=== PATIENT | male | born 1960 | race Caucasian/White ===

== ENCOUNTER 2016-07-21 13:35 | Outpatient (RCR) | payer BC ==
--- OUTSIDE RECORDS SUMMARY | 2016-04-28 09:35 | XMS REPORT | Continuity of Care Document ---
Author Author [facility] Organization [facility] Address Unknown Phone Unavailable Care Team Providers Care Automotive Service Professional Name Role Phone Tani Keenan PCP [phone] Source Comments Some departments are not documenting in the electronic medical record. If you do not see the information that you expected, contact Release of Information in the Health Information Management department at [phone] for further assistance in locating additional records.[facility] Active Allergies and Adverse Reactions No Known Allergies Current Medications Prescription Sig. Disp. Refills Start End Date Status Date potassium chloride SR Take 1 Tab by mouth daily 90 Cap 3 06/08/20 Active (K-DUR) 20 mEq tablet with breakfast. 12 cycloSPORINE (NEORAL) 25 Take by mouth twice Active mg cap daily. Take 75mg at noon and 50mg in the evening. metoprolol (LOPRESSOR) 25 Take 1 Tab by mouth twice 180 Tab 3 Active mg tablet daily. [address] Take 40 mg by mouth every Active (PROTONIX) 40 mg tablet 12 hours. albuterol (VENTOLIN HFA, Inhale 2 Puffs by mouth 3 Inhaler 11 Active PROAIR HFA) 90 every 6 hours as needed 14 mcg/actuation inhaler for Wheezing. acetaminophen (TYLENOL) Take 500 mg by mouth Active 500 mg tablet every 6 hours as needed for Pain. levalbuterol (XOPENEX) Inhale 0.63 mg solution Active 0.31 mg/3 mL nebulizer as directed three times solution daily as needed for Wheezing. predniSONE (DELTASONE) 5 Take 5 mg by mouth daily. Active mg tablet cefdinir (OMNICEF) 300 mg Take 300 mg by mouth Active capsule every 12 hours. umeclidinium-vilanterol Inhale 1 Puff by mouth 1 Each 11 03/24/20 Active (ANORO ELLIPTA) 62.5-25 into the lungs daily. 16 mcg/actuation dsdv enalapril (VASOTEC) 10 mg Take 10 mg by mouth twice Active tablet daily. rifAMPin (RIFADINE) 300 Take 1 Cap by mouth twice 60 Cap 11 04/09/20 Active mg capsule daily. Take on an empty 16 stomach at least 1 hour before or 2 hours after food. ethambutol (MYAMBUTOL) Take 2.5 Tabs by mouth 60 Tab 11 04/09/20 Active 400 mg tablet daily. [address] Take 1 Tab by mouth twice 60 Tab 11 04/10/20 Active (MYFORTIC) 360 mg TbEC daily. 16 tablet allopurinol (ZYLOPRIM) Take 1 Tab by mouth 90 Tab 3 04/10/20 Active 100 mg tablet daily. Take with food. 16 azithromycin (ZITHROMAX) TAKE 1 TABLET BY MOUTH 30 Tab 3 04/23/20 Active 250 mg tablet DAILY 16 allopurinol (ZYLOPRIM) Take 100 mg by mouth 04/07/20 Discontin 100 mg tablet daily. [address] TAKE 1 TABLET DAILY 30 Tab 11 04/07/20 04/07/20 Discontin (MYFORTIC) 180 mg TbEC 15 16 ued tablet azithromycin (ZITHROMAX) Take 1 tab by mouth 30 Tab 0 02/25/2004/18 Discontin 250 mg tablet daily. 16 16 ued ethambutol (MYAMBUTOL) Take 2 Tabs by mouth 60 Tab 11 02/25/2004/09 Discontin 100 mg tablet daily. Take with two 400 16 16 ued mg tablets for a total of 1000 mg daily. ethambutol (MYAMBUTOL) Take 2 Tabs by mouth 60 Tab 11 02/25/2004/09 Discontin 400 mg tablet daily. Take with two 100 16 16 ued mg tablets for a total of 1000 mg daily. azaTHIOprine (IMURAN) 50 Take 1.5 Tabs by mouth 90 Tab 3 04/07/20 Discontin mg tablet daily. 16 16 ued azithromycin (ZITHROMAX) Take 250 mg by mouth 04/23/20 Discontin 250 mg tablet daily. Take 2 tabs by 16 ued mouth on day 1, followed by 1 tab by mouth daily on days 2 - 5. mycophenolate DR Take 360 mg by mouth 04/10/20 Discontin (MYFORTIC) 360 mg TbEC twice daily. 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 Monitor Hospital-acquired pneumonia 08/20/2015 Acute tubular necrosis ([facility]) 08/20/2015 Adrenal insufficiency ([facility]) 04/30/2015 Hypomagnesemia 04/30/2015 Hyperuricemia 04/30/2015 Vitamin D deficiency 04/30/2015 Chronic lung disease 04/30/2015 Immunosuppression ([facility]) 04/30/2015 Pulmonary emphysema ([facility]) 07/12/2012 Chronic hypoxemic respiratory failure ([facility]) 05/24/2012 GRZEGORZ (acute kidney injury) ([facility]) 05/24/2012 History of renal transplant 05/23/2012 Overview: Tsp Synopsis: cadaveric kidney tsp 08-24-1991 from 15 yo female donor; CMV neg donor, donor positive. IGF with mild rejection 1st wk; SoluMed x 3. Disch creatinine 1.1 on 3-11. PRA 3%. Weight 130 lbs; height 68 in 05-23-12 tramsfer from [facility] where he presented for continued gradual generalized weakness associated with dry cough and diarrhea x 2-3 wks. Events started with initiation of Chantix to help stop smoking. One watery large volume stool daily; no GI bleeding by hx. Cough nonproductive accompanied by dyspnea on moderate exertion. Outside records: cratinine 3.6, Na 126, Ca 6.2, WBC 14.1, ALT 209, alk phos 209. CXR right midlung consolidation with central areas of lucency and possible cavitation. Pneumonia and rhabdomyolysis with GRZEGORZ. Worsening respiratory failure transferred to MICU. Thoracentesis 800 cc; broad spectrum antibiotic therapy. Single culture positive for acid fast bacilli from lung. Working dx SEMAJ due to chronic lung disease. Gradual improvement in renal dysfunction and breathing. 07-12-12: readmitted for worsening right lung infiltrate/consolidation/cavitation and increasing sputum production. Creatinine back to baseline 1.6 mg/dl. CXR perssitent RUL infiltrates with development of mild volume loss in RUL; resolutin of previous right basilar infiltrates. Sputum culture positive for acid fact bacilli and streptococcus with neg blood cultures. ID recommended 2 wk course Ertapenam; deferred treatment of SEMAJ. Previous sirolimus for lip cancer switched to cellcept 250 mg daily. Started on daily Prednisone for AM cortisol of 3.7 mcg/dl on 07-28-12. Resolved Problems Problem Noted Date Resolved Date Encounter for eye exam due to high risk medication 09/17/2015 04/11/2016 Last Assessment & Plan: Normal baseline exam today, no pertinent ocular findings Monitor for change Hyperkalemia 08/20/2015 04/11/2016 Severe sepsis (HCC) 08/12/2015 04/11/2016 Pneumonia 07/12/2012 04/11/2016 Sepsis(995.91) 05/24/2012 04/11/2016 Transaminasemia 05/24/2012 04/11/2016 Diarrhea 05/23/2012 04/11/2016 HTN (hypertension) 05/23/2012 03/10/2016 Most Recent Encounters Date Type Specialty Providers Description 04/22/2016 Telephone Transplant Surgery Christoph Ojeda RN s/p Kidney Transplant 04/18/2016 Refill Infectious Diseases Jigar Christian MD 04/15/2016 Orders Only Transplant Surgery Christoph Ojeda RN Proteinuria (Primary Dx); Kidney transplanted 04/10/2016 Telephone Transplant Surgery Fartun Parker LPN Medication Dose Change 04/10/2016 Refill Transplant Surgery Fartun Parker LPN 04/10/2016 Orders Only Transplant Surgery Fartun Parker LPN 04/09/2016 Office Visit Infectious Diseases Jigar Christian MD SEMAJ (mycobacterium avium-intracellulare) (HCC) (Primary Dx) 04/09/2016 Hospital Mari Braun APRN Kidney transplant status Encounter 04/09/2016 Office Visit Transplant Surgery Lianne Hughes MD Kidney replaced by Demetrius Villegas MD transplant (Primary Dx); Encounter for long-term (current) use of high-risk medication 04/09/2016 Documentation Transplant Surgery Mari Braun APRN 04/08/2016 Orders Only Transplant Surgery Brit Carrera RN Kidney replaced by transplant (Primary Dx) 04/07/2016 Telephone Transplant Surgery Katelyn Chris RN Medication Question 04/07/2016 Documentation Transplant Surgery Mari Braun APRN Immunosuppression (HCC) (Primary Dx) 03/28/2016 Orders Only Pulmonology Kip Godoy MD 03/24/2016 Office Visit Pulmonology Kip Godoy MD Chronic hypoxemic respiratory failure (HCC) (Primary Dx); Centrilobular emphysema (HCC); Cavitary lung disease; SEMAJ (mycobacterium avium-intracellulare) (HCC) 03/24/2016 Office Visit Infectious Diseases Jigar Christian MD Chronic hypoxemic respiratory failure (HCC) (Primary Dx); History of renal transplant; SEMAJ (mycobacterium avium-intracellulare) (HCC); Hospital-acquired pneumonia 03/18/2016 Telephone Infectious Diseases Jigar Christian MD Outpatient Antibiotic Therapy ([facility]) 03/12/2016 Telephone Transplant Surgery Katelyn Chris RN Follow-up Phone Call 03/11/2016 Telephone Transplant Surgery Fartun Parker LPN Follow- up Phone Call 03/10/2016 [facility] Mari Braun APRN Kidney transplant status Encounter 03/10/2016 [facility] Radiology Jigar Christian MD Encounter 03/10/2016 [facility] Jigar Christian MD Pulmonary mycobacterial Encounter infection 03/10/2016 Office Visit Infectious Diseases Jigar Christian MD Mycobacterium avium-intracellulare infection (HCC) (Primary Dx); Chills; Leukocytosis, unspecified type 03/10/2016 Office Visit Transplant Surgery Lianne Hughes MD Encounter for long-term Mari Braun APRN (current) use of high-risk medication (Primary Dx); Kidney transplanted; SEMAJ (mycobacterium avium-intracellulare) (HCC); Immunosuppression (HCC); History of renal transplant; Adrenal insufficiency (HCC); Hypomagnesemia; Cavitary lung disease 03/10/2016 [facility] Mari Braun APRN 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) Encounter drug therapy 02/29/2016 Telephone Transplant Surgery Katelyn Chris RN Follow-up Phone Call 02/26/2016 Orders Only Transplant Surgery Mari Braun APRN SEMAJ ( mycobacterium avium-intracellulare) (HCC) (Primary Dx) 02/26/2016 Documentation Transplant Surgery Mari Braun APRN 02/26/2016 Orders Only Infectious Diseases Jigar Christian MD 02/25/2016 Refill Infectious Diseases Jigar Christian MD 02/06/2016 Hospital Jigar Christian MD Pulmonary mycobacterial Encounter infection 02/06/2016 Office Visit Infectious Diseases Jigar Christian MD SEMAJ (mycobacterium avium-intracellulare) (HCC) (Primary Dx); Long-term use of high-risk medication Social History Tobacco Use Types Packs/Day Years Used Date Former Smoker Cigarettes 07 28 Quit: 05/01/2012 Smokeless Tobacco: Never Used Tobacco Cessation: Counseling Given: No Comments: Alcohol Use Drinks/Week oz/Week Comments No Last Filed Vital Signs Vital Sign Reading Time Taken Blood Pressure 124/66 04/09/2016 11:01 AM CDT Pulse 88 04/09/2016 11:01 AM CDT Temperature 36.4 C (97.5 F) 04/09/2016 11:01 AM CDT Respiratory Rate 20 04/09/2016 11:01 AM CDT Height 1.765 m (5' 9.5") 04/09/2016 11:01 AM CDT Weight 70.67 kg (155 lb 12.8 oz) 04/09/2016 11:01 AM CDT Body Mass Index 22.69 04/09/2016 11:01 AM CDT Oxygen Saturation 98% 04/09/2016 10:00 AM CDT Plan of Care Date Type Specialty Providers Description 05/28/2016 Appointment Transplant Surgery 05/28/2016 Appointment Infectious Diseases Jigar Christian MD [address] [facility] [address] [place] [address] [phone] (Fax) Health Maintenance Due Date Last Done Comments Physical (Comprehensive) 1965 Exam Pertussis Vaccine 1969 Tetanus Vaccine 1975 Colorectal Cancer 2008 Screening Influenza Vaccine 02/28/2016 Hepatitis C Screening Completed 05/24/2012 Results from Last 3 Months UA REFLEX CULTURE LABEL (04/09/2016 9:54 AM) Component Value Range UA Reflex Culture LAB LABEL URINALYSIS MICROSCOPIC REFLEX TO CULTURE (04/09/2016 9:54 AM)Only the most recent of 2 results within the time period is included. Component Value Range WBCs,UA 0-2 0-2 /HPF RBCs,UA 0-2 0-3 /HPF Comment,UA Urine submitted for reflex culture if criteria are met:WBC>10, positive nitrite and/or positive leukocyte esterase. If quantity is not sufficient, an addendum will follow. MucousUA TRACE Specimen Urine URINALYSIS DIPSTICK REFLEX TO CULTURE (04/09/2016 9:54 AM)Only the most recent of 2 results within the time period is included. Component Value Range Color,UA YELLOW Turbidity,UA CLEAR CLEAR-CLEAR Specific [place]-Urine 1.010 1.003-1.035 pH,UA 6.0 5.0-8.0 Protein,UA 2+ (A) NEG-NEG Glucose,UA NEG NEG-NEG Ketones,UA NEG NEG-NEG Bilirubin,UA NEG NEG-NEG Blood,UA 1+ (A) NEG-NEG Urobilinogen,UA NORMAL NORM-NORMAL Nitrite,UA NEG NEG-NEG Leukocytes,UA NEG NEG-NEG Urine Ascorbic Acid, UA NEG NEG-NEG Specimen Urine CYCLOSPORINE TROUGH (04/09/2016 9:53 AM)Only the most recent of 4 results within the time period is included. Component Value Range Cyclosporine 63 NG/ML Specimen Blood URIC ACID (04/09/2016 9:53 AM)Only the most recent of 2 results within the time period is included. Component Value Range Uric Acid 9.6 (H) 4.0-8.0 MG/DL Specimen Blood PHOSPHORUS (04/09/2016 9:53 AM)Only the most recent of 3 results within the time period is included. Component Value Range Phosphorus 4.8 (H) 2.0-4.0 MG/DL Specimen Blood MAGNESIUM (04/09/2016 9:53 AM)Only the most recent of 3 results within the time period is included. Component Value Range Magnesium 1.5 (L) 1.6-2.6 MG/DL Specimen Blood GGTP (04/09/2016 9:53 AM)Only the most recent of 3 results within the time period is included. Component Value Range GGTP 34 9-64 U/L Specimen Blood CREATINE KINASE-CPK (04/09/2016 9:53 AM)Only the most recent of 2 results within the time period is included. Component Value Range Creatine Kinase 37 35-232 U/L Specimen Blood COMPREHENSIVE METABOLIC PANEL (04/09/2016 9:53 AM)Only the most recent of 4 results within the time period is included. Component Value Range Sodium 134 (L) 137-147 MMOL/L Potassium 5.0 3.5-5.1 MMOL/L Chloride 101 98-110 MMOL/L Glucose 96 70-100 MG/DL Blood Urea Nitrogen 28 (H) 7-25 MG/DL Creatinine 2.13 (H) 0.4-1.24 MG/DL Calcium 10.2 8.5-10.6 MG/DL Total Protein 8.1 (H) 6.0-8.0 G/DL Total Bilirubin 0.3 0.3-1.2 MG/DL Albumin 3.6 3.5-5.0 G/DL Alk Phosphatase 91 25-110 U/L AST (SGOT) 11 7-40 U/L CO2 26 21-30 MMOL/L ALT (SGPT) 17 7-56 U/L Anion Gap 7 3-12 eGFR Non 32 (L)Comment: >60 mL/min The eGFR is not validated for use in drug dosing adjustments. Continue to use estimated creatinine clearance per dosing reference text. Please contact the Clinical Pharmacist for questions. eGFR 39 (L)Comment: >60 mL/min The eGFR is not validated for use in drug dosing adjustments. Continue to use estimated creatinine clearance per dosing reference text. Please contact the Clinical Pharmacist for questions. Specimen Blood CHOLESTEROL (04/09/2016 9:53 AM)Only the most recent of 2 results within the time period is included. Component Value Range Cholesterol 198 <200 MG/DL Specimen Blood CBC AND DIFF (04/09/2016 9:53 AM)Only the most recent of 4 results within the time period is included. Component Value Range White Blood Cells 9.5 4.5-11.0 K/UL RBC 3.80 (L) 4.4-5.5 M/UL Hemoglobin 9.7 (L) 13.5-16.5 GM/DL Hematocrit 30.8 (L) 40-50 % MCV 81.1 80-100 FL MCH 25.5 (L) 26-34 PG MCHC 31.4 (L) 32.0-36.0 G/DL RDW 16.9 (H) 11-15 % Platelet Count 369 150-400 K/UL MPV 7.8 7-11 FL Neutrophils 73 41-77 % Lymphocytes 14 (L) 24-44 % Monocytes 9 4-12 % Eosinophils 3 0-5 % Basophils 1 0-2 % Absolute Neutrophil Count 6.90 1.8-7.0 K/UL Absolute Lymph Count 1.30 1.0-4.8 K/UL Absolute Monocyte Count 0.90 (H) 0-0.80 K/UL Absolute Eosinophil Count 0.30 0-0.45 K/UL Absolute Basophil Count 0.10 0-0.20 K/UL Specimen Blood THIOPURINE METHYLTRANSFERASE RBC (04/09/2016 9:53 AM)Only the most recent of 2 results within the time period is included. Component Value Range Thiopurine S-Methyl 40.2Comment: (TPMT) Reference range: 24.0 to 44.0 Unit: U/mL INTERPRETIVE INFORMATION: Thiopurine Methyltransferase, RBC Normal TPMT activity: 24.0-44.0 U/mL................Individuals are predicted to be at low risk of bone marrow toxicity (myelosuppression) as a consequence of standard thiopurine therapy; no dose adjustment is recommended. Intermediate TPMT activity: 17.0-23.9 U/mL................Individuals are predicted to be at intermediate risk of bone marrow toxicity (myelosuppression) as a consequence of standard thiopurine therapy; a dose reduction and therapeutic drug management is recommended. Low TPMT activity: less than 17.0 U/mL...........Individuals are predicted to be at high risk of bone marrow toxicity (myelosuppression) as a consequence of standard thiopurine dosing. It is recommended to avoid the use of thiopurine drugs. High TPMT activity: greater than 44.0 U/mL........Individuals are not predicted to be at risk for bone marrow toxicity (myelosuppression) as a consequence of standard thiopurine dosing, but may be at risk for therapeutic failure due to excessive inactivation of thiopurine drugs. Individuals may require higher than the normal standard dose. Therapeutic drug management is recommended. The TPMT, RBC assay is used as a screen to detect individuals with low and intermediate TPMT activity who may be at risk for myelosuppression when exposed to standard doses of thiopurines, including azathioprine (Imuran) and 6-mercaptopurine (Purinethol). TPMT is the primary metabolic route for inactivation of thiopurine drugs in the bone marrow. When TPMT activity is low, it is predicted that proportionately more 6-mercaptopurine can be converted into the cytotoxic 6-thioguanine nucleotides that accumulate in the bone marrow causing excessive toxicity. The activity of TPMT is measured by the nanomoles of 6-methylmercaptopurine (inactive metabolite) produced per 1 mL of packed red blood cells, (U/mL). TPMT phenotype testing does not replace the need for clinical monitoring of patients treated with thiopurine drugs. Genotype for TPMT cannot be inferred from TPMT activity (phenotype). Phenotype testing should not be requested for patients currently treated with thiopurine drugs. Current TPMT phenotype may not reflect future TPMT phenotype, particularly in patients who received blood transfusion within 30-60 days of testing. TPMT enzyme activity can be inhibited by several drugs such as: naproxen (Aleve), ibuprofen (Advil, Motrin), ketoprofen (Orudis), furosemide (Lasix), sulfasalazine (Azulfidine), mesalamine (Asacol), olsalazine (Dipentum), mefenamic acid (Ponstel), thiazide diuretics, and benzoic acid inhibitors. TPMT inhibitors may contribute to falsely low results; patients should abstain from these drugs for at least 48 hours prior to TPMT testing. Falsely low results may also occur as a result of inappropriate specimen handling and hemolysis. Test developed and characteristics determined by [facility]. See Compliance Statement B: [email or web address] Performed by [facility], [address] [place] [id number] [email or web address], Gilmar Key MD, Lab. Director Specimen Blood ECG 12-LEAD (03/24/2016)CULTURE-BLOOD W/SENSITIVITY (03/10/2016 3:20 PM)Only the most recent of 2 results within the time period is included. Component Value Range Battery Name BLOOD CULTURE Specimen Description BLOOD LAC Special Requests NONE Culture NO GROWTH 5 DAYS Report Status FINAL 03/16/2016 Specimen Blood LACTIC ACID(LACTATE) (03/10/2016 3:03 PM) Component Value Range Lactic Acid 1.0 0.5-2.0 MMOL/L Specimen Blood CHEST 2 VIEWS (03/10/2016 2:41 PM) Impressions Redemonstration of significant emphysematous changes and scattered areas of scarring. Interval development of opacification within the right upper and lower lobe, concerning for focal pneumonia. Approved by Christopher Landry M.D. on 03/10/2016 4:28 PM By my electronic signature, I attest that I have personally reviewed the images for this examination and formulated the interpretations and opinions expressed in this report Finalized by Omi Blank M.D. on 03/10/2016 4:38 PM. Dictated by Christopher Landry M.D. on 03/10/2016 4:05 PM. Narrative CHEST 2 VIEWS History:Male, 55 years old.Chills, sweats and cough, MAC cavitary disease. Comparison: December 24, 2015 Findings: Heart size and pulmonary vasculature are within normal limits. Redemonstration of significant emphysematous changes and scattered areas of scarring. There is been interval development of a right upper lobe and right lower lobe consolidation, concerning for focal pneumonia. No pneumothoraces or pleural effusions are identified. Procedure Note Interface, Radiant Results - ThuMar 10, 2016 4:42 PM CDT CHEST 2 VIEWS History: Male, 55 years old. Chills, sweats and cough, MAC cavitary disease. Comparison: December 24, 2015 Findings: Heart size and pulmonary vasculature are within normal limits. Redemonstration of significant emphysematous changes and scattered areas of scarring. There is been interval development of a right upper lobe and right lower lobe consolidation, concerning for focal pneumonia. No pneumothoraces or pleural effusions are identified. IMPRESSION Redemonstration of significant emphysematous changes and scattered areas of scarring. Interval development of opacification within the right upper and lower lobe, concerning for focal pneumonia. Approved by Christopher Landry M.D. on 03/10/2016 4:28 PM By my electronic signature, I attest that I have personally reviewed the images for this examination and formulated the interpretations and opinions expressed in this report Finalized by Omi Blank M.D. on 03/10/2016 4:38 PM. Dictated by Christopher Landry M.D. on 03/10/2016 4:05 PM. RVP VIRAL PANEL PCR (03/10/2016 2:05 PM) Component Value Range Specimen Source NASAL WASH Adenovirus NOT DETECTED Coronavirus 229E NOT DETECTED Coronavirus HKU1 NOT DETECTED Coronavirus NL63 NOT DETECTED Coronavirus OC43 NOT DETECTED Human Metapneumovirus NOT DETECTED Human NOT DETECTED Rhinovirus/ENTEROVIRUS Influenza A H1N1 2009 NOT DETECTED Influenza A H1 NOT DETECTED Influenza A H3 NOT DETECTED Influenza B NOT DETECTED Parainfluenza 1 NOT DETECTED Parainfluenza 2 NOT DETECTED Parainfluenza 3 NOT DETECTED Parainfluenza 4 NOT DETECTED RSV NOT DETECTED Bordetella Pertussis NOT DETECTED Chlamydophila Pneumoniae NOT DETECTED Mycoplasma Pneumoniae NOT DETECTED URINALYSIS DIPSTICK (03/10/2016 11:03 AM) Component Value Range Color,UA YELLOW Turbidity,UA CLEAR CLEAR-CLEAR Specific [place]-Urine 1.014 1.003-1.035 pH,UA 5.0 5.0-8.0 Protein,UA 2+ (A) NEG-NEG Glucose,UA NEG NEG-NEG Ketones,UA NEG NEG-NEG Bilirubin,UA NEG NEG-NEG Blood,UA 1+ (A) NEG-NEG Urobilinogen,UA NORMAL NORM-NORMAL Nitrite,UA NEG NEG-NEG Leukocytes,UA NEG NEG-NEG Urine Ascorbic Acid, UA NEG NEG-NEG Specimen Urine PROTEIN/CR RATIO,UR RAN (03/10/2016 11:03 AM) Component Value Range Protein, Random 148 MG/DL Creatinine, Random 169 MG/DL Protein/CR ratio 0.9 Specimen Urine CMV QUANT PCR-BLOOD (03/10/2016 11:03 AM) Component Value Range CMV DNA Quant PCR Negative for CMV CMV Comment-Blood This assay uses analyte specific reagents to detect CMV DNA in plasma or fluid. It has not been cleared or approved by the [place] Food and Drug Administration. The performance characteristics were determined by the [facility]. Results should be correlated with clinical findings. Specimen Blood BK VIRUS DNA, QUANT PLASMA (03/10/2016 11:03 AM) Component Value Range BK Virus Plasma Quant Negative for BK Virus BK Virus Plasma Comment This assay uses analyte specific reagents to detect BK viral DNA in plasma or urine and has not been approved by the [place] Food and Drug Administration. Results should be correlated with the clinical findings. The performance characteristics were established by the [facility] Laboratory, Dept of Pathology, [address] [place] [address]. Call [phone] for assistance. Specimen Blood [place] ELECTROCARDIOGRAM, COMPLETE (02/06/2016)
[2016-04-28 09:54] LABS: BASOPHILS # (AUTO) 0.1 10^3/uL (0.0-0.1); BASOPHILS % (AUTO) 1 % (0-10); EOSINOPHILS # (AUTO) 0.6 10^3/uL (0.0-0.3); EOSINOPHILS % (AUTO) 9 % (0-10); LYMPHOCYTES # (AUTO) 0.8 X 10^3 (1.0-4.0); LYMPHOCYTES % (AUTO) 13 % (12-44); MEAN CORPUSCULAR HEMOGLOBIN 26 PG (25-34); MEAN CORPUSCULAR HGB CONC 31 G/DL (32-36); MEAN CORPUSCULAR VOLUME 86 FL (80-99); MEAN PLATELET VOLUME 9.5 FL (7.4-10.4); MONOCYTES # (AUTO) 0.7 X 10^3 (0.0-1.0); MONOCYTES % (AUTO) 11 % (0-12); NEUTROPHILS # (AUTO) 4.1 X 10^3 (1.8-7.8); NEUTROPHILS % (AUTO) 66 % (42-75); PLATELET COUNT 407 10^3/uL (130-400); RED BLOOD COUNT 3.31 10^6/uL (4.35-5.85); RED CELL DISTRIBUTION WIDTH 15.7 % (10.0-14.5); WHITE BLOOD COUNT 6.2 10^3/uL (4.3-11.0)
[2016-04-28 10:09] LABS: BILIRUBIN,URINE NEGATIVE (NEGATIVE); KETONES,URINE NEGATIVE (NEGATIVE); LEUKOCYTE ESTERASE ,URINE NEGATIVE (NEGATIVE); NITRITE,URINE NEGATIVE (NEGATIVE); PH,URINE 5 (5-9); PROTEIN,URINE 2+ (NEGATIVE); UROBILINOGEN,URINE NORMAL (NORMAL)
[2016-04-28 10:17] LABS: ALBUMIN 3.7 G/DL (3.2-4.5); BILIRUBIN,TOTAL 0.2 MG/DL (0.1-1.0); CALCIUM 10.5 MG/DL (8.5-10.1); CREATININE SERUM 4.18 MG/DL (0.60-1.30); MAGNESIUM 1.7 MG/DL (1.8-2.4); PHOSPHORUS 5.7 MG/DL (2.3-4.7); POTASSIUM 5.6 MMOL/L (3.6-5.0); TOTAL PROTEIN 8.2 G/DL (6.4-8.2); URIC ACID 8.5 MG/DL (2.6-7.2)
[2016-04-28 10:20] LABS: WBC,URINE RARE /HPF
[2016-04-29 07:04] LABS: GAMMA GLUTAMYL TRANSFER (GGT) 41 U/L (0-65)
[2016-04-29 07:28] LABS: CYCLO TROUGH 52 NG/ML
[2016-05-05 09:40] LABS: BASOPHILS % (AUTO) 0 % (0-10); EOSINOPHILS # (AUTO) 0.3 10^3/uL (0.0-0.3); EOSINOPHILS % (AUTO) 4 % (0-10); LYMPHOCYTES # (AUTO) 0.8 X 10^3 (1.0-4.0); LYMPHOCYTES % (AUTO) 13 % (12-44); MEAN CORPUSCULAR HEMOGLOBIN 27 PG (25-34); MEAN CORPUSCULAR HGB CONC 31 G/DL (32-36); MEAN CORPUSCULAR VOLUME 87 FL (80-99); MEAN PLATELET VOLUME 9.5 FL (7.4-10.4); MONOCYTES # (AUTO) 0.5 X 10^3 (0.0-1.0); MONOCYTES % (AUTO) 7 % (0-12); NEUTROPHILS # (AUTO) 4.6 X 10^3 (1.8-7.8); NEUTROPHILS % (AUTO) 75 % (42-75); PLATELET COUNT 333 10^3/uL (130-400); RED BLOOD COUNT 3.42 10^6/uL (4.35-5.85); RED CELL DISTRIBUTION WIDTH 15.7 % (10.0-14.5); WHITE BLOOD COUNT 6.1 10^3/uL (4.3-11.0)
[2016-05-05 09:50] LABS: BILIRUBIN,URINE NEGATIVE (NEGATIVE); KETONES,URINE NEGATIVE (NEGATIVE); LEUKOCYTE ESTERASE ,URINE 1+ (NEGATIVE); NITRITE,URINE NEGATIVE (NEGATIVE); PH,URINE 5 (5-9); PROTEIN,URINE 2+ (NEGATIVE); UROBILINOGEN,URINE NORMAL (NORMAL)
[2016-05-05 10:00] LABS: HYALINE CASTS, URINE 0-2 /LPF; WBC,URINE RARE /HPF
[2016-05-05 10:01] LABS: ALBUMIN 3.7 G/DL (3.2-4.5); BILIRUBIN,TOTAL 0.2 MG/DL (0.1-1.0); CALCIUM 10.2 MG/DL (8.5-10.1); CREATININE SERUM 2.82 MG/DL (0.60-1.30); MAGNESIUM 1.7 MG/DL (1.8-2.4); PHOSPHORUS 4.5 MG/DL (2.3-4.7); POTASSIUM 5.4 MMOL/L (3.6-5.0); TOTAL PROTEIN 8.1 G/DL (6.4-8.2); URIC ACID 7.1 MG/DL (2.6-7.2)
[2016-05-06 07:30] LABS: CYCLO TROUGH 59 ng/mL; GAMMA GLUTAMYL TRANSFER (GGT) 35 U/L (0-65)
[2016-05-13 10:58] LABS: BASOPHILS % (AUTO) 0 % (0-10); EOSINOPHILS # (AUTO) 0.3 10^3/uL (0.0-0.3); EOSINOPHILS % (AUTO) 3 % (0-10); LYMPHOCYTES # (AUTO) 1.1 X 10^3 (1.0-4.0); LYMPHOCYTES % (AUTO) 12 % (12-44); MEAN CORPUSCULAR HEMOGLOBIN 26 PG (25-34); MEAN CORPUSCULAR HGB CONC 30 G/DL (32-36); MEAN CORPUSCULAR VOLUME 88 FL (80-99); MONOCYTES # (AUTO) 0.8 X 10^3 (0.0-1.0); MONOCYTES % (AUTO) 10 % (0-12); NEUTROPHILS # (AUTO) 6.4 X 10^3 (1.8-7.8); NEUTROPHILS % (AUTO) 74 % (42-75); PLATELET COUNT 330 10^3/uL (130-400); RED CELL DISTRIBUTION WIDTH 15.5 % (10.0-14.5); WHITE BLOOD COUNT 8.6 10^3/uL (4.3-11.0)
[2016-05-13 11:03] LABS: BILIRUBIN,URINE NEGATIVE (NEGATIVE); KETONES,URINE NEGATIVE (NEGATIVE); LEUKOCYTE ESTERASE ,URINE 1+ (NEGATIVE); NITRITE,URINE NEGATIVE (NEGATIVE); PH,URINE 5 (5-9); PROTEIN,URINE 2+ (NEGATIVE); UROBILINOGEN,URINE NORMAL (NORMAL)
[2016-05-13 11:21] LABS: ALANINE AMINOTRANSFERASE < 6 U/L (0-55); ALBUMIN 3.7 G/DL (3.2-4.5); ANION GAP 8 MMOL/L (5-14); ASPARTATE AMINO TRANSFERASE 8 U/L (5-34); BILIRUBIN,TOTAL 0.2 MG/DL (0.1-1.0); BLOOD UREA NITROGEN 24 MG/DL (7-18); BUN/CREATININE RATIO 13; CALCIUM 9.9 MG/DL (8.5-10.1); CARBON DIOXIDE 21 MMOL/L (21-32); CHLORIDE 104 MMOL/L (98-107); CHOLESTEROL 170 MG/DL (< 200); CREATINE KINASE 17 U/L (30-200); CREATININE SERUM 1.87 MG/DL (0.60-1.30); GFR ESTIMATED 37; GLUCOSE 120 MG/DL (70-105); MAGNESIUM 1.3 MG/DL (1.8-2.4); POTASSIUM 4.4 MMOL/L (3.6-5.0); SODIUM 133 MMOL/L (135-145); TOTAL PROTEIN 7.8 G/DL (6.4-8.2); URIC ACID 7.6 MG/DL (2.6-7.2)
[2016-05-13 11:24] LABS: SQUAMOUS EPITHELIAL CELL,UR RARE /HPF; WBC,URINE 0-2 /HPF
[2016-05-13 11:25] LABS: WHITE BLOOD CELL CASTS, URINE RARE /LPF
[2016-05-14 07:59] LABS: CYCLO TROUGH 72 ng/mL; GAMMA GLUTAMYL TRANSFER (GGT) 25 U/L (0-65)
[2016-05-19 11:04] LABS: BASOPHILS % (AUTO) 0 % (0-10); EOSINOPHILS # (AUTO) 0.3 10^3/uL (0.0-0.3); EOSINOPHILS % (AUTO) 3 % (0-10); LYMPHOCYTES # (AUTO) 0.9 X 10^3 (1.0-4.0); LYMPHOCYTES % (AUTO) 9 % (12-44); MEAN CORPUSCULAR HEMOGLOBIN 26 PG (25-34); MEAN CORPUSCULAR HGB CONC 29 G/DL (32-36); MEAN CORPUSCULAR VOLUME 91 FL (80-99); MEAN PLATELET VOLUME 9.3 FL (7.4-10.4); MONOCYTES # (AUTO) 0.9 X 10^3 (0.0-1.0); MONOCYTES % (AUTO) 8 % (0-12); NEUTROPHILS # (AUTO) 8.4 X 10^3 (1.8-7.8); NEUTROPHILS % (AUTO) 80 % (42-75); PLATELET COUNT 350 10^3/uL (130-400); RED BLOOD COUNT 3.33 10^6/uL (4.35-5.85); RED CELL DISTRIBUTION WIDTH 16.1 % (10.0-14.5); WHITE BLOOD COUNT 10.5 10^3/uL (4.3-11.0)
[2016-05-19 11:04] LABS: BILIRUBIN,URINE NEGATIVE (NEGATIVE); KETONES,URINE NEGATIVE (NEGATIVE); LEUKOCYTE ESTERASE ,URINE NEGATIVE (NEGATIVE); NITRITE,URINE NEGATIVE (NEGATIVE); PH,URINE 5 (5-9); PROTEIN,URINE 2+ (NEGATIVE); UROBILINOGEN,URINE NORMAL (NORMAL)
[2016-05-19 11:25] LABS: ALBUMIN 3.6 G/DL (3.2-4.5); BILIRUBIN,TOTAL 0.2 MG/DL (0.1-1.0); CALCIUM 9.6 MG/DL (8.5-10.1); CREATININE SERUM 1.78 MG/DL (0.60-1.30); MAGNESIUM 1.5 MG/DL (1.8-2.4); POTASSIUM 4.7 MMOL/L (3.6-5.0); TOTAL PROTEIN 7.2 G/DL (6.4-8.2); URIC ACID 7.2 MG/DL (2.6-7.2)
[2016-05-20 08:48] LABS: GAMMA GLUTAMYL TRANSFER (GGT) 23 U/L (0-65)
[2016-05-20 08:49] LABS: CYCLO TROUGH 77 ng/mL
[2016-06-02 12:44] LABS: BASOPHILS % (AUTO) 0 % (0-10); EOSINOPHILS # (AUTO) 0.2 10^3/uL (0.0-0.3); EOSINOPHILS % (AUTO) 3 % (0-10); LYMPHOCYTES # (AUTO) 0.8 X 10^3 (1.0-4.0); LYMPHOCYTES % (AUTO) 10 % (12-44); MEAN CORPUSCULAR HEMOGLOBIN 27 PG (25-34); MEAN CORPUSCULAR HGB CONC 29 G/DL (32-36); MEAN CORPUSCULAR VOLUME 93 FL (80-99); MEAN PLATELET VOLUME 9.4 FL (7.4-10.4); MONOCYTES # (AUTO) 0.7 X 10^3 (0.0-1.0); MONOCYTES % (AUTO) 9 % (0-12); NEUTROPHILS # (AUTO) 6.2 X 10^3 (1.8-7.8); NEUTROPHILS % (AUTO) 78 % (42-75); PLATELET COUNT 264 10^3/uL (130-400); RED BLOOD COUNT 3.27 10^6/uL (4.35-5.85); RED CELL DISTRIBUTION WIDTH 16.8 % (10.0-14.5); WHITE BLOOD COUNT 7.9 10^3/uL (4.3-11.0)
[2016-06-02 12:47] LABS: BILIRUBIN,URINE NEGATIVE (NEGATIVE); KETONES,URINE NEGATIVE (NEGATIVE); LEUKOCYTE ESTERASE ,URINE NEGATIVE (NEGATIVE); NITRITE,URINE NEGATIVE (NEGATIVE); PH,URINE 5 (5-9); PROTEIN,URINE 3+ (NEGATIVE); UROBILINOGEN,URINE NORMAL (NORMAL)
[2016-06-02 13:08] LABS: ALBUMIN 3.5 G/DL (3.2-4.5); BILIRUBIN,TOTAL 0.2 MG/DL (0.1-1.0); CALCIUM 9.4 MG/DL (8.5-10.1); CREATININE SERUM 1.56 MG/DL (0.60-1.30); MAGNESIUM 1.4 MG/DL (1.8-2.4); PHOSPHORUS 3.6 MG/DL (2.3-4.7); POTASSIUM 3.9 MMOL/L (3.6-5.0); TOTAL PROTEIN 6.8 G/DL (6.4-8.2); URIC ACID 7.5 MG/DL (2.6-7.2)
[2016-06-02 13:08] LABS: SQUAMOUS EPITHELIAL CELL,UR 0-2 /HPF; WBC,URINE 0-2 /HPF
[2016-06-03 07:58] LABS: CYCLOSPORINE LEVEL 44 ng/mL; GAMMA GLUTAMYL TRANSFER (GGT) 17 U/L (0-65)
[2016-06-09 12:43] LABS: BASOPHILS % (AUTO) 0 % (0-10); EOSINOPHILS # (AUTO) 0.2 10^3/uL (0.0-0.3); EOSINOPHILS % (AUTO) 3 % (0-10); LYMPHOCYTES # (AUTO) 1.1 X 10^3 (1.0-4.0); LYMPHOCYTES % (AUTO) 14 % (12-44); MEAN CORPUSCULAR HEMOGLOBIN 28 PG (25-34); MEAN CORPUSCULAR HGB CONC 29 G/DL (32-36); MEAN CORPUSCULAR VOLUME 96 FL (80-99); MEAN PLATELET VOLUME 9.5 FL (7.4-10.4); MONOCYTES # (AUTO) 0.7 X 10^3 (0.0-1.0); MONOCYTES % (AUTO) 9 % (0-12); NEUTROPHILS # (AUTO) 5.7 X 10^3 (1.8-7.8); NEUTROPHILS % (AUTO) 73 % (42-75); PLATELET COUNT 279 10^3/uL (130-400); RED BLOOD COUNT 3.35 10^6/uL (4.35-5.85); RED CELL DISTRIBUTION WIDTH 16.3 % (10.0-14.5); WHITE BLOOD COUNT 7.7 10^3/uL (4.3-11.0)
[2016-06-09 12:43] LABS: BILIRUBIN,URINE NEGATIVE (NEGATIVE); KETONES,URINE NEGATIVE (NEGATIVE); LEUKOCYTE ESTERASE ,URINE NEGATIVE (NEGATIVE); NITRITE,URINE NEGATIVE (NEGATIVE); PH,URINE 5 (5-9); PROTEIN,URINE 3+ (NEGATIVE); UROBILINOGEN,URINE NORMAL (NORMAL)
[2016-06-09 13:00] LABS: ALBUMIN 3.6 G/DL (3.2-4.5); BILIRUBIN,TOTAL 0.3 MG/DL (0.1-1.0); CALCIUM 9.5 MG/DL (8.5-10.1); CREATININE SERUM 1.62 MG/DL (0.60-1.30); MAGNESIUM 1.5 MG/DL (1.8-2.4); PHOSPHORUS 2.8 MG/DL (2.3-4.7); POTASSIUM 4.1 MMOL/L (3.6-5.0); TOTAL PROTEIN 6.8 G/DL (6.4-8.2)
[2016-06-10 07:57] LABS: GAMMA GLUTAMYL TRANSFER (GGT) 19 U/L (0-65)
[2016-06-11 06:35] LABS: CYCLOSPORINE LEVEL 69 ng/mL
[2016-06-24 11:00] LABS: BASOPHILS % (AUTO) 0 % (0-10); EOSINOPHILS # (AUTO) 0.2 10^3/uL (0.0-0.3); EOSINOPHILS % (AUTO) 3 % (0-10); LYMPHOCYTES # (AUTO) 1.1 X 10^3 (1.0-4.0); LYMPHOCYTES % (AUTO) 16 % (12-44); MEAN CORPUSCULAR HEMOGLOBIN 27 PG (25-34); MEAN CORPUSCULAR HGB CONC 29 G/DL (32-36); MEAN CORPUSCULAR VOLUME 94 FL (80-99); MEAN PLATELET VOLUME 9.3 FL (7.4-10.4); MONOCYTES # (AUTO) 0.8 X 10^3 (0.0-1.0); MONOCYTES % (AUTO) 11 % (0-12); NEUTROPHILS % (AUTO) 70 % (42-75); PLATELET COUNT 310 10^3/uL (130-400); RED BLOOD COUNT 3.48 10^6/uL (4.35-5.85); RED CELL DISTRIBUTION WIDTH 15.1 % (10.0-14.5); WHITE BLOOD COUNT 7.2 10^3/uL (4.3-11.0)
[2016-06-24 11:01] LABS: BILIRUBIN,URINE NEGATIVE (NEGATIVE); KETONES,URINE NEGATIVE (NEGATIVE); LEUKOCYTE ESTERASE ,URINE NEGATIVE (NEGATIVE); NITRITE,URINE NEGATIVE (NEGATIVE); PH,URINE 5 (5-9); PROTEIN,URINE 3+ (NEGATIVE); UROBILINOGEN,URINE NORMAL (NORMAL)
[2016-06-24 11:25] LABS: ALBUMIN 3.5 G/DL (3.2-4.5); BILIRUBIN,TOTAL 0.2 MG/DL (0.1-1.0); CALCIUM 9.2 MG/DL (8.5-10.1); CREATININE SERUM 1.84 MG/DL (0.60-1.30); MAGNESIUM 1.9 MG/DL (1.8-2.4); PHOSPHORUS 4.1 MG/DL (2.3-4.7); POTASSIUM 4.4 MMOL/L (3.6-5.0); TOTAL PROTEIN 7.1 G/DL (6.4-8.2); URIC ACID 8.2 MG/DL (2.6-7.2)
[2016-06-25 06:17] LABS: GAMMA GLUTAMYL TRANSFER (GGT) 24 U/L (0-65)
[2016-06-25 06:23] LABS: CYCLO TROUGH 125 ng/mL
[2016-06-30 13:47] LABS: BASOPHILS % (AUTO) 0 % (0-10); EOSINOPHILS # (AUTO) 0.3 10^3/uL (0.0-0.3); EOSINOPHILS % (AUTO) 4 % (0-10); LYMPHOCYTES # (AUTO) 1.1 X 10^3 (1.0-4.0); LYMPHOCYTES % (AUTO) 13 % (12-44); MEAN CORPUSCULAR HEMOGLOBIN 28 PG (25-34); MEAN CORPUSCULAR HGB CONC 29 G/DL (32-36); MEAN CORPUSCULAR VOLUME 94 FL (80-99); MEAN PLATELET VOLUME 9.4 FL (7.4-10.4); MONOCYTES # (AUTO) 0.9 X 10^3 (0.0-1.0); MONOCYTES % (AUTO) 11 % (0-12); NEUTROPHILS # (AUTO) 5.8 X 10^3 (1.8-7.8); NEUTROPHILS % (AUTO) 72 % (42-75); PLATELET COUNT 272 10^3/uL (130-400); RED BLOOD COUNT 3.53 10^6/uL (4.35-5.85); RED CELL DISTRIBUTION WIDTH 15.1 % (10.0-14.5)
[2016-06-30 13:49] LABS: BILIRUBIN,URINE NEGATIVE (NEGATIVE); KETONES,URINE NEGATIVE (NEGATIVE); LEUKOCYTE ESTERASE ,URINE NEGATIVE (NEGATIVE); NITRITE,URINE NEGATIVE (NEGATIVE); PH,URINE 5 (5-9); PROTEIN,URINE 3+ (NEGATIVE); UROBILINOGEN,URINE NORMAL (NORMAL)
[2016-06-30 14:01] LABS: HYALINE CASTS, URINE 0-2 /LPF; SQUAMOUS EPITHELIAL CELL,UR RARE /HPF; WBC,URINE RARE /HPF
[2016-06-30 14:07] LABS: ALBUMIN 3.7 G/DL (3.2-4.5); BILIRUBIN,TOTAL 0.3 MG/DL (0.1-1.0); CALCIUM 9.2 MG/DL (8.5-10.1); CREATININE SERUM 2.14 MG/DL (0.60-1.30); MAGNESIUM 1.8 MG/DL (1.8-2.4); POTASSIUM 4.5 MMOL/L (3.6-5.0); TOTAL PROTEIN 7.4 G/DL (6.4-8.2); URIC ACID 8.1 MG/DL (2.6-7.2)
[2016-07-02 07:53] LABS: CYCLO TROUGH 153 ng/mL; GAMMA GLUTAMYL TRANSFER (GGT) 22 U/L (0-65)
[2016-07-08 13:08] LABS: BASOPHILS % (AUTO) 0 % (0-10); EOSINOPHILS # (AUTO) 0.3 10^3/uL (0.0-0.3); EOSINOPHILS % (AUTO) 3 % (0-10); LYMPHOCYTES # (AUTO) 1.4 X 10^3 (1.0-4.0); LYMPHOCYTES % (AUTO) 17 % (12-44); MEAN CORPUSCULAR HEMOGLOBIN 28 PG (25-34); MEAN CORPUSCULAR HGB CONC 29 G/DL (32-36); MEAN CORPUSCULAR VOLUME 96 FL (80-99); MEAN PLATELET VOLUME 9.6 FL (7.4-10.4); MONOCYTES % (AUTO) 13 % (0-12); NEUTROPHILS # (AUTO) 5.4 X 10^3 (1.8-7.8); NEUTROPHILS % (AUTO) 67 % (42-75); PLATELET COUNT 250 10^3/uL (130-400); RED BLOOD COUNT 3.41 10^6/uL (4.35-5.85); RED CELL DISTRIBUTION WIDTH 14.9 % (10.0-14.5); WHITE BLOOD COUNT 8.1 10^3/uL (4.3-11.0)
[2016-07-08 13:08] LABS: BILIRUBIN,URINE NEGATIVE (NEGATIVE); KETONES,URINE NEGATIVE (NEGATIVE); LEUKOCYTE ESTERASE ,URINE NEGATIVE (NEGATIVE); NITRITE,URINE NEGATIVE (NEGATIVE); PH,URINE 5 (5-9); PROTEIN,URINE 4+ (NEGATIVE); UROBILINOGEN,URINE NORMAL (NORMAL)
[2016-07-08 13:23] LABS: SQUAMOUS EPITHELIAL CELL,UR RARE /HPF; WBC,URINE RARE /HPF
[2016-07-08 13:35] LABS: ALBUMIN 3.6 G/DL (3.2-4.5); BILIRUBIN,TOTAL 0.2 MG/DL (0.1-1.0); CALCIUM 9.7 MG/DL (8.5-10.1); CREATININE SERUM 2.16 MG/DL (0.60-1.30); PHOSPHORUS 4.7 MG/DL (2.3-4.7); POTASSIUM 4.8 MMOL/L (3.6-5.0); TOTAL PROTEIN 7.1 G/DL (6.4-8.2); URIC ACID 7.9 MG/DL (2.6-7.2)
[2016-07-08 13:40] LABS: MAGNESIUM 1.7 MG/DL (1.8-2.4)
[2016-07-09 06:30] LABS: GAMMA GLUTAMYL TRANSFER (GGT) 22 U/L (0-65)
[2016-07-09 06:39] LABS: CYCLO TROUGH 194 ng/mL
[2016-07-21 14:03] LABS: BASOPHILS % (AUTO) 0 % (0-10); EOSINOPHILS # (AUTO) 0.3 10^3/uL (0.0-0.3); EOSINOPHILS % (AUTO) 5 % (0-10); LYMPHOCYTES # (AUTO) 1.3 X 10^3 (1.0-4.0); LYMPHOCYTES % (AUTO) 21 % (12-44); MEAN CORPUSCULAR HEMOGLOBIN 28 PG (25-34); MEAN CORPUSCULAR HGB CONC 29 G/DL (32-36); MEAN CORPUSCULAR VOLUME 96 FL (80-99); MEAN PLATELET VOLUME 10.1 FL (7.4-10.4); MONOCYTES # (AUTO) 0.8 X 10^3 (0.0-1.0); MONOCYTES % (AUTO) 13 % (0-12); NEUTROPHILS # (AUTO) 4.1 X 10^3 (1.8-7.8); NEUTROPHILS % (AUTO) 62 % (42-75); PLATELET COUNT 217 10^3/uL (130-400); RED BLOOD COUNT 3.63 10^6/uL (4.35-5.85); RED CELL DISTRIBUTION WIDTH 14.9 % (10.0-14.5); WHITE BLOOD COUNT 6.6 10^3/uL (4.3-11.0)
[2016-07-21 14:10] LABS: BILIRUBIN,URINE NEGATIVE (NEGATIVE); KETONES,URINE NEGATIVE (NEGATIVE); LEUKOCYTE ESTERASE ,URINE NEGATIVE (NEGATIVE); NITRITE,URINE NEGATIVE (NEGATIVE); PH,URINE 6 (5-9); PROTEIN,URINE 4+ (NEGATIVE); UROBILINOGEN,URINE NORMAL (NORMAL)
[2016-07-21 14:16] LABS: HYALINE CASTS, URINE 25-50 /LPF; RED BLOOD CELL CASTS,URINE 0-2 /LPF
[2016-07-21 14:37] LABS: ALBUMIN 3.6 G/DL (3.2-4.5); BILIRUBIN,TOTAL 0.3 MG/DL (0.1-1.0); CALCIUM 9.2 MG/DL (8.5-10.1); CREATININE SERUM 2.12 MG/DL (0.60-1.30); MAGNESIUM 1.8 MG/DL (1.8-2.4); PHOSPHORUS 4.3 MG/DL (2.3-4.7); POTASSIUM 4.4 MMOL/L (3.6-5.0); TOTAL PROTEIN 6.9 G/DL (6.4-8.2); URIC ACID 7.8 MG/DL (2.6-7.2)
[2016-07-22 07:40] LABS: CYCLO TROUGH 104 ng/mL; GAMMA GLUTAMYL TRANSFER (GGT) 24 U/L (0-65)
== END 2016-07-27 | disposition home or self-care (01) ==
LOC: LAB 13:35
PROVIDERS: ATTEND Nurse Practitioner Adult Health
DX: Z94.0 Kidney transplant status (principal); Z79.899 Other long term (current) drug therapy
CPT/HCPCS: 36415; 80053; 80158; 81000; 82465; 82550; 82977; 83735; 84100; 84550; 85025; 87088; 87186

== ENCOUNTER → 2016-07-21 | Outpatient (CLI) | payer BC ==
[~2016-07-21] MED LIST: ACET-461 PO; ACET325T38 PO; ALBU8.5H2 IH; ALLO100T PO; ALLP100T PO; AMLO5TAB2 PO; AZIT250T5 PO; Amlodipine Besylate PO; BUDE6HFA IH; CALC300T4 PO; CEFD300C3 PO; CEPH500C PO; CYCL25CA12 PO; CYCL25CA3 PO; CYCL25CA7 PO; CYCL25CA9 PO; ENAL10TA PO; ENAL2.5T PO; ETHA100T13 PO; ETHA400T29 PO; Fluconazole PO; HCT25T PO; KCL20TCR PO; LEVO500T78 PO; LEVO500T80 PO; Losartan Potassium PO; METO-270 PO; METO-333 PO; MTP50T PO; MYCO180T3 PO; PANT40TA PO; PANT40TA3 PO; PNT40TEC PO; POTA10TA36 PO; POTA20TA15 PO; PRD10T PO; PRED5TAB PO; PRED5TAB46 PO; PROP10TA8 PO; Prednisone PO; RT-ALBUINH INH; SIMV20TA3 PO; TIOT18CA2 IH; TIOT18CA2 INH; [UNRECOGNIZED DRUG - CODE] PO
--- OUTSIDE RECORDS SUMMARY | 2016-07-21 13:35 | XMS REPORT | Continuity of Care Document ---
Author Author [facility] Organization [facility] Address Unknown Phone Unavailable Care Team Providers Care Integrity Director Name Role Phone Tani Keenan PCP [phone] Source Comments Some departments are not documenting in the electronic medical record. If you do not see the information that you expected, contact Release of Information in the Health Information Management department at [phone] for further assistance in locating additional records.[facility] Active Allergies and Adverse Reactions No Known Allergies Current Medications Prescription Sig. Disp. Refills Start End Date Status Date potassium chloride SR Take 1 Tab by mouth daily 90 Cap 3 06/08/20 Active (K-DUR) 20 mEq tablet with breakfast. 12 albuterol (VENTOLIN HFA, Inhale 2 Puffs by mouth 3 Inhaler 11 Active PROAIR HFA) 90 every 6 hours as needed 14 mcg/actuation inhaler for Wheezing. levalbuterol (XOPENEX) Inhale 0.63 mg solution Active 0.31 mg/3 mL nebulizer as directed three times solution daily as needed for Wheezing. predniSONE (DELTASONE) 5 Take 5 mg by mouth daily. Active mg tablet umeclidinium-vilanterol Inhale 1 Puff by mouth 1 Each 11 03/24/20 Active (ANORO ELLIPTA) 62.5-25 into the lungs daily. 16 mcg/actuation dsdv mycophenolate DR Take 1 Tab by mouth twice 60 Tab 11 04/10/20 Active (MYFORTIC) 360 mg TbEC daily. 16 tablet allopurinol (ZYLOPRIM) Take 1 Tab by mouth 90 Tab 3 04/10/20 Active 100 mg tablet daily. Take with food. 16 azithromycin (ZITHROMAX) TAKE 1 TABLET BY MOUTH 30 Tab 3 04/23/20 Active 250 mg tablet DAILY 16 AMIKACIN SULFATE IN 0.9 % 05/13/16. Start Amikacin 05/13/20 Active NACL (AMIKACIN IN 0.9 % Inhaled 250 mg daily via 16 SOD CHLORIDE IV) nebulizer to be mixed in 5ml of 0.9% sodium chloride. ethambutol (MYAMBUTOL) Take 2.5 Tabs by mouth 75 Tab 11 05/16/20 Active 400 mg tablet daily. 16 cycloSPORINE (GENGRAF) 25 Take 100 mg by mouth Active mg cap twice daily. MULTIVITAMIN PO Take 1 Tab by mouth Active daily. pantoprazole DR Take 1 Tab by mouth every 90 Tab 3 07/04/19 Active (PROTONIX) 40 mg tablet 12 hours. 17 metoprolol XL (TOPROL XL) Take 25 mg by mouth twice Active 25 mg extended release daily. tablet metoprolol (LOPRESSOR) 25 Take 1 Tab by mouth twice 180 Tab 3 07/04/19 Discontin mg tablet daily. [address] Take 40 mg by mouth every 07/04/19 Discontin (PROTONIX) 40 mg tablet 12 hours. 17 ued metoprolol tartrate Take 1 Tab by mouth twice 180 Tab 3 07/04/19 Discontin (LOPRESSOR) 25 mg tablet daily. 17 17 ued Active Problems Problem Noted Date Encounter for eye exam due to high risk medication 07/01/2016 Overview: Ethambutol tx for SEMAJ L ast Assessment & Plan: No ocular toxicity noted today, normal ONH appearance Continue to monitor q6 months, sooner if changes in vision. 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[facility]) 09/17/2015 Cavitary lung disease 09/17/2015 Pseudophakia of both eyes 09/17/2015 Last Assessment & Plan: Stable, no PCO, observe Hospital-acquired pneumonia 08/20/2015 Acute tubular necrosis ([facility]) 08/20/2015 Adrenal insufficiency ([facility]) 04/30/2015 Hypomagnesemia 04/30/2015 Hyperuricemia 04/30/2015 Vitamin D deficiency 04/30/2015 Chronic lung disease 04/30/2015 Immunosuppression ([facility]) 04/30/2015 Pulmonary emphysema ([facility]) 07/12/2012 Chronic hypoxemic respiratory failure (HCC) 05/24/2012 GRZEGORZ (acute kidney injury) (HCC) 05/24/2012 History of renal transplant 05/23/2012 Overview: Tsp Synopsis: cadaveric kidney tsp 08[birth year]24[birth year]1991 from 15 yo female donor; CMV neg donor, donor positive. IGF with mild rejection 1st wk; SoluMed x 3. Disch creatinine 1.1 on 311. PRA 3%. Weight 130 lbs; height 68 in 05-23-12 tramsfer from [facility] where he presented for continued gradual generalized [...] Recent Encounters Date Type Specialty Providers Description 07/18/2016 Telephone Transplant Surgery Christoph Ojeda RN Results 07/15/2016 Telephone Transplant Surgery Christoph Ojeda RN Error 07/15/2016 Orders Only Transplant Surgery Mckenna Hidalgo Encounter for long-term (current) use of high-risk medication; Kidney replaced by transplant 07/10/2016 Orders Only Transplant Surgery Mckenna Hidalgo Encounter for long-term (current) use of high-risk medication; Kidney replaced by transplant 07/08/2016 Orders Only Transplant Surgery Mckenna Hidalgo Encounter for long-term (current) use of high-risk medication; Kidney replaced by transplant 07/04/2016 Telephone Transplant Surgery Christoph Ojeda RN Results 07/04/2016 Telephone Transplant Surgery Fartun Parker LPN Medication Management 07/04/2016 Refill Transplant Surgery Fartun Parker LPN 07/02/2016 Orders Only Transplant Surgery Mckenna Hidalgo Encounter for long-term (current) use of high-risk medication; Kidney replaced by transplant 07/01/2016 Office Visit Optometry Alfonso Koehler OD Encounter for eye exam due to high risk medication (Primary Dx); Pseudophakia of both eyes 07/01/2016 Telephone Transplant Surgery Christoph Ojeda RN Results 07/01/2016 Orders Only Transplant Surgery Mckenna Hidalgo Encounter for long-term (current) use of high-risk medication; Kidney replaced by transplant 06/27/2016 Orders Only Transplant Surgery Christoph Ojeda RN Kidney replaced by transplant (Primary Dx); Encounter for long-term (current) use of high-risk medication 06/20/2016 Telephone Transplant Surgery Christoph Ojeda RN s/p Kidney Transplant-Routine Follow-up 06/13/2016 Telephone Transplant Surgery Christoph Ojeda RN Results 06/13/2016 Orders Only Transplant Surgery Mckenna Hidalgo Kidney replaced by transplant; Encounter for long-term (current) use of high-risk medication 06/11/2016 Procedure visit Urology Micheline Bunn MD Microscopic hematuria (Primary Dx) 06/11/2016 Hospital Radiology Micheline Bunn MD Encounter 06/09/2016 Telephone Transplant Surgery Christoph Ojeda RN Results 06/09/2016 Orders Only Transplant Surgery Elijah Loza Kidney replaced by transplant; Encounter for long-term (current) use of high-risk medication 06/06/2016 Orders Only Transplant Surgery Mckenna Hidalgo Kidney replaced by transplant; Encounter for long-term (current) use of high-risk medication 05/28/2016 Office Visit Infectious Diseases Jigar Christian MD SEMAJ (mycobacterium avium-intracellulare) infection (HCC) (Primary Dx) 05/28/2016 [facility] Mari Braun APRN Other prison (current) Encounter drug therapy 05/28/2016 Office Visit Transplant Surgery Lianne Hughes MD History of renal Mari Braun APRN transplant (Primary Dx); Chronic hypoxemic respiratory failure (HCC); Pulmonary emphysema, unspecified emphysema type (HCC); Hypomagnesemia; Hyperuricemia; Chronic lung disease; Immunosuppression (HCC); SEMAJ (mycobacterium avium-intracellulare) (HCC); Cavitary lung disease; Microscopic hematuria 05/28/2016 Telephone Transplant Surgery Christoph Ojeda RN Results 05/27/2016 Orders Only Transplant Surgery Christoph Ojeda RN Encounter for long-term (current) use of high-risk medication (Primary Dx); Kidney replaced by transplant 05/21/2016 [facility] Micheline Bunn MD Other microscopic Encounter hematuria 05/21/2016 Office Visit Urology Micheline Bunn MD Microscopic hematuria (Primary Dx) 05/21/2016 Orders Only Transplant Surgery Mckenna Hidalgo Kidney replaced by transplant; Encounter for long-term (current) use of high-risk medication 05/21/2016 Telephone Transplant Surgery Christoph Ojeda RN Results 05/21/2016 Orders Only Transplant Surgery Christoph Ojeda RN Encounter for long-term (current) use of high-risk medication (Primary Dx); Kidney replaced by transplant 05/16/2016 Orders Only Transplant Surgery Elijah Loza Encounter for long-term (current) use of high-risk medication; Kidney transplanted 05/16/2016 Refill Infectious Diseases Jigar Christian MD 05/16/2016 Telephone Transplant Surgery Christoph Ojeda RN Results 05/16/2016 Orders Only Transplant Surgery Mckenna Hidalgo Encounter for long-term (current) use of high-risk medication; Kidney transplanted 05/13/2016 Telephone Transplant Surgery Christoph Ojeda RN Other 05/12/2016 Outpt. Infectious Diseases Jigar Christian MD Antibiotic Therapy 05/07/2016 Orders Only Transplant Surgery Mckenna Hidalgo Encounter for long-term (current) use of high-risk medication; Kidney transplanted 05/06/2016 Orders Only Transplant Surgery Mckenna Hidalgo Encounter for long-term (current) use of high-risk medication; Kidney transplanted 05/06/2016 Telephone Transplant Surgery Christoph Ojeda RN Post Living Donor Follow-up 05/05/2016 Documentation Transplant Surgery Christoph Ojeda RN 05/02/2016 Telephone Transplant Surgery Christoph Ojeda RN Results 05/02/2016 Telephone Transplant Surgery Christoph Ojeda RN Other 05/01/2016 Outpt. Infectious Diseases Jigar Christian MD Antibiotic Therapy 04/28/2016 Office Visit Pulmonology Kip Godoy MD Chronic hypoxemic respiratory failure (HCC) (Primary Dx); Centrilobular emphysema (HCC); Cavitary lung disease; SEMAJ (mycobacterium avium-intracellulare) (HCC) 04/28/2016 Telephone Transplant Surgery Christoph Ojeda RN s/p Kidney Transplant-Routine Follow-up 04/22/2016 Telephone Transplant Surgery Christoph Ojeda RN s/p Kidney Transplant Social History Tobacco Use Types Packs/Day Years Used Date Former Smoker Cigarettes 1 30 Quit: 05/01/2012 Smokeless Tobacco: Never Used Tobacco Cessation: Counseling Given: No Comments: Alcohol Use Drinks/Week oz/Week Comments No Last Filed Vital Signs Vital Sign Reading Time Taken Blood Pressure 156/75 06/11/2016 3:25 PM [employer] Pulse 99 06/11/2016 3:25 PM [employer] Temperature 36.9 C (98.4 F) 05/28/2016 11:22 AM [employer]ATOR Respiratory Rate 16 05/28/2016 11:22 AM [employer] OPER[employer] Height 1.765 m (5' 9.5") 06/11/2016 3:25 PM [employer]PER[employer] Weight 69.31 kg (152 lb 12.8 oz) 06/11/2016 3:25 PM [employer] OPERATOR Body Mass Index 22.25 06/11/2016 3:25 PM [employer] OPERATOR Oxygen Saturation 99% 05/28/2016 9:59 AM [employer] M[employer] OPERATOR Plan of Care Date Type Specialty Providers Description 07/30/2016 Appointment Transplant Surgery 07/30/2016 Appointment Infectious Diseases El Jigar Carlos MD [address] [place] [address] [phone] (Fax) 08/25/2016 Appointment Pulmonology Kip Godoy MD [address] [place] [address] [phone] (Fax) 10/01/2016 Appointment Ophthalmology Alfonso Koehler, OD [address] [place] [address] [phone] (Fax) Health Maintenance Due Date Last Done Comments Physical (Comprehensive) 1965 Exam Pertussis Vaccine 1969 Tetanus Vaccine 1975 Colorectal Cancer 2008 Screening Influenza Vaccine 02/28/2016 Hepatitis C Screening Completed 05/24/2012 Procedures from Last 3 Months Procedure Name Priority Date/Time Associated Diagnosis Comments IA CYSTOURETHROSCOPY Routine 06/11/2016 Microscopic hematuria Results for this 4:24 PM [employer] procedure are in the results section. Results from Last 3 Months GGTP (07/08/2016 12:56 PM)Only the most recent of 10 results within the time period is included. Component Value Range GGTP 22 0-65 Specimen Blood Narrative Outside Lab Verified by Mckenna Hidalgo on 07/15/2016. CYCLOSPORINE TROUGH (07/08/2016 12:56 PM)Only the most recent of 10 results within the time period is included. Component Value Range Cyclosporine 194 100-400 Specimen Blood Narrative Outside Lab Verified by Mckenna Hidalgo on 07/15/2016. URINALYSIS DIPSTICK REFLEX TO CULTURE (07/08/2016 12:56 PM)Only the most recent of 10 results within the time period is included. Component Value Range Color,UA YELLOW Turbidity,UA CLEAR pH,UA 5 5-9 Specific Oxford-Urine 1.025 Protein,UA 4+ (A) NEGATIVE Glucose,UA NEGATIVE NEGATIVE Blood,UA 4+ (A) Ketones,UA NEGATIVE NEGATIVE Specimen Urine Narrative Outside Lab Verified by Mckenna Hidalgo on 07/10/2016. CBC AND DIFF (07/08/2016 12:56 PM)Only the most recent of 10 results within the time period is included. Component Value Range White Blood Cells 8.1 4.3-11.0 /UL RBC 3.41 (L) 4.35-5.85 uL Hemoglobin 9.5 (L) 13.3-17.7 /DL Hematocrit 33 (L) 40-54 MCV 96 80-99 FL MCH 28 25-34 PG MCHC 29 (L) 32-36 G/DL Platelet Count 250 130-400 UL Neutrophils 67 42-75 % Lymphocytes 17 12-44 % Monocytes 13 (H) 0-12 % Eosinophil 3 0-10 % Basophil 0 Specimen Blood Narrative Outside Lab Verified by Mckenna Hidalgo on 07/10/2016. CHOLESTEROL (07/08/2016 12:50 PM)Only the most recent of 6 results within the time period is included. Component Value Range Cholesterol 215 MG/DL Specimen Blood Narrative Outside Lab Verified by Mckenna Hidalgo on 07/10/2016. MAGNESIUM (07/08/2016 12:50 PM)Only the most recent of 10 results within the time period is included. Component Value Range Magnesium 1.7 (L) Specimen Blood Narrative Outside Lab Verified by Mckenna Hidalgo on 07/10/2016. PHOSPHORUS (07/08/2016 12:50 PM)Only the most recent of 8 results within the time period is included. Component Value Range Phosphorus 4.7 2.3-4.7 Specimen Blood Narrative Outside Lab Verified by Mckenna Hidalgo on 07/10/2016. URIC ACID (07/08/2016 12:50 PM)Only the most recent of 10 results within the time period is included. Component Value Range Uric Acid 7.9 (H) 2.6-7.2 Specimen Blood Narrative Outside Lab Verified by Mckenna Hidalgo on 07/10/2016. COMPREHENSIVE METABOLIC PANEL (07/08/2016 12:50 PM)Only the most recent of 10 results within the time period is included. Component Value Range Sodium 140 135-145 Potassium 4.8 3.6-5.0 Chloride 104 98-107 MMOL/L CO2 28 21-32 MMOL/L Anion Gap 9 5-14 MMOL/L Blood Urea Nitrogen 34 (H) 7-18 MG/DL Creatinine 2.16 (H) 0.60-1.30 Glucose 112 (H) 70-105 Calcium 9.7 5.5-10.1 Total Bilirubin 0.2 0.1-2 Alk Phosphatase 97 40-136 U/L AST (SGOT) 9 5-34 U/L ALT (SGPT) 10 0-55 U/L Total Protein 7.1 6.4-8.2 G/DL Albumin 3.6 3.2-4.6 G/DL Specimen Blood Narrative Outside Lab Verified by Mckenna Hidalgo on 07/10/2016. URINALYSIS MICROSCOPIC REFLEX TO CULTURE (06/30/2016 1:45 PM)Only the most recent of 8 results within the time period is included. Component Value Range RBCs,UA RARE WBCs,UA RARE 17-1401 /HPF Bacteria,UA NEGATIVE /HPF Squamous Epithelial Cells RARE /HPF Specimen Urine Narrative Outside Lab Verified by Elijah Loza on 07/02/2016. CREATINE KINASE-CPK (06/24/2016 10:48 AM)Only the most recent of 6 results within the time period is included. Component Value Range Creatine Kinase 37 30-200 U/L Specimen Blood Narrative Outside Lab Verified by Mckenna Hidalgo on 06/27/2016. CYSTOSCOPY (06/11/2016 4:24 PM) Narrative Micheline Bunn MD 06/11/20164:24 PM Cystoscopy Procedure Note Indications: Diagnosis Pre-operative Diagnosis: Hematuria Post-operative Diagnosis: Hematuria Surgeon: Micheline Bunn MD Assistants: none Anesthesia: Local anesthesia topical 2% lidocaine gel ASA Class: 3 Procedure Details The risks, benefits, complications, treatment options, and expected outcomes were discussed with the patient. The patient concurred with the proposed plan, giving informed consent. Cystoscopy was performed today under local anesthesia, using sterile technique. The patient was placed in the supine position, prepped with Betadine, and draped in the usual sterile fashion. A 14 fr. sheath flexiblecystopanendoscope was used to inspect both the urethra and bladder Findings: Anterior urethra: normal without strictures and without scarring. Prostatic urethra: 2+ Mild prostatic hyperplasia, without bladder neck contracture Bladder: Mild trabeculation, without lesions. Ureteral orifice(s) was/were seen bilateral; as well as transplant ureter on left dome Ureteral orifice(s) bilateral were in the normal location and the transplant ureter was effluxing clear yellow urine Specimens: none Complications:None; patient tolerated the procedure well. Disposition: To home after 30 minute observation. Condition: stable Attending Attestation: I performed the procedure BPH with out obstruction, we reviewed treatment options at this time he is not bothered by his urinary symptoms enough to take daily medications. Recommend U/A in one year he would like to get this done with transplant nephrology We reviewed his Renal US no renal lesions, UCX no growth, cytology negative for high grade UCC. Micheline Bnun MD US RENAL BLADDER LTD (06/11/2016 1:56 PM) Impressions 1.Marked rincon renal atrophy without evidence of solid renal mass. 2.Normal appearance of the right lower quadrant renal transplant without hydronephrosis or solid mass. Approved by Maximiliano Hassan M.D. on 06/11/2016 3:57 PM By my electronic signature, I attest that I have personally reviewed the images for this examination and formulated the interpretations and opinions expressed in this report Finalized by Brit Delacruz M.D. on 06/11/2016 5:03 PM. Dictated by Maximiliano Hassan M.D. on 06/11/2016 1:50 PM. Narrative Renal Ultrasound. Clinical Indication: Renal insufficiency, acute tubular necrosis, rincon kidneys. TECHNIQUE: Multiple real-time grayscale sonographic images and color Doppler images were obtained through the urinary system. Comparison: Prior examinations August 13, 2015 and May 24, 2012. FINDINGS: There is redemonstration of marked bilateral rincon renal atrophy, with the right kidney measuring 5.4 cm in length and the left kidney measuring 7.1 cm in length.Both kidneys demonstrate increased cortical echogenicity and poor cortical medullary differentiation.There is a small simple appearing cyst within the upper pole of the left kidney measuring up to 1.2 cm in diameter without abnormal blood flow. The mildly distended urinary bladder is grossly unremarkable. The right lower quadrant renal transplant is normal in appearance measuring 13.0 cm in length without nephrolithiasis, hydronephrosis, or solid mass. Procedure Note Interface, Radiant Results - ThuJun 11, 2016 5:06 PM [employer] M[employer] OPERATOR Renal Ultrasound. Clinical Indication: Renal insufficiency, acute tubular necrosis, rincon kidneys. TECHNIQUE: Multiple real-time grayscale sonographic images and color Doppler images were obtained through the urinary system. Comparison: Prior examinations August 13, 2015 and May 24, 2012. FINDINGS: There is redemonstration of marked bilateral rincon renal atrophy, with the right kidney measuring 5.4 cm in length and the left kidney measuring 7.1 cm in length. Both kidneys demonstrate increased cortical echogenicity and poor cortical medullary differentiation. There is a small simple appearing cyst within the upper pole of the left kidney measuring up to 1.2 cm in diameter without abnormal blood flow. The mildly distended urinary bladder is grossly unremarkable. The right lower quadrant renal transplant is normal in appearance measuring 13.0 cm in length without nephrolithiasis, hydronephrosis, or solid mass. IMPRESSION 1. Marked rincon renal atrophy without evidence of solid renal mass. 2. Normal appearance of the right lower quadrant renal transplant without hydronephrosis or solid mass. Approved by Maximiliano Hassan M.D. on 06/11/2016 3:57 PM By my electronic signature, I attest that I have personally reviewed the images for this examination and formulated the interpretations and opinions expressed in this report Finalized by Brit Delacruz M.D. on 06/11/2016 5:03 PM. Dictated by Maximiliano Hassan M.D. on 06/11/2016 1:50 PM. CULTURE-TB (AFB) (05/28/2016 12:39 PM) Component Value Range Battery Name AFB CULTURE Specimen Description SPUTUM Special Requests NONE Acid Fast Stain NO ACID FAST BACILLI SEEN Culture NO GROWTH OF MYCOBACTERIA AT 6 WEEKS Report Status FINAL 07/14/2016 Specimen Sputum UA REFLEX CULTURE LABEL (05/28/2016 9:48 AM) Component Value Range UA Reflex Culture LAB LABEL LIPID PROFILE (05/28/2016 9:48 AM) Component Value Range Cholesterol 191 <200 MG/DL Triglycerides 315 (H) <150 MG/DL HDL 40 (L) >40 MG/DL LDL 97 <100 MG/DL VLDL 63 MG/DL Non HDL Cholesterol 151Comment: MG/DL Calculated non-HDL Cholesterol (non-HDL-C) indirectly measures LDL-C, Lp(a), IDL-C, and VLDL-C. It is a surrogate marker for Apoprotein B. Non-HDL-C is a more accurate measure of atherogenic particle concentration than LDL-C in patients with hypertriglyceridemia (>200 mg/dL). This calculation is now recommended for evaluation and treatment of coronary heart disease according to the National Cholesterol Education Program Adult Treatment Protocol-III. See Espinosa et al. Am J. Cardiol. 2008, 101:7923-5012. The "goal" should be less than 130 mg/dL, but will vary according to risk factors. Specimen Blood PARATHYROID HORMONE (05/28/2016 9:48 AM) Component Value Range PTH Hormone 31.7 10-65 PG/ML Specimen Blood 25-OH VITAMIN D (D2 + D3) (05/28/2016 9:48 AM) Component Value Range Vitamin D(25-OH)Total 17.7 (L) 30-80 NG/ML Specimen Blood PROTEIN/CR RATIO,UR RAN (05/28/2016 9:48 AM) Component Value Range Protein, Random 78 MG/DL Creatinine, Random 88 MG/DL Protein/CR ratio 0.9 Specimen Urine NON-SENIOR CHEMICAL PROCESS ENGINEER CYTOLOGY (BODY FLUIDS/TISSUE) (05/21/2016 2:39 PM) Component Value Range Cytology [facility] [email or web address] Laquita Garces MD, Director Cytopathology Department of Pathology and Laboratory Medicine [address] [place] [id number] Office: [phone] CYTOLOGY REPORT NAME: BRUCE KAHN CYTOLOGY #: [id number] MR #: [id number] ALT ID #: [id number] #: [id number] LOCATION: UROL DATE OF PROCEDURE: 05/21/2016 14:39 AGE: 55 SEX: M DATE RECEIVED: 05/21/2016 : 1960 TIME RECEIVED: 14:39 PHYSICIAN: MICHELINE BUNN MD DATE OF REPORT: 05/26/2016 COPY TO: DATE OF PRINTIN05/26/2016 HISTORY: Date of Last Menstrual Period: None Given Menstrual History: None Given Contraceptive History: None Given Cancer History: None Given Infection History: None Given Treatment History: None Given Other Clinical Conditions: None Given CLINICAL DIAGNOSIS: 55 year old male s/p renal transplant. MATERIAL RECEIVED: A: Urine (Voided) ################################################## ###################### Final Diagnosis: A. Urine voided: Negative for high-grade urothelial carcinoma Attestation: By this signature, I attest that I have personally formulated the final interpretation expressed in this report and that the above diagnosis is based upon my examination of the slides and/or other material indicated in this report. 05/26/2016 +++Electronically Signed Out By Alvaro Smith MD PhD, Attending Physician+++ Cervical cytology is a SCREENING TEST primarily for detecting cancers and precancerous lesions. This screening test has a well documented false negative rate. Your patient's pap test results should be interpreted in conjunction with history and clinical findings. Reported using [facility] terminology. ################################################## ###################### CULTURE-URINE W/SENSITIVITY (05/21/2016 1:00 PM) Component Value Range Battery Name URINE CULTURE Specimen Description URINE Special Requests NONE Culture NO GROWTH Report Status FINAL 05/22/2016 Specimen Urine - Urine, Outpatient
== END ==
LOC: LAB 13:30
PROVIDERS: ATTEND Internal Medicine Infectious Disease
DX: Z51.81 Encounter for therapeutic drug level monitoring (principal); Z79.899 Other long term (current) drug therapy
CPT/HCPCS: 87116

== ENCOUNTER → 2016-07-31 | Outpatient (CLI) | payer BC ==
--- OUTSIDE RECORDS SUMMARY | 2016-07-31 15:25 | XMS REPORT | Continuity of Care Document ---
Author Author [facility] Organization [facility] Address Unknown Phone Unavailable Care Team Providers Care Employment Recruiter Name Role Phone Tani Keenan PCP [phone] Source Comments Some departments are not documenting in the electronic medical record. If you do not see the information that you expected, contact Release of Information in the Health Information Management department at [phone] for further assistance in locating additional records.[facility] Active Allergies and Adverse Reactions No Known Allergies Current Medications Prescription Sig. Disp. Refills Start End Date Status Date albuterol (VENTOLIN HFA, Inhale 2 Puffs by [...] 05/16/20 Active 400 mg tablet daily. 16 MULTIVITAMIN PO Take 1 Tab by mouth Active daily. pantoprazole DR Take 1 Tab by mouth every 90 Tab 3 07/04/19 Active (PROTONIX) 40 mg tablet 12 hours. 17 metoprolol XL (TOPROL XL) Take 25 mg by mouth twice Active 25 mg extended release daily. tablet cycloSPORINE (GENGRAF) 25 Take 4 Caps by mouth 240 Cap 11 07/25/19 Active mg cap twice daily. 17 potassium chloride SR Take 1 Tab by mouth daily 90 Cap 3 06/08/20 Discontin (K-DUR) 20 mEq tablet with breakfast. 12 17 ued metoprolol (LOPRESSOR) 25 Take 1 Tab by mouth twice 180 Tab 3 07/04/19 Discontin mg tablet daily. [address] Take 40 mg by mouth every 07/04/19 Discontin (PROTONIX) 40 mg tablet 12 hours. 17 ued cycloSPORINE (GENGRAF) 25 Take 100 mg by mouth 07/25/19 Discontin mg cap twice daily. 17 ued metoprolol tartrate Take 1 Tab [...] visit Microscopic hematuria 05/21/2016 SEMAJ (mycobacterium avium-intracellulare) ([facility]) 09/17/2015 Cavitary lung disease 09/17/2015 Pseudophakia of both eyes 09/17/2015 Last Assessment & Plan: Stable, no PCO, observe Hospital-acquired pneumonia 08/20/2015 Acute tubular necrosis (HCC) 08/20/2015 Adrenal insufficiency (HCC) 04/30/2015 Hypomagnesemia 04/30/2015 Hyperuricemia 04/30/2015 Vitamin D deficiency 04/30/2015 Chronic lung disease 04/30/2015 Immunosuppression (HCC) 04/30/2015 Pulmonary emphysema (HCC) 07/12/2012 Chronic hypoxemic respiratory failure (HCC) 05/24/2012 GRZEGORZ (acute kidney injury) (HCC) 05/24/2012 History of renal transplant 05/23/2012 Overview: Tsp Synopsis: cadaveric kidney tsp 08-24-1991 from 15 yo female donor; CMV neg donor, donor positive. IGF with mild rejection 1st wk; SoluMed x 3. Disch creatinine 1.1 on -. PRA 3%. Weight 130 lbs; height 68 in 05-23-12 tramsfer from [facility] where he presented for continued gradual [...] Recent Encounters Date Type Specialty Providers Description 07/30/2016 Office Visit Infectious Diseases Jigar Christian MD intermediate (current) use of antibiotics (Primary Dx) 07/30/2016 [facility] Mari Braun APRN Other [facility] (current) Encounter drug therapy 07/30/2016 Office Visit Transplant Surgery Lianne Hughes MD Encounter for long-term Leena Stubbs MD (current) use of high-risk medication (Primary Dx); Kidney replaced by transplant 07/25/2016 Telephone Transplant Surgery Christoph Ojeda RN Results 07/25/2016 Orders Only Transplant Surgery Mckenna Hidalgo Encounter for long-term (current) use of high-risk medication; Kidney replaced by transplant 07/25/2016 Telephone Transplant Surgery Christoph Ojeda RN Other 07/23/2016 Refill Transplant Surgery Mari Braun APRN 07/18/2016 Telephone Transplant Surgery Christoph Ojeda RN [...] RN Results 06/13/2016 Orders Only Transplant Surgery Mikey Hidalgoane Kidney replaced by transplant; Encounter for long-term (current) use of high-risk medication 06/11/2016 Procedure visit Urology Micheline Bunn MD Microscopic hematuria (Primary Dx) 06/11/2016 [facility] Radiology Micheline Bunn MD Encounter 06/09/2016 Telephone Transplant Surgery Christoph Ojeda RN Results 06/09/2016 Orders Only Transplant Surgery DeniaElijah Kidney replaced by transplant; Encounter for long-term (current) use of high-risk medication 06/06/2016 Orders Only Transplant Surgery Mikey Hidalgoane Kidney replaced by transplant; Encounter for long-term (current) use of high-risk medication 05/28/2016 Office Visit Infectious Diseases Jigar Christian MD SEMAJ (mycobacterium avium-intracellulare) infection ([facility]) (Primary Dx) 05/28/2016 [facility] Mari Braun APRN Other termination clerk (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) Encounter drug therapy 05/28/2016 Office Visit Transplant Surgery Lianne Hughes MD History of renal Mari Braun APRN transplant (Primary Dx); Chronic hypoxemic respiratory failure (HCC); Pulmonary emphysema, unspecified emphysema type (HCC); Hypomagnesemia; Hyperuricemia; Chronic lung disease; Immunosuppression (HCC); SEMAJ (mycobacterium avium-intracellulare) ([facility]); Cavitary lung disease; Microscopic hematuria 05/28/2016 Telephone Transplant Surgery Christoph Ojeda RN Results 05/27/2016 Orders Only Transplant Surgery Christoph Ojeda RN Encounter for long-term (current) use of high-risk medication (Primary Dx); Kidney replaced by transplant 05/21/2016 Hospital Micheline Bunn MD Other microscopic Encounter [...] Infectious Diseases Jigar Christian MD Antibiotic Therapy Social History Tobacco Use Types Packs/Day Years Used Date Former Smoker Cigarettes 1 30 Quit: 05/01/2012 Smokeless Tobacco: Never Used Tobacco Cessation: Counseling Given: No Comments: Alcohol Use Drinks/Week oz/Week Comments No Last Filed Vital Signs Vital Sign Reading Time Taken Blood Pressure 134/72 07/30/2016 2:16 PM DESIGN DRAFTER CHIEF Pulse 76 07/30/2016 2:16 PM DESIGN D[employer]TER CHIEF Temperature 36.4 C (97.6 F) 07/30/2016 2:16 PM DESIGN D[employer]TER CHIEF Respiratory Rate 16 07/30/2016 2:16 PM [employer]IGN [employer]TER CHIEF Height 1.765 m (5' 9.5") 07/30/2016 2:16 PM [employer]IGN [employer] CHIEF Weight 75.751 kg (167 lb) 07/30/2016 2:16 PM DESIGN [employer]TER CHIEF Body Mass Index 24.32 07/30/2016 2:16 PM DESIGN D[employer]TER CHIEF Oxygen Saturation 98% 07/30/2016 10:58 AM DESIGN DRAFTER CHIEF Plan of Care Date Type Specialty Providers Description 08/25/2016 Appointment Pulmonology Kip Godoy MD [address] [place] [address] [phone] (Fax) 10/01/2016 Appointment Ophthalmology Alfonso Koehler, OD [address] [place] [address] [phone] (Fax) 10/08/2016 Appointment Infectious Diseases Jigar Christian MD [address] [place] [address] [phone] (Fax) 12/01/2016 Appointment Transplant Surgery Health Maintenance Due Date Last Done Comments Physical (Comprehensive) 1965 Exam Pertussis Vaccine 1969 Tetanus Vaccine 1975 Colorectal Cancer 2008 Screening Influenza Vaccine 02/28/2016 Hepatitis C Screening Completed 05/24/2012 Procedures from Last 3 Months Procedure Name Priority Date/Time Associated Diagnosis Comments MT CYSTOURETHROSCOPY Routine 06/11/2016 Microscopic hematuria Results for this 4:24 PM DESIGN DRAFTER CHIEF procedure are in the results section. Results from Last 3 Months URINALYSIS MICROSCOPIC REFLEX TO CULTURE (07/30/2016 10:53 AM)Only the most recent of 9 results within the time period is included. Component Value Range WBCs,UA 0-2 0-2 /HPF RBCs,UA 0-2 0-3 /HPF Comment,UA Urine submitted for reflex culture if criteria are met:WBC>10, positive nitrite and/or positive leukocyte esterase. If quantity is not sufficient, an addendum will follow. MucousUA TRACE Hyaline Cast 10-20 Transitional Epithelial 0-2 Specimen Urine URINALYSIS DIPSTICK REFLEX TO CULTURE (07/30/2016 10:53 AM)Only the most recent of 11 results within the time period is included. Component Value Range Color,UA YELLOW Turbidity,UA 1+ (A) CLEAR-CLEAR Specific [place]-Urine 1.018 1.003-1.035 pH,UA 5.0 5.0-8.0 Protein,UA 3+ (A) NEG-NEG Glucose,UA NEG NEG-NEG Ketones,UA NEG NEG-NEG Bilirubin,UA NEG NEG-NEG Blood,UA 1+ (A) NEG-NEG Urobilinogen,UA NORMAL NORM-NORMAL Nitrite,UA NEG NEG-NEG Leukocytes,UA NEG NEG-NEG Urine Ascorbic Acid, UA NEG NEG-NEG Specimen Urine AMIKACIN-TROUGH (07/30/2016 10:52 AM) Component Value Range Amikacin Trough <2.5 (L) 5.0-10.0 MCG/ML CYCLOSPORINE TROUGH (07/30/2016 10:52 AM)Only the most recent of 11 results within the time period is included. Component Value Range Cyclosporine 181 NG/ML Specimen Blood URIC ACID (07/30/2016 10:52 AM)Only the most recent of 11 results within the time period is included. Component Value Range Uric Acid 6.9 4.0-8.0 MG/DL Specimen Blood PHOSPHORUS (07/30/2016 10:52 AM)Only the most recent of 9 results within the time period is included. Component Value Range Phosphorus 4.5 (H) 2.0-4.0 MG/DL Specimen Blood MAGNESIUM (07/30/2016 10:52 AM)Only the most recent of 11 results within the time period is included. Component Value Range Magnesium 1.9 1.6-2.6 mg/dL Specimen Blood GGTP (07/30/2016 10:52 AM)Only the most recent of 11 results within the time period is included. Component Value Range GGTP 20 9-64 U/L Specimen Blood CREATINE KINASE-CPK (07/30/2016 10:52 AM)Only the most recent of 8 results within the time period is included. Component Value Range Creatine Kinase 49 35-232 U/L Specimen Blood COMPREHENSIVE METABOLIC PANEL (07/30/2016 10:52 AM)Only the most recent of 11 results within the time period is included. Component Value Range Sodium 139 137-147 MMOL/L Potassium 4.5 3.5-5.1 MMOL/L Chloride 102 98-110 MMOL/L Glucose 96 70-100 MG/DL Blood Urea Nitrogen 36 (H) 7-25 MG/DL Creatinine 2.28 (H) 0.4-1.24 MG/DL Calcium 9.3 8.5-10.6 MG/DL Total Protein 6.9 6.0-8.0 G/DL Total Bilirubin 0.3 0.3-1.2 MG/DL Albumin 3.5 3.5-5.0 G/DL Alk Phosphatase 97 25-110 U/L AST (SGOT) 8 7-40 U/L CO2 31 (H) 21-30 MMOL/L ALT (SGPT) 11 7-56 U/L Anion Gap 6 3-12 eGFR Non 30 (L)Comment: >60 mL/min The eGFR is not validated for use in drug dosing adjustments. Continue to use estimated creatinine clearance per dosing reference text. Please contact the Clinical Pharmacist for questions. eGFR 36 (L)Comment: >60 mL/min The eGFR is not validated for use in drug dosing adjustments. Continue to use estimated creatinine clearance per dosing reference text. Please contact the Clinical Pharmacist for questions. Specimen Blood CBC AND DIFF (07/30/2016 10:52 AM)Only the most recent of 11 results within the time period is included. Component Value Range White Blood Cells 6.2 4.5-11.0 K/UL RBC 3.47 (L) 4.4-5.5 M/UL Hemoglobin 10.1 (L) 13.5-16.5 GM/DL Hematocrit 31.4 (L) 40-50 % MCV 90.3 80-100 FL MCH 29.0 26-34 PG MCHC 32.1 32.0-36.0 G/DL RDW 16.0 (H) 11-15 % Platelet Count 216 150-400 K/UL MPV 8.5 7-11 FL Neutrophils 60 41-77 % Lymphocytes 21 (L) 24-44 % Monocytes 14 (H) 4-12 % Eosinophils 5 0-5 % Basophils 0 0-2 % Absolute Neutrophil Count 3.70 1.8-7.0 K/UL Absolute Lymph Count 1.30 1.0-4.8 K/UL Absolute Monocyte Count 0.90 (H) 0-0.80 K/UL Absolute Eosinophil Count 0.30 0-0.45 K/UL Absolute Basophil Count 0.00 0-0.20 K/UL Specimen Blood PROTEIN/CR RATIO,UR RAN (07/30/2016 10:52 AM)Only the most recent of 2 results within the time period is included. Component Value Range Protein, Random 495 MG/DL Creatinine, Random 190 MG/DL Protein/CR ratio 2.6 Specimen Urine LIPID PROFILE (07/30/2016 10:52 AM)Only the most recent of 2 results within the time period is included. Component Value Range Cholesterol 240 (H) <200 MG/DL Triglycerides 232 (H) <150 MG/DL HDL 51 >40 MG/DL LDL 131 (H) <100 MG/DL VLDL 46 MG/DL Non HDL Cholesterol 189Comment: MG/DL Calculated non-HDL Cholesterol (non-HDL-C) indirectly measures [...] Espinosa et al. Am J. Cardiol. 2008, 101:9410-9914. The "goal" should be less than 130 mg/dL, but will vary according to risk factors. Specimen Blood CHOLESTEROL (07/21/2016 1:43 PM)Only the most recent of 6 results within the time period is included. Component Value Range Cholesterol 244 (H) <200 H Specimen Blood Narrative Outside Lab Verified by Mckenna Hidalgo on 07/25/2016. CYSTOSCOPY (06/11/2016 4:24 PM) Narrative Micheline Bunn [...] cytology negative for high grade UCC. Micheline Bunn MD RENAL BLADDER LTD (06/11/2016 1:56 PM) Impressions 1.Marked [place] renal atrophy without evidence of solid renal [...] Clinical Indication: Renal insufficiency, acute tubular necrosis, [place] kidneys. TECHNIQUE: Multiple real-time grayscale sonographic images and color Doppler images were obtained through the urinary system. Comparison: Prior examinations August 13, 2015 and May 24, 2012. FINDINGS: There is redemonstration of marked bilateral [place] renal atrophy, with the right kidney measuring [...] Results - ThuJun 11, 2016 5:06 PM DESIGN DRAFTER CHIEF Renal Ultrasound. Clinical Indication: Renal insufficiency, acute tubular necrosis, [place] kidneys. TECHNIQUE: Multiple real-time grayscale sonographic images and color Doppler images were obtained through the urinary system. Comparison: Prior examinations August 13, 2015 and May 24, 2012. FINDINGS: There is redemonstration of marked bilateral [place] renal atrophy, with the right kidney measuring [...] hydronephrosis, or solid mass. IMPRESSION 1. Marked [place] renal atrophy without evidence of solid renal mass. 2. Normal appearance of the right lower quadrant renal transplant without hydronephrosis or solid mass. Approved by Maximiilano Hassan M.D. on 06/11/2016 3:57 PM By [...] Value Range UA Reflex Culture LAB LABEL PARATHYROID HORMONE (05/28/2016 9:48 AM) Component Value Range PTH Hormone 31.7 10-65 PG/ML Specimen Blood 25-OH VITAMIN D (D2 + D3) (05/28/2016 9:48 AM) Component Value Range Vitamin D(25-OH)Total 17.7 (L) 30-80 NG/ML Specimen Blood NON-PACKING INSPECTOR CYTOLOGY (BODY FLUIDS/TISSUE) (05/21/2016 2:39 PM) Component Value Range Cytology [facility] [email or web address] Laquita Garces MD, Director Cytopathology Department of Pathology and Laboratory Medicine [address] [place] [id number] Office: [phone] CYTOLOGY REPORT NAME: BRUCE KAHN CYTOLOGY #: [id number] MR #: [id number] ALT ID #: BILLING #: [id number] LOCATION: [facility]OL DATE OF PROCEDURE: 05/21/2016 14:39 [...] with history and clinical findings. Reported using [place] [facility] terminology. ################################################## ###################### CULTURE-URINE W/SENSITIVITY (05/21/2016 1:00 PM) Component Value Range Battery Name URINE CULTURE Specimen Description URINE Special Requests NONE Culture NO GROWTH Report Status FINAL 05/22/2016 Specimen Urine - Urine, Outpatient
== END ==
LOC: LAB 15:19
PROVIDERS: ATTEND Internal Medicine Infectious Disease
DX: Z51.81 Encounter for therapeutic drug level monitoring (principal); Z79.2 Long term (current) use of antibiotics
CPT/HCPCS: 36415; 80150

== ENCOUNTER 2016-09-23 14:12 | Outpatient (RCR) | payer BC ==
[2016-08-12 11:49] LABS: BASOPHILS % (AUTO) 0 % (0-10); EOSINOPHILS # (AUTO) 0.2 10^3/uL (0.0-0.3); EOSINOPHILS % (AUTO) 3 % (0-10); LYMPHOCYTES # (AUTO) 1.2 X 10^3 (1.0-4.0); LYMPHOCYTES % (AUTO) 18 % (12-44); MEAN CORPUSCULAR HEMOGLOBIN 29 PG (25-34); MEAN CORPUSCULAR HGB CONC 30 G/DL (32-36); MEAN CORPUSCULAR VOLUME 97 FL (80-99); MEAN PLATELET VOLUME 10.4 FL (7.4-10.4); MONOCYTES # (AUTO) 0.7 X 10^3 (0.0-1.0); MONOCYTES % (AUTO) 11 % (0-12); NEUTROPHILS # (AUTO) 4.2 X 10^3 (1.8-7.8); NEUTROPHILS % (AUTO) 67 % (42-75); PLATELET COUNT 205 10^3/uL (130-400); WHITE BLOOD COUNT 6.3 10^3/uL (4.3-11.0)
[2016-08-12 11:53] LABS: BILIRUBIN,URINE NEGATIVE (NEGATIVE); KETONES,URINE NEGATIVE (NEGATIVE); LEUKOCYTE ESTERASE ,URINE NEGATIVE (NEGATIVE); NITRITE,URINE NEGATIVE (NEGATIVE); PH,URINE 5 (5-9); PROTEIN,URINE 4+ (NEGATIVE); UROBILINOGEN,URINE NORMAL (NORMAL)
[2016-08-12 12:09] LABS: ALBUMIN 3.6 G/DL (3.2-4.5); BILIRUBIN,TOTAL 0.2 MG/DL (0.1-1.0); CALCIUM 9.2 MG/DL (8.5-10.1); CREATININE SERUM 2.48 MG/DL (0.60-1.30); MAGNESIUM 1.9 MG/DL (1.8-2.4); PHOSPHORUS 4.1 MG/DL (2.3-4.7); POTASSIUM 4.3 MMOL/L (3.6-5.0); TOTAL PROTEIN 6.9 G/DL (6.4-8.2)
[2016-08-12 12:15] LABS: SQUAMOUS EPITHELIAL CELL,UR RARE /HPF; WBC,URINE RARE /HPF
[2016-08-13 06:48] LABS: GAMMA GLUTAMYL TRANSFER (GGT) 22 U/L (0-65)
[2016-08-13 06:55] LABS: CYCLO TROUGH 117 ng/mL
[2016-08-25 10:48] LABS: BASOPHILS % (AUTO) 0 % (0-10); EOSINOPHILS # (AUTO) 0.2 10^3/uL (0.0-0.3); EOSINOPHILS % (AUTO) 3 % (0-10); LYMPHOCYTES % (AUTO) 20 % (12-44); MEAN CORPUSCULAR HEMOGLOBIN 29 PG (25-34); MEAN CORPUSCULAR HGB CONC 30 G/DL (32-36); MEAN CORPUSCULAR VOLUME 97 FL (80-99); MEAN PLATELET VOLUME 9.5 FL (7.4-10.4); MONOCYTES # (AUTO) 0.6 X 10^3 (0.0-1.0); MONOCYTES % (AUTO) 13 % (0-12); NEUTROPHILS # (AUTO) 3.2 X 10^3 (1.8-7.8); NEUTROPHILS % (AUTO) 64 % (42-75); PLATELET COUNT 241 10^3/uL (130-400); RED BLOOD COUNT 3.65 10^6/uL (4.35-5.85); RED CELL DISTRIBUTION WIDTH 13.3 % (10.0-14.5); WHITE BLOOD COUNT 5.1 10^3/uL (4.3-11.0)
[2016-08-25 10:56] LABS: BILIRUBIN,URINE NEGATIVE (NEGATIVE); KETONES,URINE NEGATIVE (NEGATIVE); LEUKOCYTE ESTERASE ,URINE NEGATIVE (NEGATIVE); NITRITE,URINE NEGATIVE (NEGATIVE); PH,URINE 5 (5-9); PROTEIN,URINE 4+ (NEGATIVE); UROBILINOGEN,URINE NORMAL (NORMAL)
[2016-08-25 11:08] LABS: ALBUMIN 3.3 G/DL (3.2-4.5); BILIRUBIN,TOTAL 0.2 MG/DL (0.1-1.0); CALCIUM 9.4 MG/DL (8.5-10.1); CREATININE SERUM 2.35 MG/DL (0.60-1.30); MAGNESIUM 1.7 MG/DL (1.8-2.4); PHOSPHORUS 3.8 MG/DL (2.3-4.7); POTASSIUM 4.2 MMOL/L (3.6-5.0); TOTAL PROTEIN 6.9 G/DL (6.4-8.2); URIC ACID 8.1 MG/DL (2.6-7.2)
[2016-08-26 07:55] LABS: GAMMA GLUTAMYL TRANSFER (GGT) 22 U/L (0-65)
[2016-08-26 08:00] LABS: CYCLO TROUGH 137 ng/mL
[2016-09-08 09:30] LABS: BASOPHILS % (AUTO) 0 % (0-10); EOSINOPHILS # (AUTO) 0.2 10^3/uL (0.0-0.3); EOSINOPHILS % (AUTO) 3 % (0-10); LYMPHOCYTES # (AUTO) 1.1 X 10^3 (1.0-4.0); LYMPHOCYTES % (AUTO) 16 % (12-44); MEAN CORPUSCULAR HEMOGLOBIN 29 PG (25-34); MEAN CORPUSCULAR HGB CONC 30 G/DL (32-36); MEAN CORPUSCULAR VOLUME 98 FL (80-99); MEAN PLATELET VOLUME 9.6 FL (7.4-10.4); MONOCYTES # (AUTO) 0.8 X 10^3 (0.0-1.0); MONOCYTES % (AUTO) 11 % (0-12); NEUTROPHILS # (AUTO) 4.7 X 10^3 (1.8-7.8); NEUTROPHILS % (AUTO) 70 % (42-75); PLATELET COUNT 234 10^3/uL (130-400); RED CELL DISTRIBUTION WIDTH 13.5 % (10.0-14.5); WHITE BLOOD COUNT 6.7 10^3/uL (4.3-11.0)
[2016-09-08 09:32] LABS: BILIRUBIN,URINE NEGATIVE (NEGATIVE); KETONES,URINE NEGATIVE (NEGATIVE); LEUKOCYTE ESTERASE ,URINE NEGATIVE (NEGATIVE); NITRITE,URINE NEGATIVE (NEGATIVE); PH,URINE 6 (5-9); PROTEIN,URINE 4+ (NEGATIVE); UROBILINOGEN,URINE NORMAL (NORMAL)
[2016-09-08 09:41] LABS: HYALINE CASTS, URINE 0-2 /LPF; SQUAMOUS EPITHELIAL CELL,UR RARE /HPF; WBC,URINE RARE /HPF
[2016-09-08 09:54] LABS: ALBUMIN 3.3 G/DL (3.2-4.5); BILIRUBIN,TOTAL 0.2 MG/DL (0.1-1.0); CALCIUM 9.3 MG/DL (8.5-10.1); CREATININE SERUM 2.33 MG/DL (0.60-1.30); MAGNESIUM 1.8 MG/DL (1.8-2.4); POTASSIUM 4.6 MMOL/L (3.6-5.0); TOTAL PROTEIN 6.9 G/DL (6.4-8.2); URIC ACID 7.3 MG/DL (2.6-7.2)
[2016-09-09 09:19] LABS: CYCLO TROUGH 79 ng/mL; GAMMA GLUTAMYL TRANSFER (GGT) 20 U/L (0-65)
[2016-09-23 14:29] LABS: BASOPHILS % (AUTO) 0 % (0-10); EOSINOPHILS # (AUTO) 0.3 10^3/uL (0.0-0.3); EOSINOPHILS % (AUTO) 4 % (0-10); LYMPHOCYTES # (AUTO) 1.1 X 10^3 (1.0-4.0); LYMPHOCYTES % (AUTO) 14 % (12-44); MEAN CORPUSCULAR HEMOGLOBIN 29 PG (25-34); MEAN CORPUSCULAR HGB CONC 30 G/DL (32-36); MEAN CORPUSCULAR VOLUME 98 FL (80-99); MEAN PLATELET VOLUME 9.8 FL (7.4-10.4); MONOCYTES # (AUTO) 0.7 X 10^3 (0.0-1.0); MONOCYTES % (AUTO) 9 % (0-12); NEUTROPHILS # (AUTO) 5.5 X 10^3 (1.8-7.8); NEUTROPHILS % (AUTO) 72 % (42-75); PLATELET COUNT 193 10^3/uL (130-400); RED BLOOD COUNT 3.64 10^6/uL (4.35-5.85); RED CELL DISTRIBUTION WIDTH 13.7 % (10.0-14.5); WHITE BLOOD COUNT 7.6 10^3/uL (4.3-11.0)
[2016-09-23 14:38] LABS: BILIRUBIN,URINE NEGATIVE (NEGATIVE); KETONES,URINE NEGATIVE (NEGATIVE); LEUKOCYTE ESTERASE ,URINE NEGATIVE (NEGATIVE); NITRITE,URINE NEGATIVE (NEGATIVE); PH,URINE 6 (5-9); PROTEIN,URINE 4+ (NEGATIVE); UROBILINOGEN,URINE NORMAL (NORMAL)
[2016-09-23 14:51] LABS: HYALINE CASTS, URINE 0-2 /LPF; SQUAMOUS EPITHELIAL CELL,UR RARE /HPF; WBC,URINE 0-2 /HPF
[2016-09-23 14:56] LABS: ALBUMIN 3.4 G/DL (3.2-4.5); BILIRUBIN,TOTAL 0.3 MG/DL (0.1-1.0); CALCIUM 9.1 MG/DL (8.5-10.1); CREATININE SERUM 2.43 MG/DL (0.60-1.30); POTASSIUM 4.7 MMOL/L (3.6-5.0); TOTAL PROTEIN 6.8 G/DL (6.4-8.2); URIC ACID 7.6 MG/DL (2.6-7.2)
[2016-09-24 07:49] LABS: GAMMA GLUTAMYL TRANSFER (GGT) 18 U/L (0-65)
[2016-09-24 08:23] LABS: CYCLO TROUGH 153 ng/mL
== END 2016-11-10 | disposition home or self-care (01) ==
LOC: LAB 14:12
PROVIDERS: ATTEND Nurse Practitioner Adult Health
DX: Z94.0 Kidney transplant status (principal); Z79.899 Other long term (current) drug therapy
CPT/HCPCS: 36415; 80053; 80158; 81000; 82465; 82550; 82977; 83735; 84100; 84550; 85025

== ENCOUNTER → 2016-10-10 | Outpatient (CLI) | payer BC | LOC: LABNPT 14:00 | DX: A31.0 Pulmonary mycobacterial infection (principal) | CPT/HCPCS: 87116 ==

== ENCOUNTER 2016-11-17 08:16 | Outpatient (RCR) | payer BC ==
[~2016-11-17 08:16] MED LIST changes: +AZIT250T12 PO; -AZIT250T5 PO; -METO-270 PO; +METO-387 PO
[2017-05-11] MEDS ORDERED: BUDE10.2 IH (19:28)
[2017-05-11] MEDS ORDERED: MULT-974 PO (19:28)
[2017-05-11] MEDS ORDERED: CARV12.53 PO (19:28)
[2017-05-11] MEDS ORDERED: LEVA0.318 IH (19:28)
[2017-05-11] MEDS ORDERED: FURO80TA83 PO (19:28)
[2017-05-11] MEDS ORDERED: MYCO360T3 PO (19:28)
[2017-05-11] MEDS ORDERED: NYST1000 PO (19:28)
== END 2017-02-15 | disposition home or self-care (01) ==
LOC: PULM 08:16
PROVIDERS: ATTEND Nurse Practitioner Family
DX: J44.9 Chronic obstructive pulmonary disease, unspecified (principal); R09.02 Hypoxemia
CPT/HCPCS: 99211

== ENCOUNTER 2017-07-03 14:04 | Outpatient (RCR) | payer BC ==
[2017-05-11 14:05] VITALS: BP 127/68
[2017-05-11] MEDS: diphenhydrAMINE 25 MG TAB (BENADRYL) PO PRN (14:50)
[2017-05-11] MEDS: ACETAMINOPHEN 500 MG TAB (TYLENOL) PO PRN (14:51)
[2017-05-11] MEDS: IRON SUCROSE 300 MG/NS 250 ML (IVPB) IV SCH ×2 (15:27)
[2017-05-19 13:45] VITALS: BP 160/83
[2017-05-19] MEDS: diphenhydrAMINE 25 MG TAB (BENADRYL) PO PRN (13:50)
[2017-05-19] MEDS: ACETAMINOPHEN 500 MG TAB (TYLENOL) PO PRN (13:50)
[2017-05-19] MEDS: IRON SUCROSE 300 MG/NS 250 ML (IVPB) IV SCH ×2 (14:14)
[2017-05-25 14:00] VITALS: BP 169/88
[2017-05-25] MEDS: IRON SUCROSE 300 MG/NS 250 ML (IVPB) IV SCH ×2 (14:18)
[2017-05-25] MEDS: diphenhydrAMINE 25 MG TAB (BENADRYL) PO PRN (14:19)
[2017-05-25] MEDS: ACETAMINOPHEN 500 MG TAB (TYLENOL) PO PRN (14:20)
[2017-05-25 14:29] LABS: HEMOGLOBIN 8.2 G/DL (13.3-17.7); MEAN PLATELET VOLUME 9.9 FL (7.4-10.4); RED BLOOD COUNT 2.94 10^6/uL (4.35-5.85); RED CELL DISTRIBUTION WIDTH 14.1 % (10.0-14.5); WHITE BLOOD COUNT 7.2 10^3/uL (4.3-11.0)
[2017-05-25] MEDS: DARBEPOETIN 100 MCG/ML (ARANESP) 1 ML VIAL SC SCH (15:12)
[2017-06-05 14:49] VITALS: BP 130/79
[2017-06-05] MEDS: DARBEPOETIN 100 MCG/ML (ARANESP) 1 ML VIAL SC SCH (14:52)
[2017-06-08 13:55] VITALS: BP 144/87
[2017-06-08] MEDS: DARBEPOETIN 100 MCG/ML (ARANESP) 1 ML VIAL SC SCH (14:05)
[~2017-07-03] VITALS: Ht 175.3 cm; Wt 83.0 kg
[~2017-07-03 14:04] MED LIST changes: +BUDE10.2 IH; +CARV12.53 PO; +CATHETER FLUSH 10 ML SYR IV PRN; +DARBEPOETIN 100 MCG/ML (ARANESP) 1 ML VIAL SC SCH; +FURO80TA83 PO; +LEVA0.318 IH; +MULT-974 PO; +MYCO360T3 PO; +NYST1000 PO
[2017-07-03 14:20] LABS: BASOPHILS % (AUTO) 0 % (0-10); EOSINOPHILS # (AUTO) 0.2 10^3/uL (0.0-0.3); EOSINOPHILS % (AUTO) 3 % (0-10); HEMATOCRIT 29 % (40-54); HEMOGLOBIN 9.6 G/DL (13.3-17.7); LYMPHOCYTES # (AUTO) 0.8 X 10^3 (1.0-4.0); LYMPHOCYTES % (AUTO) 10 % (12-44); MEAN CORPUSCULAR HEMOGLOBIN 28 PG (25-34); MEAN CORPUSCULAR HGB CONC 33 G/DL (32-36); MEAN CORPUSCULAR VOLUME 86 FL (80-99); MEAN PLATELET VOLUME 9.1 FL (7.4-10.4); MONOCYTES # (AUTO) 0.6 X 10^3 (0.0-1.0); MONOCYTES % (AUTO) 8 % (0-12); NEUTROPHILS # (AUTO) 5.9 X 10^3 (1.8-7.8); NEUTROPHILS % (AUTO) 79 % (42-75); PLATELET COUNT 198 10^3/uL (130-400); RED BLOOD COUNT 3.39 10^6/uL (4.35-5.85); RED CELL DISTRIBUTION WIDTH 14.2 % (10.0-14.5); WHITE BLOOD COUNT 7.5 10^3/uL (4.3-11.0)
[2017-07-03] MEDS: DARBEPOETIN 100 MCG/ML (ARANESP) 1 ML VIAL SC SCH (14:45)
[2017-07-03 14:47] VITALS: BP 145/86
[2017-07-20] MEDS ORDERED: FURO80TA3 PO (14:31)
[2017-07-20] MEDS ORDERED: AMLO5TAB2 PO (14:31)
[2017-07-20] MEDS ORDERED: CARV25TA PO (14:31)
[2017-07-20] MEDS ORDERED: LEVA0.6313 NEB (14:38)
== END 2017-08-09 | disposition home or self-care (01) ==
LOC: SDC 14:04
PROVIDERS: ATTEND Family Medicine
DX: N18.4 Chronic kidney disease, stage 4 (severe) (principal); D63.1 Anemia in chronic kidney disease
CPT/HCPCS: 36415; 85025; 85027; 96365; 96372; 96375

== ENCOUNTER 2017-07-20 10:49 | Inpatient (IN) | payer BC ==
[~2017-07-20] VITALS: Ht 175.3 cm; Wt 80.5 kg
[~2017-07-20 10:49] MED LIST changes: -CATHETER FLUSH 10 ML SYR IV PRN; -DARBEPOETIN 100 MCG/ML (ARANESP) 1 ML VIAL SC SCH
[2017-07-20] MEDS ORDERED: RT-ALBUTEROL/IPRATROPIUM 3 ML (DUONEB) VIAL ONE (11:02)
[2017-07-20 11:06] VITALS: BP 153/78
[2017-07-20 11:12] LABS: BASOPHILS % (AUTO) 0 % (0-10); EOSINOPHILS # (AUTO) 0.1 10^3/uL (0.0-0.3); EOSINOPHILS % (AUTO) 2 % (0-10); HEMATOCRIT 30 % (40-54); HEMOGLOBIN 9.2 G/DL (13.3-17.7); LYMPHOCYTES # (AUTO) 0.5 X 10^3 (1.0-4.0); LYMPHOCYTES % (AUTO) 9 % (12-44); MEAN CORPUSCULAR HEMOGLOBIN 28 PG (25-34); MEAN CORPUSCULAR HGB CONC 31 G/DL (32-36); MEAN CORPUSCULAR VOLUME 92 FL (80-99); MEAN PLATELET VOLUME 9.9 FL (7.4-10.4); MONOCYTES # (AUTO) 0.5 X 10^3 (0.0-1.0); MONOCYTES % (AUTO) 8 % (0-12); NEUTROPHILS # (AUTO) 4.7 X 10^3 (1.8-7.8); NEUTROPHILS % (AUTO) 81 % (42-75); PLATELET COUNT 184 10^3/uL (130-400); RED BLOOD COUNT 3.24 10^6/uL (4.35-5.85); RED CELL DISTRIBUTION WIDTH 14.1 % (10.0-14.5); WHITE BLOOD COUNT 5.8 10^3/uL (4.3-11.0)
[2017-07-20 11:30] LABS: ALANINE AMINOTRANSFERASE 7 U/L (0-55); ALBUMIN 3.5 GM/DL (3.2-4.5); ALKALINE PHOSPHATASE 97 U/L (40-136); BILIRUBIN,TOTAL 0.6 MG/DL (0.1-1.0); BUN/CREATININE RATIO 21; CALCIUM 8.7 MG/DL (8.5-10.1); CARBON DIOXIDE 28 MMOL/L (21-32); CHLORIDE 91 MMOL/L (98-107); CREATININE SERUM 3.67 MG/DL (0.60-1.30); GFR ESTIMATED 17; GLUCOSE 107 MG/DL (70-105); POTASSIUM 4.8 MMOL/L (3.6-5.0); SODIUM 131 MMOL/L (135-145); TOTAL PROTEIN 6.5 GM/DL (6.4-8.2)
[2017-07-20 11:39] LABS: BILIRUBIN,URINE NEGATIVE (NEGATIVE); CLARITY,URINE CLEAR; COLOR,URINE YELLOW; GLUCOSE, URINE (UA) NEGATIVE (NEGATIVE); KETONES,URINE NEGATIVE (NEGATIVE); LEUKOCYTE ESTERASE ,URINE NEGATIVE (NEGATIVE); NITRITE,URINE NEGATIVE (NEGATIVE); PH,URINE 5 (5-9); PROTEIN,URINE 3+ (NEGATIVE); UROBILINOGEN,URINE NORMAL (NORMAL)
[2017-07-20] MEDS ORDERED: FUROSEMIDE 40 MG/4 ML INJ (LASIX) IVP ONE (11:45)
[2017-07-20 11:49] LABS: BACTERIA,URINE TRACE /HPF; SQUAMOUS EPITHELIAL CELL,UR 0-2 /HPF; WBC,URINE RARE /HPF
--- NOTE | 2017-07-20 11:53 | Diagnostic Imaging Report ---
INDICATION: Shortness of breath. TIME OF EXAMINATION: 11:40 a.m. COMPARISON: Correlation is made with the prior study from 03/17/2016. FINDINGS: The heart is enlarged but stable. The apical thickening on the right appear stable. Irregular parenchymal opacity in the right upper lobe appears less prominent on this current exam. There appears to be some central congestion. There may be some mild infiltrate in the left perihilar and right basilar region. Trace pleural fluid bilaterally is noted. There is no pneumothorax. IMPRESSION: Bilateral pulmonary infiltrates and trace bilateral pleural effusions. Dictated by: Dictated on workstation # [id number]
--- NOTE | 2017-07-20 12:18 | ED Respiratory ---
General Chief Complaint: Respiratory Problems Stated Complaint: SOB Nursing Triage Note: PT TO [facility] WITH CC OF SOB, ACCORDING TO EMS PT IS SUPPOSED TO BE TAKING 80 MG LASIX EVERY DAY BUT HAS ONLY BEEN TAKING IT EVERY OTHER DAY OR WHENEVER PT FEELS LIKE HE NEEDS IT, NOT TAKING ANY TODAY OR YESTERDAY, 80 MG LASIX GIVEN IV BY EMS IN ROUTE. Source: patient, family Exam Limitations: no limitations History of Present Illness Date Seen by Provider: Jul 20, 2017 Time Seen by Provider: 12:12 Initial Comments 57-year-old white male presents with a history from the paramedics of increasing shortness of breath. Patient has been placed on Lasix 80 mg every other day for his fluid retention. Patient denies associated chest pain, fever, chills, productive cough, palpitations, nausea or vomiting. Patient is under the care of Dr. Keenan. The patient states specialists are in [place]. The patient and his family would like to stay here today of hospitalization is required. Allergies and Home Medications Allergies Coded Allergies: varenicline (Unverified Allergy, Severe, 05/11/17) Qmbhblb-Mdj-Knv Reductase Inhibitor (Unverified Allergy, Unknown, 05/11/17 ) Home Medications Albuterol Sulfate 8.5 Gm Hfa.aer.ad, 2 PUFF INH Q6H PRN for SHORTNESS OF BREATH, (Reported) Allopurinol 100 Mg Tablet, 100 MG PO DAILY @ 1200, (Reported) Budesonide/Formoterol Fumarate 10.2 Gm Hfa.aer.ad, 2 PUFF IH BID, (Reported) Carvedilol 12.5 Mg Tablet, 12.5 MG PO BID WITH MEALS, (Reported) Cyclosporine, Modified 25 Mg Capsule, 100 MG PO BID, (Reported) TAKES 4 (25 MG) CAPSULES Furosemide 80 Mg Tablet, 80 MG PO Q48H, (Reported) Levalbuterol HCl 0.31 Mg/3 Ml Vial.neb, 0.31 MG IH TID, (Reported) Multivitamin 1 Each Tablet, 1 EACH PO DAILY, (Reported) Mycophenolate Sodium 360 Mg Tablet.dr, 360 MG PO BID, (Reported) Nystatin 100,000 Unit/1 Ml Oral.susp, 5 ML PO QID, (Reported) Pantoprazole Sodium 40 Mg Tablet.dr, 40 MG PO BID, (Reported) Prednisone 5 Mg Tablet, 5 MG PO DAILY @ 1200, (Reported) Tiotropium Norris 1 Inh Aerp, 1 CAP INH DAILY @ 1200, (Reported) Constitutional: No chills, No fever EENTM: No blurred vision Respiratory: see HPI, No phlegm, short of breath Cardiovascular: No chest pain, No palpitations Gastrointestinal: No abdominal pain, No diarrhea, No vomiting Genitourinary: decreased output, No dysuria Musculoskeletal: No back pain Skin: No rash Psychiatric/Neurological: No Symptoms Reported Hematologic/Lymphatic: No Symptoms Reported Immunological/Allergic: no symptoms reported Past Xmezqmy-Tjaphi-Oseyot Hx Patient Social History Alcohol Use: Denies Use Recreational Drug Use: No Smoking Status: Former Smoker Type Used: Cigarettes Former Smoker, Quit: May 11, 2011 Recent Foreign Travel: No Contact w/Someone Who Travel: No Recent Infectious Disease Expo: No Recent Hopitalizations: No Immunizations Up To Date Tetanus Booster (TDap): Less than 5yrs Date of Pneumonia Vaccine: Mar 29, 2015 Date of Influenza Vaccine: Apr 27, 2017 Seasonal Allergies Seasonal Allergies: Yes Surgeries History of Surgeries: Yes (skin ca removed, kidney transplant) Surgeries: Appendectomy, Gallbladder, Kidney Transplant, Renal Respiratory History of Respiratory Disorde: Yes (WEARS O2 AT 6L PER NC) Respiratory Disorders: Pneumonia, COPD, Emphysema Currently Using CPAP: No Currently Using BIPAP: No Cardiovascular History of Cardiac Disorders: Yes Cardiac Disorders: Hypertension Neurological History of Neurological Disord: No Reproductive System Hx Reproductive Disorders: No Sexually Transmitted Disease: No HIV/AIDS: No Genitourinary History of Genitourinary Disor: Yes (HX OF DIALYSIS, HAD KIDNEY TRANSPLANT) Genitourinary Disorders: Renal Failure, Dialysis Gastrointestinal History of Gastrointestinal Di: No Gastrointestinal Disorders: Gastroesophageal Reflux Musculoskeletal History of Musculoskeletal Dis: Yes Musculoskeletal Disorders: Arthritis Endocrine History of Endocrine Disorders: No HEENT HEENT Disorders: Cataract Loss of Vision: Denies Hearing Impairment: Hard of Hearing, Bilateral Hearing Aide Cancer History of Cancer: Yes Cancer: Skin Psychosocial History of Psychiatric Problem: No Integumentary History of Skin or Integumenta: Yes (SKIN CA) Blood Transfusions History of Blood Disorders: Yes (anemia) Adverse Reaction to a Blood Tr: No Reviewed Nursing Assessment Reviewed/Agree w Nursing PMH: Yes Family Medical History Significant Family History: No Pertinent Family Hx Family Medial History: Arthritis 19 MOTHER Cardiovascular disease 19 FATHER 19 MOTHER Coronary thrombosis 19 MOTHER Deafness or hearing loss 19 FATHER Diabetes mellitus 19 FATHER G8 SISTER Hypertension 19 MOTHER Myocardial infarction 19 FATHER 19 MOTHER G8 SISTER Respiratory disorder No Family History of: AIDS Abdominal aortic aneurysm Baxter's disease Alcoholism Alzheimer's disease Aphasia Asthma Cancer of mouth Cataracts Colon cancer Completed stroke Congenital disease Congenital heart disease Cystic fibrosis Dementia Drug abuse Dysphasia Fibrocystic disease of breast Gastroenteritis Glaucoma Headache disorder Hypercholesterolemia Infertility Kidney disease Neoplasm Osteoporosis Parkinson's disease Prostate cancer Psychosocial problem Seizure disorder Severe allergy Thyroid disease Tuberculosis Visual disorder Physical Exam Vital Signs Vital Sign - Last 12Hours 07/20/17 07/20/17 11:04 11:06 Temp 97.6 Pulse 80 Resp 20 B/P (MAP) 153/78 (103) Pulse Ox 98 O2 Delivery NIV/Bilevel O2 Flow Rate 40.00 Capillary Refill : Less Than 3 Seconds General Appearance: WD/WN, mild distress HEENT: normal ENT inspection Neck: supple, normal inspection Respiratory: rales Cardiovascular: regular rate, rhythm, no murmur Gastrointestinal: normal bowel sounds, soft Extremities: normal range of motion, non-tender, normal inspection Neurologic/Psychiatric: no motor/sensory deficits, alert, normal mood/affect Skin: normal color, warm/dry Progress/Results/Core Measures Suspected Sepsis Recent Fever Within 48 Hours: No Infection Criteria Present: None New/Unexplained Altered Menta: No Sepsis Screen: No Definite Risk Sepsis Diagnosis: SIRS Temperature:97.6 Pulse: 80 Respiratory Rate: 27 Laboratory Tests 07/20/17 11:05: White Blood Count 5.8 Blood Pressure 153 /78 Mean: 103 Laboratory Tests 07/20/17 11:05: Creatinine 3.67H, Platelet Count 184, Total Bilirubin 0.6 Results/Orders Lab Results Laboratory Tests Test 07/20/17 11:05 07/20/17 11:30 Range/Units White Blood Count 5.8 4.3-11.0 10^3/uL Red Blood Count 3.24 L 4.35-5.85 10^6/uL Hemoglobin 9.2 L 13.3-17.7 G/DL Hematocrit 30 L 40-54 % Mean Corpuscular Volume 92 80-99 FL Mean Corpuscular Hemoglobin 28 25-34 PG Mean Corpuscular Hemoglobin Concent 31 L 32-36 G/DL Red Cell Distribution Width 14.1 10.0-14.5 % Platelet Count 184 130-400 10^3/uL Mean Platelet Volume 9.9 7.4-10.4 FL Neutrophils (%) (Auto) 81 H 42-75 % Lymphocytes (%) (Auto) 9 L 12-44 % Monocytes (%) (Auto) 8 0-12 % Eosinophils (%) (Auto) 2 0-10 % Basophils (%) (Auto) 0 0-10 % Neutrophils # (Auto) 4.7 1.8-7.8 X 10^3 Lymphocytes # (Auto) 0.5 L 1.0-4.0 X 10^3 Monocytes # (Auto) 0.5 0.0-1.0 X 10^3 Eosinophils # (Auto) 0.1 0.0-0.3 10^3/uL Basophils # (Auto) 0.0 0.0-0.1 10^3/uL D-Dimer 0.67 H 0.00-0.49 UG/ML Sodium Level 131 L 135-145 MMOL/L Potassium Level 4.8 3.6-5.0 MMOL/L Chloride Level 91 L 98-107 MMOL/L Carbon Dioxide Level 28 21-32 MMOL/L Anion Gap 12 5-14 MMOL/L Blood Urea Nitrogen 77 H 7-18 MG/DL Creatinine 3.67 H 0.60-1.30 MG/DL Estimat Glomerular Filtration Rate 17 BUN/Creatinine Ratio 21 Glucose Level 107 H 70-105 MG/DL Calcium Level 8.7 8.5-10.1 MG/DL Total Bilirubin 0.6 0.1-1.0 MG/DL Aspartate Amino Transf (AST/SGOT) 3 L 5-34 U/L Alanine Aminotransferase (ALT/SGPT) 7 0-55 U/L Alkaline Phosphatase 97 40-136 U/L Troponin I < 0.30 <0.30 NG/ML B-Type Natriuretic Peptide 1513.3 H <100.0 PG/ML Total Protein 6.5 6.4-8.2 GM/DL Albumin 3.5 3.2-4.5 GM/DL Urine Color YELLOW Urine Clarity CLEAR Urine pH 5 5-9 Urine Specific Powell 1.015 L 1.016-1.022 Urine Protein 3+ H NEGATIVE Urine Glucose (UA) NEGATIVE NEGATIVE Urine Ketones NEGATIVE NEGATIVE Urine Nitrite NEGATIVE NEGATIVE Urine Bilirubin NEGATIVE NEGATIVE Urine Urobilinogen NORMAL NORMAL MG/DL Urine Leukocyte Esterase NEGATIVE NEGATIVE Urine RBC (Auto) NEGATIVE NEGATIVE Urine RBC NONE /HPF Urine WBC RARE /HPF Urine Squamous Epithelial Cells 0-2 /HPF Urine Crystals NONE /LPF Urine Bacteria TRACE /HPF Urine Casts NONE /LPF Urine Mucus NEGATIVE /LPF Urine Culture Indicated NO My Orders Orders - ANISHA RODNEY MD BNP (07/20/17 11:01) Comprehensive Metabolic Panel (07/20/17 11:01) Cbc With Automated Diff (07/20/17 11:01) Troponin I (07/20/17 11:01) Chest 1 View, Ap/Pa Only (07/20/17 11:01) Ekg Tracing (07/20/17 11:01) Ua Culture If Indicated (07/20/17 11:01) Albuterol/Ipra Inhalation Soln (Duoneb I (07/20/17 11:02) Fibrin Degradation Products (07/20/17 11:30) Medications Given in ED Current Medications Medications Dose Ordered Sig/Samir Route Start Time Stop Time Status Last Admin Dose Admin Albuterol/ Ipratropium 3 ml STK-MED ONCE .ROUTE 07/20/17 11:02 07/20/17 11:04 DC 07/20/17 11:19 3 ML Vital Signs/I&O Vital Sign - Last 12Hours 07/20/17 07/20/17 11:04 11:06 Temp 97.6 Pulse 80 80 Resp 20 27 B/P (MAP) 153/78 (103) Pulse Ox 98 100 O2 Delivery NIV/Bilevel O2 Flow Rate 40.00 Capillary Refill : Less Than 3 Seconds Blood Pressure Mean: 103 Progress Note : Time: 12:16 Progress Note The patient was much more comfortable after arrival in the emergency department. Patient received 80 mg of Lasix in route. The patient was placed on BiPAP in route. CPAP was ordered at 12 and 6 in the emergency department. Telephone consultation was undertaken with Dr. Man was kind enough to admit the patient. Dr. Zhang will consult on the patient. Departure Communication (Admissions) Time/Spoke to Admitting Phy: 12:[address] Man Time/Spoke to Consulting Phy: 12:20 Communication/Consulting Dr. 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 Referrals: HELADIO KEENAN MD (PCP/Family) Primary Care Physician ANISHA RODNEY MD Jul 20, 2017 12:18
[2017-07-20 13:00] VITALS: BP 133/69
--- NOTE | 2017-07-20 13:49 | History & Physical-Hospitalist ---
HPI History of Present Illness: HPI/Chief Complaint The patient is a 57-year-old white male who presented to the emergency room today with increasing dyspnea. He has not been seen here since approximately 2014. He has had a kidney transplant about 25 years ago. He reports that he is supposed to take Lasix on a daily basis but often takes it when convenient for him. His family states that they have not really seen him since Thu time and that he is much puffier than before. They also state that he was to go to [place] next month to be evaluated for a lung/kidney transplant. He is not clear as to when he last had an echocardiogram. The echocardiogram we have available to us from June 2014 showed normal left ventricular size. The ejection fraction was estimated at 50 percent. The pulmonary artery pressure was estimated at 65 mmHg. Source: patient, family Exam Limitations: no limitations Date Seen 07/20/17 Time Seen by Provider: 13:44 Attending Physician Teresa Man MD PCP Tani Keenan MD Referring Physician Date of Admission Jul 20, 2017 at 12:11 Home Medications & Allergies Home Medications Reviewed patient Home Medication Reconciliation Form Allergies Allergies Coded Allergies varenicline (Unverified Allergy, Severe, 05/11/17) Jjgeokf-Zfi-Ydf Reductase Inhibitor (Unverified Allergy, Unknown, 05/11/17) Past Slqjcwj-Wuqgvw-Iugglv Hx Patient Social History Alcohol Use: Denies Use Recreational Drug Use: No Smoking Status: Former Smoker Former Smoker, Quit: May 11, 2011 Type Used: Cigarettes Recent Foreign Travel: No Contact w/other who traveled: No Recent Hopitalizations: No Recent Infectious Disease Expo: No Immunizations Up To Date Tetanus Booster (TDap): Less than 5yrs Date of Pneumonia Vaccine: Mar 29, 2015 Date of Influenza Vaccine: Apr 27, 2017 Seasonal Allergies Seasonal Allergies: Yes Surgeries Yes (skin ca removed, kidney transplant) Appendectomy, Gallbladder, Kidney Transplant, Renal Respiratory Yes (WEARS O2 AT 6L PER NC) Pneumonia Currently Using CPAP: No Currently Using BIPAP: No Cardiovascular Yes Hypertension Neurological No Reproductive System Hx Reproductive Disorders: No Sexually Transmitted Disease: No HIV/AIDS: No Genitourinary Yes (HX OF DIALYSIS, HAD KIDNEY TRANSPLANT) Renal Failure, Dialysis Gastrointestinal No Gastroesophageal Reflux Musculoskeletal Yes Arthritis Endocrine History of Endocrine Disorders: No HEENT HEENT Disorders: Cataract Loss of Vision: Denies Hearing Impairment: Hard of Hearing, Bilateral Hearing Aide Cancer Yes Skin Psychosocial History of Psychiatric Problem: No Integumentary History of Skin or Integumenta: Yes (SKIN CA) Blood Transfusions History of Blood Disorders: Yes (anemia) Adverse Reaction to a Blood Tr: No Reviewed Nursing Assessment Reviewed/Agree w Nursing PMH: Yes Family Medical History Significant Family History: No Pertinent Family Hx Family Hx: Arthritis 19 MOTHER Cardiovascular disease 19 FATHER 19 MOTHER Coronary thrombosis 19 MOTHER Deafness or hearing loss 19 FATHER Diabetes mellitus 19 FATHER G8 SISTER Hypertension 19 MOTHER Myocardial infarction 19 FATHER 19 MOTHER G8 SISTER Respiratory disorder No Family History of: AIDS Abdominal aortic aneurysm Mathews's disease Alcoholism Alzheimer's disease Aphasia Asthma Cancer of mouth Cataracts Colon cancer Completed stroke Congenital disease Congenital heart disease Cystic fibrosis Dementia Drug abuse Dysphasia Fibrocystic disease of breast Gastroenteritis Glaucoma Headache disorder Hypercholesterolemia Infertility Kidney disease Neoplasm Osteoporosis Parkinson's disease Prostate cancer Psychosocial problem Seizure disorder Severe allergy Thyroid disease Tuberculosis Visual disorder Review of Systems Constitutional: see HPI, weight gain EENTM: no symptoms reported Respiratory: dyspnea on exertion, orthopnea, short of breath, other (COPD and history of old bacterial process which apparently caused lung scarring.) Cardiovascular: chest pain (occasional and fleeting. No previous interventions ) Genitourinary: other (increasing girth) Musculoskeletal: muscle weakness Skin: no symptoms reported Psychiatric/Neurological: No Symptoms Reported Physical Exam Physical Exam Vital Signs Capillary Refill : Less Than 3 Seconds General Appearance: Moderate Distress (O2 with pressure support. He has home oxygen) Eyes: Bilateral Eye Normal Inspection HEENT: Normal ENT Inspection Neck: Normal Inspection Respiratory: Decreased Breath Sounds (tachypneic) Cardiovascular: Regular Rate, Rhythm Back: Normal Inspection Neurologic/Psychiatric: Alert, Oriented x3, No Motor/Sensory Deficits, Normal Mood/Affect Skin: Normal Color, Warm/Dry Lymphatic: No Adenopathy Comments The patient appears to have edema to the cheeks and jowls. The abdomen is firm and suggests ascites. Extremities showed 2+ woody edema to the knees bilaterally. Results Results/Procedures Lab Assessment/Plan Admission Diagnosis Anasarca. 2.COPD. 3.pulmonary artery hypertension. 4.past history of renal transplant approximately 25 years ago. 5.home O2 dependence. ELISEO HARRIS MD Jul 20, 2017 13:49
[2017-07-20] MEDS ORDERED: FUROSEMIDE 40 MG/4 ML INJ (LASIX) IVP NR (14:00)
[2017-07-20] MEDS ORDERED: AMLO5TAB2 PO (14:31)
[2017-07-20] MEDS ORDERED: FURO80TA3 PO (14:31)
[2017-07-20] MEDS ORDERED: CARV25TA PO (14:31)
[2017-07-20] MEDS ORDERED: LEVA0.6313 NEB (14:38)
--- NOTE | 2017-07-20 15:46 | Consultation-Cardiology ---
HPI-Cardiology Cardiology Consultation: Date of Consultation 07/20/17 Time Seen by Provider: 15:20 Date of Admission 07-20-17 Attending Physician Teresa Man MD Admitting Physician Tani Keenan MD Consulting Physician Alana Chi MD, MA FACP [facility] HPI: Chief Complaint: Reason for consultation: Shortness of breath, CHF Mr. Dawson is a 57 year old male admitted to ICU 3 from the ED. He reports he has chronic shortness of breath, but feels it has become increasingly worse over the last few weeks. He states he has a h/o chronic lung infection for which he has completed a year of abx treatment and is currently being treated at [facility]. He states he is awaiting evaluation for lung transplant. He also reports chronic bilat LE edema which has also been increasingly worse. He reports he takes Lasix 80mg at home per his green marketer at [facility], but he does not take it on a daily basis. He reports he is awaiting evaluation for another possible kidney transplant. He reports he feels his breathing is somewhat better than at home. He is currently on Bi-pap. He is oxygen dependent at 6L/ NC at home. He denies any CP or palpitations. He denies any syncope or near syncope. He has a family member at home x 1. SDT-Kzcclo-Rybzpz Hx Patient Social History Alcohol Use: Denies Use Recreational Drug Use: No Smoking Status: Former Smoker Former smoker/When Quit: Mar 27, 2012 Type Used: Cigarettes Recent Foreign Travel: No Recent Infectious Disease Expo: No Physical Abuse Screen: No Sexual Abuse: No Immunizations Up To Date Tetanus Booster (TDap): Less than 5yrs Date of Pneumonia Vaccine: Jun 30, 2016 Date of Influenza Vaccine: Apr 27, 2017 Past Medical History PMH As described under Assessment. Family Medical History Family History: Arthritis 19 MOTHER Cardiovascular disease 19 FATHER 19 MOTHER Coronary thrombosis 19 MOTHER Deafness or hearing loss 19 FATHER Diabetes mellitus 19 FATHER G8 SISTER Hypertension 19 MOTHER Myocardial infarction 19 FATHER 19 MOTHER G8 SISTER Respiratory disorder No Family History of: AIDS Abdominal aortic aneurysm [place]'s disease Alcoholism Alzheimer's disease Aphasia Asthma Cancer of mouth Cataracts Colon cancer Completed stroke Congenital disease Congenital heart disease Cystic fibrosis Dementia Drug abuse Dysphasia Fibrocystic disease of breast Gastroenteritis Glaucoma Headache disorder Hypercholesterolemia Infertility Kidney disease Neoplasm Osteoporosis Parkinson's disease Prostate cancer Psychosocial problem Seizure disorder Severe allergy Thyroid disease Tuberculosis Visual disorder Allergies and Home Medications Allergies Coded Allergies: varenicline (Unverified Allergy, Severe, 05/11/17) Lmfhycz-Axw-Rfu Reductase Inhibitor (Unverified Allergy, Unknown, 05/11/17 ) Home Medications Albuterol Sulfate 8.5 Gm Hfa.aer.ad, 2 PUFF INH Q6H PRN for SHORTNESS OF BREATH, (Reported) Allopurinol 100 Mg Tablet, 100 MG PO 1300, (Reported) Amlodipine Besylate 5 Mg Tablet, 5 MG PO 1300, (Reported) Budesonide/Formoterol Fumarate 10.2 Gm Hfa.aer.ad, 2 PUFF IH 1300,0100, ( Reported) Carvedilol 25 Mg Tablet, 25 MG PO 1300,0100, (Reported) Cyclosporine, Modified 25 Mg Capsule, 75 MG PO 1300,0100, (Reported) TAKES 3 (25MG) CAPSULES Furosemide 80 Mg Tablet, 80 MG PO Q48H, (Reported) Levalbuterol HCl 0.63 Mg/3 Ml Vial.neb, 0.63 MG NEB TID PRN for SHORTNESS OF BREATH, (Reported) Multivitamin 1 Each Tablet, 1 TAB PO 1300, (Reported) Mycophenolate Sodium 360 Mg Tablet.dr, 360 MG PO 1300,0100, (Reported) LASST FILLED #60 --17 Nystatin 100,000 Unit/1 Ml Oral.susp, 5 ML PO QID PRN for SORES, (Reported) Pantoprazole Sodium 40 Mg Tablet.dr, 40 MG PO 1300,0100, (Reported) Prednisone 5 Mg Tablet, 5 MG PO 1300, (Reported) Tiotropium [place] 1 Inh Aerp, 1 CAP INH 1300, (Reported) Physical Exam-Cardiology Physical Exam Vital Signs/I&O Vital Sign - Last 12Hours 07/20/17 07/20/17 07/20/17 07/20/17 11:04 11:06 12:58 13:00 Temp 97.6 97.2 98.3 Pulse 80 80 84 85 Resp B/P (MAP) 153/78 (103) 133/69 (90) Pulse Ox 98 100 93 91 O2 Delivery NIV/Bilevel NIV Bilevel NIV Bilevel O2 Flow Rate 40.00 40.00 07/20/17 07/20/17 07/20/17 07/20/17 14:24 14:51 16:00 16:00 Temp 98.0 Pulse 80 80 Resp 27 20 B/P (MAP) 128/69 (88) Pulse Ox 99 90 97 O2 Delivery NIV Bilevel NIV Bilevel O2 Flow Rate 50.00 40.00 50.00 FiO2 50 07/20/17 18:41 Pulse Ox 92 O2 Delivery High Flow N/C O2 Flow Rate 8.00 Capillary Refill : Less Than 3 Seconds Data Review Labs Laboratory Tests 07/20/17 11:05: White Blood Count 5.8, Red Blood Count 3.24L, Hemoglobin 9.2L, Hematocrit 30L, Mean Corpuscular Volume 92, Mean Corpuscular Hemoglobin 28, Mean Corpuscular Hemoglobin Concent 31L, Red Cell Distribution Width 14.1, Platelet Count 184, Mean Platelet Volume 9.9, Neutrophils (%) (Auto) 81H, Lymphocytes (%) (Auto) 9L , Monocytes (%) (Auto) 8, Eosinophils (%) (Auto) 2, Basophils (%) (Auto) 0, Neutrophils # (Auto) 4.7, Lymphocytes # (Auto) 0.5L, Monocytes # (Auto) 0.5, Eosinophils # (Auto) 0.1, Basophils # (Auto) 0.0, D-Dimer 0.67H, Sodium Level 131L, Potassium Level 4.8, Chloride Level 91L, Carbon Dioxide Level 28, Anion Gap 12, Blood Urea Nitrogen 77H, Creatinine 3.67H, Estimat Glomerular Filtration Rate 17, BUN/Creatinine Ratio 21, Glucose Level 107H, Calcium Level 8.7, Total Bilirubin 0.6, Aspartate Amino Transf (AST/SGOT) 3L, Alanine Aminotransferase (ALT/SGPT) 7, Alkaline Phosphatase 97, Troponin I < 0.30, B- Type Natriuretic Peptide 1513.3H, Total Protein 6.5, Albumin 3.5 07/20/17 11:30: Urine Color YELLOW, Urine Clarity CLEAR, Urine pH 5, Urine Specific [place] 1.015L, Urine Protein 3+H, Urine Glucose (UA) NEGATIVE, Urine Ketones NEGATIVE, Urine Nitrite NEGATIVE, Urine Bilirubin NEGATIVE, Urine Urobilinogen NORMAL, Urine Leukocyte Esterase NEGATIVE, Urine RBC (Auto) NEGATIVE, Urine RBC NONE, Urine WBC RARE, Urine Squamous Epithelial Cells 0-2, Urine Crystals NONE, Urine Bacteria TRACE, Urine Casts NONE, Urine Mucus NEGATIVE, Urine Culture Indicated NO A/P-Cardiology Assessment/Admission Diagnosis Dyspnea which is multi-factorial; acute CHF, acute on chronic exacerbation of COPD in the presence of chronic lung dz Acute CHF, systolic and diastolic Echo of 07/20/17: LVEF 40-45%, mild to mod MR, PASP 50 mmHg Acute on chronic exacerbation of COPD Chronic bacterial lung infection (MAC) for which he has completed a year of antibiotic tx - follows with infectious disease and pulmonology at [facility] ( awaiting evaluation for lung transplant) Acute on chronic renal insufficiency H/O renal transplant at [facility] approx 27 years ago (awaiting evaluation for another renal transplant) HTN Reports h/o stress test within the last year at [facility] which he reports was normal GERD H/O tobaccoism (quit 6-7 years ago) Discussion and Recomendations Complex management issue d/t multiple co-morbidities as listed above Acute diastolic CHF - receiving diuretics Acute on chronic renal insufficiency for which he has had a transplant and follows with nephrology services a [facility] Monitor lab closely Need to consider transfer to tertiary care center with dialysis capabilities. We have discussed this with him and his family member. If need be they would like to transfer to [facility] where he has a green marketer, compensation/benefits specialist, transplant and infectious disease physician team Acute on chronic exacerbation of COPD with chronic lung infection (MAC) for which he is following with [facility] and is awaiting eval for possible transplant Continue Coreg for BP control We will request recent MPI from [facility] Echocardiogram to evaluate LVEF and structure We would like to thank medical services for this consult Further rec will be based on his hospital course This consult is being scribed by LEYLA Bruce on behalf of Dr. Chi after discussion regarding plan of care Clinical Quality Measures DVT/VTE Risk/Contraindication: Risk Factor Score Per Nursin RFS Level Per Nursing on Admit: 4+=Very High Physician Assessment Physician Assessment Shortness of breath modestly improved since admission. No cp or palp or syncope On BiPAP Lungs: diminished air entry over all lung gaona Cor: reg Ext: no c/c/e A&R * As documented in our note above that I updated (italics) and as noted below * Management is very complex due to multiple comorbidities * Echo results as noted above * Monitor labs * Appears reasonable to treat with diuretics. If symptoms remain unresolved with medical therapy, we would recommend transfer to a tertiary care facility * I spoke with him and answered CV-related questions SONIA SANDOVAL Jul 20, 2017 15:46 ALANA CHI MD FACP FAC CCDS Jul 20, 2017 19:10
[2017-07-20 16:00] VITALS: BP 128/69
[2017-07-20] MEDS ORDERED: NS IV 1000 ML 1,000 ML IV SCH (19:30)
[2017-07-20 20:00] VITALS: BP 129/77
[2017-07-20] MEDS ORDERED: CATHETER FLUSH 10 ML SYR IV PRN (20:00)
[2017-07-20] MEDS: RT-ALBUTEROL/IPRATROPIUM 3 ML (DUONEB) VIAL INH SCH (21:10)
[2017-07-21] VITALS (7 sets, daily range): BP systolic 86–153; BP diastolic 58–83
[2017-07-21] MEDS ORDERED: NON-FORMULARY MEDICATION 1 EA EA (Carvedilol 25 MG) PO SCH (01:00)
[2017-07-21] MEDS ORDERED: CARVEDILOL 12.5 MG (COREG) TABLET PO SCH (01:00)
[2017-07-21] MEDS: RT-ALBUTEROL/IPRATROPIUM 3 ML (DUONEB) VIAL INH SCH ×3 (01:15→11:05)
[2017-07-21 05:21] LABS: ALANINE AMINOTRANSFERASE 8 U/L (0-55); ALBUMIN 3.3 GM/DL (3.2-4.5); ALKALINE PHOSPHATASE 106 U/L (40-136); BILIRUBIN,TOTAL 0.7 MG/DL (0.1-1.0); BUN/CREATININE RATIO 23; CALCIUM 8.8 MG/DL (8.5-10.1); CARBON DIOXIDE 29 MMOL/L (21-32); CHLORIDE 91 MMOL/L (98-107); GFR ESTIMATED 17; GLUCOSE 97 MG/DL (70-105); MAGNESIUM 1.3 MG/DL (1.8-2.4); POTASSIUM 4.8 MMOL/L (3.6-5.0); SODIUM 133 MMOL/L (135-145); TOTAL PROTEIN 6.1 GM/DL (6.4-8.2)
--- NOTE | 2017-07-21 08:19 | Diagnostic Imaging Report ---
INDICATION: Congestive heart failure. TIME OF EXAM: 4:09 a.m. Correlation is made with prior study from one day earlier. The heart size is stable. Right apical pleural thickening and right apical parenchymal density is stable. Bibasilar infiltrates are unchanged. There are small bilateral effusions. No pneumothorax is seen. IMPRESSION: Stable chest since examination one day earlier. Dictated by: Dictated on workstation # [id number]
--- NOTE | 2017-07-21 08:50 | Progress Note-Cardiology ---
Cardiology SOAP Progress Note Subjective: In bed on Bi-pap. Reports he continues to feels short of breath. He reports it is unchanged from yesterday. He feels the LE edema has improved. No c/o CP or palpitations. Objective: I&O/Vital Signs Vital Sign - Last 12Hours 07/21/17 07/21/17 07/21/17 07/21/17 04:00 04:00 04:41 06:36 Temp 97.1 Pulse 82 58 82 Resp 18 25 20 B/P (MAP) 153/77 (102) Pulse Ox 94 95 93 O2 Delivery NIV Bilevel High Flow N/C O2 Flow Rate 40.00 8.00 40.00 40.00 07/21/17 07/21/17 07/21/17 07/21/17 07:00 08:00 08:00 08:17 Temp 96.8 Pulse 82 86 Resp 20 Pulse Ox 86 O2 Delivery NIV Bilevel O2 Flow Rate 8.00 55.00 FiO2 40 07/21/17 07/21/17 07/21/17 07/21/17 11:05 11:49 12:00 12:11 Temp 98.5 98.5 Pulse 86 79 79 Resp 20 18 18 B/P (MAP) 142/83 (102) 86/58 Pulse Ox 99 98 100 100 O2 Delivery Nasal Cannula High Flow N/C High Flow N/C O2 Flow Rate 10.00 8.00 8.00 FiO2 100 07/21/17 14:13 Temp 98.5 Pulse 79 Resp 18 B/P (MAP) 120/68 Pulse Ox 100 O2 Delivery Mechanical Ventilator O2 Flow Rate 60.00 Intake and Output 07/21/17 00:00 Intake Total 350 ml Output Total 625 ml Balance -275 ml Weight (Pounds): 177 Weight (Ounces): 7.0 Weight (Calculated Kilograms): 80.983266 Constitutional: AAO x 3 Respiratory: other (diminished throughout; Bi-pap in place) Cardiovascular: regular rate-rhythm, No JVD, S1 and S2 Gastrointestional: No tender, soft, audible bowel sounds Extremities: significant edema (2 (+) bilat LE) Neurologic/Psychiatric: grossly intact Skin: No rash, No ulcerations Results/Procedures: Labs Laboratory Tests 07/21/17 04:20: Sodium Level 133L, Potassium Level 4.8, Chloride Level 91L, Carbon Dioxide Level 29, Anion Gap 13, Blood Urea Nitrogen 82H, Creatinine 3.60H, Estimat Glomerular Filtration Rate 17, BUN/Creatinine Ratio 23, Glucose Level 97, Calcium Level 8.8, Magnesium Level 1.3L, Total Bilirubin 0.7, Aspartate Amino Transf (AST/SGOT) 4L, Alanine Aminotransferase (ALT/SGPT) 8, Alkaline Phosphatase 106, Troponin I < 0.30, Total Protein 6.1L, Albumin 3.3 07/21/17 10:57: Blood Gas Puncture Site LEFT RADIAL, Blood Gas Patient Temperature 96.8, Arterial Blood pH 7.27*L, Arterial Blood Partial Pressure CO2 72*H, Arterial Blood Partial Pressure O2 156H, Arterial Blood HCO3 32H, Arterial Blood Total CO2 34.6H, Arterial Blood Oxygen Saturation 100, Arterial Blood Base Excess 5.5H , Lucio Test POSITIVE, Blood Gas Ventilator Setting NO, Blood Gas Inspired Oxygen 10 L 07/21/17 13:24: Blood Gas Puncture Site RIGHT RADIAL, Blood Gas Patient Temperature 97.9, Arterial Blood pH 7.29*L, Arterial Blood Partial Pressure CO2 63H, Arterial Blood Partial Pressure O2 114H, Arterial Blood HCO3 30H, Arterial Blood Total CO2 31.6H, Arterial Blood Oxygen Saturation 99, Arterial Blood Base Excess 3.5H , Lucio Test POSITIVE, Blood Gas Ventilator Setting YES, Blood Gas Inspired Oxygen 60% 07/21/17 13:32: White Blood Count 5.0, Red Blood Count 3.02L, Hemoglobin 8.6L, Hematocrit 28L, Mean Corpuscular Volume 94, Mean Corpuscular Hemoglobin 29, Mean Corpuscular Hemoglobin Concent 30L, Red Cell Distribution Width 14.2, Platelet Count 148, Mean Platelet Volume 9.7, Neutrophils (%) (Auto) 79H, Lymphocytes (%) (Auto) 9L , Monocytes (%) (Auto) 9, Eosinophils (%) (Auto) 3, Basophils (%) (Auto) 0, Neutrophils # (Auto) 3.9, Lymphocytes # (Auto) 0.5L, Monocytes # (Auto) 0.4, Eosinophils # (Auto) 0.2, Basophils # (Auto) 0.0 Microbiology 07/21/17 Influenza Types A,B Antigen (TANIYA) - Final, Complete Procedures NAME: [facility] REC#: [id number] PT STATUS: ADM IN : 1960 PHYSICIAN: PARISH MAN MD ADMIT DATE: 07/20/17/ICU Draft Date of Exam:07/21/17 CHEST 1 VIEW, AP/PA ONLY INDICATION: Congestive heart failure. TIME OF EXAM: 4:09 a.m. Correlation is made with prior study from one day earlier. The heart size is stable. Right apical pleural thickening and right apical parenchymal density is stable. Bibasilar infiltrates are unchanged. There are small bilateral effusions. No pneumothorax is seen. IMPRESSION: Stable chest since examination one day earlier. Dictated on workstation # [id number] Dict: 07/21/17809 Trans: 07/21/17817 [facility] [id number] Interpreted by: JOHN MCMAHAN MD Electronically signed by: A/P: Assessment: Dyspnea which is multi-factorial; acute CHF, acute on chronic exacerbation of COPD in the presence of chronic lung dz Acute resp failure requiring intubation and mech vent this am Acute CHF, systolic and diastolic Echo of 07/20/17: LVEF 40-45%, mild to mod MR, PASP 50 mmHg Acute on chronic exacerbation of COPD Chronic bacterial lung infection (MAC) for which he has completed a year of antibiotic tx - follows with infectious disease and pulmonology at [facility] ( awaiting evaluation for lung transplant) Acute on chronic renal insufficiency H/O renal transplant at [facility] approx 27 years ago (awaiting evaluation for another renal transplant) HTN Reports h/o stress test within the last year at [facility] which he reports was normal GERD H/O tobaccoism (quit 6-7 years ago) Plan: Complex management issue d/t multiple co-morbidities as listed above Acute diastolic CHF - receiving diuretics Acute on chronic renal insufficiency for which he has had a transplant and follows with nephrology services a [facility]. Cr remains essentially unchanged from yesterday Monitor lab closely Need to consider transfer to tertiary care center with dialysis capabilities. We have discussed this with him and his family member. If need be they would like to transfer to [facility] where he has a bus transportation manager, meter reader chief, transplant and infectious disease physician team Acute on chronic exacerbation of COPD with chronic lung infection (MAC) for which he is following with [facility] and is awaiting eval for possible transplant Continue Coreg for BP control Discussed with Dr. Man. Plan is to transfer him to [facility] likely later today Physician Assessment Physician Assessment Intubated at time of my exam Cor reg Physical exam as described above A&R * As documented in our note above that I update (italics) * I discussed his case with Dr Man of the Hospitalist [facility] this am and recommended transfer to [facility] to his usual, multispecialty care team SONIA SANDOVAL Jul 21, 2017 08:50 CHRIS CHI MD FACP [facility] CCDS Jul 21, 2017 14:39
--- NOTE | 2017-07-21 09:30 | Pulmonary Consultation ---
History of Present Illness History of Present Illness Date of Consultation 07/21/17 09:25 Time Seen by Provider: 09:25 Date of Admission History of Present Illness 57yo with hx of hidney transplant 25yrs ago presented to ED secondary to worsening SOB. He is on daily Lasix however he does not take it as Rx. He has had worsening edema since Lasara. Pt is also planing on going to [place] to be evaluated for a heart/kidney transplant. Dr. Man called and asked me to evaluate patients pulmonary status prior to transfer to . Pt's ortho/prosthetic aide is at and she is planning on transferring him there. Currently he is requiring BiPAP. CXR shows bilateral pulmonary infiltrates. Allergies and Home Medications Allergies Coded Allergies: varenicline (Unverified Allergy, Severe, 05/11/17) Qnvajbx-Gjq-Who Reductase Inhibitor (Unverified Allergy, Unknown, 05/11/17 ) Home Medications Albuterol Sulfate 8.5 Gm Hfa.aer.ad, 2 PUFF INH Q6H PRN for SHORTNESS OF BREATH, (Reported) Allopurinol 100 Mg Tablet, 100 MG PO 1300, (Reported) Amlodipine Besylate 5 Mg Tablet, 5 MG PO 1300, (Reported) Budesonide/Formoterol Fumarate 10.2 Gm Hfa.aer.ad, 2 PUFF IH 1300,0100, ( Reported) Carvedilol 25 Mg Tablet, 25 MG PO 1300,0100, (Reported) Cyclosporine, Modified 25 Mg Capsule, 75 MG PO 1300,0100, (Reported) TAKES 3 (25MG) CAPSULES Furosemide 80 Mg Tablet, 80 MG PO Q48H, (Reported) Levalbuterol HCl 0.63 Mg/3 Ml Vial.neb, 0.63 MG NEB TID PRN for SHORTNESS OF BREATH, (Reported) Multivitamin 1 Each Tablet, 1 TAB PO 1300, (Reported) Mycophenolate Sodium 360 Mg Tablet.dr, 360 MG PO 1300,0100, (Reported) LASST FILLED #60 -- Nystatin 100,000 Unit/1 Ml Oral.susp, 5 ML PO QID PRN for SORES, (Reported) Pantoprazole Sodium 40 Mg Tablet.dr, 40 MG PO 1300,0100, (Reported) Prednisone 5 Mg Tablet, 5 MG PO 1300, (Reported) Tiotropium [place] 1 Inh Aerp, 1 CAP INH 1300, (Reported) Past Qaugpwy-Xypwpn-Xdfksh Hx Patient Social History Alcohol Use: Denies Use Recreational Drug Use: No Smoking Status: Former Smoker Type Used: Cigarettes Former Smoker, Quit: May 11, 2011 Recent Foreign Travel: No Contact w/Someone Who Travel: No Recent Infectious Disease Expo: No Recent Hopitalizations: No Immunizations Up To Date Tetanus Booster (TDap): Less than 5yrs Date of Pneumonia Vaccine: Jun 30, 2016 Date of Influenza Vaccine: Apr 27, 2017 Seasonal Allergies Seasonal Allergies: Yes Surgeries History of Surgeries: Yes (skin ca removed, kidney transplant) Surgeries: Appendectomy, Gallbladder, Kidney Transplant, Renal Respiratory History of Respiratory Disorde: Yes (WEARS O2 AT 6L PER NC) Respiratory Disorders: Pneumonia, COPD, Emphysema Currently Using CPAP: No Currently Using BIPAP: No Cardiovascular History of Cardiac Disorders: Yes Cardiac Disorders: Hypertension Neurological History of Neurological Disord: No Reproductive System Hx Reproductive Disorders: No Sexually Transmitted Disease: No HIV/AIDS: No Genitourinary History of Genitourinary Disor: Yes (HX OF DIALYSIS, HAD KIDNEY TRANSPLANT) Genitourinary Disorders: Renal Failure, Dialysis Gastrointestinal History of Gastrointestinal Di: No Gastrointestinal Disorders: Gastroesophageal Reflux Musculoskeletal History of Musculoskeletal Dis: Yes Musculoskeletal Disorders: Arthritis Endocrine History of Endocrine Disorders: No HEENT HEENT Disorders: Cataract Loss of Vision: Denies Hearing Impairment: Hard of Hearing, Bilateral Hearing Aide Cancer History of Cancer: Yes Cancer: Skin Psychosocial History of Psychiatric Problem: No Integumentary History of Skin or Integumenta: Yes (SKIN CA) Blood Transfusions History of Blood Disorders: Yes (anemia) Adverse Reaction to a Blood Tr: No Reviewed Nursing Assessment Reviewed/Agree w Nursing PMH: Yes Family Medical History Significant Family History: No Pertinent Family Hx Family Medial History: Arthritis 19 MOTHER Cardiovascular disease 19 FATHER 19 MOTHER Coronary thrombosis 19 MOTHER Deafness or hearing loss 19 FATHER Diabetes mellitus 19 FATHER G8 SISTER Hypertension 19 MOTHER Myocardial infarction 19 FATHER 19 MOTHER G8 SISTER Respiratory disorder No Family History of: AIDS Abdominal aortic aneurysm Ivan's disease Alcoholism Alzheimer's disease Aphasia Asthma Cancer of mouth Cataracts Colon cancer Completed stroke Congenital disease Congenital heart disease Cystic fibrosis Dementia Drug abuse Dysphasia Fibrocystic disease of breast Gastroenteritis Glaucoma Headache disorder Hypercholesterolemia Infertility Kidney disease Neoplasm Osteoporosis Parkinson's disease Prostate cancer Psychosocial problem Seizure disorder Severe allergy Thyroid disease Tuberculosis Visual disorder Review of Systems Time Seen by Provider: 13:08 Constitutional: Sweats, Weakness, Malaise, No: Fever, Chills, Other Eyes: No: Pain, Vision change, Conjunctivae inflammation, Eyelid inflammation, Other, Redness ENT: No: Ear pain, Ear discharge, Nose pain, Nose discharge, Nose congestion, Mouth pain, Mouth swelling, Throat pain, Throat swelling, Other Respiratory: Cough, Shortness of breath, SOB with excertion, Wheezing, Sputum Cardiovascular: Orthopnea, Paroxysmal Noc. Dyspnea, No: Chest Pain, Palpitations, Edema, Lt Headedness, Other Gastrointestinal: No: Nausea, Vomiting, Abdominal Pain, Diarrhea, Constipation , Melena, Hematochezia, Other Genitourinary: No Dysuria, No Frequency, No Incontinence, No Hematuria, No Retention, No Other Neurological: Weakness Exam Exam Vital Signs Date Time Temp Pulse Resp B/P (MAP) Pulse Ox O2 Delivery O2 Flow Rate FiO2 07/21/17 08:17 86 20 86 55.00 07/21/17 07:00 82 07/21/17 06:36 82 20 93 40.00 07/21/17 04:41 58 25 95 40.00 07/21/17 04:00 High Flow N/C 8.00 07/21/17 04:00 97.1 82 18 153/77 (102) 94 NIV Bilevel 40.00 07/21/17 01:15 85 27 97 40.00 07/21/17 01:00 80 07/21/17 00:09 High Flow N/C 8.00 07/21/17 00:00 98.1 65 18 114/73 (87) 97 NIV Bilevel 40.00 07/20/17 21:11 92 High Flow N/C 8.00 07/20/17 21:00 97 High Flow N/C 40.00 07/20/17 20:36 40 07/20/17 20:00 89 129/77 (94) High Flow N/C 8.00 07/20/17 20:00 High Flow N/C 8.00 07/20/17 19:00 86 07/20/17 18:41 92 High Flow N/C 8.00 07/20/17 16:00 98.0 80 20 128/69 (88) 97 NIV Bilevel 50.00 07/20/17 16:00 NIV Bilevel 50 07/20/17 14:51 90 40.00 07/20/17 14:24 80 27 99 50.00 07/20/17 13:00 98.3 85 22 133/69 (90) 91 NIV Bilevel 07/20/17 12:58 97.2 84 22 93 NIV Bilevel 40.00 07/20/17 11:06 80 27 100 40.00 07/20/17 11:04 97.6 80 20 153/78 (103) 98 NIV/Bilevel I & O 07/21/17 07:00 Intake Total 690 ml Output Total 925 ml Balance -235 ml General Appearance: Moderate Distress (O2 with pressure support. He has home oxygen) HEENT: Normal ENT Inspection Neck: Normal Inspection Respiratory: Decreased Breath Sounds (tachypneic) Cardiovascular: Regular Rate, Rhythm Capillary Refill: Less Than 3 Seconds Gastrointestinal: normal bowel sounds, soft Neurologic/Psychiatric: Alert, Oriented x3, No Motor/Sensory Deficits, Normal Mood/Affect Skin: Normal Color, Warm/Dry Lymphatic: No Adenopathy Results Lab Laboratory Tests 07/20/17 11:05 07/21/17 04:20 Assessment/Plan Assessment/Plan Dyspnea with acute [facility] ECHO 07/16 EF 40-45% -Lasix -Cardiology is following Acute on chronic respiratory failure -Currently requiring BIPAP -Will trial off BiPAP and check an ABG in 1hr -If pt does ok off BiPAP will transfer to without intubation. If it is determined that he requires BiPAP will proceed with intubation and mechanical ventilation prior to transfer. [facility] Hx of MAC - pt has been on Abx x 1 yr -Follows with ID and pulm at - Pt is being evaluated for lung transplant Acute on chronic renal insufficiency with hx of kidney transplant -Pt's ortho/prosthetic aide is at Hx of tobacco use - quit 7yrs ago 255 Clinical Quality Measures DVT/VTE Risk/Contraindication: Risk Factor Score Per Nursin RFS Level Per Nursing on Admit: 4+=Very High JEOVANY HERNANDEZ DO Jul 21, 2017 09:30
[2017-07-21 11:04] LABS: ABG BASE EXCESS 5.5 MMOL/L (-2.5-2.5); ABG OXYGEN SATURATION 100 % (94-100); ABG PO2 156 MMHG (79-93); ABG TCO2 34.6 MMOL/L (21.0-31.0)
[2017-07-21 11:05] LABS: ABG PCO2 72 MMHG (35-45); ABG PH 7.27 (7.37-7.43); ALLENS TEST POSITIVE; INSPIRED O2 10 L; PATIENT TEMP 96.8; VENTILATOR NO
[2017-07-21] MEDS ORDERED: PIPERACILLIN/TAZOBACTAM 4.5 GM/D5W 100 ML IV NR ×2 (11:43)
[2017-07-21] MEDS ORDERED: proPOfol 200 MG/20 ML (DIPRIVAN) VIAL IV ONE (11:52)
[2017-07-21] MEDS ORDERED: VANCOMYCIN 1 GM/NS 250 ML IVPB IV NR ×2 (12:00)
[2017-07-21] MEDS ORDERED: NS IV 1000 ML 1,000 ML IV SCH ×2 (12:00→13:00)
[2017-07-21] MEDS: PROPOFOL DRIP (ICU) 100 ML IV SCH ×2 (12:00→14:13)
--- NOTE | 2017-07-21 12:18 | Progress Note-Standard ---
Standard Progress Note Progress Notes/Assess & Plan Date Seen by Provider: Jul 21, 2017 Time Seen by Provider: 11:45 Progress/Assessment & Plan consult for intubation. consent obtained. 150mg propofol and 50mg succinylcholine and 2 mg versed given. start time 1145 end time 1205. tolerated procedure well YO OSWALD CRNA Jul 21, 2017 12:18
--- NOTE | 2017-07-21 12:26 | Discharge Summary-Hospitalist ---
Diagnosis/Chief Complaint Date of Admission Jul 20, 2017 at 12:11 Date of Discharge Discharge Date: Jul 21, 2017 Admission Diagnosis Anasarca. 2.COPD. 3.pulmonary artery hypertension. 4.past history of renal transplant approximately 25 years ago. 5.home O2 dependence. Discharge Summary Consultations Dr Ambriz- Pulm/CC Dr. Zhang- Cardiology Discharge Physical Examination Allergies: Coded Allergies: varenicline (Unverified Allergy, Severe, 05/11/17) Jvqmpuc-Rep-Tbd Reductase Inhibitor (Unverified Allergy, Unknown, 05/11/17 ) Vitals & I&Os Vital Signs Date Time Temp Pulse Resp B/P (MAP) Pulse Ox O2 Delivery O2 Flow Rate FiO2 07/21/17 11:49 98.5 86 20 142/83 (102) 98 High Flow N/C 8.00 07/21/17 08:00 40 Hospital Course Pt is a 57yoCM with a PMH of CKD s/p kidney transplant 25 years ago who presented to the ER with CC of SOB. He appeared to be fluid overloaded due to heart failure and was admitted to ICU for acute respiratory distress necessitating BiPAP. He was given 160mg of Lasix yesterday with minimal urine output (300ml) overnight. His creatinine remained 3.6 but his respiratory status did not improve. He was trialed off BiPAP and was found to be in hypercapnic respiratory failure. Dr Ambriz, the cad intern, evaluated patient and recommended intubation prior to transfer. Review of his CXR also revealed bilateral infiltrates. He was started on Vanc (renally dosed) and Zosyn given his immune compromised status. It was deemed he would need higher level of care given his kidney failure. I discussed the case with [facility] transfer line and they have accepted him for admission to their ICU. Accepting physician is Dr. Blanca. Labs (last 24 hrs) Laboratory Tests 07/21/17 04:20: Sodium Level 133L, Potassium Level 4.8, Chloride Level 91L, Carbon Dioxide Level 29, Anion Gap 13, Blood Urea Nitrogen 82H, Creatinine 3.60H, Estimat Glomerular Filtration Rate 17, BUN/Creatinine Ratio 23, Glucose Level 97, Calcium Level 8.8, Magnesium Level 1.3L, Total Bilirubin 0.7, Aspartate Amino Transf (AST/SGOT) 4L, Alanine Aminotransferase (ALT/SGPT) 8, Alkaline Phosphatase 106, Troponin I < 0.30, Total Protein 6.1L, Albumin 3.3 07/21/17 10:57: Blood Gas Puncture Site LEFT RADIAL, Blood Gas Patient Temperature 96.8, Arterial Blood pH 7.27*L, Arterial Blood Partial Pressure CO2 72*H, Arterial Blood Partial Pressure O2 156H, Arterial Blood HCO3 32H, Arterial Blood Total CO2 34.6H, Arterial Blood Oxygen Saturation 100, Arterial Blood Base Excess 5.5H , Lucio Test POSITIVE, Blood Gas Ventilator Setting NO, Blood Gas Inspired Oxygen 10 L Pending Labs Laboratory Tests 07/21/17 04:20: Sodium Level 133, Potassium Level 4.8, Chloride Level 91, Carbon Dioxide Level 29, Anion Gap 13, Blood Urea Nitrogen 82, Creatinine 3.60, Estimat Glomerular Filtration Rate 17, BUN/Creatinine Ratio 23, Glucose Level 97, Calcium Level 8.8 , Magnesium Level 1.3, Total Bilirubin 0.7, Aspartate Amino Transf (AST/SGOT) 4 , Alanine Aminotransferase (ALT/SGPT) 8, Alkaline Phosphatase 106, Troponin I < 0.30, Total Protein 6.1, Albumin 3.3 07/21/17 10:57: Blood Gas Puncture Site LEFT RADIAL, Blood Gas Patient Temperature 96.8, Arterial Blood pH 7.27, Arterial Blood Partial Pressure CO2 72, Arterial Blood Partial Pressure O2 156, Arterial Blood HCO3 32, Arterial Blood Total CO2 34.6, Arterial Blood Oxygen Saturation 100, Arterial Blood Base Excess 5.5, Lucio Test POSITIVE, Blood Gas Ventilator Setting NO, Blood Gas Inspired Oxygen 10 L Discharge Home Medications: Active Scripts Active Reported Levalbuterol HCl 0.63 Mg/3 Ml Vial.neb 0.63 Mg NEB TID PRN Carvedilol 25 Mg Tablet 25 Mg PO 1300,0100 Furosemide 80 Mg Tablet 80 Mg PO Q48H Amlodipine Besylate 5 Mg Tablet 5 Mg PO 1300 Multi-Vitamin Daily (Multivitamin) 1 Each Tablet 1 Tab PO 1300 Symbicort 160-4.5 Mcg Inhaler (Budesonide/Formoterol Fumarate) 10.2 Gm Hfa.aer.ad 2 Puff IH 1300,0100 Nystatin 100,000 Unit/1 Ml Oral.susp 5 Ml PO QID PRN Mycophenolic Acid (Mycophenolate Sodium) 360 Mg Tablet.dr 360 Mg PO 1300,0100 LASST FILLED #60 11-20-17 Prednisone 5 Mg Tablet 5 Mg PO 1300 Cyclosporine Modified (Cyclosporine, Modified) 25 Mg Capsule 75 Mg PO 1300,0100 TAKES 3 (25MG) CAPSULES Allopurinol 100 Mg Tablet 100 Mg PO 1300 Proair Hfa (Albuterol Sulfate) 8.5 Gm Hfa.aer.ad 2 Puff INH Q6H PRN Spiriva (Tiotropium [place]) 1 Inh Aerp 1 Cap INH 1300 Pantoprazole Sodium 40 Mg Tablet.dr 40 Mg PO 1300,0100 Instructions to patient/family Please see electronic discharge instructions given to patient. Clinical Quality Measures DVT/VTE Risk/Contraindication: Risk Factor Score Per Nursin RFS Level Per Nursing on Admit: 4+=Very High Copy Copies To 1: HELADIO HOOPER MD, KATELYN M MD Jul 21, 2017 12:26
--- NOTE | 2017-07-21 12:50 | Diagnostic Imaging Report ---
INDICATION: Post intubation. Time of exam: 12:33 PM Correlation is made with prior study earlier the same day. An endotracheal tube has been placed has the tip above the carlito. NG tube passes below the diaphragm. Bilateral parenchymal opacities appear stable. There is no pneumothorax. IMPRESSION: Satisfactory endotracheal tube placement. Dictated by: Dictated on workstation # [id number]
[2017-07-21] MEDS ORDERED: amLODIPine 5 MG (NORVASC) TAB PO SCH (13:00)
[2017-07-21 13:33] LABS: ABG BASE EXCESS 3.5 MMOL/L (-2.5-2.5); ABG OXYGEN SATURATION 99 % (94-100); ABG PCO2 63 MMHG (35-45); ABG PO2 114 MMHG (79-93); ABG TCO2 31.6 MMOL/L (21.0-31.0)
[2017-07-21 13:34] LABS: ABG PH 7.29 (7.37-7.43); ALLENS TEST POSITIVE; INSPIRED O2 60%; VENTILATOR YES
[2017-07-21 13:35] LABS: PATIENT TEMP 97.9
[2017-07-21 13:39] LABS: BASOPHILS % (AUTO) 0 % (0-10); EOSINOPHILS # (AUTO) 0.2 10^3/uL (0.0-0.3); EOSINOPHILS % (AUTO) 3 % (0-10); HEMATOCRIT 28 % (40-54); HEMOGLOBIN 8.6 G/DL (13.3-17.7); LYMPHOCYTES # (AUTO) 0.5 X 10^3 (1.0-4.0); LYMPHOCYTES % (AUTO) 9 % (12-44); MEAN CORPUSCULAR HEMOGLOBIN 29 PG (25-34); MEAN CORPUSCULAR HGB CONC 30 G/DL (32-36); MEAN CORPUSCULAR VOLUME 94 FL (80-99); MEAN PLATELET VOLUME 9.7 FL (7.4-10.4); MONOCYTES # (AUTO) 0.4 X 10^3 (0.0-1.0); MONOCYTES % (AUTO) 9 % (0-12); NEUTROPHILS # (AUTO) 3.9 X 10^3 (1.8-7.8); NEUTROPHILS % (AUTO) 79 % (42-75); PLATELET COUNT 148 10^3/uL (130-400); RED BLOOD COUNT 3.02 10^6/uL (4.35-5.85); RED CELL DISTRIBUTION WIDTH 14.2 % (10.0-14.5)
[2017-07-21] MEDS ORDERED: SUCCINYLCHOLINE INJ 100 MG/5 ML SYR INJ ONE (14:37)
[2017-07-21] MEDS ORDERED: MIDAZOLAM 5 MG/5 ML (VERSED) VIAL IJ ONE (14:37)
--- NOTE | 2017-07-21 15:15 | Physician Query-General Query ---
Physician Query-General Query to Physician: Please document final diagnoses, including heart failure. None listed on summary. PHYSICIAN RESPONSE: Based on the clinical findings in the record, please respond to the query above on this document as an addendum. Possible, probable, or questionable diagnosis can be coded for INPATIENTS ONLY. Physician Response: Physician Response Renal Failure s/p transplant Pneumonia Acute Hypercapnic Respiratory Failure If you have questions please contact: Data Center Operator: Ext: Thank you for your time and cooperation. Clinical Systems Eng/Data Center Operator This is a permanent part of the medical record FANI KIDD Jul 21, 2017 15:15 PARISH COHN MD Jul 21, 2017 16:43
--- NOTE | 2017-07-21 15:19 | Physician Query-Heart Failure ---
Physician Query-Heart Failure Query to Physician: Provider's Document Request-Please contact fire extinguisher installer listed on document for more information. Dear Provider, We need your assistance to accurately capture the severity of the patients heart failure. Physician participation is requested in all cases of tour consultant uncertainty to minimize errors in code assignment and to avoid compliance issues. Conflicting information on both consult and progress note: Assessment states acute CHF, systolic and diastolic.......Discussion on same reports state Acute Diastolic CHF. Please clarify which is correct. Please select the type of heart failure the patient has below. Type of Heart Failure: Type of Heart Failure: Systolic & Diastolic HF (Acute) If you have questions please contact: Financial Coordinator: Ext: Thank you for your time and cooperation. Clinical Power Brake Operator/Financial Coordinator This is a permanent part of the medical record FANI KIDD Jul 21, 2017 15:19 CHRIS CHI MD FAC FAC CCDS Aug 17, 2017 12:54
== END 2017-07-21 14:17 | disposition short-term general hospital (02) | DRG 291 ==
LOC: EDUNIT# 10:49 → ER 10:50 → ICU 12:11
PROVIDERS: ADMIT Family Medicine; ATTEND Family Medicine
DX: I50.41 Acute combined systolic (congestive) and diastolic (congestive) heart failure (principal); J44.1 Chronic obstructive pulmonary disease with (acute) exacerbation; J96.22 Acute and chronic respiratory failure with hypercapnia; Z94.0 Kidney transplant status; J18.9 Pneumonia, unspecified organism; I27.20 Pulmonary hypertension, unspecified; K21.9 Gastro-esophageal reflux disease without esophagitis; I12.9 Hypertensive chronic kidney disease with stage 1 through stage 4 chronic kidney disease, or unspecified chronic kidney disease; Z87.891 Personal history of nicotine dependence; N18.9 Chronic kidney disease, unspecified; Z99.81 Dependence on supplemental oxygen
CPT/HCPCS: 36415; 71045; 80053; 81000; 82805; 83735; 83880; 84484; 85025; 85379; 87804; 93005; 93306; 94002; 94640; 94660

== ENCOUNTER → 2017-07-31 | Outpatient (CLI) | payer BC ==
[~2017-07-31] MED LIST changes: +CARV25TA PO; +FURO80TA3 PO; +LEVA0.6313 NEB
[2017-07-31 14:15] LABS: CALCIUM 9.1 MG/DL (8.5-10.1); CREATININE SERUM 3.89 MG/DL (0.60-1.30); POTASSIUM 3.9 MMOL/L (3.6-5.0)
== END ==
LOC: LAB 13:40
PROVIDERS: ATTEND Internal Medicine Nephrology
DX: J96.21 Acute and chronic respiratory failure with hypoxia (principal); Z94.0 Kidney transplant status; N17.9 Acute kidney failure, unspecified; D89.9 Disorder involving the immune mechanism, unspecified; E87.5 Hyperkalemia
CPT/HCPCS: 36415; 80048; 80158

== ENCOUNTER 2017-09-15 15:00 | Outpatient (RCR) | payer BC ==
[2017-10-06 15:52] VITALS: BP 130/60
[2017-10-08 15:00] VITALS: BP 130/60
[2017-10-08 16:00] VITALS: BP 160/60
[2017-10-15 15:00] VITALS: BP 150/70
[2017-10-15 16:00] VITALS: BP 140/60
[2017-10-23] MEDS ORDERED: HYDR-756 PO (15:06)
[2017-11-04] MEDS ORDERED: CYCL25CA12 PO (09:59)
== END 2017-11-05 | disposition home or self-care (01) ==
LOC: PULM 15:00
PROVIDERS: ATTEND Internal Medicine Critical Care Medicine
DX: J44.9 Chronic obstructive pulmonary disease, unspecified (principal)

== ENCOUNTER 2017-10-23 13:29 | Emergency (ER) | payer BC ==
[~2017-10-23] VITALS: Ht 172.7 cm; Wt 72.6 kg
[2017-10-23] MEDS ORDERED: morphine INJ 10 MG/ML 1ML (SYR OR VIAL) IV STA (13:34)
--- OUTSIDE RECORDS SUMMARY | 2017-10-23 13:34 | XMS REPORT | Continuity of Care Document ---
Author Author [employer] Organization [facility] Address Unknown Phone Unavailable Care Team Providers Care Automotive Parts Salesperson Name Role Phone [employer] Unavailable Unavailable Problems Medications Allergies, Adverse Reactions, Alerts Immunizations Results Vital Signs Encounters Location Location Details Encounter Type Encounter Number Reason For Visit Attending Provider ADM Date DC Date Status Source OUTPATIENT [id number] SLIME PINTO 02/02/20172016 Active [facility] OUTPATIENT [id number] ALEJANDRO PERI 03/03/2017 03/03/2017 Active [facility] OUTPATIENT [id number] ADI CARLTON 04/27/2017 04/27/2017 Active [facility] SPECIMEN [id number] ALEJANDROLesley WHITT 05/18/2017 05/18/2017 Active [facility] INPATIENT [id number] CHIQUI MARTINEZ 07/21/20172017 Active [facility] SPECIMEN [id number] ROMERO ELIAS 08/31/20172017 Active [facility] SPECIMEN [id number] ROMERO ELIAS 08/31/20172017 Active [facility] Haresh PINTO 11/09/2017 Active [facility] Procedures Plan of Care Social History Assessment and Plan Family History Advance Directives Functional Status
--- OUTSIDE RECORDS SUMMARY | 2017-10-23 13:35 | XMS REPORT | Encounter Summary ---
Author Author [facility] Organization [facility] Address Unknown Phone Unavailable Care Team Providers Care Insurance Writer Name Role Phone Otto Bartholomew MD Unavailable Venecia Olivas MD Unavailable Amy Joyner RN Unavailable Unavailable Brandy Scott MD Unavailable Tani Keenan MD PCP Franklin Gerber MD Unavailable Unavailable Jonathan Loya RN Unavailable Tash Calhoun RN 2 Unavailable Lisa Chavarria Unavailable Unavailable Mckenna Hidalgo Unavailable Unavailable Mari Braun APRN Unavailable Jigar Christian MD Unavailable Kip Godoy MD Unavailable Lianne Hughes MD Unavailable Alfonso Koehler OD Unavailable Cheri Evans LPN Unavailable Unavailable Katelyn Chris RN Unavailable Fartun Parker LPN Unavailable Unavailable Reason for Visit * Reason Comments Medication Refill Encounter Details Date Type Department Care Team Description 10/02/2017 Refill Center for [facility] Braun APRN Transplantation-Kidney/Pa [address] [place] [address] [place] [address] [place] FOR [phone] [place] [address] Social History Tobacco Use Types Packs/Day Years Used Date Former Smoker Cigarettes 1 30 Quit: 05/01/2012 Smokeless Tobacco: Never Used Alcohol Use Drinks/Week oz/Week Comments No Sex Assigned at Date Recorded Not on file as of this encounter Functional Status Functional Status Response Date of Assessment Does the patient have a hearing impairment: Yes 07/25/2017 Does the patient have a visual impairment: Yes 02/02/2017 Does the patient have impaired ambulation: Yes 02/02/2017 Does the patient have an activity of daily living No 02/02/2017 (ADL) impairment: Does the patient have an instrumental activity of No 02/02/2017 daily living (IADL) impairment: Cognitive Status Response Date of Assessment Does the patient have a cognitive impairment: No 02/02/2017 as of this encounter Plan of Treatment Not on fileas of this encounter Visit Diagnoses Not on filein this encounter
--- OUTSIDE RECORDS SUMMARY | 2017-10-23 13:35 | XMS REPORT | Encounter Summary ---
Author Author [facility] Organization [facility] Address Unknown Phone Unavailable Care Team Providers Care Assembler Skylights Name Role Phone Otto Bartholomew MD Unavailable Venecia Olivas MD Unavailable Amy Joyner RN Unavailable Unavailable Brandy Scott MD Unavailable Tani Keenan MD PCP Franklin Gerber MD Unavailable Unavailable Jonathan Loya RN Unavailable Tash Calhoun RN 2 Unavailable Lisa Chavarria Unavailable Unavailable Mckenna Hidalgo Unavailable Unavailable Mari Braun TIRE RETREADER Unavailable Jigar Christian MD Unavailable Kip Godoy MD Unavailable Lianne Hughes MD Unavailable Alfonso Koehler OD Unavailable Cheri Evans RECEIVER Unavailable Unavailable Katelyn Chris RN Unavailable Fartun Parker LPN Unavailable Unavailable Reason for Visit * Reason Comments Copd Dyspnea Encounter Details Date Type Department Care Team Description 09/14/2017 Office Visit [facility] Kip Godoy MD Chronic hypoxemic Physicians - Internal [address] [facility] respiratory failure (HCC) Medicine [place] [address] (Primary Dx); [address] [place] [address] Cavitary lung disease; [address] [facility] [phone] Stage 4 very severe COPD OFFICE BLDG by GOLD classification [place], [place] ([facility] [id number] Social History Tobacco Use Types Packs/Day Years Used Date Former Smoker Cigarettes 1 Quit: 05/01/2012 Smokeless Tobacco: Never Used Alcohol Use Drinks/Week oz/Week Comments No Sex Assigned at Date Recorded Not on file as of this encounter Last Filed Vital Signs Vital Sign Reading Time Taken Blood Pressure 150/83 09/14/2017 2:50 PM CDT Pulse 90 09/14/2017 2:50 PM CDT Temperature 36.6 C (97.8 F) 09/14/2017 2:50 PM CDT Respiratory Rate 16 09/14/2017 2:50 PM CDT Oxygen Saturation 99% 09/14/2017 2:50 PM CDT Inhaled Oxygen - - Concentration Weight 72.6 kg (160 lb) 09/14/2017 2:50 PM CDT Height 170.2 cm (5' 7") 09/14/2017 2:50 PM CDT Body Mass Index 25.06 09/14/2017 2:50 PM CDT in this encounter Functional Status Functional Status Response [...] impairment: No 02/02/2017 as of this encounter Instructions * Patient Instructions - Kip Godoy MD - 09/14/2017 2:50 PM CDT Take all the antibiotics for the next seven days. Continue on the Spiriva and Symbicort and albuterol as needed. Use the flutter valve with your nebulizer. Clinic Visit Summary: Next clinic visit follow up with Dr Godoy recommended in 3 months. Please contact Pulmonary Nurse Coordinator with signs and symptoms of worsening productive cough with thick secretions, blood in sputum, chest tightness/pain, shortness of breath, fever, chills, night sweats, or any questions or concerns. Pulmonary RN Coordinator-Dottie Dominguez RN T)[phone] F)[phone] For refills on medications, please have your pharmacy fax a refill authorization request form to our office at Fax) [phone]. Please allow at least 3 business days for refill requests. For urgent issues after business hours/weekends/holidays call [phone] and request for the video game animator to be paged in this encounter Progress Notes * Kip Godoy MD - 09/14/2017 2:50 PM CDT Formatting of this note may be different from the original. Subjective: History of Present Illness Doug Dawson is a 57 y.o. male. Had the pleasure of seeing Mr. Dawson in my pulmonary clinic today in follow-up for his chronic hypoxemic respiratory failure and very severe COPD. Since her last visit he did travel to [place] to be seen by the transplant clinic at [facility]. We have also gotten him approved for 18 sessions of pulmonary rehab and he started that last week. He has been working in pulmonary rehab and feels that it has been beneficial. He is adherent to the use of his inhalers without any complications. He has not required treatment with any antibiotics or systemic steroids. His weight and edema has been stable on his current diuretic regiment. He is using his flutter valve once daily and generally has nonproductive sputum production. He was recently seen about an abnormal area of skin on his nose by dermatology. A punch biopsy was consistent with squamous cell carcinoma and he will be undergoing excision on this . Review of Systems Constitutional: Negative for fever and unexpected weight change. HENT: Negative for postnasal drip and rhinorrhea. Respiratory: Positive for shortness of breath. Negative for wheezing. Gastrointestinal: Negative for abdominal pain. All other systems reviewed and are negative. Objective: allopurinol (ZYLOPRIM) 100 mg tablet Take 1 tablet by mouth daily. Take with food. amoxicillin (AMOXIL) 875 mg tablet Take 1 tablet by mouth every 12 hours for 7 days. budesonide/formoterol (SYMBICORT HFA) 160/4.5 mcg inhalation Inhale 2 Puffs by mouth into the lungs twice daily. carvedilol (COREG) 25 mg tablet Take 1 tablet by mouth twice daily. cycloSPORINE (GENGRAF) 25 mg cap Take 50 mg by mouth every morning and 25 mg by mouth every evening (total of 75 mg daily) furosemide (LASIX) 80 mg tablet Take 1 tablet by mouth daily. levalbuterol (XOPENEX) 0.31 mg/3 mL nebulizer solution Inhale 0.63 mg solution as directed three times daily as needed for Wheezing. mycophenolate DR (MYFORTIC) 360 mg TbEC tablet Take 1 tablet by mouth twice daily. nystatin (MYCOSTATIN) 100,000 units/mL oral suspension Take 500,000 Units by mouth three times daily as needed for Oral Thrush. pantoprazole DR (PROTONIX) 40 mg tablet Take 1 tablet by mouth every 12 hours. prednisone (DELTASONE) 5 mg tablet Take 1 tablet by mouth daily. PROAIR HFA 90 mcg/actuation inhaler INHALE 2 PUFFS BY MOUTH EVERY 6 HOURS NEEDED FOR WHEEZING tiotropium (SPIRIVA) 18 mcg capsule for inhaler Place 1 Cap into inhaler and inhale into lungs as directed daily. Vitals: 09/14/17 1450 BP: 150/83 Pulse: 90 Resp: 16 Temp: 36.6 C (97.8 F) TempSrc: Oral SpO2: 99% Weight: 72.6 kg (160 lb) Height: 170.2 cm (67") Body mass index is 25.06 kg/m. Physical Exam Constitutional: No distress. HENT: Mouth/Throat: Oropharynx is clear and moist. Neck: No tracheal deviation present. Cardiovascular: Normal rate, regular rhythm and normal heart sounds. No murmur heard. Pulmonary/Chest: Effort normal. No respiratory distress. He has decreased breath sounds (throughout). He has no wheezes. Abdominal: Soft. Bowel sounds are normal. Musculoskeletal: He exhibits no edema. Lymphadenopathy: He has no cervical adenopathy. Neurological: He is alert. Skin: No erythema. Psychiatric: He has a normal mood and affect. His behavior is normal. Vitals reviewed. I reviewed the results of his recent BAL. The cultures and cytology are negative. The AFB and fungal cultures are negative to date. The brush did grow strep. Assessment and Plan: 1: Chronic hypoxemic respiratory failure secondary to very severe COPD. He is without exacerbation. He was seen by the transplant center at [facility] and we recently performed BAL with brush at their request. The AFB smear and culture are negative to date. Fungal culture is negative to date. Cytology was unremarkable for malignancy. The brush did grow strep and although he is asymptomatic there was a neutrophil predominant BAL fluid. Therefore we will empirically treat him with a 7 day course of amoxicillin. Otherwise he will continue on his Spiriva and Symbicort. He will also continue to use his flutter valve but will be more consistent about doing it twice daily to aid in airway clearance and help prevent any exacerbations or infections. 2: Chronic renal dysfunction status post renal transplant for which he is on prednisone 5 mg, CellCept, and cyclosporine. He was also seen by renal transplant while at [facility]. 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 He will undergo excision this . Thanks for allowing me to participate in the care of Doug Canoson. I have arranged follow up in 3 months, but would be happy to see the patient back sooner if the need were to arise. Kip Godoy MD in this encounter Plan of Treatment Not on fileas of this encounter Visit Diagnoses Diagnosis Chronic hypoxemic respiratory failure (HCC) - Primary Chronic respiratory failure Cavitary lung disease Other diseases of lung, not elsewhere classified Stage 4 very severe COPD by GOLD classification ([facility])
--- OUTSIDE RECORDS SUMMARY | 2017-10-23 13:35 | XMS REPORT | Encounter Summary ---
Author Author [facility] Organization [facility] Address Unknown Phone Unavailable Care Team Providers Care Ship Washer Name Role Phone Otto Bartholomew MD Unavailable Venecia Olivas MD Unavailable Amy Joyner RN Unavailable Unavailable Brandy Scott MD Unavailable Tani Keenan MD PCP Franklin Gerber MD Unavailable Unavailable Jonathan Loya RN Unavailable Tash Calhoun RN 2 Unavailable Lisa Chavarria Unavailable Unavailable Mckenna Hidalgo Unavailable Unavailable Mari Braun RF MICROWAVE ENGINEER Unavailable Jigar Christian MD Unavailable Kip Godoy MD Unavailable Lianne Hughes MD Unavailable Alfonso Koehler OD Unavailable Cheri Evans MANAGER RESOURCE Unavailable Unavailable Katelyn Chris RN Unavailable Fartun Parker LPN Unavailable Unavailable Reason for Visit * Reason Comments Other pre-transplant work up Encounter Details Date Type Department Care Team Description 09/30/2017 Telephone [facility] Kip Godoy MD Other ( pre-transplant Physicians - Internal [address] work up) Medicine [place] [address] [place] [address] MED [phone] [place] [address] Social History Tobacco Use Types Packs/Day Years Used Date Former Smoker Cigarettes 07 28 Quit: 05/01/2012 Smokeless Tobacco: Never Used Alcohol [...] impairment: No 02/02/2017 as of this encounter Miscellaneous Notes * Telephone Encounter - Courtney Dominguez RN - 09/30/2017 1:18 PM CDT [facility] - updated records regarding bronch? Tel: [phone] Called Frida. All current bronchoscopy results faxed. in this encounter Plan of Treatment Not on fileas of this encounter Visit Diagnoses Not on filein this encounter
--- OUTSIDE RECORDS SUMMARY | 2017-10-23 13:35 | XMS REPORT | Encounter Summary ---
Author Author [facility] Organization [facility] Address Unknown Phone Unavailable Care Team Providers Care Manager People Name Role Phone Otto Bartholomew MD Unavailable Venecia Olivas MD Unavailable Amy Joyner RN Unavailable Unavailable Brandy Scott MD Unavailable Tani Keenan MD PCP Franklin Gerber MD Unavailable Unavailable Jonathan Loya RN Unavailable Tash Calhoun RN 2 Unavailable Lisa Chavarria Unavailable Unavailable Mckenna Hidalgo Unavailable Unavailable Mari Braun BILLBOARD ERECTOR HELPER Unavailable Jigar Christian MD Unavailable Kip Godoy MD Unavailable Lianne Hughes MD Unavailable Alfonso Koehler OD Unavailable Cheri Evans LPN Unavailable Unavailable Katelyn Chris RN Unavailable Fartun Parker LPN Unavailable Unavailable Reason for Visit * Reason Comments Medication Refill Encounter Details Date Type Department Care Team Description 09/11/2017 Refill Center for Mari Hull LPN Transplantation-Kidney/Pa ncreas Nep [address] [facility] [place] [address] Social History Tobacco Use Types [...]
--- OUTSIDE RECORDS SUMMARY | 2017-10-23 13:35 | XMS REPORT | Encounter Summary ---
Author Author [facility] Organization [facility] Address Unknown Phone Unavailable Care Team Providers Care Disc Jockey Name Role Phone Otto Bartholomew MD Unavailable [...] Details Date Type Department Care Team Description 09/10/2017 Refill Center for Mari Braun APRN Transplantation-Kidney/Pa [address] [place] ncreas Nep [place] [address] [place] [address] [place] FOR [phone] [place] [address] Social History Tobacco Use Types [...]
--- OUTSIDE RECORDS SUMMARY | 2017-10-23 13:35 | XMS REPORT | Encounter Summary ---
Author Author [facility] Organization [facility] Address Unknown Phone Unavailable Care Team Providers Care Flight Dispatcher Name Role Phone Otto Bartholomew MD Unavailable Venecia Olivas MD Unavailable Amy Joyner RN Unavailable Unavailable Brandy Scott MD Unavailable Tani Keenan MD PCP Franklin Gerber MD Unavailable Unavailable Jonathan Loya RN Unavailable Tash Calhoun RN 2 Unavailable Lisa Chavarria Unavailable Unavailable Mckenna Hidalgo Unavailable Unavailable Mari Braun RECEPTIONIST TELEPHONE OPERATOR Unavailable Jigar Christian MD Unavailable Kip Godoy MD Unavailable Lianen Hughes MD Unavailable Alfonso Koehler OD Unavailable Cheri Evans DYE TUB TENDER Unavailable Unavailable Katelyn Chris RN Unavailable Fartun Parker LPN Unavailable Unavailable Reason for Visit * Reason Comments Transplant Referral Encounter Details Date Type Department Care Team Description 10/19/2017 Telephone [facility] Kip Godoy MD Transplant Referral Physicians - Internal [address] [facility] [place] [address] [place] [address] [address] [facility] [phone] [place] [id number] Social History Tobacco Use Types Packs/Day Years Used Date Former Smoker Cigarettes 28 Quit: 05/01/2012 Smokeless Tobacco: Never Used [...] Telephone Encounter - Courtney Dominguez RN - 10/19/2017 1:00 PM CDT Final AFB and fungal cultures from the [facility] (both negative) faxed to [facility]. in this encounter Plan of Treatment Not on fileas of this encounter Visit Diagnoses Not on filein this encounter
--- OUTSIDE RECORDS SUMMARY | 2017-10-23 13:35 | XMS REPORT | Encounter Summary ---
Author Author [facility] Organization [facility] Address Unknown Phone Unavailable Care Team Providers Care Cryptologic Linguist Name Role Phone Otto Bartholomew MD Unavailable Venecia Olivas MD Unavailable Amy Joyner RN Unavailable Unavailable Brandy Scott MD Unavailable Tani Keenan MD PCP Franklin Gerber MD Unavailable Unavailable Jonathan Loya RN Unavailable Tash Calhoun RN 2 Unavailable Lisa Chavarria Unavailable Unavailable Mckenna Hidalgo Unavailable Unavailable Mari Braun RECYCLING ASSISTANT Unavailable Jigar Christian MD Unavailable Kip Godoy MD Unavailable Lianne Hughes MD Unavailable Alfonso Koehler OD Unavailable Cheri Evans LPN Unavailable Unavailable Katelyn Chris RN Unavailable Fartun Parker LPN Unavailable Unavailable Reason for Visit * Reason Comments Medication Refill Encounter Details Date Type Department Care Team Description 10/02/2017 Refill [facility] for [facility] Hull LPN Transplantation-Kidney/Pa ncreas Nep [address] [facility] [place] [address] Social History Tobacco Use Types [...]
--- OUTSIDE RECORDS SUMMARY | 2017-10-23 13:35 | XMS REPORT | Clinical Summary ---
Author Author [facility] Organization [facility] Address Unknown Phone Unavailable Care Team Providers Care Change Management Facilitator Name Role Phone Otto Bartholomew MD Unavailable Venecia Olivas MD Unavailable Amy Joyner RN Unavailable Unavailable Brandy Scott MD Unavailable Tani Keenan MD PCP Franklin Gerber MD Unavailable Unavailable Jonathan Loya RN Unavailable Tash Calhoun RN 2 Unavailable Lisa Chavarria Unavailable Unavailable Mckenna Hidalgo Unavailable Unavailable Mari Braun BULKING MACHINE OPERATOR Unavailable Jigar Christian MD Unavailable Kip Godoy MD Unavailable Lianne Hughes MD Unavailable Alfonso Koehler OD Unavailable Cheri Evans LPN Unavailable Unavailable Katelyn Chris RN Unavailable Fartun Parker LPN Unavailable Unavailable Source Comments Some departments are not documenting in the electronic medical record. If you do not see the information that you expected, contact Release of Information in the Health Information Management department at [phone] for further assistance in locating additional records.[facility] Allergies Active Allergy Reactions Severity Noted Date Comments Ojhabwf-Uah-Tji Reductase SEE COMMENTS Low 11/10/2016 Put patient in kidney Inhibitors failure Varenicline UNKNOWN Low Current Medications Prescription Sig. Disp. Refills Start End Date Status Date levalbuterol (XOPENEX) Inhale 0.63 mg solution Active 0.31 mg/3 mL nebulizer as directed three times solution daily as needed for Wheezing. budesonide/formoterol Inhale 2 Puffs by mouth 1 Inhaler 11 12/11/19 Active (SYMBICORT HFA) 160/4.5 into the lungs twice 17 mcg inhalation daily. tiotropium (SPIRIVA) 18 Place 1 Cap into inhaler 30 Cap 11 12/11/19 Active mcg capsule for inhaler and inhale into lungs as 17 directed daily. allopurinol (ZYLOPRIM) Take 1 tablet by mouth 90 tablet 3 05/04/20 Active 100 mg tablet daily. Take with food. [address] Take 1 tablet by mouth 60 tablet 11 05/18/20 Active (MYFORTIC) 360 mg TbEC twice daily. 17 tablet carvedilol (COREG) 25 mg Take 1 tablet by mouth 60 tablet 11 06/15/20 Active tablet twice daily. [address] Take 1 tablet by mouth 90 tablet 3 06/24/20 Active (PROTONIX) 40 mg tablet every 12 hours. 17 nystatin (MYCOSTATIN) Take 500,000 Units by Active 100,000 units/mL oral mouth three times daily suspension as needed for Oral Thrush. furosemide (LASIX) 80 mg Take 1 tablet by mouth 90 tablet 3 07/27/19 Active tablet daily. 18 PROAIR HFA 90 INHALE 2 PUFFS BY MOUTH 17 g 0 08/03/19 Active mcg/actuation EVERY 6 HOURS NEEDED 18 inhalerIndications: SOB FOR WHEEZING (shortness of breath) prednisone (DELTASONE) 5 Take 1 tablet by mouth 30 tablet 11 09/12/19 Active mg tablet daily. 18 cycloSPORINE (NEORAL) 25 Take 2 capsules (50mg) in 90 capsule 11 10/02 Active mg cap the morning and 1 capsule 18 (25mg) in the evening cycloSPORINE (GENGRAF) 25 Take 50 mg by mouth every 240 capsule 11 10/03/19 Discontin mg cap morning and 25 mg by 18 18 ued mouth every evening (total of 75 mg daily) Active Problems Problem Noted Date Cavitary lesion of lung 08/21/2017 Overview: Added automatically from request for surgery [id number] Hyponatremia 07/26/2017 Acute on chronic respiratory failure with hypoxia (HCC) 07/21/2017 Anemia in chronic kidney disease 04/29/2017 Glaucoma suspect of both eyes 11/19/2016 Overview: Abnormal OCT and HVF, pachy 549/545, gonio open. No FH. L ast Assessment & Plan: Stable appearance on exam and testing, recheck in 4 months with HVF. 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 Discussed case today w/ Dr Joseph, our joint recommendation is that an alternative medication be used instead of ethambutol if possible. With a possible underlying glaucomatous process, it will be very difficult to follow his nerves for toxicity moving forward Microscopic hematuria 05/21/2016 SEMAJ (mycobacterium avium-intracellulare) ([facility]) 09/17/2015 Overview: Follows with ID Planned therapy through L ast Assessment & Plan: Continue with current dual/daily therapy. Following with ID. Cavitary lung disease 09/17/2015 Pseudophakia of both eyes 09/17/2015 Last Assessment & Plan: Stable, no PCO, observe Hospital-acquired pneumonia 08/20/2015 Hyperkalemia 08/20/2015 Acute tubular necrosis (HCC) 08/20/2015 Adrenal insufficiency (HCC) 04/30/2015 Hypomagnesemia 04/30/2015 Hyperuricemia 04/30/2015 Vitamin D deficiency 04/30/2015 Chronic lung disease 04/30/2015 Immunosuppression (HCC) 04/30/2015 Stage 4 very severe COPD by GOLD classification ([facility]) 07/12/2012 Overview: FEV1 0.83, 25% Oxygen needs-4L Inhaler Regimen Spiriva Symbicort Pulm Rehab-x1 (outside hospital) Smoking-quit pyh Last Assessment & Plan: Continue inhalers. Sending orders for the following- Pulm rehab in [place], [place]- if denied will appeal- only completed rehab once. Look into portable concentrator and/or new regulator that allows for 6L continuous (with exertion). Updated rx for 6L with exertion- (may need qualifying testing) Overnight ox on 4L. Will benefit from pulm rehab and has benefited tremendously in the past. Chronic hypoxemic respiratory failure (HCC) 05/24/2012 Overview: Oxygen 4L DME: Via [facility] ast Assessment & Plan: Orders sent to DME for new oxygen rx/regulator/portable concentrator GRZEGORZ (acute kidney injury) (HCC) 05/24/2012 History of renal transplant 05/23/2012 Overview: Tsp Synopsis: cadaveric kidney tsp 08-24-1991 from 15 yo female donor; CMV neg donor, donor positive. IGF with mild rejection 1st wk; SoluMed x 3. Disch creatinine 1.1 on 09-06. PRA 3%. Weight 130 lbs; height 68 in 05-23-12 tramsfer from [facility] where he presented for continued [...] no pertinent ocular findings Monitor for change Severe sepsis (HCC) 08/12/2015 04/11/2016 Pneumonia 07/12/2012 04/11/2016 Sepsis(995.91) 05/24/2012 04/11/2016 Transaminasemia 05/24/2012 04/11/2016 Diarrhea 05/23/2012 04/11/2016 HTN (hypertension) 05/23/2012 03/10/2016 Encounters Date Type Specialty Care Team Description 10/19/2017 Telephone Pulmonology Kip Godoy MD Transplant Referral 10/02/2017 Refill Transplant Surgery Mari Hull LPN 10/02/2017 Refill Transplant Surgery Mari Braun APRN 09/30/2017 Telephone Pulmonology Kip Godoy MD Other (pre- transplant work up) 09/14/2017 Office Visit Pulmonology Kip Godoy MD Chronic hypoxemic respiratory failure (HCC) (Primary Dx); Cavitary lung disease; Stage 4 very severe COPD by GOLD classification ([facility]) 09/11/2017 Refill Transplant Surgery Mari Hull LPN 09/10/2017 Refill Transplant Surgery Mari Braun APRN 09/08/2017 Telephone Pulmonology Kip Godoy MD Results ( bronchoscopy) 09/01/2017 Telephone Pulmonology Kip Godoy MD Pulmonary Rehab 08/31/2017 Hospital Lab Romero Elias, Neoplasm of uncertain Encounter MD behavior, unspecified 08/31/2017 Office Visit Dermatology Harish Pimentel DO Actinic keratosis (Primary Dx); Inflamed seborrheic keratosis; Neoplasm of uncertain behavior; Viral warts, unspecified type; Immunosuppressed status (HCC); History of blistering sunburn; History of squamous cell carcinoma; Multiple benign nevi 08/31/2017 Hospital Kip Godoy MD Cavitary lesion of lung Encounter Gareth Sarkar MD 08/31/2017 Procedure Pass 08/31/2017 Surgery Gareth Sarkar MD BRONCHOSCOPY WITH LAVAGE and cytology brush 08/30/2017 Anesthesia Wendy Dwyer, PUBLIC POLICY COORDINATOR Event 08/21/2017 Prep for Case Pulmonology Kip Godoy MD Cavitary lesion of lung (Primary Dx) 08/21/2017 Telephone Pulmonology Kip Godoy MD Results 08/20/2017 Telephone Pulmonology Kip Godoy MD Records Request 08/03/2017 Refill Pulmonology Kip Godoy MD SOB (shortness of breath) 08/03/2017 Telephone Pulmonology Kip Godoy MD Appointment Question 07/27/2017 Pharmacy Visit 07/21/2017 Hospital Kip Godoy MD Acute on chronic - Encounter Lois Braun MD respiratory failure with 07/27/2017 Gareth Sarkar MD hypoxia (HCC) Barb Pratt DO from Last 3 Months Immunizations Name Dates Previously Given Next Due FLU VACCINE >3YO 03/11/2016, 04/13/1998, 04/10/1994 (Preservative Free) Flu Vaccine=>65 YO 04/27/2017 High-Dose (PF) Flu vaccine, inj 04/27/2017 unspecified (Historical) Pneumococcal Vaccine 04/14/2013 (23-Jazmine Adult) Family History Medical History Relation Name Comments Diabetes Father Arthritis-osteo Mother Heart Failure Mother Hypertension Mother Diabetes Sister Amblyopia Neg Hx Asthma Neg Hx Blindness Neg Hx Blood Clots Neg Hx COPD Neg Hx Cancer Neg Hx Cataract Neg Hx Coronary Artery Disease Neg Hx Cystic Fibrosis Neg Hx DVT Neg Hx Glaucoma Neg Hx Macular Degen Neg Hx Pulmonary Embolism Neg Hx Pulmonary Fibrosis Neg Hx Pulmonary HTN Neg Hx Retinal Detachment Neg Hx Strabismus Neg Hx Relation Name Status Comments Father Mother Sister Social History Tobacco Use Types Packs/Day Years Used Date Former Smoker Cigarettes 1 30 Quit: 05/01/2012 Smokeless Tobacco: Never Used Tobacco Cessation: Counseling Given: No Alcohol Use Drinks/Week oz/Week Comments No Sex Assigned at Date Recorded Not on file Last Filed Vital Signs Vital Sign Reading [...] Mass Index 25.06 09/14/2017 2:50 PM CDT Plan of Treatment Health Maintenance Due Date Last Done Comments PHYSICAL (COMPREHENSIVE) 1965 EXAM PERTUSSIS VACCINE 1969 TETANUS VACCINE 1975 COLORECTAL CANCER 2008 SCREENING INFLUENZA VACCINE 03/29/2018 04/27/2017, 04/27/2017, 03/11/2016, Additional history exists HEPATITIS C SCREENING Completed 05/24/2012 HIV SCREENING Completed 06/02/2012 Procedures Procedure Name Priority Date/Time Associated Diagnosis Comments PROCEDURE RECORD-SCAN 09/23/2017 Results for this 4:19 PM CDT procedure are in the results section. TELEMETRY STRIPS-SCAN 09/03/2017 Results for this 10:30 AM SHOWCASE MAKER procedure are in the results section. PROCEDURE RECORD-SCAN 09/03/2017 Results for this 10:30 AM SHOWCASE MAKER procedure are in the results section. BRONCHOSCOPY WITH LAVAGE 08/31/2017 Cavitary lesion of lung and cytology brush 9:15 AM SHOWCASE MAKER Special Needs ANTONINA/REGINA BUSH. PLEASE SCHEDULE 08/31/17 AT 915AM. 60 MIN BLOCK. THANKS TELEMETRY STRIPS-SCAN 07/31/2017 Results for this 3:12 PM SHOWCASE MAKER procedure are in the results section. ECG-SCAN 07/30/2017 Results for this 7:20 AM SHOWCASE MAKER procedure are in the results section. ECG-SCAN 07/25/2017 Results for this 9:20 AM SHOWCASE MAKER procedure are in the results section. from Last 3 Months Results * PROCEDURE RECORD-SCAN (09/23/2017 4:19 PM) Narrative Ordered by an unspecified provider. * TELEMETRY STRIPS-SCAN (09/03/2017 10:30 AM) Narrative Ordered by an unspecified provider. * PROCEDURE RECORD-SCAN (09/03/2017 10:30 AM) Narrative Ordered by an unspecified provider. * SURGICAL PATHOLOGY (08/31/2017 1:49 PM) Component Value Ref Range PATHOLOGY REPORT [email or web address] Department of Pathology and Laboratory Medicine [address] [place] [address] Surgical Pathology Office:[phone]:[phone] SURGICAL PATHOLOGY REPORT NAME: FEMIBRUCE SURG PATH #: [id number] MR #: [id number] SPECIMEN CLASS: SR BILLING #: [id number] ALT ID #:LOCATION: DERM DATE OF PROCEDURE: 08/31/2017 AGE:57 SEX: M DATE RECEIVED: 08/31/2017 : 1960TIME RECEIVED:13:49 PHYSICIAN: ROMERO ELIAS MD DATE OF REPORT: 09/02/2017 COPY TO:DATE OF PRINTIN09/02/2017 ################################################## ###################### Final Diagnosis: A. Dorsal nose: -- Squamous cell carcinoma, transected. (see comment) Comment: Interpretation is limited by histology processing error. Attestation: By this signature, I attest that I have personally formulated the final interpretation expressed in this report and that the above diagnosis is based upon my examination of the slides and/or other material indicated in this report. +++ +++ kli/09/01/2017 ################################################## ###################### Material Received: A: dorsal nose History: A. Traumatized verrucoid keratosis > hypertrophic actinic keratosis Gross Description: A. Labeled "dorsal nose" is a 0.5 x 0.5 x 0.2 cm shave, bisected, all in A1. (ksh) ksh/08/31/2017 Specimen Performing Laboratory [facility] RESULTS * NON-JOB RECRUITER CYTOLOGY (BODY FLUIDS/TISSUE) (08/31/2017 11:58 AM) Component Value Ref Range Cytology [email or web address] Department of Pathology and Laboratory Medicine [address] [place] [address] Surgical Pathology Office:[phone]:[phone] CYTOLOGY REPORT NAME: BRUCE KAHN CYTOLOGY #: [id number] MR #: [id number] ALT ID #: BILLING #: [id number] LOCATION: DERM DATE OF PROCEDURE: 08/31/2017 AGE: 57 SEX: M DATE RECEIVED: 09/01/2017 : 1960TIME RECEIVED:11:58 PHYSICIAN: Cece Fisher M.D. DATE OF REPORT: 09/03/2017 COPY TO: ROMERO ELIAS MD DATE OF PRINTIN09/03/2017 Material Received: A: Bronchial Alveolar Lavage- Right Upper Lobe History: 57 year-old male with a history of COPD and mycobacterium avium-intracellulare. Gross Description: ( 1 ThinPrep, 1 DQ direct smear, 1 GMS direct smear) 12ml clear colorless fluid ################################################## ###################### Final Diagnosis: A. Bronchial Alveolar Lavage- Right Upper Lobe: Negative for malignant cells. The Grocott stain is negative for Pneumocystis and shows abundant fungal organisms compatible with Vicky specieslikely representing oral contamination. Attestation: By this signature, I attest that I have personally formulated the final interpretation expressed in this report and that the above diagnosis is based upon my examination of the slides and/or other material indicated in this report. +++Electronically Signed Out By+++ ik/09/02/2017 Interpreted by: CHARLETTE Echevarria MD Resident Specimen Performing Laboratory [facility] RESULTS * CULTURE-FUNGAL,OTHER (08/31/2017 10:20 AM) Only the most recent of 2 results within the time period is included. Component Value Ref Range Battery Name FUNGUS CULTURE Specimen Description BRONCHIAL BRUSH, RUL Special Requests NONE Culture NO GROWTH OF FUNGUS AT 4 WEEKS Report Status FINAL 10/05/2017 Specimen Performing Laboratory Bronchial [place],RUL [facility] [address] [place] [address] * CULTURE-TISSUE QUANT W/SENSITIVITY (08/31/2017 10:20 AM) Component Value Ref Range Battery Name TISSUE QUANT CULTURE Specimen Description BRONCHIAL BRUSH RIGHT UPPER LOBE Special Requests NONE Culture 1,800 cfu/ml GAMMA HEMOLYTIC STREPTOCOCCUS 500 cfu/ml ALPHA HEMOLYTIC STREPTOCOCCUS SPECIES 1,000 cfu/ml ROTHIA MUCILAGINOSA Report Status FINAL 09/04/2017 Specimen Performing Laboratory Bronchial [place] (Specify MAIN LAB Site) [address] [place] [address] * FLOW CYTOMETRY (08/31/2017 10:18 AM) Component Value Ref Range PATHOLOGY REPORT [email or web address] Yuliya Kamara MD, Director of Clinical Laboratory Nicholas Johnson MD, Director of Flow Cytometry Laboratory Department of Pathology and Laboratory Medicine [address] [place] [address] Surgical Pathology Office:[phone]:[phone] FLOW CYTOMETRY REPORT NAME: RBUCE KAHN SURG PATH #: [id number] MR #: [id number] SPECIMEN CLASS: LC BILLING #: [id number] ALT ID #:LOCATION: [facility] DATE OF PROCEDURE: 08/31/2017 AGE:57 SEX: M DATE RECEIVED: 08/31/2017 : 1960TIME RECEIVED:12:39 PHYSICIAN: GARETH SARKAR DATE OF REPORT: 09/01/2017 COPY TO: Cece Fisher M.D. DATE OF PRINTIN09/01/2017 Material Received: A: Bronchial wash History: 57 year old male with history of renal transplant and right upper lobe thick-walled cavities. ################################################## ###################### Final Diagnosis: Bronchial wash, flow cytometry:CD4 and CD8 ratio of 1.07. See interpretation. Interpretation: Lymphocytes comprise 1% of total cells. The majority are T cells with a slightly decreased CD4:CD8 ratio of 1.07.B-cells and NK cells are essentially absent. Attestation: By this signature, I attest that I have personally formulated the final interpretation expressed in this report and that the above diagnosis is based upon my examination of the slides and/or other material indicated in this report. +++Electronically Signed Out By+++ btp/08/31/2017 Interpreted by: MD Lois Fraley MD Resident 09/01/2017 ################################################## ###################### Lab Data: Flow CytometryBronchoalveolar Lavage Panel B Cell Associated Markers (% Positive Cells): CD20=0 T Cell Associated Markers (% Positive Cells): CD2=97; CD3=97; CD4=49; CD8=46 CD4:CD8 ratio=1.1 NK Cell Associated Markers (% Positive Cells): CD56=0 Miscellaneous Markers (% Positive Cells): KB42=157 Cell Viability (%): 94 Number of Cells Analyzed:10,000 Total Number of Markers: 7 Summary of Marker Combinations: 08/18///45/56/8 This test was developed and its performance characteristics determined by the [facility] Flow Cytometry Laboratory.It has not been cleared or approved by the U.S. Food and Drug Administration (FDA).The FDA has determined that such clearance or approval is not necessary. Specimen Performing Laboratory LAB RESULTS * LEUKEMIA/LYMPHOMA PANEL FLUID/TISSUE (08/31/2017 10:18 AM) Component Value Ref Range Leuk/Lymph Interpretation SEE PATHOLOGY REPORT Specimen/LLM BRONCHIAL ALVEOLAR LAVAGE Specimen Performing Laboratory Bronchial Alveolar Lavage MAIN LAB [address] [place] [address] * CMV QUANT PCR-FLUID (08/31/2017 10:18 AM) Component Value Ref Range Specimen, CMV BRONCHIAL ALVEOLAR LAVAGE CMV by PCR-fluid CMV DNA NOT DETECTED CMV Comment-Fluid This assay is an off label use of the Ceja RealTime Assay for detection of CMV in fluids and has not been approved by the US Food and Drug Administration. The performance characteristics were determined by the [facility] Laboratory.The lower limit of detection is 50IU/mL. Specimen Performing Laboratory Fluid - Bronchial MAIN LAB Alveolar Lavage [address] [place] [address] * CELL COUNT W/DIFF-FLUIDS (08/31/2017 10:18 AM) Component Value Ref Range White Blood Cells,Fluid 1,538 /UL Red Blood Cells,Fluid 15,087 /UL Segmented Neutrophils, 87 % Fluid Lymphocytes,Fluid 4 % Monocyte/Histo,Fluid 8 % Eosinophils, Fluid 1 % Fluid Source BRONCHIAL ALVEOLAR LAVAGE Pathology ACUTE INFLAMMATION Interpretation,Fluid HEMORRHAGIC FLUID Pathologist Signature INTERPRETED BY TK RAMIREZ M.D. By the PATH SIGNATURE ABOVE, I attest that I have personally formulated the final interpretation expressed in this report and that the above diagnosis is based upon my examination of the slides and/or other material indicated in this report. Specimen Performing Laboratory Fluid - Bronchial [facility] Alveolar Lavage [address] [place] [address] * GRAM STAIN (08/31/2017 10:17 AM) Component Value Ref Range Battery Name GRAM STAIN Specimen Description BRONCHIAL ALVEOLAR LAVAGE, RUL Special Requests NONE Gram Stain MANY NEUTROPHILS FEW SQUAMOUS EPITHELIAL CELLS MANY MIXED BACTERIA Report Status FINAL 08/31/2017 Specimen Performing Laboratory Bronchial Alveolar [facility] Lavage,RUL [address] [place] [address] * CULTURE-TB (AFB) (08/31/2017 10:17 AM) Component Value Ref Range Battery Name AFB CULTURE Specimen Description BRONCHIAL ALVEOLAR LAVAGE, RUL Special Requests NONE Acid Fast Stain NO ACID FAST BACILLI SEEN Culture NO GROWTH OF MYCOBACTERIA AT 6 WEEKS Report Status FINAL 10/19/2017 Specimen Performing Laboratory Bronchial Alveolar [facility] Lavage,RUL [address] [place] [address] * CULTURE-RESP,LOWER W/SENSITIVITY (08/31/2017 10:17 AM) Component Value Ref Range Battery Name LOWER RESP CULTURE Specimen Description BRONCHIAL ALVEOLAR LAVAGE, RUL Special Requests NONE Direct Gram Stain MANY NEUTROPHILS FEW SQUAMOUS EPITHELIAL CELLS MANY MIXED BACTERIA Culture Moderate growth NORMAL OROPHARYNGEAL SAMIRA Report Status FINAL 09/02/2017 Specimen Performing Laboratory Bronchial Alveolar [facility] Lavage,RUL [address] [place] [address] * BRONCHOSCOPY (08/31/2017 10:04 AM) Component Value Ref Range Provation Report Patient Name: Bruce Kahn Procedure Date: 08/31/2017 10:04 AM [facility]: [id number] Date of : 1960 Gender: Male Attending Physician: Gareth Sarkar MD Procedure:Bronchoscopy Indications:Right upper lobe infiltrate, history of MAC with cavita ry disease Providers:Gareth Sarkar MD (Doctor), Cece Fisher MD (Fellow), Ashwini Sanchez RN (Nurse), Urban Sun (Ending Machine Operator) Referring Physician:Kip Godoy MD Medications:Tetracaine 0.25%/Epinephrine 0.003% 10mL nebulizer, Tetria felecia 0.25%/Epinephrine 0.003% topically on airway mucosa 12mL, Monitored Anesthesia Care Complications:No immediate complications. Findings: The oropharynx appears normal. The larynx appears normal. The vocal cords appear normal. The subglottic space is normal. The trachea is of normal caliber. The carlito is sharp. The tracheobronchial tree was examined to at least the first subsegmental level. Bronchial mucosa and anatomy are normal; there are no endobronchial lesions, and no secretions. Bronchoalveolar lavage was performed in the RUL posterior segment (B2) of the lung and sent for cell count, bacterial culture, viral smears & culture, and fungal & AFB analysis and cytology. 150 mL of fluid were instilled. 50 mL were returned. The return was cloudy. Brushings of a lesion were obtained in the posterior segment of the right upper lobe with a cytology brush and sent for microbiology analysis. One sample was obtained. Impression: - Bronchoalveolar lavage was performed in the RUL with cloudy return. - Brushing was performed in the RUL. One sample was obtain ed. Estimated Blood Loss: Estimated blood loss: none. Recommendation: - Await test results. Scope In: 10:10:11 AM Scope Out: 10:23:17 AM Procedure Code(s):--- Professional --- 18258, Bronchoscopy, rigid or flexible, including fluoro scopic guidance, when performed; with bronchial alveol ar lavage CPT copyright 2016 [employer]. All rights reserved. The codes documented in this report are preliminary and upon mechanical design drafter review may be revised to meet current compliance requirements. Attending Participation: I was present and participated during the entire procedure, including non-montoya portions. MD Gareth Robert MD 08/31/2017 1:28 PM The attending physician has electronically signed and finalized this document. MD Cece Quinonez MD 08/31/2017 10:30 AM Number of Addenda: 0 Note Initiated On: 08/31/2017 10:04 AM Specimen Performing Laboratory [facility] OTHER RESULTS * TELEMETRY STRIPS-SCAN (07/31/2017 3:12 PM) Narrative Ordered by an unspecified provider. * ECG-SCAN (07/30/2017 7:20 AM) Narrative Ordered by an unspecified provider. * CYCLOSPORINE TROUGH (07/27/2017 6:16 AM) Only the most recent of 3 results within the time period is included. Component Value Ref Range Cyclosporine 90 50 - 400 NG/ML Comment: Target concentrations vary by type of transplant, patient response, concomitant immunosuppression and post-transplant time interval.Test was performed on whole blood using MyMundusS reagent and a [employer] AU analyzer. Specimen Performing Laboratory Blood MAIN LAB [address] [place] [address] * CBC AND DIFF (07/27/2017 6:14 AM) Only the most recent of 3 results within the time period is included. Component Value Ref Range White Blood Cells 6.7 4.5 - 11.0 K/UL RBC 3.39 (L) 4.4 - 5.5 M/UL Hemoglobin 9.4 (L) 13.5 - 16.5 GM/DL Hematocrit 29.5 (L) 40 - 50 % MCV 87.1 80 - 100 FL MCH 27.6 26 - 34 PG MCHC 31.7 (L) 32.0 - 36.0 G/DL RDW 16.4 (H) 11 - 15 % Platelet Count 201 150 - 400 K/UL MPV 7.8 7 - 11 FL Neutrophils 72 41 - 77 % Lymphocytes 9 (L) 24 - 44 % Monocytes 15 (H) 4 - 12 % Eosinophils 3 0 - 5 % Basophils 1 0 - 2 % Absolute Neutrophil Count 4.80 1.8 - 7.0 K/UL Absolute Lymph Count 0.60 (L) 1.0 - 4.8 K/UL Absolute Monocyte Count 1.00 (H) 0 - 0.80 K/UL Absolute Eosinophil Count 0.20 0 - 0.45 K/UL Absolute Basophil Count 0.00 0 - 0.20 K/UL Specimen Performing Laboratory Blood MA[facility] [address] [place] [address] * MAGNESIUM (07/27/2017 6:14 AM) Only the most recent of 3 results within the time period is included. Component Value Ref Range Magnesium 1.3 (L) 1.6 - 2.6 mg/dL Specimen Performing Laboratory Blood MAIN [facility] [address] [place] [address] * COMPREHENSIVE METABOLIC PANEL (07/27/2017 6:14 AM) Only the most recent of 3 results within the time period is included. Component Value Ref Range Sodium 130 (L) 137 - 147 MMOL/L Potassium 3.9 3.5 - 5.1 MMOL/L Chloride 81 (L) 98 - 110 MMOL/L Glucose 109 (H) 70 - 100 MG/DL Blood Urea Nitrogen 73 (H) 7 - 25 MG/DL Creatinine 2.98 (H) 0.4 - 1.24 MG/DL Calcium 9.5 8.5 - 10.6 MG/DL Total Protein 6.4 6.0 - 8.0 G/DL Total Bilirubin 0.6 0.3 - 1.2 MG/DL Albumin 3.4 (L) 3.5 - 5.0 G/DL Alk Phosphatase 89 25 - 110 U/L AST (SGOT) 7 7 - 40 U/L CO2 42 (H) 21 - 30 MMOL/L ALT (SGPT) 3 (L) 7 - 56 U/L Anion Gap 7 3 - 12 eGFR Non 22 (L) >60 mL/min Comment: The eGFR is not validated for use in drug dosing adjustments.Continue to use estimated creatinine clearance per dosing reference text.Please contact the Clinical Pharmacist for questions. eGFR 26 (L) >60 mL/min Comment: The eGFR is not validated for use in drug dosing adjustments.Continue to use estimated creatinine clearance per dosing reference text.Please contact the Clinical Pharmacist for questions. Specimen Performing Laboratory Blood [facility] [address] [place] [address] * BASIC METABOLIC PANEL (07/26/2017 3:50 PM) Only the most recent of 2 results within the time period is included. Component Value Ref Range Sodium 128 (L) 137 - 147 MMOL/L Potassium 4.5 3.5 - 5.1 MMOL/L Chloride 79 (L) 98 - 110 MMOL/L CO2 40 (H) 21 - 30 MMOL/L Anion Gap 9 3 - 12 Glucose 139 (H) 70 - 100 MG/DL Blood Urea Nitrogen 79 (H) 7 - 25 MG/DL Creatinine 3.15 (H) 0.4 - 1.24 MG/DL Calcium 9.9 8.5 - 10.6 MG/DL eGFR Non 20 (L) >60 mL/min Comment: The eGFR is not validated for use in drug dosing adjustments.Continue to use estimated creatinine clearance per dosing reference text.Please contact the Clinical Pharmacist for questions. eGFR 25 (L) >60 mL/min Comment: The eGFR is not validated for use in drug dosing adjustments.Continue to use estimated creatinine clearance per dosing reference text.Please contact the Clinical Pharmacist for questions. Specimen Performing Laboratory Blood [facility] [address] [place] [address] * ECG-SCAN (07/25/2017 9:20 AM) Narrative Ordered by an unspecified provider. from Last 3 Months
--- OUTSIDE RECORDS SUMMARY | 2017-10-23 13:36 | XMS REPORT | Encounter Summary ---
Author Author [facility] Organization [facility] Address Unknown Phone Unavailable Care Team Providers Care De Icer Finisher Name Role Phone Otto Bartholomew MD Unavailable Venecia Olivas MD Unavailable Amy Joyner RN Unavailable Unavailable Brandy Scott MD Unavailable Tani Keenan MD PCP Franklin Gerber MD Unavailable Unavailable Jonathan Loya RN Unavailable Tash Calhoun RN 2 Unavailable Lisa Chavarria Unavailable Unavailable Mckenna Hidalgo Unavailable Unavailable Mari Braun PROGRAM PROPOSALS COORDINATOR Unavailable Jigar Christian MD Unavailable Kip Gdooy MD Unavailable Lianne Hughes MD Unavailable Alfonso Koehler OD Unavailable Cheri Evans REGIONAL CONTROLLER Unavailable Unavailable Katelyn Chris RN Unavailable Fartun Parker LPN Unavailable Unavailable Reason for Visit * Auth/Cert Status Reason Specialty Diagnoses / Referred By Referred To Procedures Contact Contact Diagnoses Cavitary lesion of lung UNKNOWN P rocedures ID BRNCHSC BRUSHING/PROTECT ED BRUSHINGS BRONCHOSCOPY WITH LAVAGE and cytology brush Encounter Details Date Type Department Care Team Description 08/31/2017 Anesthesia Gastrointenstinal Wendy Dwyer CRNA Event Endoscopy [address] [place] [address] [place] [address] [phone] Anesthesia Record Procedure Name Responsible Anesthesia Start Time Anesthesia Stop Time Anesthesiologist BRONCHOSCOPY WITH LAVAGE Amy Veloz MD 08/31/17 1004 08/31/17 1031 and cytology brush (Right ) Date Time Event Comment 911 AN Equip Check 2017 1004 Anes Start 1004 An Start Data 1005 Start Supplemental O2 1005 Anesthesia Ready 1010 Proc Start 1028 an stop data 1030 Handoff to RN I completed my SBAR handoff to the receiving nurse. 1031 An Stop Meds Name Total propofol (DIPRIVAN) 200 mg/ 20 mL 70 mg injection (VIAL) propofol (DIPRIVAN) infusion 105.6 mg sodium chloride 0.9 % infusion 100 mL * Name O2 N2O Inspired N2O * No blood administrations on file. Type Details Placement Removal Peripheral 08/31/17; 0900; RN; R; Anterior; 08/31/17 0900 by 08/31/17 1156 by IV Antecubital; 20 G; 1; 08/31/17; 1156 Jass Russell, Jass Munoz RN in this encounter Social History Tobacco Use Types Packs/Day Years [...] impairment: No 02/02/2017 as of this encounter OR Notes * Anesthesia Postprocedure Evaluation - Amy Veloz MD - 08/31/2017 12:07 PM HORIZONTAL BORING MILL OPERATOR Post-Anesthesia Evaluation Name: Doug Dawson : 1960 Age: 57 y.o. Sex: male Procedure Date: 08/31/2017 Procedure: Procedure(s): BRONCHOSCOPY WITH LAVAGE and cytology brush Surgeon: Surgeon(s): Gareth Loepz MD Castillo, Sonia, MD Post-Anesthesia Vitals BP: 117/78 (08/317) Temp: 36.4 C (97.5 F) (08/31 0843) Pulse: 97 (08/31 1147) Respirations: 16 PER MINUTE (08/31 114) SpO2: 97 % (08/31 114) O2 Delivery: Nasal Cannula (08/31 1100) SpO2 Pulse: 100 (08/31 1147) Post Anesthesia Evaluation Note Evaluation location: pre/post Patient participation: recovered; patient participated in evaluation Level of consciousness: alert Pain management: adequate Hydration: normovolemia Temperature: 36.0C - 38.4C Airway patency: adequate Perioperative Events Perioperative events: no Postoperative Status Cardiovascular status: hemodynamically stable Respiratory status: spontaneous ventilation Perioperative Events Perioperative Event: No Emergency Case Activation: No * Anesthesia Postprocedure Evaluation - Karla Cotton MD - 08/31/2017 11:52 AM HORIZONTAL BORING MILL OPERATOR Post-Anesthesia Evaluation Name: Doug Dawson : 1960 Age: 57 y.o. Sex: male Procedure Date: 08/31/2017 Procedure: Procedure(s): BRONCHOSCOPY WITH LAVAGE and cytology brush Surgeon: Surgeon(s): Gareth Lopez MD Castillo, Sonia, MD Post-Anesthesia Vitals BP: 141/73 (08/31 1141) Temp: 36.4 C (97.5 F) (03/05 0843) Pulse: 98 (08/31 1141) Respirations: 16 PER MINUTE (08/31 1141) SpO2: 98 % (08/31 1141) O2 Delivery: Nasal Cannula (08/31 1100) SpO2 Pulse: 93 (08/31 1141) Post Anesthesia Evaluation Note Evaluation location: Pre/Post Patient participation: recovered; patient participated in evaluation Level of consciousness: alert Pain score: 0 Pain management: adequate Hydration: normovolemia Temperature: 36.0C - 38.4C Airway patency: adequate Perioperative Events Perioperative events: no Post-op nausea and vomiting: no PONV Postoperative Status Cardiovascular status: hemodynamically stable Respiratory status: spontaneous ventilation and supplemental oxygen (6L O2, baseline) Perioperative Events Perioperative Event: No Emergency Case Activation: No * Anesthesia Preprocedure Evaluation - Amy Veloz MD - 08/31/2017 8:44 AM HORIZONTAL BORING MILL OPERATOR Formatting of this note may be different from the original. Anesthesia Pre-Procedure Evaluation Name: Doug Dawson : 1960 Age: 57 y.o. Sex: male Procedure Date: 08/31/2017 Procedure: Procedure(s): BRONCHOSCOPY WITH LAVAGE and cytology brush Physical Assessment Vital Signs (last filed in past 24 hours): BP: 151/85 (08/31 842) Temp: 36.4 C (97.5 F) (08/31 842) Pulse: 94 (08/31 0900) SpO2: 100 % (08/31 0900) O2 Delivery: Nasal Cannula (08/31 842) Patient History Allergies Allergen Reactions [id number] Reductase Inhibitors SEE COMMENTS Put patient in kidney failure Varenicline UNKNOWN Current Medications Medication Directions allopurinol (ZYLOPRIM) 100 mg tablet Take 1 tablet by mouth daily. Take with food. budesonide/formoterol (SYMBICORT HFA) 160/4.5 mcg inhalation Inhale [...] prednisone (DELTASONE) 5 mg tablet Take 1 Tab by mouth daily. PROAIR HFA 90 mcg/actuation inhaler INHALE 2 PUFFS BY MOUTH EVERY 6 HOURS NEEDED FOR WHEEZING tiotropium (SPIRIVA) 18 mcg capsule for inhaler Place 1 Cap into inhaler and inhale into lungs as directed daily. Review of Systems/Medical History Patient summary reviewed Nursing notes reviewed Pertinent labs reviewed Airway - negative Pulmonary Asthma COPD, severe Home oxygen use Smoked 30 yrs, quit 4 y/o. Home O2 6lpm 19/01 Being evaluated for Lung/Kidney transplant Coughing today, afebrile Cardiovascular Exercise tolerance: <4 METS Beta Macie therapy: Yes Beta blockers within 24 hours: Yes Hypertension, well controlled 06/2017: Borderline LV systolic function; LVEF 50%. No regional wall motion abnormalities. Mild mitral valve regurgitation. Unable to estimate PASP. GI/Hepatic/Renal Renal disease (not currently requiring HD): CRI Neuro/Psych - negative Musculoskeletal - negative Endocrine/Other Anemia Adrenal insufficiency Malignancy (ca of lip) Physical Exam Airway Findings Mallampati: III TM distance: >3 FB Neck ROM: full Mouth opening: good and limited Airway patency: adequate Dental Findings: Negative Cardiovascular Findings: Rhythm: regular Pulmonary Findings: Decreased breath sounds. Comments: Faint breath sounds anteriorly, clear posteriorly Abdominal Findings: Comments: deferred Neurological Findings: Comments: A/O Diagnostic Tests Hematology: Lab Results Component Value Date HGB 9.4 07/27/2017 HCT 29.5 07/27/2017 PLTCT 201 07/27/2017 WBC 6.7 07/27/2017 NEUT 72 07/27/2017 ANC 4.80 07/27/2017 LYMPH 14 09/23/2016 ALC 0.60 07/27/2017 HANSEL 15 07/27/2017 AMC 1.00 07/27/2017 EOSA 3 07/27/2017 ABC 0.00 07/27/2017 BASOPHILS 0 09/23/2016 MCV 87.1 07/27/2017 MCH 27.6 07/27/2017 MCHC 31.7 07/27/2017 MPV 7.8 07/27/2017 RDW 16.4 07/27/2017 General Chemistry: Lab Results Component Value Date NA 130 07/27/2017 K 3.9 07/27/2017 CL 81 07/27/2017 CO2 42 07/27/2017 GAP 7 07/27/2017 BUN 73 07/27/2017 CR 2.98 07/27/2017 GLU 109 07/27/2017 GLU 98 09/23/2016 CA 9.5 07/27/2017 ALBUMIN 3.4 07/27/2017 LACTIC 1.0 03/10/2016 MG 1.3 07/27/2017 TOTBILI 0.6 07/27/2017 PO4 5.8 07/23/2017 Coagulation: Lab Results Component Value Date PT 10.8 11/30/2007 PTT 30.8 07/21/2017 INR 1.0 07/21/2017 Anesthesia Plan ASA score: 4 Plan: MAC Induction method: intravenous NPO status: acceptable Comments: (Pt and his give compelling hx of difficult intubation (knocked a tooth out at OSH prior to transport in 07/16)- h/o difficult intubation for ERCP at [facility]- although this record not available in O2- was told they'd have to use "other piece of equipment" to intubate the next time, which reportedly they did a few days later without incident. Have discussed with pt and his at length the desire to maintain spontaneous ventilation and avoid ETT if possible but that if his condition dictates will require airway instrumentation and possible damage to oral structures. They expressed understanding.) Informed Consent Anesthetic plan and risks discussed with patient. Use of blood products discussed with patient; consented to blood products. Plan discussed with: AIRPLANE TESTER and anesthesiologist. in this encounter Plan of Treatment Not on fileas of this encounter Visit Diagnoses Not on filein this encounter Administered Medications Medication Order MAR Action Action Date Dose Rate Site propofol (DIPRIVAN) infusion Given - New 08/31/2017 120 57.6 mL/hr 20 mL, Intravenous, INTRA-PROCEDURE Bag 10:08 HORIZONTAL BORING MILL OPERATOR mcg/kg/min MED(CONT), Starting Thu08/31/17 at 1008, Until Thu08/31/17 at 1039, Anesthesia Intra-op propofol (DIPRIVAN) injection Given 08/31/2017 10 mg INTRA-PROCEDURE MED, Starting Thu08/31/17 10:11 HORIZONTAL BORING MILL OPERATOR at 1007, Until Thu08/31/17 at 1039, Anesthesia Intra-op Given 08/31/2017 10 mg 10:13 HORIZONTAL BORING MILL OPERATOR Given 08/31/2017 10 mg 10:15 HORIZONTAL BORING MILL OPERATOR in this encounter
--- OUTSIDE RECORDS SUMMARY | 2017-10-23 13:36 | XMS REPORT | Encounter Summary ---
Author Author [facility] Organization [facility] Address Unknown Phone Unavailable Care Team Providers Care Refrigeration Engineer Name Role Phone Otto Bartholomew MD Unavailable Venecia Olivas MD Unavailable Amy Joyner RN Unavailable Unavailable Brandy Scott MD Unavailable Tani Keenan MD PCP Franklin Gerber MD Unavailable Unavailable Jonathan Loya RN Unavailable Tash Calhoun RN 2 Unavailable Lisa Chavarria Unavailable Unavailable Mckenna Hidalgo Unavailable Unavailable Mari Braun NUCLEAR UNIT OPERATOR Unavailable Jigar Christian MD Unavailable Kip Godoy MD Unavailable Linane Hughes MD Unavailable Alfonso Koehler OD Unavailable Cheri Evans LPN Unavailable Unavailable Katelyn Chris RN Unavailable Fartun Parker LPN Unavailable Unavailable Encounter Details Date Type Department Care Team Description 08/31/2017 Procedure Pass Gastrointenstinal Endoscopy [address] [place] [address] Social History Tobacco Use Types [...]
--- OUTSIDE RECORDS SUMMARY | 2017-10-23 13:36 | XMS REPORT | Encounter Summary ---
Author Author [facility] Organization [facility] Address Unknown Phone Unavailable Care Team Providers Care Legal Specialist Name Role Phone Otto Bartholomew MD Unavailable Venecia Olivas MD Unavailable Amy Joyner RN Unavailable Unavailable Brandy Scott MD Unavailable Tani Keenan MD PCP Franklin Gerber MD Unavailable Unavailable Jonathan Loya RN Unavailable Tash Calhoun RN 2 Unavailable Lisa Chavarria Unavailable Unavailable Mckenna Hidalgo Unavailable Unavailable Mari Braun MASSAGE THERAPIST Unavailable Jigar Christian MD Unavailable Kip Godoy MD Unavailable Lianne Hughes MD Unavailable Alfonso Koehler OD Unavailable Cheri Evans LPN Unavailable Unavailable Katelyn Chris RN Unavailable Fartun Parker LPN Unavailable Unavailable Reason for Visit * Reason Comments Skin Problem Encounter Details Date Type Department Care Team Description 08/31/2017 Office Visit [facility] Harish Pimentel DO Actinic keratosis Physicians - Internal [address] (Primary Dx); [place] [address] Inflamed seborrheic [address]TH FLO[address] POD C [phone] keratosis; [address] MED Neoplasm of uncertain OFFICE BLDG behavior; [place], [place] Viral warts, unspecified [id number] type; [phone] Immunosuppressed status (HCC); History of blistering sunburn; History of squamous cell carcinoma; Multiple benign nevi Social History Tobacco Use Types Packs/Day Years Used Date Former Smoker Cigarettes 07 28 Quit: 05/01/2012 Smokeless Tobacco: Never Used Alcohol Use Drinks/Week oz/Week Comments No Sex Assigned at Date Recorded Not on file as of this encounter Last Filed Vital Signs Vital Sign Reading Time Taken Blood Pressure - - Pulse - - Temperature - - Respiratory Rate - - Oxygen Saturation - - Inhaled Oxygen - - Concentration Weight 79.8 kg (176 lb) 08/31/2017 12:56 PM COTTONSEED MEAT PRESSER Height 175.3 cm (5' 9") 08/31/2017 12:56 PM COTTONSEED MEAT PRESSER Body Mass Index 25.99 08/31/2017 12:56 PM COTTONSEED MEAT PRESSER in this encounter Functional Status Functional Status [...] this encounter Instructions * Patient Instructions - Harish Pimentel, DO - 08/31/2017 1:00 PM COTTONSE[employer] MEAT PRESSER Ammonium Lactate Lotion to forearms and legs 1-2 times daily Am Lactin Lac Lotion Lac Hydrin Find at [facility], and [employer] Shave Biopsy Site Care - Please bandage on for 24 hours - May remove bandage after 24 hours and clean with gentle soap and water - Keep covered with vaseline and a bandage until healed - Please call us if you develop swelling, pain, redness at biopsy site Moles --Common melanocytic nevi (moles) tend to be=6 mm in diameter and symmetric with even pigmentation, round or oval shape, regular outline, and sharp, non- fuzzy border. --Dermal nevi stick out from the skin, but if they are soft they are usually not worrisome. --Flaky seemingly stuck-on brown bumps are usually benign keratoses, not moles. --Bright red smooth bumps that do not bleed are usually benign blood vessel lesions (carlos angiomas), not moles. --Atypical nevi/clinical features of possible melanoma include asymmetry, border irregularities, color variability, and diameter >6 mm. The earliest sign of melanoma is usually a rapidly growing mole. --About half of melanoma arises in an existing mole and up to half on normal skin. --It is normal to get new moles until the age of 30-40 years old. --Multiple atypical nevi are a marker of increased risk of melanoma. The risk of melanoma depends also upon the total number of nevi, family and/or personal history of melanoma, and sun exposure history. --It is important to look at your moles once a month. It may help to follow them with photos such as on your smart phone. Looking once a month you can notice rapid changes and call if these occur. --Using sunscreens and sun avoidance will decrease your risk of developing melanoma. The best sun protection is sun avoidance, including with clothing such as long sleeves and a broad brimmed hat. The best sunscreens are SPF 30 or above cream based with zinc oxide. One ounce (shot glass sized) amount is needed for an adult. It should be reapplied every 2 hours if possible. --Any tanning bed use will increase your risk of melanoma significantly. Sun Protection UPF/SPF rated clothing (gloves, long sleeves, scarves); broad-brimmed hats ( NOT ball caps!) RIT Sunguard laundry additive can increase the SPF value of your everyday clothing Cowboy hats protect from sun; baseball hats don't Here are several recommended zinc-based sunscreen brands in aplphabetical order (always read the ingredient list, as many brands have multiple varieties of sunscreens and not all are zinc-based) [place], Bare Minerals, Blue Lizard, CeraVe, Cotz, [employer] Garden, Green Screen, [employer], Mineral Fusion, SkinCeuticals, Vanicream 2 shot-glases=whole body Melanoma Patient Information Also called malignant melanoma Skin cancer screening: If you notice a mole that differs from others or one that changes, bleeds, or itches, see a hand baseball sewer. Melanoma is a type of skin cancer. Anyone can get melanoma. When found early and treated, the cure rate is nearly 100%. Allowed to grow, melanoma can spread to other parts of the body. Melanoma can spread quickly. When melanoma spreads, it can be deadly.Dermatologists believe that the number of deaths from melanoma would be much lower if people: Knew the warning signs of melanoma. Becenti how to examine their skin for signs of skin cancer. Took the time to examine their skin. Its important to take time to look at the moles on your skin because this is a good way to find melanoma early. When checking your skin, you should look for the ABCDEs of melanoma. ABCDE's of melanoma: When performing monthly skin exams for your moles or new moles, remember the ABCDE's of melanoma: A - Asymmetry. (Concerning if spot is not symmetric) B - Border. (Irregular border or notched border are concerning) C - Color. (Multiple colors or changes in color are concerning.) D - Diameter. (Larger than 6mm, ie, a pencil eraser, is concerning.) E - Evolution. (An evolving or changing spot is concerning. If new itch, tenderness, or bleeding develop, these are concerning changes too. See further explanation below: Melanoma: Signs and symptoms Anyone can get melanoma. Its important to take time to look at the moles on your skin because this is a good way to find melanoma early. When checking your skin, you should look for the ABCDEs of melanoma. ABCDEs of melanoma A=Asymmetry One half is unlike the other half. B=Border An irregular, scalloped, or poorly defined border. C=Color Is varied from one area to another; has shades of horton, brown or black, or is sometimes white, red, or blue. D=Diameter Melanomas usually greater than 6mm (the size of a pencil eraser) when diagnosed , but they can be smaller. E=Evolving A mole or skin lesion that looks different from the rest or is changing in size , shape, or color. !! If you see a mole or new spot on your skin that has any of the ABCDEs, immediately make an appointment to see a hand baseball sewer. Signs of melanoma The most common early signs (what you see) of melanoma are: Growing mole on your skin. Unusual looking mole on your skin or a mole that does not look like any other mole on your skin (the ugly duckling). Non-uniform mole (has an odd shape, uneven or uncertain border, different colors ). Symptoms of melanoma In the early stages, melanoma may not cause any symptoms (what you feel). But sometimes melanoma will: Itch. Bleed. Feel painful. Many melanomas have these signs and symptoms, but not all. There are different types of melanoma. One type can first appear as a brown or black streak underneath a fingernail or toenail. Melanoma also can look like a bruise that just wont heal. Who gets melanoma? Anyone can get melanoma. Most people who get it have light skin, but people who have brown and black skin also get melanoma. Some people have a higher risk of getting melanoma. These people have the following traits: Skin Fair skin (The risk is higher if the person also has red or blond hair and blue or green eyes). Sun-sensitive skin (rarely tans or draper easily). 50-plus moles, large moles, or unusual-looking moles. If you have had bad sunburns or spent time tanning (sun, tanning beds, or sun lamps), you also have a higher risk of getting melanoma. Men older than 50 are at a higher risk for developing skin cancers, including melanoma. Learning how to check your skin and getting skin exams can help detect skin cancer. Family/medical history Melanoma runs in the family (parent, child, sibling, cousin, aunt, uncle had melanoma). You had another skin cancer, but most especially another melanoma. A weakened immune system. Research shows that indoor tanning increases a person's melanoma risk by 75%. The risk also may increase if you had breast or thyroid cancer. More people getting melanoma Fewer people are getting most types of cancer. Melanoma is different. More people are getting melanoma. Many are white men who are 50 years or older. More young people also are getting melanoma. Melanoma is now the most common cancer among people 25-29 years old. Even teenagers are getting melanoma. What causes melanoma? Ultraviolet (UV) radiation is a major contributor in most cases. We get UV radiation from the sun, tanning beds, and sun lamps. Heredity also plays a role. Research shows that if a close blood relative (parent, child, sibling, aunt, uncle) had melanoma, a person has a much greater risk of getting melanoma. How do dermatologists diagnose melanoma? To diagnose melanoma, a hand baseball sewer begins by looking at the patients skin. A hand baseball sewer will carefully examine moles and other suspicious spots. To get a better look, a hand baseball sewer may use a device called a dermoscope. Vitamin D Our bodies need vitamin D to build strong and healthy bones. Vitamin D helps the body absorb the calcium that our bones require. For a healthy person, the recommended daily dietary allowance is 600 international units for people of 1-70 years old, and 800 international units for people older than 71 years. More vitamin D is not better. Higher amounts of vitamin D could be harmful, leading to many health problems such as high blood pressure and kidney damage. [employer] recommending everyone get vitamin D from foods naturally rich in vitamin D, foods and beverages fortified with vitamin D or vitamin D supplements. The foods that contain the greatest amount are fatty fishes such as salmon, tuna and mackerel. Fish liver oil is another good source. One of the sources to look up vitamin amount is through tidy library. Http://ndb.nal.usda.gov/. This can help you find out whether you get enough vitamin D from your diet. If you are like many people, you may not be getting your recommended dietary allowance of vitamin D. You may want to change the foods that you eat or take a vitamin D supplements. Before you start taking a vitamin D supplement, talk with your doctor. Vitamin D is produced in the skin by UV light, but the amount is highly variable and depends on many factors. However, getting vitamin D from the sun or tanning beds can 1) increase your risk of developing skin cancer including melanoma which can be deadly, 2) resulting premature skin aging (wrinkles, age spots, blotchy complexion) and 3) leading to a weakened immune system. Therefore , [employer] recommend getting vitamin D safely from foods , beverages and supplements. in this encounter Progress Notes * Virgilio Clay MD - 08/31/2017 1:00 PM COTTONSEED MEAT PRESSER Formatting of this note may be different from the original. ATTESTATION I personally performed the montoya portions of the E/M visit, discussed case with resident and concur with resident documentation of history, physical exam, assessment, and treatment plan unless otherwise noted. I performed cryotherapy to 2 AKs, 1 ISK today .Patient informed that a blistering reaction is to be expected and that a hypopigmented scar may result. Patient tolerated the procedure well with no complications. I personally performed the shave biopsy today myself. Staff name: Virgilio Clay MD Date: 08/31/2017 * Harish Pimentel, DO - 08/31/2017 1:00 PM COTTONSEED MEAT PRESSER Formatting of this note may be different from the original. Date of Service: 08/31/2017 Subjective: Doug Dawson is a 57 y.o. male. History of Present Illness Return patient. 01/2017. 1. Immunosuppression from kidney transplant in >20 years. On prednisone, cyclosporine and mycophenolate 2. Multiple nevi w/ history of blistering sunburns. - Brown and horton spots distributed over the head, trunk, arms and legs. - These have been present for many years. - None are changing in size, shape, color - None are itchy, bleeding, painful or bothersome 3. 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 History of actinic keratoses with red scaly bumps primarily on the face - Patient has a history of significant sun exposure. - Previously treated with LN2 with improvement - Few new red scaly lesions noted on the face and R forearm today 5. Brown rough bumps on the torso and extremities - Present x years - Increasing in number over time - None are changing significantly - Previously had lesions treated with LN2 in the past with improvement - Patient has an itchy bump on the R forearm that he picks at 6. New growing lesion on the nose - Present x 2 months - Was intermittently painful - Worsened by rubbing of previous oxygen mask - No prior Tx - No alleviating or aggravating factors noted FMH: No family history of skin cancer. SHx: Works at [employer] Review of Systems Constitutional: Negative for appetite change and unexpected weight change. Gastrointestinal: Negative for diarrhea, nausea and vomiting. Skin: Negative for color change, pallor, rash and wound. Objective: allopurinol (ZYLOPRIM) 100 mg tablet Take [...] inhale into lungs as directed daily. Vitals: 08/31/17 1256 Weight: 79.8 kg (176 lb) Height: 175.3 cm (69") Body mass index is 25.99 kg/m. Physical Exam Areas Examined (all normal unless noted below): Head/Face Neck Chest/breasts/axillae Back Abdomen Buttocks R upper ext L upper ext R lower ext L lower ext Pertinent findings include: Scar at site of prior squamous cell carcinoma is noted with no evidence of recurrence. No lymphadenopathy. Soft, pigmented, wasqw-zl-jyotstddm papules are distributed over the trunk and upper extremities. All have symmetric pebbled dermoscopic findings. 1 lesions on an erythematous base on the R forearm Multiple brown and horton evenly pigmented macules are distributed over the head, neck, trunk, arms. All have symmetric similar dermascopic findings with primarily globular and reticular patterns. 2 red scaly papules are noted on the R forearm x 1, R forehead x 1 NUO A - Dorsal nose 7 x 6mm brown-horton pebbled papule on an erythematous base and hemorrhagic crust centrally Assessment and Plan: 1. NUO A - Shave biopsy today - DDx: Traumatized verrucoid keratosis > SCC - Photo was taken - Discussed risks of bleeding, scar, infection with biopsy - Patient given verbal and written biopsy site care instructions - Will contact patient with biopsy results 2. History of SCC on the lip - No evidence of recurrence. - Unremarkable scar at site of prior squamous cell carcinoma 3. Actinic keratoses - Discussed premalignant nature of lesions - Treatment today with LN2 f/t/f x 10 second cycles to 2 lesions - Discussed potential blistering, scabbing reaction and hypopigmented scar from procedure - Sunprotection advised 4. Chronic immunosuppression - Patient aware of increased risk of NMSCs - Photoprotection advised 5. Seborrheic keratoses / verrucoid keratoses - Reassurance regarding benign nature of lesions and association with immunosuppression 6. Irritated Seborrheic Keratoses - Discussed benign nature of lesions - Treatment today with LN2 f/t/f x 10 second cycles to 1 lesion - Discussed potential blistering, scabbing reaction and hypopigmented scar from procedure - Advised patient not to pick at lesions 6. Melanocytic nevi w history of blistering sunburns. - Will cont to monitor clinically - Advised patient to RTC for new/changing lesions - Patient given written pamphlet on ABCDEs of melanoma RTC 4-6 months or soone PRN new or changing lesions in this encounter Procedure Notes * Harish Pimentel DO - 08/31/2017 1:00 PM COTTONSEED MEAT PRESSER Associated Order(s): [id number] Procedure(s): ME BX SKIN SUBCUTANEOUS&/MUCOUS MEMBRANE 1 LESION; ME DESTRUCTION PREMALIGNANT LESION 1ST; ME DESTRUCTION PREMALIGNANT LESION 2-14 EA; ME DESTRUCTION BENIGN LESIONS UP TO 14 Pre-Procedure Diagnose(s): Actinic keratosis; Inflamed seborrheic keratosis; Neoplasm of uncertain behavior Shave biopsy procedure note Risk and benefits of the above procedure including bleeding, pain, dyspigmentation, scar, infection, recurrence or nerve damage with loss of muscle function and/or skin sensation were discussed with the patient (or legal guardian) in detail, who afterwards decided to proceed with the procedure. Diagnosis: NUO A Body Site: Dorsal nose Preparation: Alcohol Anesthesia: 1% lidocaine with epinephrine Instrument: Dermablade Hemostasis: AlCl3 Closure: None Wound dressing: Vaseline Wound care instructions given: Verbal Complications: None Tolerated well: Yes Ambulated from room: Yes [facility] Pathology Duration of procedure: >5 minutes Liquid Nitrogen Procedure Note Risk and benefits of the above procedure including pain, dyspigmentation, scar, infection, recurrence were discussed with the patient (or legal guardian) in detail, who afterwards decided to proceed with the procedure. Verbal informed consent given Diagnosis: 1. Actinic keratoses 2. iSK Body site: 1. Forehead x 1, R forearm x 1 2. R forearm x 1 Number of lesions: 1. 2 2. 1 Cycle duration: 10 sec Number or cycles: 2 Wound care instructions given: Yes Complications: None Tolerated well: Yes Ambulated from room: Yes Duration of procedure: > 5min in this encounter Plan of Treatment Name Priority Associated Diagnoses Order Schedule [id number] Routine Actinic keratosis Ordered: 08/31/2017 Inflamed seborrheic keratosis Neoplasm of uncertain behavior PATHOLOGY SURGICAL < 5 SPECIMENS Routine Neoplasm of uncertain Expected : 08/31/2017, behavior Expires: 08/31/2018 as of this encounter Procedures Procedure Name Priority Date/Time Associated Diagnosis Comments PROCEDURE RECORD-SCAN 09/23/2017 Results for this 4:19 PM CDT procedure are in the results section. in this encounter Results * PROCEDURE RECORD-SCAN (09/23/2017 4:19 PM) Narrative Ordered by an unspecified provider. in this encounter Visit Diagnoses Diagnosis Actinic keratosis - Primary Inflamed seborrheic keratosis Neoplasm of uncertain behavior Neoplasm of uncertain behavior, site unspecified Viral warts, unspecified type Immunosuppressed status (HCC) Unspecified disorder of immune mechanism History of blistering sunburn Personal history of diseases of skin and subcutaneous tissue History of squamous cell carcinoma Personal history of malignant neoplasm of other site Multiple benign nevi Benign neoplasm of skin, site unspecified
--- OUTSIDE RECORDS SUMMARY | 2017-10-23 13:36 | XMS REPORT | Encounter Summary ---
Author Author [facility] Address Unknown Phone Unavailable Care Team Providers Care Respiratory Coordinator Name Role Phone Otto Bartholomew MD Unavailable Venecia Olivas MD Unavailable Amy Joyner RN Unavailable Unavailable Brandy Scott MD Unavailable Tani Keenan MD PCP Franklin Gerber MD Unavailable Unavailable Jonathan Loya RN Unavailable Tash Calhoun RN 2 Unavailable Lisa Chavarria Unavailable Unavailable Mckenna Hidalgo Unavailable Unavailable Mari Braun HEAD TURBINE OPERATOR Unavailable Jigar Christian MD Unavailable Kip Godoy MD Unavailable Lianne Hughes MD Unavailable Alfonso Koehler OD Unavailable Cheri Evans INSERT OPERATOR Unavailable Unavailable Katelyn Chris RN Unavailable Fartun Parker LPN Unavailable Unavailable Reason for Visit * Reason Comments Pulmonary Rehab Encounter Details Date Type Department Care Team Description 09/01/2017 Telephone [facility] Kip Godoy MD Pulmonary Rehab Physicians - Internal [address] [facility] Medicine [place] [address] [place] [address] [id number] [phone] [place] [address] Social History Tobacco Use Types Packs/Day Years [...] Telephone Encounter - Courtney Dominguez RN - 09/01/2017 8:40 AM PROBATION OFFICER Called [facility] Pulmonary Rehab and spoke to Shira. [facility] has approved 18 sessions of Pulmonary Rehab. They will call patient today to schedule his first session. in this encounter Plan of Treatment Not on fileas of this encounter Visit Diagnoses Not on filein this encounter
--- OUTSIDE RECORDS SUMMARY | 2017-10-23 13:36 | XMS REPORT | Encounter Summary ---
Author Author [facility] Organization [facility] Address Unknown Phone Unavailable Care Team Providers Care Crisis Nurse Name Role Phone Otto Bartholomew MD Unavailable Venecia Olivas MD Unavailable Amy Joyner RN Unavailable Unavailable Brandy Scott MD Unavailable Tani Keenan MD PCP Franklin Gerber MD Unavailable Unavailable Jonathan Loya RN Unavailable Tash Calhoun RN 2 Unavailable Lisa Chavarria Unavailable Unavailable Mckenna Hidalgo Unavailable Unavailable Mari Braun CHIEF CLERK SHELTER Unavailable Jigar Christian MD Unavailable Kip Godoy MD Unavailable Lianne Hughes MD Unavailable Alfonso Koehler OD Unavailable Cheri Evans DATA WAREHOUSE DEVELOPER Unavailable Unavailable Katelyn Chris RN Unavailable Fartun Parker LPN Unavailable Unavailable Reason for Visit * Reason Comments Results bronchoscopy Encounter Details Date Type Department Care Team Description 09/08/2017 Telephone [facility] Kip Godoy MD Results (bronchoscopy) Physicians - Internal [address] [facility] Medicine [place] [address] [place] [address] [address] [facility] MED [phone] [place] [address] Social History Tobacco Use Types Packs/Day Years [...] encounter Miscellaneous Notes * Telephone Encounter - Maritza Harrington APRN-C - 09/08/2017 3:01 PM CDT Spoke with pt. No cancer from a lung standpoint. Only thing I see indicated malignancy is biopsy from nose which he is aware of. * Telephone Encounter - Courtney Dominguez RN - 09/08/2017 9:10 AM CDT Patient's LVM stating that they think that called patient on with the bronchoscopy results. He is confused about the details and is afraid that he missed some information about positive cancer findings and need for surgery. Patient's requesting clarification. 2nd VM from patient's this morning. Restating the same information above. Patient and his requesting clarification. in this encounter Plan of Treatment Not on fileas of this encounter Visit Diagnoses Not on filein this encounter
--- OUTSIDE RECORDS SUMMARY | 2017-10-23 13:36 | XMS REPORT | Encounter Summary ---
Author Author [facility] Organization [facility] Address Unknown Phone Unavailable Care Team Providers Care Supervisor [employer] Name Role Phone Otto Bartholomew MD Unavailable Venecia Olivas MD Unavailable Amy Joyner RN Unavailable Unavailable Brandy Scott MD Unavailable Tani Keenan MD PCP Franklin Gerber MD Unavailable Unavailable Jonathan Loya RN Unavailable Tash Calhoun RN 2 Unavailable Lisa Chavarria Unavailable Unavailable Mckenna Hidalgo Unavailable Unavailable Mari Braun GYPSUM BLOCK SETTER Unavailable Jigar Christian MD Unavailable Kip Godoy MD Unavailable Lianne Hughes MD Unavailable Alfonso Koehler OD Unavailable Cheri Evans TOP TILE DECORATOR Unavailable Unavailable Katelyn Chris RN Unavailable Fartun Parker LPN Unavailable Unavailable Reason for Visit * Auth/Cert Status Reason Specialty Diagnoses / Referred By Referred To Procedures Contact Contact Diagnoses Cavitary lesion of lung UNKNOWN P rocedures [place] BRNCHSC BRUSHING/PROTECT ED BRUSHINGS BRONCHOSCOPY WITH LAVAGE and cytology brush Encounter Details Date Type Department Care Team Description 08/31/2017 Surgery Gastrointenstinal Gareth Sarkar MD BRONCHOSCOPY WITH LAVAGE Endoscopy [address] and cytology brush [address] [place] [address] [place] [address] [phone] Social History Tobacco Use Types Packs/Day Years Used Date Former Smoker Cigarettes 1 30 Quit: 05/01/2012 Smokeless Tobacco: Never Used Alcohol Use Drinks/Week oz/Week Comments No Sex Assigned at Date Recorded Not on file as of this encounter Last Filed Vital Signs Vital Sign Reading Time Taken Blood Pressure 117/78 08/31/2017 11:47 AM GOVERNMENT AFFAIRS DIRECTOR Pulse 97 08/31/2017 11:47 AM GOVERNMENT AFFAIRS DIRECTOR Temperature 36.4 C (97.5 F) 08/31/2017 8:43 AM GOVERNMENT AFFAIRS DIRECTOR Respiratory Rate - - Oxygen Saturation 97% 08/31/2017 11:47 AM GOVERNMENT AFFAIRS DIRECTOR Inhaled Oxygen - - Concentration Weight - - Height - - Body Mass Index - - in this encounter Functional Status Functional Status [...] impairment: No 02/02/2017 as of this encounter Discharge Instructions * Discharge Instr - Education - Moraima Latham RN - 08/31/2017 10:56 AM GOVERNMENT AFFAIRS DIRECTOR POST BRONCHOSCOPY INSTRUCTIONS 1. When your brochscopy is over, you will remain in the Recovery Room at least 30 minutes or until the nurse and/or doctor has released you to go home or back to your room. 2. You will not be allowed to have anything to eat or drink for about 1 - 2 hours following the procedure. You may start with a sip of water then advance your diet as directed. 3. You may have a sore throat after the topical numbing spray wears off. You may use Sucrets or any kind of throat lozenges as needed. 4. If samples of lung tissue (biopsies) are taken, you might cough up sputum with streaks of blood in it. This is normal. If you cough up greater than one tablespoon of bloody sputum, you need to notify the pulmonary doctor. 5. You may spike a fever approximately 4 hours after your brochoscopy. If your temperature is over 101 degrees, notify your doctor. 6. If you develop increased shortness of breath and/or chest pain following your bronchoscopy, notify your doctor. 7. You may experience increased mild coughing for several days following your brochoscopy. If your cough becomes severe and/or productive of discolored sputum, notify your doctor. 8. Avoid smoking for at least 24 hours. SPECIFIC INSTRUCTIONS. OUTPATIENTS: A. Because of sedation and lack of coordination, UNTIL TOMORROW- DO NOT: 1. Operate any motorized vehicle - this includes driving. 2. Sign any legal documents or conduct important business matters. 3. Use any dangerous machinery (chain saw, lawnmower, etc.). 4. Drink any alcoholic beverages. B. If you should have any questions or problems after your procedure please call [phone] between the hours of 8 a.m. until 4:30 p.m. After 4:30 p.m., holidays, or weekends call [phone] and ask for the Pulmonary Physician converter supervisor. * Discharge Instr - Other Info - Rudy Thomas RN - 08/31/2017 10:45 AM GOVERNMENT AFFAIRS DIRECTOR POST BRONCHOSCOPY INSTRUCTIONS 1. When your brochscopy is over, you will remain in the Recovery Room at least 30 minutes or until the nurse and/or doctor has released you to go home or back to your room. 2. You will not be allowed to have anything to eat or drink for about 1 - 2 hours following the procedure. You may start with a sip of water then advance your diet as directed. 3. You may have a sore throat after the topical numbing spray wears off. You may use Sucrets or any kind of throat lozenges as needed. 4. If samples of lung tissue (biopsies) are taken, you might cough up sputum with streaks of blood in it. This is normal. If you cough up greater than one tablespoon of bloody sputum, you need to notify the pulmonary doctor. 5. You may spike a fever approximately 4 hours after your brochoscopy. If your temperature is over 101 degrees, notify your doctor. 6. If you develop increased shortness of breath and/or chest pain following your bronchoscopy, notify your doctor. 7. You may experience increased mild coughing for several days following your brochoscopy. If your cough becomes severe and/or productive of discolored sputum, notify your doctor. 8. Avoid smoking for at least 24 hours. SPECIFIC INSTRUCTIONS INPATIENTS: Ask for help when you get up in your room, as you may still be drowsy from your sedation. OUTPATIENTS: A. Because of sedation and lack of coordination, UNTIL TOMORROW- DO NOT: 1. Operate any motorized vehicle - this includes driving. 2. Sign any legal documents or conduct important business matters. 3. Use any dangerous machinery (chain saw, lawnmower, etc.). 4. Drink any alcoholic beverages. B. If you should have any questions or problems after your procedure please call [phone] between the hours of 8 a.m. until 4:30 p.m. After 4:30 p.m., holidays, or weekends call [phone] and ask for the Pulmonary Physician converter supervisor. in this encounter Medications at Time of Discharge Medication Sig. Disp. Refills Start Date End Date allopurinol (ZYLOPRIM) Take 1 tablet by mouth 90 tablet 3 05/04/2017 100 mg tablet daily. Take with food. budesonide/formoterol Inhale 2 Puffs by mouth 1 Inhaler 11 12/10/2016 (SYMBICORT HFA) 160/4.5 into the lungs twice mcg inhalation daily. carvedilol (COREG) 25 mg Take 1 tablet by mouth 60 tablet 11 2016 tablet twice daily. furosemide (LASIX) 80 mg Take 1 tablet by mouth 90 tablet 3 2017 tablet daily. levalbuterol (XOPENEX) Inhale 0.63 mg solution 0.31 mg/3 mL nebulizer as directed three times solution daily as needed for Wheezing. mycophenolate DR Take 1 tablet by mouth 60 tablet 11 05/18/2017 (MYFORTIC) 360 mg TbEC twice daily. tablet nystatin (MYCOSTATIN) Take 500,000 Units by 100,000 units/mL oral mouth three times daily suspension as needed for Oral Thrush. pantoprazole DR Take 1 tablet by mouth 90 tablet 3 06/24/2017 (PROTONIX) 40 mg tablet every 12 hours. PROAIR HFA 90 INHALE 2 PUFFS BY MOUTH 17 g 0 08/03/2017 mcg/actuation EVERY 6 HOURS NEEDED inhalerIndications: SOB FOR WHEEZING (shortness of breath) tiotropium (SPIRIVA) 18 Place 1 Cap into inhaler 30 Cap 11 12/10/2016 mcg capsule for inhaler and inhale into lungs as directed daily. cycloSPORINE (GENGRAF) 25 Take 50 mg by mouth every 240 capsule 11 10/02/2017 mg cap morning and 25 mg by mouth every evening (total of 75 mg daily) prednisone (DELTASONE) 5 Take 1 Tab by mouth 30 Tab 11 09/04/2016 mg tablet daily. as of this encounter H&P Notes * Cece Fisher MD - 08/31/2017 8:04 AM GOVERNMENT AFFAIRS DIRECTOR Formatting of this note may be different from the original. Pre Procedure History and Physical/Sedation Plan Name:Bruce Kahn :1960 Age: 57 y.o. Date of Service: 08/31/17 Date of Procedure: 08/31/2017 Planned Procedure(s): Pulmonary: bronchial alveolar lavage and brushings Sedation/Medication Plan: General Anesthesia Discussion/Reviews: Physician has discussed risks and alternatives of this type of sedation and above planned procedures with patient Chief Complaint: Dyspnea History of Present Illness: Bruce Kahn is a 57 y.o. male with severe COPD and chronic hypoxemic respiratory failure, referred by Dr. Godoy for BAL and brushings of the RUL given history of MAC. Mr. Kahn is currently being evaluated for lung transplant in [place]. Previous Anesthetic/Sedation History: Tolerated sedation with previous bronchoscopies. Past Medical History: Diagnosis Date Cancer of lip squam cell Cataract Chronic kidney disease transplant COPD (chronic obstructive pulmonary disease) (HCC) copd Hypertension On supplemental oxygen therapy Pneumonia Renal failure Past Surgical History: Procedure Laterality Date HX APPENDECTOMY HX CHOLECYSTECTOMY HX RENAL TRANSPLANT WV REMOVE BILE DUCT STONE, PERCUT [place] TENOTOMY PRQ ACHILLES TENDON SPX GENERAL ANES Pertinent medical/surgical history reviewed Pertinent family history reviewed Social History Substance Use Topics Smoking status: Former Smoker Packs/day: 1.00 Years: 30.00 Types: Cigarettes Quit date: 05/01/2012 Smokeless tobacco: Never Used Alcohol use No History Drug Use No Comment: when he was younger smoked marijuana. Allergies: Trcofhq-vqf-wmw reductase inhibitors and Varenicline Medications No current facility-administered medications for this encounter. Review of Systems: A 14 point review of systems was negative except for: Respiratory: positive for cough or dyspnea on exertion Physical Exam: General appearance: alert, cooperative and no distress Throat: Lips, mucosa, and tongue normal. Teeth and gums normal Lungs: decreased BS throughout Heart: regular rate and rhythm, S1, S2 normal, no murmur, click, rub or gallop Abdomen: soft, non-tender. Bowel sounds normal. No masses, no organomegaly Extremities: extremities normal, atraumatic, no cyanosis or edema @ Airway: airway assessment performed Mallampati III (soft palate, base of uvula visible) Anesthesia Classification: ASA III (A patient with a severe systemic disease that limits activity, but is not incapacitating) NPO Status: Acceptable Status: N/A Lab/Radiology/Other Diagnostic Tests Labs: 24-hour labs: No results found for this visit on 08/31/17 (from the past 24 hour(s)). Cece Fisher MD Pager [phone] in this encounter Plan of Treatment Not on fileas of this encounter Procedures Procedure Name Priority Date/Time Associated Diagnosis Comments TELEMETRY STRIPS-SCAN 09/03/2017 Results for this 10:30 AM GOVERNMENT AFFAIRS DIRECTOR procedure are in the results section. PROCEDURE RECORD-SCAN 09/03/2017 Results for this 10:30 AM GOVERNMENT AFFAIRS DIRECTOR procedure are in the results section. BRONCHOSCOPY WITH LAVAGE 08/31/2017 Cavitary lesion of lung and cytology brush 9:15 AM GOVERNMENT AFFAIRS DIRECTOR Special Needs ANTONINA/REGINA BUSH. PLEASE SCHEDULE 08/31/17 AT 915AM. 60 MIN BLOCK. THANKS in this encounter Results * TELEMETRY STRIPS-SCAN (09/03/2017 10:30 AM) Narrative Ordered by an unspecified provider. * PROCEDURE RECORD-SCAN (09/03/2017 10:30 AM) Narrative Ordered by an unspecified provider. * CULTURE-FUNGAL,OTHER (08/31/2017 10:20 AM) Component Value Ref Range Battery Name FUNGUS CULTURE Specimen Description BRONCHIAL BRUSH, RUL Special Requests NONE Culture NO GROWTH OF FUNGUS AT 4 WEEKS Report Status FINAL 10/05/2017 Specimen Performing Laboratory Bronchial [place],RUL MAIN LAB [address] [id number] * CULTURE-TISSUE QUANT W/SENSITIVITY (08/31/2017 10:20 AM) Component Value Ref Range Battery Name TISSUE QUANT CULTURE Specimen Description BRONCHIAL BRUSH RIGHT UPPER LOBE Special Requests NONE Culture 1,800 cfu/ml GAMMA HEMOLYTIC STREPTOCOCCUS 500 cfu/ml ALPHA HEMOLYTIC STREPTOCOCCUS SPECIES 1,000 cfu/ml ROTHIA MUCILAGINOSA Report Status FINAL 09/04/2017 Specimen Performing Laboratory Bronchial [place] (Specify MAIN LAB Site) [address] [place] [address] * FLOW CYTOMETRY (08/31/2017 10:18 AM) Component Value Ref Range PATHOLOGY REPORT [facility] [email or web address] Yuliya Kamara MD, Director of Clinical Laboratory Nicholas Johnson MD, Director of Flow Cytometry Laboratory Department of Pathology and Laboratory Medicine [address] [place] [address] Surgical Pathology Office:[phone]:[phone] FLOW CYTOMETRY REPORT NAME: BRUCE KAHN SURG PATH #: [id number] MR #: [id number] SPECIMEN CLASS: LC BILLING #: [id number] ALT ID #:LOCATION: [facility] DATE OF PROCEDURE: 08/31/2017 AGE:57 SEX: M [...] Out By+++ btp/08/31/2017 Interpreted by: MD Lois Farley MD Resident 09/01/2017 ################################################## ###################### Lab Data: Flow CytometryBronchoalveolar Lavage Panel B Cell Associated Markers (% Positive Cells): CD20=0 T Cell Associated Markers (% Positive Cells): CD2=97; CD3=97; CD4=49; CD8=46 CD4:CD8 ratio=1.1 NK Cell Associated Markers (% Positive Cells): CD56=0 Miscellaneous Markers (% Positive Cells): CE00=662 Cell Viability (%): 94 Number of Cells Analyzed:10,000 Total Number of Markers: 7 Summary of Marker Combinations: 08/18////56/8 This test was developed and its performance characteristics determined by the [facility] Flow Cytometry Laboratory.It has not been cleared or approved by the U.S. Food and Drug Administration (FDA).The FDA has determined that such clearance or approval is not necessary. Specimen Performing Laboratory [facility] RESULTS * CMV QUANT PCR-FLUID (08/31/2017 10:18 AM) Component Value Ref Range Specimen, CMV BRONCHIAL ALVEOLAR LAVAGE CMV by PCR-fluid CMV DNA NOT DETECTED CMV Comment-Fluid This assay is an off label use of the Ceja RealTime Assay for detection of CMV in fluids and has not been approved by the US Food and Drug Administration. The performance characteristics were determined by the [facility].The lower limit of detection is 50IU/mL. Specimen Performing Laboratory Fluid - Bronchial [facility] MAIN [facility] Alveolar Lavage [address] [place] [address] * CELL COUNT W/DIFF-FLUIDS (08/31/2017 10:18 AM) [...] Bronchial [facility]IN [facility] Alveolar Lavage [address] [place] [address] * LEUKEMIA/LYMPHOMA PANEL FLUID/TISSUE (08/31/2017 10:18 AM) Component Value Ref Range Leuk/Lymph Interpretation SEE PATHOLOGY REPORT Specimen/LLM BRONCHIAL ALVEOLAR LAVAGE Specimen Performing Laboratory Bronchial Alveolar Lavage [facility] [address] [place] [address] * GRAM STAIN (08/31/2017 10:17 AM) Component Value Ref Range Battery Name GRAM STAIN Specimen Description BRONCHIAL ALVEOLAR LAVAGE, RUL Special Requests NONE Gram Stain MANY NEUTROPHILS FEW SQUAMOUS EPITHELIAL CELLS MANY MIXED BACTERIA Report Status FINAL 08/31/2017 Specimen Performing Laboratory Bronchial Alveolar [facility] [place] [address] [place] [address] * CULTURE-FUNGAL,OTHER (08/31/2017 10:17 AM) Component Value Ref Range Battery Name FUNGUS CULTURE Specimen Description BRONCHIAL ALVEOLAR LAVAGE, RUL Special Requests NONE Culture Light growth RICARDO GLABRATA Light growth RICARDO ALBICANS Report Status FINAL 09/08/2017 Specimen Performing Laboratory Bronchial Alveolar [facility] [place] [address] [place] [address] * CULTURE-TB (AFB) (08/31/2017 10:17 AM) Component Value Ref Range Battery Name AFB CULTURE Specimen Description BRONCHIAL ALVEOLAR LAVAGE, RUL Special Requests NONE Acid Fast Stain NO ACID FAST BACILLI SEEN Culture NO GROWTH OF MYCOBACTERIA AT 6 WEEKS Report Status FINAL 10/19/2017 Specimen Performing Laboratory Bronchial Alveolar [facility] [place],RUL [address] [place] [address] * CULTURE-RESP,LOWER W/SENSITIVITY (08/31/2017 10:17 AM) Component Value Ref Range Battery Name LOWER RESP CULTURE Specimen Description BRONCHIAL ALVEOLAR LAVAGE, RUL Special Requests NONE Direct Gram Stain MANY NEUTROPHILS FEW SQUAMOUS EPITHELIAL CELLS MANY MIXED BACTERIA Culture Moderate growth NORMAL OROPHARYNGEAL SAMIRA Report Status FINAL 09/02/2017 Specimen Performing Laboratory Bronchial Alveolar [facility] [place],RUL [address] [place] [address] * BRONCHOSCOPY (08/31/2017 10:04 AM) Component Value Ref Range Provation Report Patient Name: Bruce Kahn Procedure Date: 08/31/2017 10:04 AM CSN: [id number] Date of : 1960 Gender: Male Attending Physician: Gareth Sarkar MD Procedure:Bronchoscopy Indications:Right upper lobe infiltrate, history of MAC with cavita ry disease Providers:Gareth Sarkar MD (Doctor), Cece Fisher MD (Fellow), Ashwini Sanchez RN (Nurse), Urban Sun (Jewel Inserter) Referring Physician:Kip Godoy MD Medications:Tetracaine 0.25%/Epinephrine 0.003% [...] Out: 10:23:17 AM Procedure Code(s):--- Professional --- 83126, Bronchoscopy, rigid or flexible, including fluoro scopic guidance, when performed; with bronchial alveol ar lavage CPT copyright 2016 [employer]. All rights reserved. The codes documented in this report are preliminary and upon director human services review may be revised to meet current compliance requirements. Attending Participation: I was present and participated during the entire procedure, including non-montoya portions. MD Gareth Robert MD 08/31/2017 1:28 PM The attending physician has electronically signed and finalized this document. MD Cece Quinonez MD 08/31/2017 10:30 AM Number of Addenda: 0 Note Initiated On: 08/31/2017 10:04 AM Specimen Performing Laboratory [facility] OTHER RESULTS in this encounter Visit Diagnoses Diagnosis Cavitary lesion of lung Other diseases of lung, not elsewhere classified Admitting Diagnoses Diagnosis Cavitary lesion of lung - UNKNOWN Other diseases of lung, not elsewhere classified Administered Medications Medication Order MAR Action Action Date Dose Rate Site sodium chloride 0.9 % infusion Given - New 08/31/2017 1,000 mL 20 mL/ hr 1,000 mL, Intravenous, CONTINUOUS, Bag 09:00 GOVERNMENT AFFAIRS DIRECTOR Starting Thu08/31/17 at 0845, Until Thu08/31/17 at 1256, Pre-Op sodium chloride 0.9% irrigation bottle Given 08/31/2017 150 mL INTRA-PROCEDURE MED, Starting Thu08/31/17 10:18 GOVERNMENT AFFAIRS DIRECTOR at 1018, Until Thu08/31/17 at 1256, Intra-op tetracaine 0.25% /EPINEPHrine 0.003%(#) Given 08/31/2017 8 mL injection 10:12 GOVERNMENT AFFAIRS DIRECTOR INTRA-PROCEDURE MED, Starting Thu08/31/17 at 1012, Until Thu08/31/17 at 1256, Intra-op Given 08/31/2017 4 mL 10:13 GOVERNMENT AFFAIRS DIRECTOR in this encounter
--- OUTSIDE RECORDS SUMMARY | 2017-10-23 13:36 | XMS REPORT | Encounter Summary ---
Author Author [facility] Organization [facility] Address Unknown Phone Unavailable Care Team Providers Care Certified Meeting Professional Name Role Phone Otto Bartholomew MD Unavailable Venecia Olivas MD Unavailable Amy Joyner RN Unavailable Unavailable Brandy Scott MD Unavailable Tani Keenan MD PCP Franklin Gerber MD Unavailable Unavailable Jonathan Loya RN Unavailable Tash Calhoun RN 2 Unavailable Lisa Chavarria Unavailable Unavailable Mckenna Hidalgo Unavailable Unavailable Mari Braun BILLING COORDINATOR Unavailable Jigar Christian MD Unavailable Kip Godoy MD Unavailable Lianne Hughes MD Unavailable Alfonso Koehler OD Unavailable Cheri Evans CONSULTING SERVICES PROJECT MANAGER Unavailable Unavailable Katelyn Chris RN Unavailable Fartun Parker LPN Unavailable Unavailable Reason for Visit * Auth/Cert Status Reason Specialty Diagnoses / Referred By Referred To Procedures Contact Contact Diagnoses Cavitary lesion of lung UNKNOWN P rocedures [place] BRNCHSC BRUSHING/PROTECT ED BRUSHINGS BRONCHOSCOPY WITH LAVAGE and cytology brush Encounter Details Date Type Department Care Team Description 08/31/2017 Hospital [facility] Elias, Neoplasm of uncertain Encounter [address], [place] [address] [address] [place] [address] [phone] Social History Tobacco Use Types Packs/Day Years [...] impairment: No 02/02/2017 as of this encounter Medications at Time of Discharge [...] mg tablet daily. as of this encounter Progress Notes * Fartun Murillo - 09/04/2017 5:55 AM REAL ESTATE OFFICE MANAGER Bruce Kahn Lesion A Dorsal Nose Picture All documentation and picture emailed to Dr Marks's office for scheduling Padilla Frias in this encounter Plan of Treatment Not on fileas of this encounter Results * SURGICAL PATHOLOGY (08/31/2017 1:49 PM) Component Value Ref Range PATHOLOGY REPORT [facility] www.[employer] Department of Pathology and Laboratory Medicine [address] [place] [address] Surgical Pathology Office:[phone]:[phone] SURGICAL PATHOLOGY REPORT NAME: BRUCE KAHN SURG PATH #: [id number] MR #: [id number] SPECIMEN CLASS: SR BILLING #: [id number] ALT ID #:LOCATION: DERM DATE OF PROCEDURE: [...] cm shave, bisected, all in A1. (ksh) 08/31/2017 Specimen Performing Laboratory [facility] RESULTS * NON-IRRIGATION EQUIPMENT MECHANIC CYTOLOGY (BODY FLUIDS/TISSUE) (08/31/2017 11:58 AM) Component Value Ref Range Cytology [facility] www[employer] Department of Pathology and Laboratory Medicine [address] [place] [address] Surgical Pathology Office:[phone]:[phone] CYTOLOGY REPORT NAME: BRUCE KAHN CYTOLOGY #: [id number] MR #: [id number] ALT ID #: BILLING #: [id number] LOCATION: [facility] DATE OF PROCEDURE: 08/31/2017 AGE: 57 SEX: [...] Resident Specimen Performing Laboratory [facility] RESULTS in this encounter Visit Diagnoses Not on filein this encounter Admitting Diagnoses Diagnosis Neoplasm of uncertain behavior, unspecified
--- OUTSIDE RECORDS SUMMARY | 2017-10-23 13:37 | XMS REPORT | Encounter Summary ---
Author Author [facility] Organization [facility] Address Unknown Phone Unavailable Care Team Providers Care Photo Tech Name Role Phone Otto Bartholomew MD Unavailable Venecia Olivas MD Unavailable Amy Joyner RN Unavailable Unavailable Brandy Scott MD Unavailable Tani Keenan MD PCP Franklin Gerber MD Unavailable Unavailable Jonathan Loya RN Unavailable Tash Calhoun RN 2 Unavailable Lisa Chavarria Unavailable Unavailable Mckenna Hidalgo Unavailable Unavailable Mari Braun POLICE LIAISON Unavailable Jigar Christian MD Unavailable Kip Godoy MD Unavailable Lianne Hughes MD Unavailable Alfonso Koehler OD Unavailable Cheri Evans HOG DRIVER Unavailable Unavailable Katelyn Chris RN Unavailable Fartun Parker LPN Unavailable Unavailable Reason for Visit * Reason Comments Appointment Question Encounter Details Date Type Department Care Team Description 08/03/2017 Telephone [facility] Kip Godoy MD Appointment Question Physicians - Internal [address] [facility] [address] [place] [address] [address] [facility] [phone] [address] Social History Tobacco Use Types Packs/Day Years [...] Telephone Encounter - Courtney Dominguez RN - 08/03/2017 10:24 AM PHYSICIAN RELATIONS MANAGER Patient LVM stating that he cannot make his appointment to see today. Patient was recently discharged from the hospital. He goes on to report that the office told him that 's next available is in November, and he is asking if he should be seen sooner? Called patient. He reports that he was recently discharged from [facility]. He reports that they changed his cyclosporine. He is scheduled to go to lung transplant evaluation on 08/19/17. Will discuss with . Discussed with . Plan to see patient for follow up in clinic on 09/14/17 @ 2:50pm. High Importance e-mail sent to Pulm Admin team. in this encounter Plan of Treatment Not on fileas of this encounter Visit Diagnoses Not on filein this encounter
--- OUTSIDE RECORDS SUMMARY | 2017-10-23 13:37 | XMS REPORT | Encounter Summary ---
Author Author [facility] Organization [facility] Address Unknown Phone Unavailable Care Team Providers Care Document Clerk Name Role Phone Otto Bartholomew MD Unavailable Venecia Olivas MD Unavailable Amy Joyner RN Unavailable Unavailable Brandy Scott MD Unavailable Tani Keenan MD PCP Franklin Gerber MD Unavailable Unavailable Jonathan Loya RN Unavailable Tash Calhoun RN 2 Unavailable Lisa Chavarria Unavailable Unavailable Mckenna Hidalgo Unavailable Unavailable Mari Braun ADVANCE SCOUT Unavailable Jigar Christian MD Unavailable Kip Godoy MD Unavailable Lianne Hughes MD Unavailable Alfonso Koehler OD Unavailable Cheri Evans HAND I CUTTER Unavailable Unavailable Katelyn Chris RN Unavailable Fartun Parker LPN Unavailable Unavailable Reason for Visit * Auth/Cert Status Reason Specialty Diagnoses / Referred By Referred To Procedures Contact Contact Diagnoses Cavitary lesion of lung UNKNOWN P rocedures [place] BRNCHSC BRUSHING/PROTECT ED BRUSHINGS BRONCHOSCOPY WITH LAVAGE and cytology brush Encounter Details Date Type Department Care Team Description 08/31/2017 Hospital [facility] Kip Godoy MD Cavitary lesion of lung Encounter Endoscopy [address] [place] [address] [place] [address] [phone] Gareth Yancey MD [address] [facility] [address] [place] [address] [phone] Social History Tobacco Use Types Packs/Day Years Used Date Former Smoker Cigarettes 1 Quit: 05/01/2012 Smokeless Tobacco: Never Used Alcohol Use Drinks/Week oz/Week Comments No Sex Assigned at Date Recorded Not on file as of this encounter Last Filed Vital Signs Vital Sign Reading Time Taken Blood Pressure 117/78 08/31/2017 11:47 AM QUALITY ASSURANCE AUDITOR Pulse 97 08/31/2017 11:47 AM QUALITY ASSURANCE AUDITOR Temperature 36.4 C (97.5 F) 08/31/2017 8:43 AM QUALITY ASSURANCE AUDITOR Respiratory Rate - - Oxygen Saturation 97% 08/31/2017 11:47 AM QUALITY ASSURANCE AUDITOR Inhaled Oxygen - - Concentration Weight - [...] Moraima Latham RN - 08/31/2017 10:56 AM QUALITY ASSURANCE AUDITOR POST BRONCHOSCOPY INSTRUCTIONS 1. When your brochscopy [...] or problems after your procedure please call [phone] between the hours of 8 a.m. until 4:30 p.m. After 4:30 p.m., holidays, or weekends call [phone] and ask for the Pulmonary Physician ironer hand. * Discharge Instr - Other Info - Rudy Thomas RN - 08/31/2017 10:45 AM QUALITY ASSURANCE AUDITOR POST BRONCHOSCOPY INSTRUCTIONS 1. When your brochscopy [...] or problems after your procedure please call [phone] between the hours of 8 a.m. until 4:30 p.m. After 4:30 p.m., holidays, or weekends call [phone] and ask for the Pulmonary Physician ironer hand. in this encounter Medications at Time of [...] Cece Fisher MD - 08/31/2017 8:04 AM QUALITY ASSURANCE AUDITOR Formatting of this note may be different [...] currently being evaluated for lung transplant in [place]. Previous Anesthetic/Sedation History: Tolerated sedation with previous bronchoscopies. Past Medical History: Diagnosis Date Cancer of lip squam cell Cataract Chronic kidney disease transplant COPD (chronic obstructive pulmonary disease) (HCC) copd Hypertension On supplemental oxygen therapy Pneumonia Renal failure Past Surgical History: Procedure Laterality Date HX APPENDECTOMY HX CHOLECYSTECTOMY HX RENAL TRANSPLANT [place] REMOVE BILE DUCT STONE, PERCUT [place] TENOTOMY PRQ ACHILLES TENDON SPX GENERAL ANES Pertinent medical/surgical history reviewed Pertinent family history reviewed Social History Substance Use Topics Smoking status: Former Smoker Packs/day: 1.00 Years: 30.00 Types: Cigarettes Quit date: 05/01/2012 Smokeless tobacco: Never Used Alcohol use No History Drug Use No Comment: when he was younger smoked marijuana. Allergies: Xurlsil-fkr-myv reductase inhibitors and Varenicline Medications No current [...] past 24 hour(s)). Cece Fisher MD Pager [phone] in this encounter Plan of Treatment Not on fileas of this encounter Procedures Procedure Name Priority Date/Time Associated Diagnosis Comments TELEMETRY STRIPS-SCAN 09/03/2017 Results for this 10:30 AM QUALITY ASSURANCE AUDITOR procedure are in the results section. PROCEDURE RECORD-SCAN 09/03/2017 Results for this 10:30 AM QUALITY ASSURANCE AUDITOR procedure are in the results section. BRONCHOSCOPY WITH LAVAGE 08/31/2017 Cavitary lesion of lung and cytology brush 9:15 AM QUALITY ASSURANCE AUDITOR Special Needs ANTONINA/REGINA BUSH. PLEASE SCHEDULE 08/31/17 [...] Status FINAL 10/05/2017 Specimen Performing Laboratory Bronchial [place],[facility] MAIN [facility] [address] [place] [address] * CULTURE-TISSUE QUANT W/SENSITIVITY (08/31/2017 10:20 AM) Component Value Ref Range Battery Name TISSUE QUANT CULTURE Specimen Description BRONCHIAL BRUSH RIGHT UPPER LOBE Special Requests NONE Culture 1,800 cfu/ml GAMMA HEMOLYTIC STREPTOCOCCUS 500 cfu/ml ALPHA HEMOLYTIC STREPTOCOCCUS SPECIES 1,000 cfu/ml ROTHIA MUCILAGINOSA Report Status FINAL 09/04/2017 Specimen Performing Laboratory Bronchial [place] (Specify MAIN LAB Site) [address] [place] [address] * FLOW CYTOMETRY (08/31/2017 10:18 AM) Component Value Ref Range PATHOLOGY REPORT [facility] [email or web address] Yuliya Kamara MD, Director of Clinical Laboratory Nicholas Johnson MD, Director of Flow Cytometry Laboratory Department of Pathology and Laboratory Medicine [address] [place] [address] Surgical Pathology Office:[phone]:[phone] FLOW CYTOMETRY REPORT NAME: BRUCE KAHN SURG PATH #: [id number] MR #: [id number] SPECIMEN CLASS: LC BILLING #: [id number] ALT ID #:LOCATION: [facility] DATE OF PROCEDURE: 08/31/2017 AGE:57 SEX: M [...] Cells): CD56=0 Miscellaneous Markers (% Positive Cells): XE51=198 Cell Viability (%): 94 Number of Cells Analyzed:10,000 Total Number of Markers: 7 Summary of Marker Combinations: 08/18///45/56/8 This test was developed and its performance characteristics determined by the [facility] Flow Cytometry Laboratory.It has not been [...] The performance characteristics were determined by the [facility] Laboratory.The lower limit of detection is 50IU/mL. Specimen Performing Laboratory Fluid - Bronchial [facility] Alveolar Lavage [address] [place] [address] * CELL COUNT W/DIFF-FLUIDS (08/31/2017 10:18 AM) [...] Bronchial [facility] Alveolar Lavage [address] [place] [address] * LEUKEMIA/LYMPHOMA PANEL FLUID/TISSUE (08/31/2017 10:18 AM) Component Value Ref Range Leuk/Lymph Interpretation SEE PATHOLOGY REPORT Specimen/LLM BRONCHIAL ALVEOLAR LAVAGE Specimen Performing Laboratory Bronchial Alveolar Lavage [facility] [address] [place] [address] * GRAM STAIN (08/31/2017 10:17 AM) Component Value Ref Range Battery Name GRAM STAIN Specimen Description BRONCHIAL ALVEOLAR LAVAGE, RUL Special Requests NONE Gram Stain MANY NEUTROPHILS FEW SQUAMOUS EPITHELIAL CELLS MANY MIXED BACTERIA Report Status FINAL 08/31/2017 Specimen Performing Laboratory Bronchial Alveolar [facility] Lavage,RUL [address] [place] [address] * CULTURE-FUNGAL,OTHER (08/31/2017 10:17 AM) Component Value Ref Range Battery Name FUNGUS CULTURE Specimen Description BRONCHIAL ALVEOLAR LAVAGE, RUL Special Requests NONE Culture Light growth RICARDO GLABRATA Light growth RICAROD ALBICANS Report Status FINAL 09/08/2017 Specimen Performing Laboratory Bronchial Alveolar [facility] Lavage,RUL [address] [place] [address] * CULTURE-TB (AFB) (08/31/2017 10:17 AM) Component Value Ref Range Battery Name AFB CULTURE Specimen Description BRONCHIAL ALVEOLAR LAVAGE, RUL Special Requests NONE Acid Fast Stain NO ACID FAST BACILLI SEEN Culture NO GROWTH OF MYCOBACTERIA AT 6 WEEKS Report Status FINAL 10/19/2017 Specimen Performing Laboratory Bronchial Alveolar [facility] Lavage,RUL [address] [place] [address] * CULTURE-RESP,LOWER W/SENSITIVITY (08/31/2017 10:17 AM) Component Value Ref Range Battery Name LOWER RESP CULTURE Specimen Description BRONCHIAL ALVEOLAR LAVAGE, RUL Special Requests NONE Direct Gram Stain MANY NEUTROPHILS FEW SQUAMOUS EPITHELIAL CELLS MANY MIXED BACTERIA Culture Moderate growth NORMAL OROPHARYNGEAL SAMIRA Report Status FINAL 09/02/2017 Specimen Performing Laboratory Bronchial Alveolar [facility] Lavage,RUL [address] [place] [address] * BRONCHOSCOPY (08/31/2017 10:04 AM) Component Value Ref Range Provation Report Patient Name: Bruce Kahn Procedure Date: 08/31/2017 10:04 AM CSN: [id number] Date of : 1960 Gender: Male Attending Physician: Gareth Sarkar MD Procedure:Bronchoscopy Indications:Right upper lobe infiltrate, history of MAC with cavita ry disease Providers:Gareth Sarkar MD (Doctor), Cece Fisher MD (Fellow), Ashwini Sanchez RN (Nurse), Urban Sun (Production Planning Manager) Referring Physician:Kip Godoy MD Medications:Tetracaine 0.25%/Epinephrine 0.003% [...] Out: 10:23:17 AM Procedure Code(s):--- Professional --- 69788, Bronchoscopy, rigid or flexible, including fluoro scopic guidance, when performed; with bronchial alveol ar lavage CPT copyright 2016 [employer]. All rights reserved. The codes documented in this report are preliminary and upon emt review may be revised to meet current [...] hr 1,000 mL, Intravenous, CONTINUOUS, Bag 09:00 QUALITY ASSURANCE AUDITOR Starting Thu08/31/17 at 0845, Until Thu08/31/17 at 1256, Pre-Op sodium chloride 0.9% irrigation bottle Given 08/31/2017 150 mL INTRA-PROCEDURE MED, Starting Thu08/31/17 10:18 QUALITY ASSURANCE AUDITOR at 1018, Until Thu08/31/17 at 1256, Intra-op tetracaine 0.25% /EPINEPHrine 0.003%(#) Given 08/31/2017 8 mL injection 10:12 QUALITY ASSURANCE AUDITOR INTRA-PROCEDURE MED, Starting Thu08/31/17 at 1012, Until Thu08/31/17 at 1256, Intra-op Given 08/31/2017 4 mL 10:13 QUALITY ASSURANCE AUDITOR in this encounter
--- OUTSIDE RECORDS SUMMARY | 2017-10-23 13:37 | XMS REPORT | Encounter Summary ---
Author Author [facility] Organization [facility] Address Unknown Phone Unavailable Care Team Providers Care Funeral Home Makeup Artist Name Role Phone Otto Bartholomew MD Unavailable [...] Details Date Type Department Care Team Description 07/27/2017 Pharmacy Visit [facility] [address] [place] [address] Social History Tobacco Use Types [...]
--- OUTSIDE RECORDS SUMMARY | 2017-10-23 13:37 | XMS REPORT | Encounter Summary ---
Author Author [facility] Organization [facility] Address Unknown Phone Unavailable Care Team Providers Care Field Services Manager Name Role Phone Otto Bartholomew MD Unavailable Venecia Olivas MD Unavailable Amy Joyner RN Unavailable Unavailable Brandy Scott MD Unavailable Tani Keenan MD PCP Franklin Gerber MD Unavailable Unavailable Jonathan Loya RN Unavailable Tash Calhoun RN 2 Unavailable Lisa Chavarria Unavailable Unavailable Mckenna Hidalgo Unavailable Unavailable Mari Braun TENNIS DESK TEAM MEMBER Unavailable Jigar Christian MD Unavailable Kip Godoy MD Unavailable Lianne Hughes MD Unavailable Alfonso Koehler OD Unavailable Cheri Evans ACCOUNT MANAGER RELIEF Unavailable Unavailable Katelyn Chris RN Unavailable Fartun Parker LPN Unavailable Unavailable Reason for Visit * Reason Comments Records Request Encounter Details Date Type Department Care Team Description 08/20/2017 Telephone [facility] Kip Godoy MD Records Request Physicians - Internal [address] [facility] [address] [place] [address] [address] [facility] [phone] [place] [address] Social History Tobacco Use Types Packs/Day Years [...] Telephone Encounter - Courtney Dominguez RN - 08/20/2017 10:54 AM HOOKER MACHINE TENDER Spoke with Frida at [facility]. She will fax the note from recent evaluation. She is requesting immunization records. Immunization records faxed to Frida. She goes on to state that they would like patient to complete Pulmonary Rehab. Informed her that unfortunately, insurance is denying pulmonary rehab because patient completed 18 sessions in 2016 and 2017. in this encounter Plan of Treatment Not on fileas of this encounter Visit Diagnoses Not on filein this encounter
--- OUTSIDE RECORDS SUMMARY | 2017-10-23 13:37 | XMS REPORT | Encounter Summary ---
Author Author [facility] Organization [facility] Address Unknown Phone Unavailable Care Team Providers Care Sales Representative Business Courses Name Role Phone Otto Bartholomew MD Unavailable Venecia Olivas MD Unavailable Amy Joyner RN Unavailable Unavailable Brandy Scott MD Unavailable Tani Keenan MD PCP Franklin Gerber MD Unavailable Unavailable Jonathan Loya RN Unavailable Tash Calhoun RN 2 Unavailable Lisa Chavarria Unavailable Unavailable Mckenna Hidalgo Unavailable Unavailable Mari Braun ADMINISTRATIVE PROCESSOR Unavailable Jigar Christian MD Unavailable Kip Godoy MD Unavailable Lianne Hughes MD Unavailable Alfonso Koehler OD Unavailable Cheri Evans RN LIAISON Unavailable Unavailable Katelyn Chris RN Unavailable Fartun Parker LPN Unavailable Unavailable Reason for Visit * Reason Comments Medication Refill Encounter Details Date Type Department Care Team Description 08/03/2017 Refill [facility] Kip Godoy MD SOB ( shortness of breath) Physicians - Internal [address] [facility] [address] [place] [address] [address] [facility] [phone] [place] [address] Social History Tobacco Use Types [...] fileas of this encounter Visit Diagnoses Diagnosis SOB (shortness of breath) Shortness of breath
--- OUTSIDE RECORDS SUMMARY | 2017-10-23 13:37 | XMS REPORT | Encounter Summary ---
Author Author [facility] Organization [facility] Address Unknown Phone Unavailable Care Team Providers Care Plant Nursery Worker Name Role Phone Otto Bartholomew MD Unavailable Venecia Olivas MD Unavailable Amy Joyner RN Unavailable Unavailable Brandy Scott MD Unavailable Tani Keenan MD PCP Franklin Gerber MD Unavailable Unavailable Jonathan Loya RN Unavailable Tash Calhoun RN 2 Unavailable Lisa Chavarria Unavailable Unavailable Mckenna Hidalgo Unavailable Unavailable Mari Braun NURSING PROGRAM MANAGER Unavailable Jigar Christian MD Unavailable Kip Godoy MD Unavailable Lianne Hughes MD Unavailable Alfonso Koehler OD Unavailable Cheri Evans STATION WORKER Unavailable Unavailable Katelyn Chris RN Unavailable Fartun Parker LPN Unavailable Unavailable Reason for Visit * Reason Comments Results Encounter Details Date Type Department Care Team Description 08/21/2017 Telephone [facility] Kip Godoy MD Results Physicians - Internal [address] [facility] [address] [place] [address] [address] [facility] [phone] [place] [address] Social History Tobacco Use Types Packs/Day Years [...] encounter Miscellaneous Notes * Telephone Encounter - Kip Godoy MD - 08/21/2017 2:27 PM TRAVELING ELECTRICIAN Received a call from the [facility] transplant powerbuilder yesterday regarding Mr. Dawson's recent evaluation. They would like for patient to undergo bronchoscopy with lavage and brushings to evaluate for infectious or malignant etiologies of his right upper lobe thick-walled cavities. Called and discussed this plan with Mr. Dawson and that we would like to proceed with getting this done next week to allow as much time for the cultures to grow before he follows up in [place] in the next 6 weeks. He is agreeable to this plan and we will schedule the bronchoscopy with anesthesia for BAL and right upper lobe cytology brushing next week. He was informed that it is possible that he may not immediately be able to be extubated postprocedure. However, our goal is for this to be an outpatient procedure. Kip Godoy MD in this encounter Plan of Treatment Not on fileas of this encounter Visit Diagnoses Not on filein this encounter
--- OUTSIDE RECORDS SUMMARY | 2017-10-23 13:37 | XMS REPORT | Encounter Summary ---
Author Author [facility] Organization [facility] Address Unknown Phone Unavailable Care Team Providers Care Animal Therapist Name Role Phone Otto Bartholomew MD Unavailable Venecia Olivas MD Unavailable Amy Joyner RN Unavailable Unavailable Brandy Scott MD Unavailable Tani Keenan MD PCP Franklin Gerber MD Unavailable Unavailable Jonathan Loya RN Unavailable Tash Calhoun RN 2 Unavailable Lisa Chavarria Unavailable Unavailable Mckenna Hidalgo Unavailable Unavailable Mari Braun LEGAL AIDE Unavailable Jigar Christian MD Unavailable Kip Godoy MD Unavailable Lianne Hughes MD Unavailable Alfonso Koehler OD Unavailable Cheri Evans TRANSITIONAL NURSE Unavailable Unavailable Katelyn Chris RN Unavailable Fartun Parker LPN Unavailable Unavailable Encounter Details Date Type Department Care Team Description 08/21/2017 Prep for Case [facility] Kip Godoy MD Cavitary lesion of lung Physicians - Internal [address] (Primary Dx) Medicine [address] [place] [address] [phone] [place] [address] Social History Tobacco Use Types Packs/Day Years [...] fileas of this encounter Visit Diagnoses Diagnosis Cavitary lesion of lung - Primary Other diseases of lung, not elsewhere classified
--- OUTSIDE RECORDS SUMMARY | 2017-10-23 13:40 | XMS REPORT | Encounter Summary ---
Author Author [facility] Organization [facility] Address Unknown Phone Unavailable Care Team Providers Care Household Cook Name Role Phone Otto Bartholomew MD Unavailable Venecia Olivas MD Unavailable Amy Joyner RN Unavailable Unavailable Brandy Scott MD Unavailable Tani Keenan MD PCP Franklin Gerber MD Unavailable Unavailable Jonathan Loya RN Unavailable Tash Calhoun RN 2 Unavailable Lisa Chavarria Unavailable Unavailable Mckenna Hidalgo Unavailable Unavailable Mari Braun PROPAGATOR LABORER Unavailable Jigar Christian MD Unavailable Kip Godoy MD Unavailable Lianne Hughes MD Unavailable Alfonso Koehler OD Unavailable Cheri Evans POLICY SERVICE COORDINATOR Unavailable Unavailable Katelyn Chris RN Unavailable Fartun Parker LPN Unavailable Unavailable Reason for Visit * Auth/Cert Status Reason Specialty Diagnoses / Referred By Referred To Procedures Contact Contact Diagnoses Resp failure renal failure Respiratory failure (HCC) Encounter Details Date Type Department Care Team Description 07/21/2017 Hospital Renal/Organ Transplant Kip Godoy MD Acute on chronic - Encounter [address] respiratory failure with 07/27/2017 [place] [address] [place] [address] hypoxia (HCC) [phone] [place] [address] [phone] Lois Sexton MD [address] [place] [address] [phone] Gareth Yancey MD [address] [facility] [place] [address] [phone] Barb Trejo DO [address] [place] [address] [phone] Social History Tobacco Use Types Packs/Day Years Used Date Former Smoker Cigarettes 07 28 Quit: 05/01/2012 Smokeless Tobacco: Never Used Alcohol Use Drinks/Week oz/Week Comments No Sex Assigned at Date Recorded Not on file as of this encounter Last Filed Vital Signs Vital Sign Reading Time Taken Blood Pressure 120/62 07/27/2017 12:55 PM CNC SET UP OPERATOR Pulse 94 07/27/2017 12:55 PM CNC SET UP OPERATOR Temperature 36.7 C (98.1 F) 07/27/2017 12:55 PM CNC SET UP OPERATOR Respiratory Rate - - Oxygen Saturation 96% 07/27/2017 12:55 PM CNC SET UP OPERATOR Inhaled Oxygen - - Concentration Weight 74.7 kg (164 lb 10.9 oz) 07/25/2017 6:43 AM CNC SET UP OPERATOR Height 175.3 cm (5' 9") 07/22/2017 8:03 AM CNC SET UP OPERATOR Body Mass Index 24.32 07/25/2017 6:43 AM CNC SET UP OPERATOR in this encounter Functional Status Functional Status [...] No 02/02/2017 as of this encounter Discharge Summaries * Barb Pratt DO - 07/27/2017 11:54 AM CNC SET UP OPERATOR Formatting of this note may be different from the original. Physician Discharge Summary Name: Doug Dawson Date Of : 1960 Age: 57 years Admit date: 07/21/2017 Discharge date: 07/27/2017 Attending Physician: Dr. Barb Pratt Service: [facility] N- [id number] Physician Summary completed by: Barb Pratt DO Reason for hospitalization: Acute on chronic hypoxic hypercapnic respiratory failure and GRZEGORZ on CKD Significant PMH: Past Medical History: Diagnosis Date Cancer of lip squam cell Cataract Chronic kidney disease transplant COPD (chronic obstructive pulmonary disease) (HCC) copd Hypertension On supplemental oxygen therapy Pneumonia Renal failure Allergies: Enmwpgf-vfv-ame reductase inhibitors Admission Physical Exam notable for: Vital Signs: Last Filed In 24 Hours Vital Signs: 24 Hour Range BP: 134/44 (07/21 1800) Temp: 36.6 C (97.9 F) (07/21 1633) Pulse: 82 (07/21 1800) Respirations: 18 PER MINUTE (07/21 1800) SpO2: 95 % (07/21 1800) O2 Delivery: Endotracheal Tube (Oral) (07/21 1800) SpO2 Pulse: 79 (07/21 1800) Height: 175.3 cm (69") (07/21 1700) BP: (114-144)/(44-88) Temp: [36.6 C (97.9 F)] Pulse: [77-82] Respirations: [15 PER MINUTE-18 PER MINUTE] SpO2: [95 %-98 %] O2 Delivery: Endotracheal Tube (Oral) General Appearance: Alert,intubated, no distress HEENT: NC/AT, Conjunctivae/corneas clear. PERRL, Neck: Supple, no bruits, no LAD, Lungs: rales bilaterally, no wheezes. Heart: RRR, S1, S2 normal, no murmur, rub, or gallop Abdomen: Soft, non-tender. Bowel sounds sluggish. No masses. No organomegaly. Extremities: Atraumatic, no cyanosis, 2+ edema. R>L Pulses: +2 pulse in both extremities. Neurologic: no focal deficits Admission Lab/Radiology studies notable for: 24-hour labs: Results for orders placed or performed during the hospital encounter of (from the past 24 hour(s)) CBC AND DIFF Collection Time: 07/21/17 4:38 PM Result Value Ref Range White Blood Cells 5.1 4.5 - 11.0 K/UL RBC 3.11 (L) 4.4 - 5.5 M/UL Hemoglobin 8.6 (L) 13.5 - 16.5 GM/DL Hematocrit 27.5 (L) 40 - 50 % MCV 88.5 80 - 100 FL MCH 27.8 26 - 34 PG MCHC 31.5 (L) 32.0 - 36.0 G/DL RDW 16.1 (H) 11 - 15 % Platelet Count 151 150 - 400 K/UL MPV 8.3 7 - 11 FL Neutrophils 76 41 - 77 % Lymphocytes 11 (L) 24 - 44 % Monocytes 10 4 - 12 % Eosinophils 3 0 - 5 % Basophils 0 0 - 2 % Absolute Neutrophil Count 3.90 1.8 - 7.0 K/UL Absolute Lymph Count 0.60 (L) 1.0 - 4.8 K/UL Absolute Monocyte Count 0.50 0 - 0.80 K/UL Absolute Eosinophil Count 0.20 0 - 0.45 K/UL Absolute Basophil Count 0.00 0 - 0.20 K/UL PROTIME INR (PT) Collection Time: 07/21/17 4:38 PM Result Value Ref Range INR 1.0 0.8 - 1.2 PTT (APTT) Collection Time: 07/21/17 4:38 PM Result Value Ref Range APTT 30.8 21.0 - 39.0 SEC COMPREHENSIVE METABOLIC PANEL Collection Time: 07/21/17 4:38 PM Result Value Ref Range Sodium 131 (L) 137 - 147 MMOL/L Potassium 4.8 3.5 - 5.1 MMOL/L Chloride 94 (L) 98 - 110 MMOL/L Glucose 79 70 - 100 MG/DL Blood Urea Nitrogen 81 (H) 7 - 25 MG/DL Creatinine 3.61 (H) 0.4 - 1.24 MG/DL Calcium 8.7 8.5 - 10.6 MG/DL Total Protein 5.8 (L) 6.0 - 8.0 G/DL Total Bilirubin 0.6 0.3 - 1.2 MG/DL Albumin 3.2 (L) 3.5 - 5.0 G/DL Alk Phosphatase 100 25 - 110 U/L AST (SGOT) <3 (L) 7 - 40 U/L CO2 28 21 - 30 MMOL/L ALT (SGPT) 3 (L) 7 - 56 U/L Anion Gap 9 3 - 12 eGFR Non 17 (L) >60 mL/min eGFR 21 (L) >60 mL/min MAGNESIUM Collection Time: 07/21/17 4:38 PM Result Value Ref Range Magnesium 1.2 (L) 1.6 - 2.6 mg/dL PHOSPHORUS Collection Time: 07/21/17 4:38 PM Result Value Ref Range Phosphorus 4.6 (H) 2.0 - 4.0 MG/DL TROPONIN-I Collection Time: 07/21/17 4:38 PM Result Value Ref Range Troponin-I 0.03 0.0 - 0.05 NG/ML POC GLUCOSE Collection Time: 07/21/17 4:39 PM Result Value Ref Range Glucose, POC 84 70 - 100 MG/DL URINALYSIS DIPSTICK Collection Time: 07/21/17 4:40 PM Result Value Ref Range Color,UA YELLOW Turbidity,UA 1+ (A) CLEAR-CLEAR Specific [place]-Urine 1.014 1.003 - 1.035 pH,UA 5.0 5.0 - 8.0 Protein,UA 2+ (A) NEG-NEG Glucose,UA NEG NEG-NEG Ketones,UA NEG NEG-NEG Bilirubin,UA NEG NEG-NEG Blood,UA 1+ (A) NEG-NEG Urobilinogen,UA NORMAL NORM-NORMAL Nitrite,UA NEG NEG-NEG Leukocytes,UA NEG NEG-NEG Urine Ascorbic Acid, UA NEG NEG-NEG URINALYSIS, MICROSCOPIC Collection Time: 07/21/17 4:40 PM Result Value Ref Range WBCs,UA NONE 0 - 2 /HPF RBCs,UA NONE 0 - 3 /HPF BNP (B-TYPE NATRIURETIC PEPTI) Collection Time: 07/21/17 4:45 PM Result Value Ref Range B Type Natriuretic Peptide 563.0 (H) 0 - 100 PG/ML BLOOD GASES, ARTERIAL Collection Time: 07/21/17 5:41 PM Result Value Ref Range pH-Arterial 7.32 (L) 7.35 - 7.45 pCO2-Arterial 56 (H) 35 - 45 MMHG pO2-Arterial 61 (L) 80 - 100 MMHG Base Excess-Arterial 1.9 MMOL/L O2 Sat-Arterial 91.1 (L) 95 - 99 % Dreutvuawtg-VXD-Dvi 26.0 21 - 28 MMOL/L LACTIC ACID (BG - RAPID LACTATE) Collection Time: 07/21/17 5:41 PM Result Value Ref Range Lactic Acid,BG 0.7 0.5 - 2.0 MMOL/L TROPONIN-I Collection Time: 07/21/17 6:39 PM Result Value Ref Range Troponin-I 0.04 0.0 - 0.05 NG/ML Brief Hospital Course: Mr. 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 He arrived to [facility] on mechanical ventilation, however was able to be extubated on 07/24 and transferred to the floor on 07/26/2017 for continued management and are. Acute on chronic hypoxic hypercapnic respiratory failure The patient's home oxygen requirement is 6 L NC. He was intubated prior to transfer to [facility], however extubated to NIPPV on 07/24 and was satting well on his home oxygen requirement again prior to discharge. A CXR on admission showed persistent thick-walled cavitation in the RUL with opacification of the right apex. There was also increasing opacities in the lungs bilaterally, predominantly involving the bases, likely reflecting edema and/or pneumonia. An echo 07/22 showed normal LVEF at 50% with normal diastolic function. Valves were rather unremarkable. A BNP was elevated at 563. He had negative strep pneumo and legionella urine antigen testing. RVP was negative as was histo urine antigen. Sputum cultures had light growth normal oropharyngeal samira only and blood cultures had no growth. Fungitell was negative and procalcitonin was only mildly elevated at 0.22. His respiratory failure was felt to be secondary to volume overload vs pneumonia. He was started on a Lasix drip on admission, however was later converted to PO Lasix and was d/c home on Lasix 80 mg PO daily. He was placed on Vancomycin, Zosyn, and Levaquin at the OSH, however was de-escalated upon arrival here and completed a 5 day course of Levaquin on . 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 He then had graft failure and has a new baseline creatinine of 3.2- 3.5. His creatinine was elevated up to 4.04 on admission, however returned to his baseline again prior to discharge. Renal was consulted and followed along. His GRZEGORZ was felt to be secondary to critical illness and aggressive diuresis. His cyclosporine does was decreased to 25 mg PO BID while inpatient due to elevated trough levels, however he was d/c home on 50 mg PO QAM and 25 mg PO QHS per nephrology recommendations. He was continued on Myfortic 360 mg PO BID and prednisone 5 mg PO daily. He will need repeat cyclosporine trough level checked again in one week (goal level of 70-100) and BMP with results faxed to [facility] at [phone] (pt was provided lab requisition for these). Very severe COPD He is followed by [facility] as an outpatient. His PFTs worsened with treatment of MAC infection and he is now getting w/u for possible lung transplant at [facility] license of [facility]. He had no evidence of acute COPD exacerbation and was satting well on his home oxygen requirement of 6 L NC at the time of discharge. He was continued on his home regimen of albuterol nebs BID, Spiriva daily, and Symbicort BID. 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 He is followed by [facility] as an outpatient. He has had multiple positive AFB sputum cultures identified as MAC. He has previously been on azithromycin and ethambutol as well as inhaled Amikacin, however all therapies were d/c 02/2017 due to concern for worsening COPD. His most recent sputum culture 04/2017 showed no growth of mycobacterium at 6 weeks. He is currently being monitored off MAC therapy at this time. Hypertension His home regimen includes carvedilol 25 mg PO BID, amlodipine 5 mg PO daily, and Lasix 80 mg PO q48h. He was on as above however all his other antihypertensives were held during the admission due to low-normal BP. His BP began to increase again so his home carvedilol was resumed. He was d/c home on increased dose of Lasix at 80 mg PO daily. His amlodipine was not resumed at the time of discharge due to his BP being very well controlled on the carvedilol and Lasix. This can be considered to be resumed as an outpatient if his BP is elevated. Normocytic anemia His hemoglobin remained near his baseline of ~ 9.0. Condition at Discharge: Stable Discharge Diagnoses: Hospital Problems Active Problems * (Principal)Acute on chronic respiratory failure with hypoxia (HCC) History of renal transplant GRZEGORZ (acute kidney injury) ([facility]) Immunosuppression (HCC) Hyperkalemia SEMAJ (mycobacterium avium-intracellulare) ([facility]) Hyponatremia Surgical Procedures: None Significant Diagnostic Studies and Procedures: noted in brief hospital course Consults: Nephrology Patient Disposition: Home Patient instructions/medications: Basic Metabolic Panel (BMP) Standing Status: Future Standing Exp. Date: 07/27/18 Results to be faxed to Nephrology at [phone], attention Dr. Mcnamara CYCLOSPORINE TROUGH Standing Status: Future Standing Exp. Date: 07/27/18 Results to be faxed to Nephrology at [phone], attention Dr. Mcnamara Activity as Tolerated It is important to keep increasing your activity level after you leave the hospital. Moving around can help prevent blood clots, lung infection (pneumonia ) and other problems. Gradually increasing the number of times you are up moving around will help you return to your normal activity level more quickly. Continue to increase the number of times you are up to the chair and walking daily to return to your normal activity level. Begin to work toward your normal activity level at discharge Report These Signs and Symptoms Please contact your doctor if you have any of the following symptoms: temperature higher than 100 degrees F, uncontrolled pain, persistent nausea and/ or vomiting, difficulty breathing, chest pain, severe abdominal pain, headache, unable to urinate, unable to have bowel movement or drainage with a foul odor. Questions About Your Stay For questions or concerns regarding your hospital stay. Call [phone] Discharging attending physician: BARB PRATT [[id number]] Cardiac Diet Limiting unhealthy fats and cholesterol is the most important step you can take in reducing your risk for cardiovascular disease. Unhealthy fats include saturated and trans fats. Monitor your sodium and cholesterol intake. Restrict your sodium to 2g (grams) or 2000mg (milligrams) daily, and your cholesterol to 200mg daily. If you have questions regarding your diet at home, you may contact a dietitian at . Renal Diet Your diet will need to be low in potassium and phosphorous. Keep track of your sodium intake and limit it to 2000mg (milligrams) per day. If you have any questions regarding your diet at home, you may contact a dietitian at [phone]. Current Discharge Medication List CONTINUE these medications which have been CHANGED or REFILLED Details cycloSPORINE (GENGRAF) 25 mg cap Take 50 mg by mouth every morning and 25 mg by mouth every evening (total of 75 mg daily) Qty: 240 capsule, Refills: 11 PRESCRIPTION TYPE: No Print Comments: Physician Collaborating MD Dr. Hughes Z94.0 Diagnosis code: V42.0 & V42.83 furosemide (LASIX) 80 mg tablet Take 1 tablet by mouth daily. Qty: 90 tablet, Refills: 3 PRESCRIPTION TYPE: No Print CONTINUE these medications which have NOT CHANGED Details albuterol (VENTOLIN HFA, PROAIR HFA) 90 mcg/actuation inhaler Inhale 2 Puffs by mouth every 6 hours as needed for Wheezing. Qty: 3 Inhaler, Refills: 11 PRESCRIPTION TYPE: Normal Associated Diagnoses: SOB (shortness of breath) allopurinol (ZYLOPRIM) 100 mg tablet Take 1 tablet by mouth daily. Take with food. Qty: 90 tablet, Refills: 3 PRESCRIPTION TYPE: Normal budesonide/formoterol (SYMBICORT HFA) 160/4.5 mcg inhalation Inhale 2 Puffs by mouth into the lungs twice daily. Qty: 1 Inhaler, Refills: 11 PRESCRIPTION TYPE: Normal carvedilol (COREG) 25 mg tablet Take 1 tablet by mouth twice daily. Qty: 60 tablet, Refills: 11 PRESCRIPTION TYPE: Normal levalbuterol (XOPENEX) 0.31 mg/3 mL nebulizer solution Inhale 0.63 mg solution as directed three times daily as needed for Wheezing. PRESCRIPTION TYPE: Historical Med mycophenolate DR (MYFORTIC) 360 mg TbEC tablet Take 1 tablet by mouth twice daily. Qty: 60 tablet, Refills: 11 PRESCRIPTION TYPE: Normal Comments: ICD 10 Code Z94.0. Collaborative MD: Lianne Hughes MD. . nystatin (MYCOSTATIN) 100,000 units/mL oral suspension Take 500,000 Units by mouth three times daily as needed for Oral Thrush. PRESCRIPTION TYPE: Historical Med pantoprazole DR (PROTONIX) 40 mg tablet Take 1 tablet by mouth every 12 hours. Qty: 90 tablet, Refills: 3 PRESCRIPTION TYPE: Normal prednisone (DELTASONE) 5 mg tablet Take 1 Tab by mouth daily. Qty: 30 Tab, Refills: 11 PRESCRIPTION TYPE: Normal tiotropium (SPIRIVA) 18 mcg capsule for inhaler Place 1 Cap into inhaler and inhale into lungs as directed daily. Qty: 30 Cap, Refills: 11 PRESCRIPTION TYPE: Normal The following medications were removed from your list. This list includes medications discontinued this stay and those removed from your prior med list in our system amLODIPine (NORVASC) 5 mg tablet MULTIVITAMIN PO sodium chloride 3 % nebulizer solution Scheduled appointments: Aug 03, 2017 2:50 PM CNC SET UP OPERATOR Return Patient with Kip Godoy MD [facility] ([facility] Internal Medicine) 5th Floor Pod [address] [facility] [address] Aug 03, 2017 3:00 PM CNC SET UP OPERATOR Specialty Return with Jigar Carlos MD [facility] ([facility] Internal Medicine) 4th Floor Pod [address] [facility] [address] Aug 05, 2017 3:00 PM CNC SET UP OPERATOR RETURN PT LONG with Chandra Joseph MD [facility] Ophthalmology ([facility] Ophthalmology) [address] [address] Aug 31, 2017 1:00 PM CNC SET UP OPERATOR Return Patient with Virgilio Clay MD [facility] ([facility] Internal Medicine) 4th Floor [address] [facility] [id number] Pending items needing follow up: none Signed: Barb Pratt DO 07/28/2017 cc: Primary Care Physician: Tani Keenan Verified Referring physicians: Self, Referral Additional provider(s): in this encounter Medications at Time of [...] (PROTONIX) 40 mg tablet every 12 hours. tiotropium (SPIRIVA) 18 Place 1 Cap into inhaler 30 Cap 11 12/10/2016 mcg capsule for inhaler and inhale into lungs as directed daily. albuterol (VENTOLIN HFA, Inhale 2 Puffs by mouth 3 Inhaler 11 201308/03/2017 PROAIR HFA) 90 every 6 hours as needed mcg/actuation for Wheezing. inhalerIndications: SOB (shortness of breath) cycloSPORINE (GENGRAF) 25 Take 50 mg by mouth every 240 capsule 11 10/02/2017 mg cap morning and 25 mg by mouth every evening (total of 75 mg daily) prednisone (DELTASONE) 5 Take 1 Tab by mouth 30 Tab 11 09/04/2016 mg tablet daily. as of this encounter Progress Notes * Elizabeth Huff, RN - 07/27/2017 3:09 PM CNC SET UP OPERATOR This RN reviewed discharge instructions with pt and family at bedside. All questions, comments, and concerns addressed, pt is ready to be discharge. Appropriate supplies provided to pt. * Katelyn Pastrana - 07/27/2017 3:07 PM CNC SET UP OPERATOR Joint Runner Note: Admit Date: 07/21/2017 Reason for Visit: Patient request (Joint Runner referral: 3) Elvira/Baptist: Patient is Scientology. Specific mandaeism affiliation was not discussed. Patient indicated that he has a strong elvira. He talked about having a very serious health issue abut 7 years ago when he didn't think he would live. Patient said that God brought him through and that, "its all been [God's] mercy since then." Source of Purpose/Meaning: Patient finds meaning in his relationship with his , Lorena. Patient also finds meaning in helping others. He had a kidney transplant 26 years ago and has been supportive of others in the process of transplant. Patient finds meaning in the hope for improved health. He hasn't been able to work for the past year and is in the process of exploring the possibility of a lung transplant. said he likes to stay active and enjoys fixing things. Worries/Concerns/Struggles: As noted above, patient had a serious health issue 7 years ago. He said that since that time his health has declined and he is currently looking at the possibility of a lung transplant, which he said would also involve a kidney re-transplant. Patient struggles with a diminished level of activity and not being able to work. Method(s) of Coping: Patient jayy through the support of his , his elvira, and his determined and optimistic nature. Support System: Patient's is his primary support. Patient and have a 28 year-old son, although how involved and supportive he is is unknown. Interventions/Plan: Joint Runner listened empathically and offered support while guiding discussion of patient's sources of meaning, coping, and support. Patient and engaged in review of patient's health and their hopes for the future. Patient and were very open and receptive to spiritual support. Joint Runner will continue to follow for spiritual and emotional support. Please page or use consult order if patient or requests visit. Date/Time: User: Pager: [phone] 07/27/2017 3:07 PM Katelyn Pastrana PCU 4 PCU * Monik Sawant MD - 07/27/2017 2:56 PM CNC SET UP OPERATOR Formatting of this note may be different from the original. Nephrology Progress Note Name: Doug Dawson Today's Date: 07/27/2017 Admission Date: 07/21/2017 LOS: 6 days Assessment/Plan: Principal Problem: Acute on chronic respiratory failure with hypoxia ([facility]) Active Problems: History of renal transplant GRZEGORZ (acute kidney injury) ([facility]) Immunosuppression ([facility]) Hyperkalemia SEMAJ (mycobacterium avium-intracellulare) ([facility]) Hyponatremia Assessment: ESRD due to hereditary nephritis s/p DDRT from a 17 years old donor in 1991. On 3 drug regimen, cyclosporin 75mg bid, MMF 360mg bid and prednisone 5mg daily. Graft failure with new baseline creatinine around 3.2 to 3.5mg/dL. GRZEGORZ due to critical illness and aggressive diuresis. Resp failure acute on chronic. Hx of complex SEMAJ infection. HTN Mild hyperkalemia. Recommendations: Renal function is lower than baseline. May increase cyclosporine dose to 50mg in am and 25mg at night on discharge Recommend repeat BMP and cyclosporin tough in one week. Report to be sent to Dr. Mcnamara. Follow pulm recommendations regarding diuretics. I think 80mg daily would be appropriate maintenance dose. Discussed with Dr. Pratt. Subjective Doug Dawson is a 57 y.o. male. Pt feels fine. Breathing is better. No urinary complaints reported. Medications Scheduled Meds: albuterol 0.083% (PROVENTIL; VENTOLIN) nebulizer solution 2.5 mg 2.5 mg Inhalation BID & PRN budesonide/formoterol (SYMBICORT HFA) 160/4.5 mcg inhalation 2 puff 2 puff Inhalation BID carvedilol (COREG) tablet 25 mg 25 mg Oral BID cycloSPORINE (GENGRAF) capsule 25 mg 25 mg Oral BID furosemide (LASIX) tablet 80 mg 80 mg Oral BID(-17) heparin (porcine) PF syringe 5,000 Units 5,000 Units Subcutaneous Q8H lidocaine (LIDODERM) 5 % topical patch 1 patch 1 patch Topical QDAY melatonin tablet 5 mg 5 mg Oral QHS mycophenolate DR (MYFORTIC) tablet 360 mg 360 mg Oral BID nystatin (MYCOSTATIN) oral suspension 500,000 Units 500,000 Units Swish & Swallow QID pantoprazole DR (PROTONIX) tablet 40 mg 40 mg Oral QDAY(21) polyethylene glycol 3350 (MIRALAX) packet 17 g 1 packet Oral QDAY prednisone (DELTASONE) tablet 5 mg 5 mg Oral QDAY senna/docusate (SENOKOT-S) tablet 1 tablet 1 tablet Oral BID tiotropium (SPIRIVA) capsule for inhaler 1 capsule 1 capsule Inhalation QDAY Continuous Infusions: PRN and Respiratory Meds: Review of Systems: Objective: Vital Signs: Last Filed Vital Signs: 24 Hour Range BP: 120/62 (07/27 1255) Temp: 36.7 C (98.1 F) (07/27 1255) Pulse: 94 (07/27 1255) Respirations: 18 PER MINUTE (07/27 1255) SpO2: 96 % (07/27 1255) O2 Delivery: Nasal Cannula (07/27 125) BP: (120-148)/(62-80) Temp: [36.4 C (97.6 F)-36.8 C (98.3 F)] Pulse: [84-94] Respirations: [17 PER MINUTE-18 PER MINUTE] SpO2: [93 %-99 %] O2 Delivery: Nasal Cannula Vitals: 07/21/17 1700 07/22/17 0803 07/25/17 0643 Weight: 81.2 kg (179 lb 0.2 oz) 81.2 kg (179 lb) 74.7 kg (164 lb 10.9 oz) Intake/Output Summary: (Last 24 hours) Intake/Output Summary (Last 24 hours) at 07/27/17 1456 Last data filed at 07/27/17 1150 Gross per 24 hour Intake 1380 ml Output 1875 ml Net -495 ml Stool Occurrence: 1 (per pt report) Physical Exam Gen Mojgan: Pt is in no distress. Chest: Decreased but equal AE on both sides with rales. CVS: S1S2 normal No murmurs Abd: Soft abdomen with normal BS MS. Edema 1+ Neuro: Alert and oriented. Skin. No rash. Neck: no thyromegaly, no palpable mass. No JVD Lymph: no lymphadenopathy. HEENT. Oral mucosa is moist. Lab Review 24-hour labs: Results for orders placed or performed during the hospital encounter of (from the past 24 hour(s)) BASIC METABOLIC PANEL Collection Time: 07/26/17 3:50 PM Result Value Ref Range Sodium 128 (L) 137 [...] MG/DL eGFR Non 20 (L) >60 mL/min eGFR 25 (L) >60 mL/min CBC AND DIFF Collection Time: 07/27/17 6:14 AM Result Value Ref Range White Blood Cells 6.7 [...] Basophil Count 0.00 0 - 0.20 K/UL COMPREHENSIVE METABOLIC PANEL Collection Time: 07/27/17 6:14 AM Result Value Ref Range Sodium 130 (L) 137 [...] 12 eGFR Non 22 (L) >60 mL/min eGFR 26 (L) >60 mL/min MAGNESIUM Collection Time: 07/27/17 6:14 AM Result Value Ref Range Magnesium 1.3 (L) 1.6 - 2.6 mg/dL CYCLOSPORINE TROUGH Collection Time: 07/27/17 6:16 AM Result Value Ref Range Cyclosporine 90 50 - 400 NG/ML Point of Care Testing (Last 24 hours) Glucose: (!) 109 (07/27/17 0614) Radiology and other Diagnostics Review: No pertinent radiology. Monik Sawant MD Nephrology Pager: [phone] * Ofelia Hernandez, PT - 07/27/2017 2:32 PM CNC SET UP OPERATOR PHYSICAL THERAPY PROGRESS NOTE/DISCHARGE NOTE MOBILITY: Mobility Progressive Mobility Level: Walk in hallway Distance Walked (feet): 220 ft Level of Assistance: Stand by assistance Assistive Device: Walker Time Tolerated: 11-30 minutes Activity Limited By: Shortness of air SUBJECTIVE: Subjective Significant hospital events: PMH: COPD on 6L O2 at home, renal transplant, CHF. Patient admitted from OSH for SOA, pneumonia, required intubation. Extubated , Mental / Cognitive Status: Alert;Oriented;Cooperative;Follows Commands Persons Present: Spouse Pain: Patient has no complaint of pain Pain Interventions: Patient agrees to participate in therapy Comments: Pt on 6L O2 via nasal cannula this date, reports this is his baseline. Ambulation Assist: Independent Mobility in Community with Endurance Limitations (used walker and wheelchair as needed) Patient Owned Equipment: Roller Walker;Manual Wheelchair Home Situation: Lives with Family Type of Home: House Entry Stairs: 1-2 Stairs In-Home Stairs: No Stairs Comments: Pt reports his baseline is 6L O2 via NC at rest and 8L O2 with activity BED MOBILITY/TRANSFERS: Bed Mobility/Transfers Comments: Patient up in chair at beginning and end of treatment session. Transfer Type: Sit to/from Stand Transfer: Assistance Level: To/From;Bed Side Chair;Standby Assist Transfer: Assistive Device: Roller Walker Transfers: Type Of Assistance: For Safety Considerations;Verbal Cues;For Balance End Of Activity Status: Up in Chair;Nursing Notified;Instructed Patient to Request Assist with Mobility;Instructed Patient to Use Call Light GAIT: Gait Gait Distance: 220 feet Gait: Assistance Level: Standby Assist;Management of Lines Gait: Assistive Device: Roller Walker Gait: Descriptors: Pace: Normal;Swing-Through Gait;No balance loss Comments: Patient on 6L O2 during first half of ambulation, then required 8L O2 for SpO2 to remain over 88% with ambulation. At end of treatment patient in chair on 6L O2 with SpO2 97%. Activity Limited By: SOA Comments: Patient has one step to enter his home and has no concerns with performing it at home. EDUCATION: Education Persons Educated: Patient/Family Patient Barriers To Learning: None Noted Teaching Methods: Verbal Instruction Patient Response: Verbalized Understanding Topics: Plan/Goals of PT Interventions;Use of Assistive Device/Orthosis;Up with Assist Only;Safety Awareness;Importance of Increasing Activity;Ambulate With Nursing ASSESSMENT/PROGRESS: Assessment/Progress Impaired Mobility Due To: Decreased Activity Tolerance Assessment/Progress: Patient level of independence and safety is consistent with prior level of function and does not require physical therapy intervention AM-PAC 6 Clicks Basic Mobility Inpatient Turning from your back to your side while in a flat bed without using bed rails : None Moving from lying on your back to sitting on the side of a flatbed without using bedrails : None Moving to and from a bed to a chair (including a wheelchair): None Standing up from a chair using your arms (e.g. wheelchair, or bedside chair): A Little To walk in hospital room: A Little Climbing 3-5 steps with a railing: A Little Raw Score: 21 Standardized (T-scale) Score: 45.55 Basic Mobility CMS 0-100%: 29.52 CMS G Code Modifier for Basic Mobility: CJ GOALS: Goals Goal Formulation: With Patient, With Patient/Family Pt Will Transfer Bed/Chair: w/ Stand By Assist, Met Pt Will Transfer Sit to Stand: w/ Stand By Assist, Met Pt Will Ambulate: Greater than 200 Feet, w/ Stand By Assist, w/ Walker, Met PLAN: Plan Treatment Interventions: Mobility Training;Strengthening;Balance Activities Plan Frequency: No Further Treatment RECOMMENDATIONS: PT Discharge Recommendations PT Discharge Recommendations: Home with Assistance; Equipment Recommendations: Patient owns necessary equipment (walker recommended at this time) Recommend ongoing assistance for: In and out of house;Stairs;Safety concerns Encouraged patient to continue mobilization while in the hospital and discussed the mobility plan with the bedside nursing staff. Physical therapy services will be discontinued at this time, please re-consult if the patient has a change in mobility status. Therapist: Ofelia Hernandez, PT Date: 07/27/2017 * Kimmie Wu, OT - 07/27/2017 12:29 PM CNC SET UP OPERATOR Formatting of this note may be different from the original. OCCUPATIONAL THERAPY ASSESSMENT/DISCHARGE NOTE Patient Name: Doug Dawson Room/Bed: [id number]/ Admitting Diagnosis: Resp failure renal failure Respiratory failure (HCC) Past Medical History: Diagnosis Date Cancer of lip squam cell Cataract Chronic kidney disease transplant COPD (chronic obstructive pulmonary disease) (HCC) copd Hypertension On supplemental oxygen therapy Pneumonia Renal failure Mobility Progressive Mobility Level: Walk in room Distance Walked (feet): 20 ft Level of Assistance: Stand by assistance Assistive Device: None Time Tolerated: 0-10 minutes Activity Limited By: Shortness of air Subjective Pertinent Dx per Physician: respiratory/renal failure Patient Stated Goals: I get tired really quickly. Precautions: Standard;O2 Requirement Pain / Complaints: Patient has no c/o pain;Patient agrees to participate in therapy Comments: Appropriate for therapy per bedside RN and presents seated in chair. End of session, returns to chair, eating meal, all needs in reach, TABS active. Pt uses 6L 02 at baseline due to hx of COPD Objective Psychosocial Status: Willing and Cooperative to Participate Persons Present: Spouse Home Living Type of Home: House Home Layout: One Level;Stairs to Enter w/ Rails Bathroom Shower / Tub: Walk-in Shower Bathroom Toilet: Raised Bathroom Equipment: Shower Chair;Hand-Held Shower Bathroom Accessibility: Accessible via Walker Home Equipment: Walker;Shower/Tub Bench Comment: Pt owns 4WW/rollator and uses in home so he can sit and rest when ambulating. Prior Function Level Of [place]: Independent with ADLs and functional transfers;Needed assistance with homemaking Lives With: Spouse Receives Help From: None Needed Homemaking Tasks: Meal Prep;Laundry;Cleaning;Driving;Shopping Homemaking Assist: Moderate Assist Vocational: On Disability Other Function Comments: Pt able to assist with light homemaking tasks, and spouse completes majority. Pt manages medications/finances and drives occasionally. Pt has consistent support of family as needed. Vision Current Vision: Wears Glasses All of the Time Comment: denies changes in baseline vision ADL's Where Assessed: Standing at Sink;Chair Eating Assist: Modified Independent Eating Deficits: No Assist Needed Grooming Assist: Modified Independent Grooming Deficits: No Assist Needed;Wash/Dry Hands LE Dressing Assist: Modified Independent LE Dressing Deficits: No Assist Needed;Increased Time To Complete;Don/Doff R Sock;Don/Doff L Sock Functional Transfer Assist: Stand By Assist Functional Transfer Deficits: Supervision/Safety;Increased Time to Complete Comment: Pt ambulates from chair<>bathroom with supervision only. Activity Tolerance Endurance: 2/5 Tolerates 10-20 Minutes Exercise w/Multiple Rests Sitting Balance: 4+/5 Moves/Returns Trunkal Midpoint 1-2 Inches in Multiple Planes Cognition Overall Cognitive Status: WFL to Adequately Complete Self Care Tasks Safely UE AROM Overall BUE AROM WNL: Yes Coordination: Adequate to Complete ADLs Grasp: Bilateral Grasp Functional for Activity Sensory Overall Sensory: Pt Perceives Pressure in Both UEs in Gross Exam;Bilateral Intact UE Strength / Tone Overall Strength / Tone: WFL Able to Perform ADL Tasks Education Persons Educated: Patient/Family Barriers To Learning: None Noted Teaching Methods: Verbal Instruction;Demonstration Patient Response: Verbalized and Demo Understanding Topics: Role of OT, Goals for Therapy;DME for Home Discharge;Energy Conservation ;Home safety Goal Formulation: With Patient;With Patient/Family Comments: Education re: incorporation of energy conservation and work simplification strategies into daily routine upon d/c to home. Pt issued handout for reference upon d/c. Assessment No Skilled OT: Independent with ADLs;At Baseline Function;Safe To Return Home; No Acute OT Goals Identified AM-PAC 6 Clicks Daily Activity Inpatient Putting on and taking off regular lower body clothes?: None Bathing (Including washing, rinsing, drying): None Toileting, which includes using toilet, bedpan, or urinal: None Putting on and taking off regular upper body clothing: None Taking care of personal grooming such as brushing teeth: None Eating meals?: None Daily Activity Raw Score: 24 Standardized (t-scale) score: 57.54 CMS 0-100% Score: 0 CMS G Code Modifier: CH Vision Goals Comment: denies changes in baseline vision OT Discharge Recommendations OT Discharge Recommendations: Patient functioning at baseline. No further occupational therapy indicated., Home with family assist, No further OT goals identified at this time, Available help at home Equipment Recommendations: Grab Bars Additional Information: Pt may benefit from electric scooter for improved ability to safety participate in community/social outings due to current limitations of COPD. Recommend ongoing assistance for: Meal preparation Therapist: Kimmie Wu, OT Date: 07/27/2017 * Barb Pratt DO - 07/27/2017 7:02 AM CNC SET UP OPERATOR Formatting of this note may be different from the original. General Progress Note Name: Doug Dawson Today's Date: 07/27/2017 Admission Date: 07/21/2017 LOS: 6 days Assessment/Plan: Principal Problem: Acute on chronic respiratory failure with hypoxia (HCC) Active Problems: History of renal transplant GRZEGORZ (acute kidney injury) ([facility]) Immunosuppression ([facility]) Hyperkalemia SEMAJ (mycobacterium avium-intracellulare) ([facility]) Hyponatremia Mr. 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 He arrived to [facility] on mechanical ventilation, however was able to be extubated on 07/24 and transferred to the floor on 07/26/2017 for continued management and are. Acute on chronic hypoxic hypercapnic respiratory failure - pt's home oxygen requirement is 6 L NC - was intubated prior to transfer to [facility], however extubated to [facility] on 07/24 and now satting well on his home oxygen requirement again - CXR on admission showed persistent thick-walled cavitation in the RUL with opacification of the right apex; there was also increasing opacities in the lungs bilaterally, predominantly involving the bases, likely reflecting edema and/or pneumonia - echo 07/22 showed normal LVEF at 50% with normal diastolic function; valves were rather unremarkable - BNP was elevated at 563 - had negative strep pneumo and legionella urine antigen testing; RVP was negative as was histo urine antigen - sputum culture with light growth normal oropharyngeal samira only - blood cultures with NGTD - fungitell was negative; procalcitonin only mildly elevated at 0.22 - respiratory failure felt to be secondary to volume overload vs pneumonia - was started on Lasix gtt, however now on Lasix 80 mg PO BID -- will continue decrease to 80 mg PO daily at discharge (was only taking 80 mg PO q48H at home prior to admission) - was on Vancomycin, Zosyn, and Levaquin at the OSH, however was de-escalated upon arrival here and completed a 5 day course of Levaquin on 07/25 GRZEGORZ on CKD stage 4 with a history of DDRT on chronic immunosuppression - pt transplanted in 1991 for 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 - now with graft failure and new baseline creatinine of 3.2-3.5 - creatinine elevated up to 4.04 on admission, however now near his baseline again - renal consulted and are following along - GRZEGORZ felt to be secondary to critical illness and aggressive diuresis - cyclosporine does decreased to 25 mg PO BID while inpatient due to elevated trough levels --spoke with nephrology team today () -- will plan to d/c home on 50 mg PO QAM and 25 mg PO QHS per nephrology recommendations - continue Myfortic 360 mg PO BID and prednisone 5 mg PO daily - will need repeat cyclosporine level checked again in one week (goal level of 70-100) and BMP with results faxed to [facility] at [phone] (pt provided lab requisition for these) - continue to monitor creatinine closely Very severe COPD - followed by [facility] as an outpatient - PFTs worsened with treatment of MAC infection - now getting w/u for possible lung transplant at [facility] license of [facility] - no evidence of acute COPD exacerbation at this time - now satting well on his home oxygen requirement of 6 L NC - continue home regimen of albuterol nebs BID, Spiriva daily, and PRN and Symbicort BID 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 - has been present since ~ 05/2014 - followed by [facility] as an outpatient - has had multiple positive AFB sputum cultures identified as MAC - has previously been on azithromycin and ethambutol as well as inhaled Amikacin , however all therapies were d/c 02/2017 due to concern for worsening COPD - most recent sputum culture 04/2017 showed no growth of mycobacterium at 6 weeks - currently monitoring off MAC therapy at this time Hyponatremia - serum sodium low at 127 on admission; improved to 135 on 07/25, however now slightly decreased again at 130 - per MICU, hyponatremia was felt to be secondary to volume overload - will continue diuresis as above - continue to monitor Hyperkalemia -- resolved - potassium elvated up to 6.2 on 07/23, however specimen was labeled as being hemolyzed; was elevated at 5.4 on 07/23 as well w/o hemolysis - was felt to be secondary to cyclosporine, so dose was decreased - continue to monitor potassium levels daily Hypertension - home regimen includes carvedilol 25 mg PO BID, amlodipine 5 mg PO daily, and Lasix 80 mg PO q48h - on Lasix 80 mg PO BID as above however holding other antihypertensives since admission due to low-normal BP - BP starting to increase again, so resumed home dose of carvedilol - continue to hold amlodipine -- will not plan to resume at the time of discharge for now; can consider resuming it after discharge if BP becomes elevated again Normocytic anemia - hgb currently stable and near his baseline of ~ 9.0 - continue to monitor FEN - no IV fluids - lytes stable this morning - cardiac diet DVT prophylaxis - SCDs - SC heparin 5,000 U TID Disposition - Full Code - d/c home today >35 minutes was spent in coordinating discharge care on this patient today, including medication reconciliation, entering discharge orders, patient counseling, and coordinating care with the patient's nurse, pharmacy, SW, and NCM. Subjective Doug Dawson is a 57 y.o. male. There were no acute events overnight. This morning, the patient reports feeling well and is wanting to go home. He denies any complaints of chest pain, shortness of breath, nausea, vomiting, diarrhea, or abdominal pain. States that he is tolerating PO intake well and moving his bowels. Ambulating without difficulty. His was present at the bedside this morning. Medications Scheduled Meds: albuterol 0.083% (PROVENTIL; VENTOLIN) nebulizer solution 2.5 mg 2.5 mg Inhalation BID & PRN budesonide/formoterol (SYMBICORT HFA) 160/4.5 mcg inhalation 2 puff 2 puff Inhalation BID carvedilol (COREG) tablet 25 mg 25 mg Oral BID cycloSPORINE (GENGRAF) capsule 25 mg 25 mg Oral BID furosemide (LASIX) tablet 80 mg 80 mg Oral BID(9-17) heparin (porcine) PF syringe 5,000 Units 5,000 Units Subcutaneous Q8H lidocaine (LIDODERM) 5 % topical patch 1 patch 1 patch Topical QDAY melatonin tablet 5 mg 5 mg Oral QHS mycophenolate DR (MYFORTIC) tablet 360 mg 360 mg Oral BID nystatin (MYCOSTATIN) oral suspension 500,000 Units 500,000 Units Swish & Swallow QID pantoprazole DR (PROTONIX) tablet 40 mg 40 mg Oral QDAY(21) polyethylene glycol 3350 (MIRALAX) packet 17 g 1 packet Oral QDAY prednisone (DELTASONE) tablet 5 mg 5 mg Oral QDAY senna/docusate (SENOKOT-S) tablet 1 tablet 1 tablet Oral BID tiotropium (SPIRIVA) capsule for inhaler 1 capsule 1 capsule Inhalation QDAY Continuous Infusions: PRN and Respiratory Meds:oxyCODONE Q4H PRN Objective: Vital Signs: Last Filed Vital Signs: 24 Hour Range BP: 120/62 (07/27 1255) Temp: 36.7 C (98.1 F) (07/27 1255) Pulse: 94 (07/27 1255) Respirations: 18 PER MINUTE (07/27 1255) SpO2: 96 % (07/27 1255) O2 Delivery: Nasal Cannula (07/27 1255) BP: (120-148)/(62-80) Temp: [36.4 C (97.6 F)-36.8 C (98.3 F)] Pulse: [84-94] Respirations: [17 PER MINUTE-18 PER MINUTE] SpO2: [93 %-99 %] O2 Delivery: Nasal Cannula Vitals: 07/21/17 1700 07/22/17 0803 07/25/17 0643 Weight: 81.2 kg (179 lb 0.2 oz) 81.2 kg (179 lb) 74.7 kg (164 lb 10.9 oz) Intake/Output Summary: (Last 24 hours) Intake/Output Summary (Last 24 hours) at 07/27/17 1414 Last data filed at 07/27/17 1150 Gross per 24 hour Intake 1380 ml Output 1875 ml Net -495 ml Stool Occurrence: 1 (per pt report) Physical Exam General: Alert, cooperative, no acute distress, appears stated age HEENT: Normocephalic, without obvious abnormality, atraumatic; conjunctiva clear; MMM Lungs: Clear to auscultation bilaterally; no wheezes or rales Heart: Regular rate and rhythm, no murmur Abdomen: Soft, non-tender. Bowel sounds normal Extremities: Extremities normal, atraumatic, no cyanosis or edema Peripheral pulses 2+ and symmetric Neurologic: No gross focal deficits Lab Review 24-hour labs: Results for orders placed or performed during the hospital encounter of (from the past 24 hour(s)) BASIC METABOLIC PANEL Collection Time: 07/26/17 3:50 PM Result Value Ref Range Sodium 128 (L) 137 [...] MG/DL eGFR Non 20 (L) >60 mL/min eGFR 25 (L) >60 mL/min CBC AND DIFF Collection Time: 07/27/17 6:14 AM Result Value Ref Range White Blood Cells 6.7 [...] Basophil Count 0.00 0 - 0.20 K/UL COMPREHENSIVE METABOLIC PANEL Collection Time: 07/27/17 6:14 AM Result Value Ref Range Sodium 130 (L) 137 [...] 12 eGFR Non 22 (L) >60 mL/min eGFR 26 (L) >60 mL/min MAGNESIUM Collection Time: 07/27/17 6:14 AM Result Value Ref Range Magnesium 1.3 (L) 1.6 - 2.6 mg/dL CYCLOSPORINE TROUGH Collection Time: 07/27/17 6:16 AM Result Value Ref Range Cyclosporine 90 50 - 400 NG/ML Point of Care Testing (Last 24 hours) Glucose: (!) 109 (07/27/17 0614) Radiology and other Diagnostics Review: Pertinent radiology reviewed. Barb Pratt DO Pager [phone] * Monik Sawant MD - 07/26/2017 3:38 PM CNC SET UP OPERATOR Formatting of this note may be different from the original. Nephrology Progress Note Name: Doug Dawson Today's Date: 07/26/2017 Admission Date: 07/21/2017 LOS: 5 days Assessment/Plan: Active Problems: Respiratory failure (HCC) Assessment: ESRD due to hereditary nephritis s/p DDRT from a 17 years old donor in 1991. On 3 drug regimen, cyclosporin 75mg bid, MMF 360mg bid and prednisone 5mg daily. Graft failure with new baseline creatinine around 3.2 to 3.5mg/dL. GRZEGORZ due to critical illness and aggressive diuresis. Resp failure acute on chronic. Hx of complex SEMAJ infection. HTN Mild hyperkalemia. Recommendations: Renal function improved despite diuresis. Diuretic regimen per pulmonary. Cyclosporine trough remains on the higher side. Continue on 25mg of cyclosporine BID. Cont on MMF and prednisone. Subjective Doug Dawson is a 57 y.o. male. Pt feels better. No soa reported at rest. No urinary complaints reported. Medications Scheduled Meds: albuterol 0.083% (PROVENTIL; VENTOLIN) nebulizer solution 2.5 mg 2.5 mg Inhalation BID & PRN budesonide/formoterol (SYMBICORT HFA) 160/4.5 mcg inhalation 2 puff 2 puff Inhalation BID cycloSPORINE (GENGRAF) capsule 25 mg 25 mg Oral BID furosemide (LASIX) tablet 80 mg 80 mg Oral BID(-) heparin (porcine) PF syringe 5,000 Units 5,000 Units Subcutaneous Q8H lidocaine (LIDODERM) 5 % topical patch 1 patch 1 patch Topical QDAY melatonin tablet 5 mg 5 mg Oral QHS mycophenolate DR (MYFORTIC) tablet 360 mg 360 mg Oral BID nystatin (MYCOSTATIN) oral suspension 500,000 Units 500,000 Units Swish & Swallow QID pantoprazole DR (PROTONIX) tablet 40 mg 40 mg Oral QDAY(21) polyethylene glycol 3350 (MIRALAX) packet 17 g 1 packet Oral QDAY prednisone (DELTASONE) tablet 5 mg 5 mg Oral QDAY senna/docusate (SENOKOT-S) tablet 1 tablet 1 tablet Oral BID tiotropium (SPIRIVA) capsule for inhaler 1 capsule 1 capsule Inhalation QDAY Continuous Infusions: PRN and Respiratory Meds: Review of Systems: Objective: Vital Signs: Last Filed Vital Signs: 24 Hour Range BP: 152/68 (07/26 1115) Temp: 37.2 C (99 F) (07/26 111) Pulse: 91 (07/26 1115) Respirations: 16 PER MINUTE (07/26 1115) SpO2: 92 % (07/26 1115) O2 Delivery: Nasal Cannula (07/26 111) SpO2 Pulse: 84 (07/25 1600) BP: (131-152)/(61-85) Temp: [36.5 C (97.7 F)-37.2 C (99 F)] Pulse: [55-91] Respirations: [16 PER MINUTE-20 PER MINUTE] SpO2: [92 %-98 %] O2 Delivery: Nasal Cannula Vitals: 07/21/17 1700 07/22/17 0803 07/25/17 0643 Weight: 81.2 kg (179 lb 0.2 oz) 81.2 kg (179 lb) 74.7 kg (164 lb 10.9 oz) Intake/Output Summary: (Last 24 hours) Intake/Output Summary (Last 24 hours) at 07/26/17 1538 Last data filed at 07/26/17 1200 Gross per 24 hour Intake 758 ml Output 2200 ml Net -1442 ml Stool Occurrence: 1 Physical Exam Gen Mojgan: Pt is in no distress. Chest: Decreased but equal AE on both sides with rales. CVS: S1S2 normal No murmurs Abd: Soft abdomen with normal BS MS. Edema 1+ Neuro: Alert and oriented. Skin. No rash. Neck: no thyromegaly, no palpable mass. No JVD Lymph: no lymphadenopathy. HEENT. Oral mucosa is moist. Lab Review 24-hour labs: Results for orders placed or performed during the hospital encounter of (from the past 24 hour(s)) BASIC METABOLIC PANEL Collection Time: 07/25/17 4:58 PM Result Value Ref Range Sodium 132 (L) 137 - 147 MMOL/L Potassium 4.7 3.5 - 5.1 MMOL/L Chloride 84 (L) 98 - 110 MMOL/L CO2 38 (H) 21 - 30 MMOL/L Anion Gap 10 3 - 12 Glucose 161 (H) 70 - 100 MG/DL Blood Urea Nitrogen 90 (H) 7 - 25 MG/DL Creatinine 3.24 (H) 0.4 - 1.24 MG/DL Calcium 10.1 8.5 - 10.6 MG/DL eGFR Non 20 (L) >60 mL/min eGFR 24 (L) >60 mL/min CBC AND DIFF Collection Time: 07/26/17 5:59 AM Result Value Ref Range White Blood Cells 6.5 4.5 - 11.0 K/UL RBC 3.31 (L) 4.4 - 5.5 M/UL Hemoglobin 9.2 (L) 13.5 - 16.5 GM/DL Hematocrit 29.4 (L) 40 - 50 % MCV 88.8 80 - 100 FL MCH 27.9 26 - 34 PG MCHC 31.4 (L) 32.0 - 36.0 G/DL RDW 16.1 (H) 11 - 15 % Platelet Count 200 150 - 400 K/UL MPV 8.2 7 - 11 FL Neutrophils 75 41 - 77 % Lymphocytes 8 (L) 24 - 44 % Monocytes 14 (H) 4 - 12 % Eosinophils 2 0 - 5 % Basophils 1 0 - 2 % Absolute Neutrophil Count 4.90 1.8 - 7.0 K/UL Absolute Lymph Count 0.50 (L) 1.0 - 4.8 K/UL Absolute Monocyte Count 0.90 (H) 0 - 0.80 K/UL Absolute Eosinophil Count 0.10 0 - 0.45 K/UL Absolute Basophil Count 0.00 0 - 0.20 K/UL COMPREHENSIVE METABOLIC PANEL Collection Time: 07/26/17 5:59 AM Result Value Ref Range Sodium 134 (L) 137 - 147 MMOL/L Potassium 4.3 3.5 - 5.1 MMOL/L Chloride 85 (L) 98 - 110 MMOL/L Glucose 90 70 - 100 MG/DL Blood Urea Nitrogen 84 (H) 7 - 25 MG/DL Creatinine 3.24 (H) 0.4 - 1.24 MG/DL Calcium 9.5 8.5 - 10.6 MG/DL Total Protein 6.4 6.0 - 8.0 G/DL Total Bilirubin 0.5 0.3 - 1.2 MG/DL Albumin 3.4 (L) 3.5 - 5.0 G/DL Alk Phosphatase 89 25 - 110 U/L AST (SGOT) 7 7 - 40 U/L CO2 40 (H) 21 - 30 MMOL/L ALT (SGPT) 4 (L) 7 - 56 U/L Anion Gap 9 3 - 12 eGFR Non 20 (L) >60 mL/min eGFR 24 (L) >60 mL/min MAGNESIUM Collection Time: 07/26/17 5:59 AM Result Value Ref Range Magnesium 1.5 (L) 1.6 - 2.6 mg/dL CYCLOSPORINE TROUGH Collection Time: 07/26/17 6:00 AM Result Value Ref Range Cyclosporine 93 50 - 400 NG/ML Point of Care Testing (Last 24 hours) Glucose: 90 (07/26/17 0559) Radiology and other Diagnostics Review: No pertinent radiology. Monik Sawant MD Nephrology Pager: [phone] * Alfonso Lobato, PT - 07/26/2017 3:10 PM CNC SET UP OPERATOR PHYSICAL THERAPY PROGRESS NOTE MOBILITY: Mobility Progressive Mobility Level: Walk in hallway Distance Walked (feet): 100 ft (x2 bouts, +15 feet) Level of Assistance: Assist X1 Assistive Device: Walker Time Tolerated: 11-30 minutes Activity Limited By: Fatigue;Shortness of air SUBJECTIVE: Subjective Significant hospital events: PMH: COPD on 6L O2 at home, renal transplant, CHF. Patient admitted from OSH for SOA, pneumonia, required intubation. Extubated , Mental / Cognitive Status: Alert;Oriented;Cooperative;Follows Commands Pain: Patient has no complaint of pain Pain Interventions: Patient agrees to participate in therapy Comments: Patient on 6L O2 via nasal cannula this date Ambulation Assist: Independent Mobility in Community with Endurance Limitations (occasional use of walker and/or wheelchair) Patient Owned Equipment: Roller Walker;Manual Wheelchair Home Situation: Lives with Family Type of Home: House Entry Stairs: 1-2 Stairs In-Home Stairs: No Stairs ROM: ROM ROM Position Assessed: Seated ROM Method: Active LE ROM: Bilateral;WFL STRENGTH: Strength Strength Position Assessed: Seated Overall Strength: WFL BED MOBILITY/TRANSFERS: Bed Mobility/Transfers Comments: Bed mobility not observed this date (patient seated up in chair at beginning and end of session today). Transfer Type: Sit to/from Stand Transfer: Assistance Level: To/From;Bed Side Chair;Minimal Assist Transfer: Assistive Device: Roller Walker Transfers: Type Of Assistance: For Safety Considerations;Verbal Cues;For Balance Other Transfer Type: Sit to/from Stand Other Transfer: Assistance Level: To/From;Bed Side Chair;Minimal Assist Other Transfer: Assistive Device: Roller Walker Other Transfer: Type Of Assistance: For Safety Considerations;Verbal Cues;For Balance;For Strength Deficit End Of Activity Status: Up in Chair;Nursing Notified;Instructed Patient to Request Assist with Mobility;Instructed Patient to Use Call Light GAIT: Gait Gait Distance: 100 feet (x2 bouts, +15 feet) Gait: Assistance Level: Minimal Assist Gait: Assistive Device: Roller Walker Gait: Descriptors: Pace: Slow;Decreased step length;No balance loss Comments: Prior to ambulation this date, patient's oxygen saturation observed to be 96% on supplemental oxygen. At the 50 foot yolette of each gait bout (two total this ), patient's oxygen saturation observed to be 87%. Patient cued to pause at this point with standing rest break and practice inhaling through nostrils and out through the mouth. Patient states he tries to perform this, but it is difficult for him. Patient's oxygen saturation returns to 91% with several seconds of standing rest break. At conclusion of both gait bouts, oxygen saturation observed to be in 94-97% range. Activity Limited By: Complaint of Fatigue Comments: Patient reports that he "feels like he walked a mile," after gait session this date EDUCATION: Education Persons Educated: Patient Patient Barriers To Learning: None Noted Interventions: Repetition of Instructions Teaching Methods: Verbal Instruction Patient Response: Verbalized Understanding;More Instruction Required Topics: Plan/Goals of PT Interventions;Mobility Progression;Use of Assistive Device/Orthosis;Up with Assist Only;Importance of Increasing Activity;Ambulate With Nursing;Safety Awareness;Recommend Continued Therapy ASSESSMENT/PROGRESS: Assessment/Progress Impaired Mobility Due To: Decreased Activity Tolerance;Deconditioning Assessment/Progress: Should Improve w/ Continued PT AM-PAC 6 Clicks Basic Mobility Inpatient Turning from your back to your side while in a flat bed without using bed rails : A Little Moving from lying on your back to sitting on the side of a flatbed without using bedrails : A Little Moving to and from a bed to a chair (including a wheelchair): A Little Standing up from a chair using your arms (e.g. wheelchair, or bedside chair): A Little To walk in hospital room: A Little Climbing 3-5 steps with a railing: A Little Raw Score: 18 Standardized (T-scale) Score: 41.05 Basic Mobility CMS 0-100%: 40.47 CMS G Code Modifier for Basic Mobility: CK GOALS: Goals Goal Formulation: With Patient Pt Will Transfer Bed/Chair: w/ Stand By Assist Pt Will Transfer Sit to Stand: w/ Stand By Assist Pt Will Ambulate: Greater than 200 Feet, w/ Stand By Assist (with appropriate device as needed) PLAN: Plan Treatment Interventions: Mobility Training;Strengthening;Balance Activities Plan Frequency: 5-7 Days per Week Comments: Progress ambulation/upright activity as tolerated while monitoring exercise tolerance RECOMMENDATIONS: PT Discharge Recommendations PT Discharge Recommendations: Home with Assistance;Home Health Setting ( Continuing to assess) Equipment Recommendations: Patient owns necessary equipment Therapist: Alfonso Lobato PT, DPT Date: 07/26/2017 * Landon Lacey MD - 07/25/2017 7:46 PM CNC SET UP OPERATOR Formatting of this note may be different from the original. Critical Care Progress Note Today's Date: 07/25/2017 Name: Doug Dawson Admission Date: 07/21/2017 LOS: 4 days Assessment/Plan: Active Problems: Respiratory failure (HCC) Doug Dawson is a 57 y.o. male With past medical history of COPD, renal transplant, hypertension, GERD, CHF, who presented to an outside hospital yesterday with complaints of shortness of breath, started on NIPPV without any improvement, due to Concern for opportunistic infections as he is immunosuppressed he was requested to be transferred to ; Neuro: Continues to be off sedation s/p extubation 07/23 Awake, alert and oriented X3 CV: Vol Overload: On admission, worsening shortness of breath, peripheral edema BNP 1500 (improved to 563 07/21 ), bilateral lower lobe infiltrates on chest x- ray and small bilateral effusions EKG - NSR and -ve here 07/22/17 ECHO: EF 50%, borderline LV systolic function; Mild mitral valve regurgitation. 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 Plan Stop lasix drip and cont on 80mg IV lasix; will switch to PO lasix tomorrow BMP BID HTN Hold scow captain meds as normotensive Pulm: Acute hypoxic hypercapnic respiratory failure Acute volume overload versus pneumonia Chest x-ray 07/21: with bilateral infiltrates and small bilateral pleural effusions Plan diurese as above Continue levaquin until 07/25 infectious workup as below Extubated to BIPAP 07/24, continue PRN and QHS if needed Transfer to floor Very Severe COPD 04/2017- PFTs - Fev1 17- Fev/FVC 42, 6 L NC at baseline Does not appear to be in Exacerbation, Duonebs and [employer] Symbicort Plan >Cont [employer] Prednsione 5mg Hx of recurrent Pneumonia CINDY cavitation and 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 He is also on prednisone 5mg daily. has had prolonged kidney injury, now with a recent Cr 3.2-3.5 07/24: Net -ve 2.8L; UOP 3L; and -ve 4.4 since admission Plan cont [employer] prednisone 5mg Renal consulted for immunosuppressant management: continue [employer] myfortic; given 25mg Cyclosporine during day; renal will give dose at night and following Hyponatremia - Resolving Likely hypervolemic Diurese as above Hyperkalemia - Resolved Related to addition of Cyclosporine??; Dose decreased by nephrology to 50 BID 07/24: K+ 4.9 ID: No SIRS criteria met for now Rec'd Tamiflu at OSH as flu +; but -ve RVP here so Tamiflu d/angelina Given immunosuppression will culture broadly with rvp (-ve) , pro calcitonin 0.22, fungitell, galactomannan -ve, histoplasma Ag pending, Blood cultures NGTD, sputum cultures pending but gram stain negative, UA negative S/p Vanc and zosyn today @ OSH, Continue levaquin until 07/25; d/c on 07/26 Endo: No acute issues Heme/Onc Chronic anemia, no other issues monitor Start cardiac and renal diet Heparin and PPI ppx Full code ICU admit Pt. discussed with Dr. Jessica Lacey MD Family Medicine PGY-1 __ Subjective: Doug Dawson is a 57 y.o. male who is breathing comfortably on 7L supplemental O2. No acute overnight events. Denies chest pain, SOB, fever or chills. Objective: Medications: Scheduled Meds: albuterol 0.083% (PROVENTIL; VENTOLIN) nebulizer solution 2.5 mg 2.5 mg Inhalation BID & PRN budesonide/formoterol (SYMBICORT HFA) 160/4.5 mcg inhalation 2 puff 2 puff Inhalation BID cycloSPORINE (GENGRAF) capsule 25 mg 25 mg Oral BID furosemide (LASIX) injection 80 mg 80 mg Intravenous BID(03-15) heparin (porcine) PF syringe 5,000 Units 5,000 Units Subcutaneous Q8H levofloxacin (LEVAQUIN) 750 mg/150 mL IVPB 750 mg Intravenous Q48H* lidocaine (LIDODERM) 5 % topical patch 1 patch 1 patch Topical QDAY melatonin tablet 5 mg 5 mg Oral QHS mycophenolate DR (MYFORTIC) tablet 360 mg 360 mg Oral BID nystatin (MYCOSTATIN) oral suspension 500,000 Units 500,000 Units Swish & Swallow QID pantoprazole DR (PROTONIX) tablet 40 mg 40 mg Oral QDAY(21) polyethylene glycol 3350 (MIRALAX) packet 17 g 1 packet Oral QDAY prednisone (DELTASONE) tablet 5 mg 5 mg Oral QDAY senna/docusate (SENOKOT-S) tablet 1 tablet 1 tablet Oral BID tiotropium (SPIRIVA) capsule for inhaler 1 capsule 1 capsule Inhalation QDAY Continuous Infusions: PRN and Respiratory Meds: Vital Signs: Last Filed Vital Signs: 24 Hour Range BP: 142/61 (07/25 1656) Temp: 36.6 C (97.8 F) (07/25 1656) Pulse: 86 (07/25 1656) Respirations: 18 PER MINUTE (07/25 1656) SpO2: 93 % (07/25 1656) O2 Delivery: High Flow Nasal Cannula (07/25 1656) Weight: 74.7 kg (164 lb 10.9 oz) (07/25 642) BP: (140-159)/(61-75) Temp: [36.4 C (97.6 F)-36.8 C (98.2 F)] Pulse: [82-95] Respirations: [15 PER MINUTE-22 PER MINUTE] SpO2: [87 %-99 %] O2 Delivery: High Flow Nasal Cannula Intensity Pain Scale 0-10 (Pain 1): (not recorded) Vitals: 07/21/17 1700 07/22/17 0803 07/25/17 0643 Weight: 81.2 kg (179 lb 0.2 oz) 81.2 kg (179 lb) 74.7 kg (164 lb 10.9 oz) Critical Care Vitals: ICP Monitoring: PA Catheter: Hemodynamics/Oxycalcs: Intake/Output Summary: (Last 24 hours) Intake/Output Summary (Last 24 hours) at 07/25/17 1946 Last data filed at 07/25/17 1746 Gross per 24 hour Intake 878 ml Output 2650 ml Net -1772 ml Physical Exam: General Appearance: Awake, Alert and oriented, no distress HEENT: NC/AT, Conjunctivae/corneas clear. PERRL, Neck: Supple, no bruits Lungs: CTAB, no wheezes. Heart: RRR, S1, S2 normal, no murmur, rub, or gallop Abdomen: Soft, non-tender. Bowel sounds +. No masses. No organomegaly. Extremities: Atraumatic, no cyanosis, no edema. Pulses: +2 pulse in both extremities. Neurologic: no focal deficits Artificial airway: Endotracheal Tube Ventilator/ Respiratory Therapy: Yes: Vent weaning trial: Per protocol Drains: Lara Prophylaxis Review: Lines: PIV Urinary Catheter: yes Antibiotic Usage: Levaquin VTE: Heparin and SCD Lab Review: 24-hour labs: Results for orders placed or performed during the hospital encounter of (from the past 24 hour(s)) CBC AND DIFF Collection Time: 07/25/17 4:45 AM Result Value Ref Range White Blood Cells 5.4 4.5 - 11.0 K/UL RBC 3.22 (L) 4.4 - 5.5 M/UL Hemoglobin 8.9 (L) 13.5 - 16.5 GM/DL Hematocrit 28.0 (L) 40 - 50 % MCV 86.9 80 - 100 FL MCH 27.5 26 - 34 PG MCHC 31.6 (L) 32.0 - 36.0 G/DL RDW 16.2 (H) 11 - 15 % Platelet Count 182 150 - 400 K/UL MPV 8.0 7 - 11 FL Neutrophils 81 (H) 41 - 77 % Lymphocytes 6 (L) 24 - 44 % Monocytes 11 4 - 12 % Eosinophils 1 0 - 5 % Basophils 1 0 - 2 % Absolute Neutrophil Count 4.40 1.8 - 7.0 K/UL Absolute Lymph Count 0.30 (L) 1.0 - 4.8 K/UL Absolute Monocyte Count 0.60 0 - 0.80 K/UL Absolute Eosinophil Count 0.00 0 - 0.45 K/UL Absolute Basophil Count 0.00 0 - 0.20 K/UL COMPREHENSIVE METABOLIC PANEL Collection Time: 07/25/17 4:45 AM Result Value Ref Range Sodium 135 (L) 137 - 147 MMOL/L Potassium 4.6 3.5 - 5.1 MMOL/L Chloride 88 (L) 98 - 110 MMOL/L Glucose 107 (H) 70 - 100 MG/DL Blood Urea Nitrogen 93 (H) 7 - 25 MG/DL Creatinine 3.75 (H) 0.4 - 1.24 MG/DL Calcium 9.7 8.5 - 10.6 MG/DL Total Protein 6.4 6.0 - 8.0 G/DL Total Bilirubin 0.5 0.3 - 1.2 MG/DL Albumin 3.4 (L) 3.5 - 5.0 G/DL Alk Phosphatase 93 25 - 110 U/L AST (SGOT) 5 (L) 7 - 40 U/L CO2 36 (H) 21 - 30 MMOL/L ALT (SGPT) 5 (L) 7 - 56 U/L Anion Gap 11 3 - 12 eGFR Non 17 (L) >60 mL/min eGFR 20 (L) >60 mL/min MAGNESIUM Collection Time: 07/25/17 4:45 AM Result Value Ref Range Magnesium 1.9 1.6 - 2.6 mg/dL CYCLOSPORINE TROUGH Collection Time: 07/25/17 8:06 AM Result Value Ref Range Cyclosporine 90 50 - 400 NG/ML BASIC METABOLIC PANEL Collection Time: 07/25/17 4:58 PM Result Value Ref Range Sodium 132 (L) 137 - 147 MMOL/L Potassium 4.7 3.5 - 5.1 MMOL/L Chloride 84 (L) 98 - 110 MMOL/L CO2 38 (H) 21 - 30 MMOL/L Anion Gap 10 3 - 12 Glucose 161 (H) 70 - 100 MG/DL Blood Urea Nitrogen 90 (H) 7 - 25 MG/DL Creatinine 3.24 (H) 0.4 - 1.24 MG/DL Calcium 10.1 8.5 - 10.6 MG/DL eGFR Non 20 (L) >60 mL/min eGFR 24 (L) >60 mL/min Point of Care Testing: (Last 24 hours): Glucose: (!) 161 (07/25/17 8608) Radiology and Other Diagnostic Procedures Review: Pertinent radiology reviewed. Landon Lacey MD Pager [phone] Associated attestation - Gareth Lopez MD - 07/25/2017 9:06 PM CNC SET UP OPERATOR Formatting of this note may be different from the original. ATTESTATION I personally performed the montoya portions of the E/M visit, discussed case with resident and concur with resident documentation of history, physical exam, assessment, and treatment plan unless otherwise noted. Staff name: Gareth Lopez MD Date: 07/25/2017 * Monik Sawant MD - 07/25/2017 3:49 PM CNC SET UP OPERATOR Formatting of this note may be different from the original. 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 On 3 drug regimen, cyclosporin 75mg bid, MMF 360mg bid and prednisone 5mg daily. Graft failure with new baseline creatinine around 3.2 to 3.5mg/dL. GRZEGORZ due to critical illness and aggressive diuresis. Resp failure acute on chronic. Hx of complex SEMAJ infection. HTN Mild hyperkalemia. Recommendations: 24 hours trough of cyclosporin still on the higher side. May decrease dose to 25mg bid for now. Expect higher need for the CNI in the next day or two. Monitor level daily. cont on MMF and prednisone. Renal function remains stable despite aggressive diuresis. Subjective Doug Dawson is a 57 y.o. male. pt feels fair. Denies soa at rest. No abd pain reported. Vitals signs, intake and output record was reviewed. Medications Scheduled Meds: albuterol 0.083% (PROVENTIL; VENTOLIN) nebulizer solution 2.5 mg 2.5 mg Inhalation BID & PRN budesonide/formoterol (SYMBICORT HFA) 160/4.5 mcg inhalation 2 puff 2 puff Inhalation BID cycloSPORINE (GENGRAF) capsule 25 mg 25 mg Oral BID furosemide (LASIX) injection 80 mg 80 mg Intravenous BID(-) heparin (porcine) PF syringe 5,000 Units 5,000 Units Subcutaneous Q8H levofloxacin (LEVAQUIN) 750 mg/150 mL IVPB 750 mg Intravenous Q48H* lidocaine (LIDODERM) 5 % topical patch 1 patch 1 patch Topical QDAY melatonin tablet 5 mg 5 mg Oral QHS mycophenolate DR (MYFORTIC) tablet 360 mg 360 mg Oral BID nystatin (MYCOSTATIN) oral suspension 500,000 Units 500,000 Units Swish & Swallow QID pantoprazole DR (PROTONIX) tablet 40 mg 40 mg Oral QDAY(21) polyethylene glycol 3350 (MIRALAX) packet 17 g 1 packet Oral QDAY prednisone (DELTASONE) tablet 5 mg 5 mg Oral QDAY senna/docusate (SENOKOT-S) tablet 1 tablet 1 tablet Oral BID tiotropium (SPIRIVA) capsule for inhaler 1 capsule 1 capsule Inhalation QDAY Continuous Infusions: PRN and Respiratory Meds: Review of Systems: Objective: Vital Signs: Last Filed Vital Signs: 24 Hour Range BP: 158/72 (07/25 799) Temp: 36.5 C (97.7 F) (07/25 799) Pulse: 86 (07/25 799) Respirations: 18 PER MINUTE (07/25 799) SpO2: 99 % (07/25 1100) O2 Delivery: High Flow Nasal Cannula (07/25 799) SpO2 Pulse: 82 (07/25 1100) BP: (133-159)/(67-75) Temp: [36.4 C (97.6 F)-36.8 C (98.2 F)] Pulse: [82-95] Respirations: [15 PER MINUTE-26 PER MINUTE] SpO2: [87 %-99 %] O2 Delivery: High Flow Nasal Cannula Vitals: 07/21/17 1700 07/22/17 0803 07/25/17 0643 Weight: 81.2 kg (179 lb 0.2 oz) 81.2 kg (179 lb) 74.7 kg (164 lb 10.9 oz) Intake/Output Summary: (Last 24 hours) Intake/Output Summary (Last 24 hours) at 07/25/17 1549 Last data filed at 07/25/17 1400 Gross per 24 hour Intake 978 ml Output 2425 ml Net -1447 ml Stool Occurrence: 1 Physical Exam Gen Mojgan: Pt is in no distress. Chest: Decreased but equal AE on both sides with rales. CVS: S1S2 normal No murmurs Abd: Soft abdomen with normal BS MS. Edema 1+ Neuro: Alert and oriented. Skin. No rash. Neck: no thyromegaly, no palpable mass. No JVD Lymph: no lymphadenopathy. HEENT. Oral mucosa is moist. Lab Review 24-hour labs: Results for orders placed or performed during the hospital encounter of (from the past 24 hour(s)) BASIC METABOLIC PANEL Collection Time: 07/24/17 5:28 PM Result Value Ref Range Sodium 133 (L) 137 - 147 MMOL/L Potassium 5.1 3.5 - 5.1 MMOL/L Chloride 87 (L) 98 - 110 MMOL/L CO2 37 (H) 21 - 30 MMOL/L Anion Gap 9 3 - 12 Glucose 146 (H) 70 - 100 MG/DL Blood Urea Nitrogen 96 (H) 7 - 25 MG/DL Creatinine 3.78 (H) 0.4 - 1.24 MG/DL Calcium 9.7 8.5 - 10.6 MG/DL eGFR Non 16 (L) >60 mL/min eGFR 20 (L) >60 mL/min CBC AND DIFF Collection Time: 07/25/17 4:45 AM Result Value Ref Range White Blood Cells 5.4 4.5 - 11.0 K/UL RBC 3.22 (L) 4.4 - 5.5 M/UL Hemoglobin 8.9 (L) 13.5 - 16.5 GM/DL Hematocrit 28.0 (L) 40 - 50 % MCV 86.9 80 - 100 FL MCH 27.5 26 - 34 PG MCHC 31.6 (L) 32.0 - 36.0 G/DL RDW 16.2 (H) 11 - 15 % Platelet Count 182 150 - 400 K/UL MPV 8.0 7 - 11 FL Neutrophils 81 (H) 41 - 77 % Lymphocytes 6 (L) 24 - 44 % Monocytes 11 4 - 12 % Eosinophils 1 0 - 5 % Basophils 1 0 - 2 % Absolute Neutrophil Count 4.40 1.8 - 7.0 K/UL Absolute Lymph Count 0.30 (L) 1.0 - 4.8 K/UL Absolute Monocyte Count 0.60 0 - 0.80 K/UL Absolute Eosinophil Count 0.00 0 - 0.45 K/UL Absolute Basophil Count 0.00 0 - 0.20 K/UL COMPREHENSIVE METABOLIC PANEL Collection Time: 07/25/17 4:45 AM Result Value Ref Range Sodium 135 (L) 137 - 147 MMOL/L Potassium 4.6 3.5 - 5.1 MMOL/L Chloride 88 (L) 98 - 110 MMOL/L Glucose 107 (H) 70 - 100 MG/DL Blood Urea Nitrogen 93 (H) 7 - 25 MG/DL Creatinine 3.75 (H) 0.4 - 1.24 MG/DL Calcium 9.7 8.5 - 10.6 MG/DL Total Protein 6.4 6.0 - 8.0 G/DL Total Bilirubin 0.5 0.3 - 1.2 MG/DL Albumin 3.4 (L) 3.5 - 5.0 G/DL Alk Phosphatase 93 25 - 110 U/L AST (SGOT) 5 (L) 7 - 40 U/L CO2 36 (H) 21 - 30 MMOL/L ALT (SGPT) 5 (L) 7 - 56 U/L Anion Gap 11 3 - 12 eGFR Non 17 (L) >60 mL/min eGFR 20 (L) >60 mL/min MAGNESIUM Collection Time: 07/25/17 4:45 AM Result Value Ref Range Magnesium 1.9 1.6 - 2.6 mg/dL CYCLOSPORINE TROUGH Collection Time: 07/25/17 8:06 AM Result Value Ref Range Cyclosporine 90 50 - 400 NG/ML Point of Care Testing (Last 24 hours) Glucose: (!) 107 (07/25/17 0445) Radiology and other Diagnostics Review: No pertinent radiology. Monik Sawant MD Nephrology Pager: [phone] * Alli Obregon, RT - 07/25/2017 9:09 AM CNC SET UP OPERATOR Formatting of this note may be different from the original. RESPIRATORY THERAPY ADULT PROTOCOL EVALUATION RESPIRATORY PROTOCOL PLAN Medications Albuterol: MDI PRN;Neb BID Tiotropium: MDI Q Day Note: If indicated by protocol, medication orders will be placed by therapist. Procedures Oxygen/Humidity: O2 to keep SpO2 > 92% Monitoring: Pulse oximetry BID & PRN Comment: 6lpm home O2 PATIENT EVALUATION RESULTS Chart Review * Pulmonary Hx: Hx pulmonary disease, hx reactive or obstructive airway disease (PEFR & AM) OR regular home use of bronchodilators (AM) OR inhaled or systemic steroid use for lungs < or equal to 4 times/yr (AM) * Surgical Hx: No surgery OR last surgery > 6 weeks ago OR trach/stoma (BA) * Chest X-Ray: Chronic, stable radiographic changes OR abnormal * PFT/Oxygenation: FEV1, PEFR < 60% OR Pa02 < 60 or Sp02 <90% RA OR Fi02 > 0.30 to keep Sp02 >92% OR Sickle Cell Crisis OR Anemia (<10) OR Acute WA (02 & oxim) (home O2 6lpm) Patient Assessment * Respiratory Pattern: Regular pattern and rate OR good chest excursion with deep breathing * Breath Sounds: Clear apically, but diminished in bases (LE) OR CHF related crackles (02) (oximetry) * Cough / Sputum: Strong, effective cough OR nonproductive * Mental Status: Alert, oriented, cooperative * Activity Level: Ambulatory with assistance Priority Index Total Points: 9 Points * Priority Index: 1+ PRIORITY INDEX GUIDELINES* Priority Points 1 0-9 points 2 9-18 points 3 > 18 points + Pulm Dx or Home Rx *Higher points indicate higher acuity. Therapist: ALLI OBREGON, RT Date: 07/25/2017 [place] AC=Airway clearance AM=Aerosolized medication BA=[place] aerosol DB&C=Deep breathe & cough FEV1=Forced expiratory volume in first second) IC=Inspiratory capacity LE=Lung expansion MDI=Metered dose inhaler Neb=Nebulizer O2=Oxygen Oxim=Oximetry PEFR=Peak expiratory flow rate WIRE PULLER=Rapid Response Team * Stefany Jesus, SAMANTA - 07/25/2017 7:43 AM CNC SET UP OPERATOR 0730 - assumed care of patient, bedside safety check completed with Doug Haynes RN , pt A&O x 4, denies pain or needs at this time, VSS per pt trends. 0800 - assessment completed and documented per ICU flow sheet. 100 - per Landon Lacey MD, we will hold AM cyclosporine dose * Gauri Snyder, SAMANTA - 07/24/2017 6:12 PM CNC SET UP OPERATOR 0730: Assumed patient care at this time. Bedside safety check complete. Patient is alert & oriented x 4, VSS, on 8LHFNC. No complaints of pain, will continue to monitor and titrate 02 as needed. Assessment complete, please see ICU doc flowsheet & MAR for details. * Monik Sawant MD - 07/24/2017 3:18 PM CNC SET UP OPERATOR Formatting of this note may be different from the original. 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 On 3 drug regimen, cyclosporin 75mg bid, MMF 360mg bid and prednisone 5mg daily. Graft failure with new baseline creatinine around 3.2 to 3.5mg/dL. GRZEGORZ due to critical illness and aggressive diuresis. Resp failure acute on chronic. Hx of complex SEMAJ infection. HTN Mild hyperkalemia. Recommendations: Cyclosporin level still higher despite lower dose. May hold tonight's dose for cyclosporine. AM trough will not be reliable tomorrow. Continue MMF and prednisone Subjective Doug Dawson is a 57 y.o. male. Patient is off vent now. Deneis soa at rest. No chest pain reported. Vitals signs, intake and output record was reviewed. Medications Scheduled Meds: albuterol 0.5% (PROVENTIL; VENTOLIN) nebulizer solution 2.5 mg 2.5 mg Inhalation Q4H & PRN budesonide/formoterol (SYMBICORT HFA) 160/4.5 mcg inhalation 2 puff 2 puff Inhalation BID [START ON 07/25/2017] cycloSPORINE (GENGRAF) capsule 50 mg 50 mg Oral BID furosemide (LASIX) injection 80 mg 80 mg Intravenous BID(-) heparin (porcine) PF syringe 5,000 Units 5,000 Units Subcutaneous Q8H [facility] (Cabinet Override) NOW ipratropium bromide (ATROVENT) 0.02 % nebulizer solution 0.5 mg 0.5 mg Inhalation Q4H & PRN levofloxacin (LEVAQUIN) 750 mg/150 mL IVPB 750 mg Intravenous Q48H* lidocaine (LIDODERM) 5 % topical patch 1 patch 1 patch Topical QDAY melatonin tablet 5 mg 5 mg Oral QHS mycophenolate DR (MYFORTIC) tablet 360 mg 360 mg Oral BID pantoprazole DR (PROTONIX) tablet 40 mg 40 mg Oral QDAY(21) polyethylene glycol 3350 (MIRALAX) packet 17 g 1 packet Oral QDAY prednisone (DELTASONE) tablet 5 mg 5 mg Oral QDAY senna/docusate (SENOKOT-S) tablet 1 tablet 1 tablet Oral BID Continuous Infusions: PRN and Respiratory Meds: Review of Systems: Objective: Vital Signs: Last Filed Vital Signs: 24 Hour Range BP: 145/63 (07/24 1400) Temp: 36.6 C (97.9 F) (07/24 1200) Pulse: 91 (07/24 1500) Respirations: 20 PER MINUTE (07/24 1500) SpO2: 90 % (07/24 1500) O2 Delivery: High Flow Nasal Cannula (07/24 1500) SpO2 Pulse: 94 (07/24 1500) BP: (126-155)/(58-93) Temp: [36.6 C (97.9 F)-37.1 C (98.7 F)] Pulse: [80-94] Respirations: [14 PER MINUTE-26 PER MINUTE] SpO2: [86 %-99 %] O2 Delivery: High Flow Nasal Cannula Vitals: 07/21/17 1700 07/22/17 0803 Weight: 81.2 kg (179 lb 0.2 oz) 81.2 kg (179 lb) Intake/Output Summary: (Last 24 hours) Intake/Output Summary (Last 24 hours) at 07/24/17 1518 Last data filed at 07/24/17 1400 Gross per 24 hour Intake 208.25 ml Output 3435 ml Net -3226.75 ml Physical Exam Gen Mojgan: Pt is in no distress. Chest: Decreased but equal AE on both sides with rales. CVS: S1S2 normal No murmurs Abd: Soft abdomen with normal BS MS. Edema 1-2+ Neuro: Alert and oriented. Skin. No rash. Neck: no thyromegaly, no palpable mass. No JVD Lymph: no lymphadenopathy. HEENT. Oral mucosa is moist. Lab Review 24-hour labs: Results for orders placed or performed during the hospital encounter of (from the past 24 hour(s)) BASIC METABOLIC PANEL Collection Time: 07/23/17 4:45 PM Result Value Ref Range Sodium 128 (L) 137 - 147 MMOL/L Potassium 6.2 (H) 3.5 - 5.1 MMOL/L Chloride 89 (L) 98 - 110 MMOL/L CO2 28 21 - 30 MMOL/L Anion Gap 11 3 - 12 Glucose 94 70 - 100 MG/DL Blood Urea Nitrogen 91 (H) 7 - 25 MG/DL Creatinine 3.96 (H) 0.4 - 1.24 MG/DL Calcium 8.9 8.5 - 10.6 MG/DL eGFR Non 16 (L) >60 mL/min eGFR 19 (L) >60 mL/min BASIC METABOLIC PANEL Collection Time: 07/23/17 7:50 PM Result Value Ref Range Sodium 131 (L) 137 - 147 MMOL/L Potassium 5.4 (H) 3.5 - 5.1 MMOL/L Chloride 89 (L) 98 - 110 MMOL/L CO2 30 21 - 30 MMOL/L Anion Gap 12 3 - 12 Glucose 96 70 - 100 MG/DL Blood Urea Nitrogen 94 (H) 7 - 25 MG/DL Creatinine 4.04 (H) 0.4 - 1.24 MG/DL Calcium 9.2 8.5 - 10.6 MG/DL eGFR Non 15 (L) >60 mL/min eGFR 18 (L) >60 mL/min CBC AND DIFF Collection Time: 07/24/17 2:45 AM Result Value Ref Range White Blood Cells 5.1 4.5 - 11.0 K/UL RBC 2.93 (L) 4.4 - 5.5 M/UL Hemoglobin 8.0 (L) 13.5 - 16.5 GM/DL Hematocrit 25.8 (L) 40 - 50 % MCV 88.0 80 - 100 FL MCH 27.3 26 - 34 PG MCHC 31.0 (L) 32.0 - 36.0 G/DL RDW 16.3 (H) 11 - 15 % Platelet Count 161 150 - 400 K/UL MPV 8.1 7 - 11 FL Neutrophils 84 (H) 41 - 77 % Lymphocytes 5 (L) 24 - 44 % Monocytes 9 4 - 12 % Eosinophils 1 0 - 5 % Basophils 1 0 - 2 % Absolute Neutrophil Count 4.40 1.8 - 7.0 K/UL Absolute Lymph Count 0.30 (L) 1.0 - 4.8 K/UL Absolute Monocyte Count 0.40 0 - 0.80 K/UL Absolute Eosinophil Count 0.00 0 - 0.45 K/UL Absolute Basophil Count 0.00 0 - 0.20 K/UL COMPREHENSIVE METABOLIC PANEL Collection Time: 07/24/17 2:45 AM Result Value Ref Range Sodium 133 (L) 137 - 147 MMOL/L Potassium 4.9 3.5 - 5.1 MMOL/L Chloride 90 (L) 98 - 110 MMOL/L Glucose 83 70 - 100 MG/DL Blood Urea Nitrogen 93 (H) 7 - 25 MG/DL Creatinine 3.75 (H) 0.4 - 1.24 MG/DL Calcium 9.1 8.5 - 10.6 MG/DL Total Protein 5.9 (L) 6.0 - 8.0 G/DL Total Bilirubin 0.6 0.3 - 1.2 MG/DL Albumin 3.1 (L) 3.5 - 5.0 G/DL Alk Phosphatase 90 25 - 110 U/L AST (SGOT) 5 (L) 7 - 40 U/L CO2 30 21 - 30 MMOL/L ALT (SGPT) 3 (L) 7 - 56 U/L Anion Gap 13 (H) 3 - 12 eGFR Non 17 (L) >60 mL/min eGFR 20 (L) >60 mL/min MAGNESIUM Collection Time: 07/24/17 2:45 AM Result Value Ref Range Magnesium 1.9 1.6 - 2.6 mg/dL CYCLOSPORINE TROUGH Collection Time: 07/24/17 6:05 AM Result Value Ref Range Cyclosporine 151 50 - 400 NG/ML Point of Care Testing (Last 24 hours) Glucose: 83 (07/24/17 0245) Radiology and other Diagnostics Review: Pertinent radiology reviewed. Monik Sawant MD Nephrology Pager: [phone] * Navin Jackelyn, PT - 07/24/2017 2:50 PM CNC SET UP OPERATOR PHYSICAL THERAPY ASSESSMENT NOTE MOBILITY: Mobility Progressive Mobility Level: Active transfer to chair Level of Assistance: Assist X1 Assistive Device: Hand Held Time Tolerated: 11-30 minutes Activity Limited By: Fatigue SUBJECTIVE: Subjective Significant hospital events: PMH: COPD on 6L O2 at home, renal transplant, CHF. Patient admitted from OSH for SOA, pneumonia, required intubation. Extubated , Mental / Cognitive Status: Alert;Oriented;Cooperative Persons Present: Spouse Pain: Patient has no complaint of pain Pain Interventions: Patient agrees to participate in therapy Comments: Patient on 8L O2 via nasal cannula. Ambulation Assist: Independent Mobility in Community with Endurance Limitations (occasional use of walker and/or wheelchair) Patient Owned Equipment: Roller Walker;Manual Wheelchair Home Situation: Lives with Family Type of Home: House Entry Stairs: 1-2 Stairs In-Home Stairs: No Stairs ROM: ROM LE ROM: Bilateral;WFL STRENGTH: Strength Strength Position Assessed: Seated Overall Strength: WFL BED MOBILITY/TRANSFERS: Bed Mobility/Transfers Bed Mobility: Supine to Sit: Standby Assist;Head of Bed Elevated Transfer Type: Sit to/from Stand Transfer: Assistance Level: From;Bed;To;Bed Side Chair;Minimal Assist Transfer: Assistive Device: Hand Hold Assist Transfers: Type Of Assistance: For Safety Considerations End Of Activity Status: Up in Chair;Nursing Notified;Instructed Patient to Request Assist with Mobility;Instructed Patient to Use Call Light Comments: Patient with deaturation with sitting EOB, O2 increased to 10L and saturation returned to 92%. At end of session, patinet able to be titrated back to 8L and satting 95%. BALANCE: Balance Sitting Balance: Static Sitting Balance;Standby Assist Standing Balance: Static Standing Balance;Standby Assist;Dynamic Standing Balance;Minimal Assist GAIT: Gait Gait Distance: 3 feet (from bed to chair) Gait: Assistance Level: Minimal Assist Gait: Assistive Device: Hand Hold Assist Gait: Descriptors: Pace: Slow;Decreased step length;No balance loss Comments: Walker placed in room for future mobility. Activity Limited By: Complaint of Fatigue ACTIVITY/EXERCISE: Activity / Exercise Sit Edge Of Bed: 8 minutes Sit Edge Of Bed Assist: Stand By Assist Stand At Bedside : 2 minutes Stand At Bedside Assist: Stand By Assist EDUCATION: Education Persons Educated: Patient Patient Barriers To Learning: None Noted Teaching Methods: Verbal Instruction Patient Response: Verbalized Understanding;More Instruction Required Topics: Plan/Goals of PT Interventions;Mobility Progression;Use of Assistive Device/Orthosis;Up with Assist Only;Importance of Increasing Activity;Ambulate With Nursing ASSESSMENT/PROGRESS: Assessment/Progress Impaired Mobility Due To: Decreased Activity Tolerance;Deconditioning Assessment/Progress: Should Improve w/ Continued PT AM-PAC 6 Clicks Basic Mobility Inpatient Turning from your back to your side while in a flat bed without using bed rails : A Little Moving from lying on your back to sitting on the side of a flatbed without using bedrails : A Little Moving to and from a bed to a chair (including a wheelchair): A Little Standing up from a chair using your arms (e.g. wheelchair, or bedside chair): A Little To walk in hospital room: A Little Climbing 3-5 steps with a railing: A Little Raw Score: 18 Standardized (T-scale) Score: 41.05 Basic Mobility CMS 0-100%: 40.47 CMS G Code Modifier for Basic Mobility: CK GOALS: Goals Goal Formulation: With Patient Pt Will Transfer Bed/Chair: w/ Stand By Assist Pt Will Transfer Sit to Stand: w/ Stand By Assist Pt Will Ambulate: Greater than 200 Feet, w/ Stand By Assist (with appropriate device as needed) PLAN: Plan Treatment Interventions: Mobility Training;Strengthening;Balance Activities Plan Frequency: 5-7 Days per Week Comments: Ambulate RECOMMENDATIONS: PT Discharge Recommendations PT Discharge Recommendations: Home with Assistance;Home Health Setting (likely) Equipment Recommendations: Patient owns necessary equipment Therapist: Jackelyn Holden, PT, DPT Date: 07/24/2017 * Robbin Cagle RT - 07/24/2017 12:34 PM CNC SET UP OPERATOR Patient has been tolerating being off BiPAP well and is resting on nasal cannula. * Landon Lacey MD - 07/24/2017 7:20 AM CNC SET UP OPERATOR Formatting of this note may be different from the original. Critical Care Progress Note Today's Date: 07/24/2017 Name: Doug Dawson Admission Date: 07/21/2017 LOS: 3 days Assessment/Plan: Active Problems: Respiratory failure (HCC) Doug Dawson is a 57 y.o. male With past medical history of COPD, renal transplant, hypertension, GERD, CHF, who presented to an outside hospital yesterday with complaints of shortness of breath, started on NIPPV without any improvement, due to Concern for opportunistic infections as he is immunosuppressed he was requested to be transferred to ; Neuro: Continues to be off sedation s/p extubation 07/23 Awake, alert and oriented X3 CV: Vol Overload: On admission, worsening shortness of breath, peripheral edema BNP 1500 (improved to 563 07/21 ), bilateral lower lobe infiltrates on chest x- ray and small bilateral effusions EKG - NSR and -ve here 07/22/17 ECHO: EF 50%, borderline LV systolic function; Mild mitral valve regurgitation. 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 Plan Stop lasix drip and start on 80mg IV lasix; will decrease lasix further depending on elytes BMP BID HTN Hold scow captain meds as normotensive Pulm: Acute hypoxic hypercapnic respiratory failure Acute volume overload versus pneumonia Chest x-ray 07/21: with bilateral infiltrates and small bilateral pleural effusions Plan diurese as above Continue levaquin until 07/25 infectious workup as below Extubated to BIPAP 07/24, continue PRN and QHS if needed If pt continues to do well on HFNC, will transfer to floor later today Very Severe COPD 04/2017- PFTs - Fev1 17- Fev/FVC 42, 6 L NC at baseline Does not appear to be in Exacerbation, Duonebs and FOR[employer] WORKER Symbicort Plan >Re-start [employer] WORKER Prednsione 5mg Hx of recurrent Pneumonia CINDY cavitation and 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 He is also on prednisone 5mg daily. has had prolonged kidney injury, now with a recent Cr 3.2-3.5 07/24: Net -ve 2.8L; UOP 3L; and -ve 4.4 since admission Plan Re-start [employer] WORKER prednisone 5mg Renal consulted for immunosuppressant management: continue FOR[employer] UT[employer] WORKER myfortic and reduced dose of CSA 50 BID d/t CSA trough being at 101 (above goal of 70-100) Remove lara today Hyponatremia - Resolving Likely hypervolemic Diurese as above 07/24: Brigida 133 today 07/24: Low Cl resolving also; 07/24: 90 today Hyperkalemia - Resolved Related to addition of Cyclosporine??; Dose decreased by nephrology to 50 BID 07/24: K+ 4.9 ID: No SIRS criteria met for now Rec'd Tamiflu at OSH as flu +; but -ve RVP here so Tamiflu d/angelina Given immunosuppression will culture broadly with rvp (-ve) , pro calcitonin 0.22, fungitell, galactomannan -ve, histoplasma Ag pending, Blood cultures NGTD, sputum cultures pending but gram stain negative, UA negative S/p Vanc and zosyn today @ OSH, Continue levaquin until 07/27 to complete a 5 day course Endo: No acute issues Heme/Onc Chronic anemia, no other issues monitor 07/24: Hgb stable at 8 Start cardiac and renal diet Heparin and PPI ppx Full code ICU admit Pt. discussed with Dr. Kade Lacey MD Family Medicine PGY-1 __ Subjective: Doug Dawson is a 57 y.o. male who is on HFNC and breathing comfortably. No acute overnight events. Denies chest pain, SOB, fever or chills. Objective: Medications: Scheduled Meds: albuterol 0.5% (PROVENTIL; VENTOLIN) nebulizer solution 2.5 mg 2.5 mg Inhalation Q4H & PRN budesonide/formoterol (SYMBICORT HFA) 160/4.5 mcg inhalation 2 puff 2 puff Inhalation BID chlorhexidine gluconate (PERIDEX) 0.12 % solution 15 mL 15 mL Swish & Spit BID cycloSPORINE (NEORAL) oral solution 50 mg 50 mg Per OG Tube BID heparin (porcine) PF syringe 5,000 Units 5,000 Units Subcutaneous Q8H ipratropium bromide (ATROVENT) 0.02 % nebulizer solution 0.5 mg 0.5 mg Inhalation Q4H & PRN levofloxacin (LEVAQUIN) 750 mg/150 mL IVPB 750 mg Intravenous Q48H* lidocaine (LIDODERM) 5 % topical patch 1 patch 1 patch Topical QDAY melatonin tablet 5 mg 5 mg Oral QHS mycophenolate mofetil (CELLCEPT) oral suspension 500 mg 500 mg Oral BID pantoprazole (PROTONIX) injection 40 mg 40 mg Intravenous QDAY prednisone (DELTASONE) tablet 10 mg 10 mg Oral QDAY Continuous Infusions: fentaNYL (SUBLIMAZE) 1000 mcg/ NS 100 mL IV infusion (std conc)(premade) Stopped (07/23/17848) furosemide (LASIX) 500 mg/ 50 mL IV drip (max conc) 10 mg/hr (07/22/172027 ) propofol (DIPRIVAN) 10 mg/mL IV infusion Stopped (07/23/17827) PRN and Respiratory Meds: Vital Signs: Last Filed Vital Signs: 24 Hour Range BP: 134/93 (07/24 599) Temp: 36.7 C (98.1 F) (07/24 0300) Pulse: 85 (07/24 599) Respirations: 14 PER MINUTE (07/24 599) SpO2: 98 % (07/24 599) O2 Delivery: CPAP/BiPAP (Pt Owned) (07/24 699) BP: (114-155)/(51-93) Temp: [36.7 C (98.1 F)-37.1 C (98.7 F)] Pulse: [80-94] Respirations: [14 PER MINUTE-26 PER MINUTE] SpO2: [86 %-99 %] O2 Delivery: CPAP/BiPAP (Pt Owned) Intensity Pain Scale 0-10 (Pain 1): (not recorded) Vitals: 07/21/17 1700 07/22/17 0803 Weight: 81.2 kg (179 lb 0.2 oz) 81.2 kg (179 lb) Critical Care Vitals: ICP Monitoring: PA Catheter: Hemodynamics/Oxycalcs: Intake/Output Summary: (Last 24 hours) Intake/Output Summary (Last 24 hours) at 07/24/17719 Last data filed at 07/24/17 06 Gross per 24 hour Intake 232.68 ml Output 3075 ml Net -2842.32 ml Physical Exam: General Appearance: Awake, Alert and oriented, no distress HEENT: NC/AT, Conjunctivae/corneas clear. PERRL, Neck: Supple, no bruits Lungs: CTAB, no wheezes. Heart: RRR, S1, S2 normal, no murmur, rub, or gallop Abdomen: Soft, non-tender. Bowel sounds +. No masses. No organomegaly. Extremities: Atraumatic, no cyanosis, no edema. Pulses: +2 pulse in both extremities. Neurologic: no focal deficits Artificial airway: Endotracheal Tube Ventilator/ Respiratory Therapy: Yes: Vent weaning trial: Per protocol Drains: Lara Prophylaxis Review: Lines: PIV Urinary Catheter: yes Antibiotic Usage: Levaquin VTE: Heparin and SCD Lab Review: 24-hour labs: Results for orders placed or performed during the hospital encounter of (from the past 24 hour(s)) BLOOD GASES, ARTERIAL Collection Time: 07/23/17 9:48 AM Result Value Ref Range pH-Arterial 7.31 (L) 7.35 - 7.45 pCO2-Arterial 58 (H) 35 - 45 MMHG pO2-Arterial 96 80 - 100 MMHG Base Excess-Arterial 1.6 MMOL/L O2 Sat-Arterial 96.9 95 - 99 % [id number]-ZTI-Fcv 25.8 21 - 28 MMOL/L BASIC METABOLIC PANEL Collection Time: 07/23/17 1:15 PM Result Value Ref Range Sodium 128 (L) 137 - 147 MMOL/L Potassium 5.4 (H) 3.5 - 5.1 MMOL/L Chloride 88 (L) 98 - 110 MMOL/L CO2 26 21 - 30 MMOL/L Anion Gap 14 (H) 3 - 12 Glucose 90 70 - 100 MG/DL Blood Urea Nitrogen 90 (H) 7 - 25 MG/DL Creatinine 4.03 (H) 0.4 - 1.24 MG/DL Calcium 9.2 8.5 - 10.6 MG/DL eGFR Non 15 (L) >60 mL/min eGFR 19 (L) >60 mL/min BLOOD GASES, ARTERIAL Collection Time: 07/23/17 1:15 PM Result Value Ref Range pH-Arterial 7.31 (L) 7.35 - 7.45 pCO2-Arterial 58 (H) 35 - 45 MMHG pO2-Arterial 104 (H) 80 - 100 MMHG Base Excess-Arterial 1.7 MMOL/L O2 Sat-Arterial 97.6 95 - 99 % Kbdtzearana-GZF-Bhc 25.9 21 - 28 MMOL/L BASIC METABOLIC PANEL Collection Time: 07/23/17 4:45 PM Result Value Ref Range Sodium 128 (L) 137 - 147 MMOL/L Potassium 6.2 (H) 3.5 - 5.1 MMOL/L Chloride 89 (L) 98 - 110 MMOL/L CO2 28 21 - 30 MMOL/L Anion Gap 11 3 - 12 Glucose 94 70 - 100 MG/DL Blood Urea Nitrogen 91 (H) 7 - 25 MG/DL Creatinine 3.96 (H) 0.4 - 1.24 MG/DL Calcium 8.9 8.5 - 10.6 MG/DL eGFR Non 16 (L) >60 mL/min eGFR 19 (L) >60 mL/min BASIC METABOLIC PANEL Collection Time: 07/23/17 7:50 PM Result Value Ref Range Sodium 131 (L) 137 - 147 MMOL/L Potassium 5.4 (H) 3.5 - 5.1 MMOL/L Chloride 89 (L) 98 - 110 MMOL/L CO2 30 21 - 30 MMOL/L Anion Gap 12 3 - 12 Glucose 96 70 - 100 MG/DL Blood Urea Nitrogen 94 (H) 7 - 25 MG/DL Creatinine 4.04 (H) 0.4 - 1.24 MG/DL Calcium 9.2 8.5 - 10.6 MG/DL eGFR Non 15 (L) >60 mL/min eGFR 18 (L) >60 mL/min CBC AND DIFF Collection Time: 07/24/17 2:45 AM Result Value Ref Range White Blood Cells 5.1 4.5 - 11.0 K/UL RBC 2.93 (L) 4.4 - 5.5 M/UL Hemoglobin 8.0 (L) 13.5 - 16.5 GM/DL Hematocrit 25.8 (L) 40 - 50 % MCV 88.0 80 - 100 FL MCH 27.3 26 - 34 PG MCHC 31.0 (L) 32.0 - 36.0 G/DL RDW 16.3 (H) 11 - 15 % Platelet Count 161 150 - 400 K/UL MPV 8.1 7 - 11 FL Neutrophils 84 (H) 41 - 77 % Lymphocytes 5 (L) 24 - 44 % Monocytes 9 4 - 12 % Eosinophils 1 0 - 5 % Basophils 1 0 - 2 % Absolute Neutrophil Count 4.40 1.8 - 7.0 K/UL Absolute Lymph Count 0.30 (L) 1.0 - 4.8 K/UL Absolute Monocyte Count 0.40 0 - 0.80 K/UL Absolute Eosinophil Count 0.00 0 - 0.45 K/UL Absolute Basophil Count 0.00 0 - 0.20 K/UL COMPREHENSIVE METABOLIC PANEL Collection Time: 07/24/17 2:45 AM Result Value Ref Range Sodium 133 (L) 137 - 147 MMOL/L Potassium 4.9 3.5 - 5.1 MMOL/L Chloride 90 (L) 98 - 110 MMOL/L Glucose 83 70 - 100 MG/DL Blood Urea Nitrogen 93 (H) 7 - 25 MG/DL Creatinine 3.75 (H) 0.4 - 1.24 MG/DL Calcium 9.1 8.5 - 10.6 MG/DL Total Protein 5.9 (L) 6.0 - 8.0 G/DL Total Bilirubin 0.6 0.3 - 1.2 MG/DL Albumin 3.1 (L) 3.5 - 5.0 G/DL Alk Phosphatase 90 25 - 110 U/L AST (SGOT) 5 (L) 7 - 40 U/L CO2 30 21 - 30 MMOL/L ALT (SGPT) 3 (L) 7 - 56 U/L Anion Gap 13 (H) 3 - 12 eGFR Non 17 (L) >60 mL/min eGFR 20 (L) >60 mL/min MAGNESIUM Collection Time: 07/24/17 2:45 AM Result Value Ref Range Magnesium 1.9 1.6 - 2.6 mg/dL Point of Care Testing: (Last 24 hours): Glucose: 83 (07/24/17 0245) Radiology and Other Diagnostic Procedures Review: Pertinent radiology reviewed. Landon Lacey MD Pager [phone] Associated attestation - Lois Braun MD - 07/24/2017 5:07 PM CNC SET UP OPERATOR Formatting of this note may be different from the original. ATTESTATION I personally performed the montoya portions of the E/M visit, discussed case with the resident and concur with the documentation of history, physical exam, assessment, and treatment plan unless otherwise noted. The patient was successfully extubated to BIPAP yesterday, tolerated being off of NIPPV today. We will change Lasix drip to intermittent IV pushes. Decreasing prednisone back to home dose. We will plan to complete a course of Levaquin. Appreciate renal transplant recommendations. He is stable for the floor. His baseline oxygen at 6 L. Staff name: Lois Braun MD Date: 07/24/2017 * Teresa Lisa RN - 07/23/2017 7:20 PM CNC SET UP OPERATOR 1910: Report received from Chivo Story RN. Bedside safety check complete. 2000: Systems assessment completed and documented per ICU flow sheets VSS per patient trends. Call light in place, bedside rails up and bed alarm active. Pt expresses and indicates no signs pain or other discomforts, is A&Ox4, and follows commands. Will continue to closely monitor and notify MDs if there are changes. * Chivo Story RN - 07/23/2017 6:41 PM CNC SET UP OPERATOR 0730: Report received and bedside safety check completed. 0745: Head to toe assessment completed - see ICU flow sheet. The patient follows commands and nods appropriately to questioning. Plan of care reviewed with patient and his significant other at the bedside. Will continue to closely monitor. 0840: Spoke with Dr. Thompson about the patient's Cyclosporine and Myfortic. Both cannot be administered via NGT. Discussed this with pharmacist who is adjusting the order. 1330: Patient extubated to Bipap @ this time. 1600: Patient placed in 6LPM O2 via HFNC (home dose). Will place back on Bipap PRN and overnight. No significant events or concerns noted throughout the remainder of the shift. * Lianne Daley MBBS - 07/23/2017 6:01 PM CNC SET UP OPERATOR Formatting of this note may be different from the original. Critical Care Progress Note Today's Date: 07/23/2017 Name: Doug Dawson Admission Date: 07/21/2017 LOS: 2 days Assessment/Plan: Active Problems: Respiratory failure (HCC) Doug Dawson is a 57 y.o. male With past medical history of COPD, renal transplant, hypertension, GERD, CHF, who presented to an outside hospital yesterday with complaints of shortness of breath, started on NIPPV without any improvement, due to Concern for opportunistic infections as he is immunosuppressed he was requested to be transferred to ; Neuro: Alert this morning off sedation Seemed to be comfortable on vent, nodding to questions and following commands, nonfocal exam Wean off sedation for extubation CV: Vol Overload: Worsening shortness of breath, peripheral edema, BNP 1500(improved to 563 07/21 ), bilateral lower lobe infiltrates on chest x- ray and small bilateral effusions EKG - NSR and -ve here 07/22/17 ECHO: EF 50%, borderline LV systolic function; Mild mitral valve regurgitation. Concern for current picture to be consistent with CHF Plan Continue Lasix drip at 10 mg/h titrated to -1000 to 1500 mL in 24 hours, BMP BID HTN Hold scow captain meds as normotensive Pulm: Acute hypoxic hypercapnic respiratory failure Acute volume overload versus pneumonia Chest x-ray 07/21: with bilateral infiltrates and small bilateral pleural effusions Plan diurese as above Continue levaquin infectious workup as below Extubated to BIPAP, continue PRN and QHS Very Severe COPD 04/2017- PFTs - Fev1 17- Fev/FVC 42, 6 L NC at baseline Does not appear to be in Exacerbation, Duonebs and [employer] WORKER Symbicort No steroids Hx of recurrent Pneumonia CINDY cavitation and hx of MAC infection 2016 - Since at least May 2012--smear positive - Treated 07/2016- 02/2017 with - Azithromycin and Ethambutol - Did not tolerate Rifampin - inhaled Amikacin 250mg daily stopped in 02/2017 GI: No acute issues Will start diet tomorrow, continue Bipap tonight PPI ppx Renal: H/o renal transplant GRZEGORZ on CKD 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 He is also on prednisone 5mg daily. 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 Dose decreased by nephrology to 50 BID 5.3 increased to 6.2 but with some hemolysis Will obtain EKG and repeat BMP, treat if EKG changes present ID: No SIRS criteria met for now Rec'd Tamiflu at OSH as flu +; but -ve RVP here so Tamiflu d/angelina Given immunosuppression will culture broadly with rvp (-ve) , pro calcitonin 0.22, fungitell, galactomannan -ve, histoplasma Ag pending, Blood cultures NGTD, sputum cultures pending but gram stain negative, UA negative S/p Vanc and zosyn today @ OSH, Continue levaquin Endo: No acute issues Heme/Onc Chronic anemia, no other issues monitor No fluid, NPO Heparin and PPI ppx Full code ICU admit Pt. discussed with Dr. Kade Daley, CHARLETTE PGY-2 Internal Medicine [id number] __ Subjective: Doug Dawson is a 57 y.o. male who is intubated and sedated. No acute overnight events. ROS could not be done 2/2 pt factors Objective: Medications: Scheduled Meds: albuterol 0.5% (PROVENTIL; VENTOLIN) nebulizer solution 2.5 mg 2.5 mg Inhalation Q4H & PRN budesonide/formoterol (SYMBICORT HFA) 160/4.5 mcg inhalation 2 puff 2 puff Inhalation BID chlorhexidine gluconate (PERIDEX) 0.12 % solution 15 mL 15 mL Swish & Spit BID cycloSPORINE (NEORAL) oral solution 50 mg 50 mg Per OG Tube BID heparin (porcine) PF syringe 5,000 Units 5,000 Units Subcutaneous Q8H ipratropium bromide (ATROVENT) 0.02 % nebulizer solution 0.5 mg 0.5 mg Inhalation Q4H & PRN levofloxacin (LEVAQUIN) 750 mg/150 mL IVPB 750 mg Intravenous Q48H* mycophenolate mofetil (CELLCEPT) oral suspension 500 mg 500 mg Oral BID pantoprazole (PROTONIX) injection 40 mg 40 mg Intravenous QDAY prednisone (DELTASONE) tablet 10 mg 10 mg Oral QDAY Continuous Infusions: fentaNYL (SUBLIMAZE) 1000 mcg/ NS 100 mL IV infusion (std conc)(premade) Stopped (07/23/17848) furosemide (LASIX) 500 mg/ 50 mL IV drip (max conc) 10 mg/hr (07/22/172027 ) propofol (DIPRIVAN) 10 mg/mL IV infusion Stopped (01/25/18 0828) PRN and Respiratory Meds: Vital Signs: Last Filed Vital Signs: 24 Hour Range BP: 130/66 (07/23 1500) Temp: 37.1 C (98.7 F) (07/23 1300) Pulse: 90 (07/23 1716) Respirations: 17 PER MINUTE (07/23 171) SpO2: 93 % (07/23 171) O2 Delivery: Endotracheal Tube (Oral) (07/23 1500) BP: (108-151)/(47-66) Temp: [36.9 C (98.4 F)-37.6 C (99.6 F)] Pulse: [80-96] Respirations: [15 PER MINUTE-30 PER MINUTE] SpO2: [88 %-99 %] O2 Delivery: Endotracheal Tube (Oral) Intensity Pain Scale 0-10 (Pain 1): (not recorded) Vitals: 07/21/17 1700 07/22/17 0803 Weight: 81.2 kg (179 lb 0.2 oz) 81.2 kg (179 lb) Critical Care Vitals: ICP Monitoring: PA Catheter: Hemodynamics/Oxycalcs: Intake/Output Summary: (Last 24 hours) Intake/Output Summary (Last 24 hours) at 07/23/17 1801 Last data filed at 07/23/17 1500 Gross per 24 hour Intake 317.58 ml Output 1605 ml Net -1287.42 ml Physical Exam: General Appearance: Alert,intubated, no distress HEENT: NC/AT, Conjunctivae/corneas clear. PERRL, Neck: Supple, no bruits, no LAD, JVD+ Lungs: improved rales bilaterally, no wheezes. Heart: RRR, S1, S2 normal, no murmur, rub, or gallop Abdomen: Soft, non-tender. Bowel sounds +. No masses. No organomegaly. Extremities: Atraumatic, no cyanosis, 1+ edema. Pulses: +2 pulse in both extremities. Neurologic: no focal deficits Artificial airway: Endotracheal Tube Ventilator/ Respiratory Therapy: Yes: Mode: SPN-CPAP standby +PS O2%: [45 %] PEEP/CPAP: [5 cm H2O] PSupport: [5 cm H20] $$ Extubation (RT only): Physician order Vent weaning trial: Per protocol Drains: Lara Prophylaxis Review: Lines: PIV Urinary Catheter: yes Antibiotic Usage: Levaquin and Zosyn VTE: Heparin and SCD Lab Review: 24-hour labs: Results for orders placed or performed during the hospital encounter of (from the past 24 hour(s)) BASIC METABOLIC PANEL Collection Time: 07/22/17 9:42 PM Result Value Ref Range Sodium 129 (L) 137 - 147 MMOL/L Potassium 5.3 (H) 3.5 - 5.1 MMOL/L Chloride 90 (L) 98 - 110 MMOL/L CO2 26 21 - 30 MMOL/L Anion Gap 13 (H) 3 - 12 Glucose 75 70 - 100 MG/DL Blood Urea Nitrogen 83 (H) 7 - 25 MG/DL Creatinine 3.90 (H) 0.4 - 1.24 MG/DL Calcium 8.7 8.5 - 10.6 MG/DL eGFR Non 16 (L) >60 mL/min eGFR 19 (L) >60 mL/min CBC AND DIFF Collection Time: 07/23/17 3:21 AM Result Value Ref Range White Blood Cells 5.7 4.5 - 11.0 K/UL RBC 2.98 (L) 4.4 - 5.5 M/UL Hemoglobin 8.1 (L) 13.5 - 16.5 GM/DL Hematocrit 26.3 (L) 40 - 50 % MCV 88.3 80 - 100 FL MCH 27.4 26 - 34 PG MCHC 31.0 (L) 32.0 - 36.0 G/DL RDW 16.3 (H) 11 - 15 % Platelet Count 151 150 - 400 K/UL MPV 8.6 7 - 11 FL Neutrophils 84 (H) 41 - 77 % Lymphocytes 6 (L) 24 - 44 % Monocytes 8 4 - 12 % Eosinophils 1 0 - 5 % Basophils 1 0 - 2 % Absolute Neutrophil Count 4.80 1.8 - 7.0 K/UL Absolute Lymph Count 0.40 (L) 1.0 - 4.8 K/UL Absolute Monocyte Count 0.50 0 - 0.80 K/UL Absolute Eosinophil Count 0.00 0 - 0.45 K/UL Absolute Basophil Count 0.00 0 - 0.20 K/UL COMPREHENSIVE METABOLIC PANEL Collection Time: 07/23/17 3:21 AM Result Value Ref Range Sodium 127 (L) 137 - 147 MMOL/L Potassium 4.9 3.5 - 5.1 MMOL/L Chloride 89 (L) 98 - 110 MMOL/L Glucose 69 (L) 70 - 100 MG/DL Blood Urea Nitrogen 87 (H) 7 - 25 MG/DL Creatinine 3.77 (H) 0.4 - 1.24 MG/DL Calcium 8.6 8.5 - 10.6 MG/DL Total Protein 5.5 (L) 6.0 - 8.0 G/DL Total Bilirubin 0.5 0.3 - 1.2 MG/DL Albumin 2.9 (L) 3.5 - 5.0 G/DL Alk Phosphatase 88 25 - 110 U/L AST (SGOT) 3 (L) 7 - 40 U/L CO2 25 21 - 30 MMOL/L ALT (SGPT) <3 (L) 7 - 56 U/L Anion Gap 13 (H) 3 - 12 eGFR Non 17 (L) >60 mL/min eGFR 20 (L) >60 mL/min MAGNESIUM Collection Time: 07/23/17 3:21 AM Result Value Ref Range Magnesium 2.1 1.6 - 2.6 mg/dL PHOSPHORUS Collection Time: 07/23/17 3:21 AM Result Value Ref Range Phosphorus 5.8 (H) 2.0 - 4.0 MG/DL POC BLOOD GAS ARTERIAL Collection Time: 07/23/17 4:39 AM Result Value Ref Range PH-ART-POC 7.42 7.35 - 7.45 [id number] 46 (H) 35 - 45 MMHG PO2-ART-POC 94 80 - 100 MMHG Base Ex-ART-POC 5.0 MMOL/L O2 Sat-ART-POC 97.0 95 - 99 % Lipqfvriyck-MLK-RIJ 29.9 (H) 21 - 28 MMOL/L CYCLOSPORINE TROUGH Collection Time: 07/23/17 6:09 AM Result Value Ref Range Cyclosporine 101 50 - 400 NG/ML BLOOD GASES, ARTERIAL Collection Time: 07/23/17 9:48 AM Result Value Ref Range pH-Arterial 7.31 (L) 7.35 - 7.45 pCO2-Arterial 58 (H) 35 - 45 MMHG pO2-Arterial 96 80 - 100 MMHG Base Excess-Arterial 1.6 MMOL/L O2 Sat-Arterial 96.9 95 - 99 % Mmqipsxqosz-IJS-Zbj 25.8 21 - 28 MMOL/L BASIC METABOLIC PANEL Collection Time: 07/23/17 1:15 PM Result Value Ref Range Sodium 128 (L) 137 - 147 MMOL/L Potassium 5.4 (H) 3.5 - 5.1 MMOL/L Chloride 88 (L) 98 - 110 MMOL/L CO2 26 21 - 30 MMOL/L Anion Gap 14 (H) 3 - 12 Glucose 90 70 - 100 MG/DL Blood Urea Nitrogen 90 (H) 7 - 25 MG/DL Creatinine 4.03 (H) 0.4 - 1.24 MG/DL Calcium 9.2 8.5 - 10.6 MG/DL eGFR Non 15 (L) >60 mL/min eGFR 19 (L) >60 mL/min BLOOD GASES, ARTERIAL Collection Time: 07/23/17 1:15 PM Result Value Ref Range pH-Arterial 7.31 (L) 7.35 - 7.45 pCO2-Arterial 58 (H) 35 - 45 MMHG pO2-Arterial 104 (H) 80 - 100 MMHG Base Excess-Arterial 1.7 MMOL/L O2 Sat-Arterial 97.6 95 - 99 % Haanyicgtqm-QBM-Kci 25.9 21 - 28 MMOL/L BASIC METABOLIC PANEL Collection Time: 07/23/17 4:45 PM Result Value Ref Range Sodium 128 (L) 137 - 147 MMOL/L Potassium 6.2 (H) 3.5 - 5.1 MMOL/L Chloride 89 (L) 98 - 110 MMOL/L CO2 28 21 - 30 MMOL/L Anion Gap 11 3 - 12 Glucose 94 70 - 100 MG/DL Blood Urea Nitrogen 91 (H) 7 - 25 MG/DL Creatinine 3.96 (H) 0.4 - 1.24 MG/DL Calcium 8.9 8.5 - 10.6 MG/DL eGFR Non 16 (L) >60 mL/min eGFR 19 (L) >60 mL/min Point of Care Testing: (Last 24 hours): Glucose: 94 (07/23/17 1645) Radiology and Other Diagnostic Procedures Review: Pertinent radiology reviewed. CHARLETTE Stinson Pager [phone] Associated attestation - Lois Braun MD - 07/23/2017 8:56 PM CNC SET UP OPERATOR Formatting of this note may be different from the original. Attending Attestation I have seen, personally fully evaluated, and discussed patient with the ICU team. I agree with the objective findings and agree with the plan of care as documented by the resident with the exceptions noted. The patient is critically ill with acute on chronic hypercapnic and hypoxemic respiratory failure, pulmonary edema, possible pneumonia, history of renal transplantation, and chronic immunosuppression. I spent 35 minutes (excluding time spent performing or supervising any procedures) providing and personally directing critical care services including: Systems and physical examination Review and management of ICU prophylaxis and core measures Review of laboratory data Review of telemetry data Review of imaging studies Review of medications Fluid and electrolyte management Management of mechanical ventilator and non-invasive ventilation The patient continued to make improvement from a respiratory status. As his gas was stable on repeat blood gases on pressure support, he was extubated to BiPAP today. Okay to give a break at this evening, but will return to BiPAP overnight. We will continue the Lasix drip at this time. We will also continue the antimicrobials at this time. I think the more likely etiology of his dyspnea is his edema rather than infection, so we may be able to de- escalate his antimicrobials in coming days. Appreciate renal assistance. He is back on his previous immunosuppressants. His family was updated at bedside. Staff name: Lois Braun MD Date: 07/23/2017 * Monik Sawant MD - 07/23/2017 4:15 PM CNC SET UP OPERATOR Formatting of this note may be different from the original. 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 On 3 drug regimen, cyclosporin 75mg bid, MMF 360mg bid and prednisone 5mg daily. Graft failure with new baseline creatinine around 3.2 to 3.5mg/dL. GRZEGORZ due to critical illness and aggressive diuresis. Resp failure acute on chronic. Hx of complex SEMAJ infection. HTN Mild hyperkalemia. Recommendations: Cyclosporin level is on the higher side. May decrease dose to 50mg bid to keep trough close to 70. Pt remains at high risk for loss of graft function due to concurrent critical illness. Continue to avoid nephrotoxins and hemodynamic compromise. Dose meds based on current low clearance. Continue MMF and prednisone Subjective Doug Dawson is a 57 y.o. male. Patient remains on vent. Vitals signs, intake and output record was reviewed. Medications Scheduled Meds: albuterol 0.5% (PROVENTIL; VENTOLIN) nebulizer solution 2.5 mg 2.5 mg Inhalation Q4H & PRN budesonide/formoterol (SYMBICORT HFA) 160/4.5 mcg inhalation 2 puff 2 puff Inhalation BID chlorhexidine gluconate (PERIDEX) 0.12 % solution 15 mL 15 mL Swish & Spit BID cycloSPORINE (NEORAL) oral solution 50 mg 50 mg Per OG Tube BID heparin (porcine) PF syringe 5,000 Units 5,000 Units Subcutaneous Q8H ipratropium bromide (ATROVENT) 0.02 % nebulizer solution 0.5 mg 0.5 mg Inhalation Q4H & PRN levofloxacin (LEVAQUIN) 750 mg/150 mL IVPB 750 mg Intravenous Q48H* mycophenolate mofetil (CELLCEPT) oral suspension 500 mg 500 mg Oral BID pantoprazole (PROTONIX) injection 40 mg 40 mg Intravenous QDAY prednisone (DELTASONE) tablet 10 mg 10 mg Oral QDAY Continuous Infusions: fentaNYL (SUBLIMAZE) 1000 mcg/ NS 100 mL IV infusion (std conc)(premade) Stopped (07/23/17848) furosemide (LASIX) 500 mg/ 50 mL IV drip (max conc) 10 mg/hr (07/22/172027 ) propofol (DIPRIVAN) 10 mg/mL IV infusion Stopped (07/23/17827) PRN and Respiratory Meds: Review of Systems: Objective: Vital Signs: Last Filed Vital Signs: 24 Hour Range BP: 130/66 (07/23 1500) Temp: 37.1 C (98.7 F) (07/23 1300) Pulse: 88 (07/23 1500) Respirations: 22 PER MINUTE (07/23 1500) SpO2: 96 % (07/23 1500) O2 Delivery: Endotracheal Tube (Oral) (07/23 1500) SpO2 Pulse: 88 (07/23 1500) BP: (108-151)/(47-72) Temp: [36.9 C (98.4 F)-37.6 C (99.6 F)] Pulse: [80-96] Respirations: [15 PER MINUTE-30 PER MINUTE] SpO2: [88 %-99 %] O2 Delivery: Endotracheal Tube (Oral) Vitals: 07/21/17 1700 07/22/17 0803 Weight: 81.2 kg (179 lb 0.2 oz) 81.2 kg (179 lb) Intake/Output Summary: (Last 24 hours) Intake/Output Summary (Last 24 hours) at 07/23/17 1616 Last data filed at 07/23/17 1500 Gross per 24 hour Intake 355.68 ml Output 1725 ml Net -1369.32 ml Physical Exam Gen Mojgan: Pt is on ventilator Chest: Decreased but equal AE on both sides with rales. CVS: S1S2 normal No murmurs Abd: Soft abdomen with normal BS MS. Edema 1-2+ Neuro: Pt is on vent but awake and moving all four ext. Skin. No rash. Neck: no thyromegaly, no palpable mass. No JVD Lymph: no lymphadenopathy. HEENT. Oral mucosa is moist. ETT in place. Lab Review 24-hour labs: Results for orders placed or performed during the hospital encounter of (from the past 24 hour(s)) BASIC METABOLIC PANEL Collection Time: 07/22/17 9:42 PM Result Value Ref Range Sodium 129 (L) 137 - 147 MMOL/L Potassium 5.3 (H) 3.5 - 5.1 MMOL/L Chloride 90 (L) 98 - 110 MMOL/L CO2 26 21 - 30 MMOL/L Anion Gap 13 (H) 3 - 12 Glucose 75 70 - 100 MG/DL Blood Urea Nitrogen 83 (H) 7 - 25 MG/DL Creatinine 3.90 (H) 0.4 - 1.24 MG/DL Calcium 8.7 8.5 - 10.6 MG/DL eGFR Non 16 (L) >60 mL/min eGFR 19 (L) >60 mL/min CBC AND DIFF Collection Time: 07/23/17 3:21 AM Result Value Ref Range White Blood Cells 5.7 4.5 - 11.0 K/UL RBC 2.98 (L) 4.4 - 5.5 M/UL Hemoglobin 8.1 (L) 13.5 - 16.5 GM/DL Hematocrit 26.3 (L) 40 - 50 % MCV 88.3 80 - 100 FL MCH 27.4 26 - 34 PG MCHC 31.0 (L) 32.0 - 36.0 G/DL RDW 16.3 (H) 11 - 15 % Platelet Count 151 150 - 400 K/UL MPV 8.6 7 - 11 FL Neutrophils 84 (H) 41 - 77 % Lymphocytes 6 (L) 24 - 44 % Monocytes 8 4 - 12 % Eosinophils 1 0 - 5 % Basophils 1 0 - 2 % Absolute Neutrophil Count 4.80 1.8 - 7.0 K/UL Absolute Lymph Count 0.40 (L) 1.0 - 4.8 K/UL Absolute Monocyte Count 0.50 0 - 0.80 K/UL Absolute Eosinophil Count 0.00 0 - 0.45 K/UL Absolute Basophil Count 0.00 0 - 0.20 K/UL COMPREHENSIVE METABOLIC PANEL Collection Time: 07/23/17 3:21 AM Result Value Ref Range Sodium 127 (L) 137 - 147 MMOL/L Potassium 4.9 3.5 - 5.1 MMOL/L Chloride 89 (L) 98 - 110 MMOL/L Glucose 69 (L) 70 - 100 MG/DL Blood Urea Nitrogen 87 (H) 7 - 25 MG/DL Creatinine 3.77 (H) 0.4 - 1.24 MG/DL Calcium 8.6 8.5 - 10.6 MG/DL Total Protein 5.5 (L) 6.0 - 8.0 G/DL Total Bilirubin 0.5 0.3 - 1.2 MG/DL Albumin 2.9 (L) 3.5 - 5.0 G/DL Alk Phosphatase 88 25 - 110 U/L AST (SGOT) 3 (L) 7 - 40 U/L CO2 25 21 - 30 MMOL/L ALT (SGPT) <3 (L) 7 - 56 U/L Anion Gap 13 (H) 3 - 12 eGFR Non 17 (L) >60 mL/min eGFR 20 (L) >60 mL/min MAGNESIUM Collection Time: 07/23/17 3:21 AM Result Value Ref Range Magnesium 2.1 1.6 - 2.6 mg/dL PHOSPHORUS Collection Time: 07/23/17 3:21 AM Result Value Ref Range Phosphorus 5.8 (H) 2.0 - 4.0 MG/DL POC BLOOD GAS ARTERIAL Collection Time: 07/23/17 4:39 AM Result Value Ref Range PH-ART-POC 7.42 7.35 - 7.45 [id number] 46 (H) 35 - 45 MMHG PO2-ART-POC 94 80 - 100 MMHG Base Ex-ART-POC 5.0 MMOL/L O2 Sat-ART-POC 97.0 95 - 99 % Wqmcvngttpq-ENO-AJM 29.9 (H) 21 - 28 MMOL/L CYCLOSPORINE TROUGH Collection Time: 07/23/17 6:09 AM Result Value Ref Range Cyclosporine 101 50 - 400 NG/ML BLOOD GASES, ARTERIAL Collection Time: 07/23/17 9:48 AM Result Value Ref Range pH-Arterial 7.31 (L) 7.35 - 7.45 pCO2-Arterial 58 (H) 35 - 45 MMHG pO2-Arterial 96 80 - 100 MMHG Base Excess-Arterial 1.6 MMOL/L O2 Sat-Arterial 96.9 95 - 99 % Qgkgifsuunf-VYF-Jtu 25.8 21 - 28 MMOL/L BASIC METABOLIC PANEL Collection Time: 07/23/17 1:15 PM Result Value Ref Range Sodium 128 (L) 137 - 147 MMOL/L Potassium 5.4 (H) 3.5 - 5.1 MMOL/L Chloride 88 (L) 98 - 110 MMOL/L CO2 26 21 - 30 MMOL/L Anion Gap 14 (H) 3 - 12 Glucose 90 70 - 100 MG/DL Blood Urea Nitrogen 90 (H) 7 - 25 MG/DL Creatinine 4.03 (H) 0.4 - 1.24 MG/DL Calcium 9.2 8.5 - 10.6 MG/DL eGFR Non 15 (L) >60 mL/min eGFR 19 (L) >60 mL/min BLOOD GASES, ARTERIAL Collection Time: 07/23/17 1:15 PM Result Value Ref Range pH-Arterial 7.31 (L) 7.35 - 7.45 pCO2-Arterial 58 (H) 35 - 45 MMHG pO2-Arterial 104 (H) 80 - 100 MMHG Base Excess-Arterial 1.7 MMOL/L O2 Sat-Arterial 97.6 95 - 99 % Hewaiibupnm-QPD-Doa 25.9 21 - 28 MMOL/L Point of Care Testing (Last 24 hours) Glucose: 90 (07/23/17 1315) Radiology and other Diagnostics Review: Pertinent radiology reviewed. Monik Ahmad, MD Nephrology Pager: [phone] * Landon Lacey MD - 07/22/2017 7:34 PM CNC SET UP OPERATOR Formatting of this note may be different from the original. Critical Care Progress Note Today's Date: 07/22/2017 Name: Doug Dawson Admission Date: 07/21/2017 LOS: 1 day Assessment/Plan: Active Problems: Respiratory failure (HCC) Doug Dawson is a 57 y.o. male With past medical history of COPD, renal transplant, hypertension, GERD, CHF, who presented to an outside hospital yesterday with complaints of shortness of breath, started on NIPPV without any improvement, due toConcern for opportunistic infections as he is immunosuppressed he was requested to be transferred to ; Neuro: He was alert on arrival Seemed to be comfortable on vent, nodding to questions and following commands, nonfocal exam We will continue propofol and fentanyl for sedation while intubated Plan > Wean off propofol > Wean off fentanyl CV: Vol Overload: Worsening shortness of breath, peripheral edema, BNP 1500(improved to 563 07/21 ), bilateral lower lobe infiltrates on chest x- ray and small bilateral effusions EKG showed normal sinus rhythm at outside hospital , negative troponin EKG showed NSR and -ve here Echo OSH 07/20/16 ; EF 45% with mild to moderate MR and PASP 50, -EF 55% on last echo in 201507/22/17 ECHO: EF 50%, borderline LV systolic function; Mild mitral valve regurgitation. Concern for current picture to be consistent with CHF Plan Continue Lasix bolus 80 mg IV and started on Lasix drip at 5 mg/h titrated to - 1500 mL in the next 12-16 hours Cont diuresis to goal of -1.5L HTN Hold scow captain meds as normotensive Pulm: Acute hypoxic hypercapnic respiratory failure Severe COPD Acute volume overload versus pneumonia versus COPD exacerbation Chest x-ray 07/21: with bilateral infiltrates and small bilateral pleural effusions CXR 07/22 unchanged from 07/21 CXR with bilateral infiltrates and pleural effusion 07/21/16 ABG at outside hospital after stopping noninvasive positive pressure ventilation showed pH 7.27/70 2/56 04/2017 PFTs Fev1 17, Fev/FVC 42, He is on 6 L NC chronically Plan We will diurese as above broad infectious workup as below Duonebs and [employer] Symbicort Not extubated today d/t acidosis; likely extubation tomorrow Hx of recurrent Pneumonia CINDY cavitation and 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 He is also on prednisone 5mg daily. has had prolonged kidney injury, now with a recent Cr 3.2-3.5 Incr Cr at 3.61 Hypervolemic HypoNa at 127 Plan Incr prednisone to double [employer] dose of 5mg; 10mg Renal consult for immunosuppressant management; Re-starte Cyclosporine and Mycophenylate as per renal F/U BMP for hypoNa F/U Magnesium ID: WBC 5.1 , No SIRS criteria met for now Rec'd Tamiflu at OSH as flu +; but -ve RVP here so Tamiflu d/angelina Given immunosuppression will culture broadly with rvp (-ve) , procalcitonin, fungitell 77, galactomannan -ve, histoplasma Ag, Blood and urine cultures, sputum cultures S/p Vanc and zosyn today @ OSH, will hold off on restarting for now and re assess tomorrow Continue levaquin for atypical coverage Start Zosyn Endo: No acute issues Heme/Onc Chronic anemia, no other issues monito Hgb 8 at BL B/l ext swelling L > R Will obtain b/l Dopplers to r/o DVT -ve No fluid, NPO Heparin and PPI ppx Full code ICU admit Pt. discussed with Dr. Kade Lacey MD Family Medicine PGY-1 __ Subjective: Doug Dawson is a 57 y.o. male who is intubated and sedated. No acute overnight events. ROS could not be done 2/2 pt factors Objective: Medications: Scheduled Meds: albuterol 0.5% (PROVENTIL; VENTOLIN) nebulizer solution 2.5 mg 2.5 mg Inhalation Q4H & PRN budesonide/formoterol (SYMBICORT HFA) 160/4.5 mcg inhalation 2 puff 2 puff Inhalation BID chlorhexidine gluconate (PERIDEX) 0.12 % solution 15 mL 15 mL Swish & Spit BID cycloSPORINE (GENGRAF) capsule 75 mg 75 mg Oral BID heparin (porcine) PF syringe 5,000 Units 5,000 Units Subcutaneous Q8H ipratropium bromide (ATROVENT) 0.02 % nebulizer solution 0.5 mg 0.5 mg Inhalation Q4H & PRN [START ON 07/23/2017] levofloxacin (LEVAQUIN) 750 mg/150 mL IVPB 750 mg Intravenous Q48H* mycophenolate DR (MYFORTIC) tablet 360 mg 360 mg Oral BID pantoprazole (PROTONIX) injection 40 mg 40 mg Intravenous QDAY [START ON 07/23/2017] prednisone (DELTASONE) tablet 10 mg 10 mg Oral QDAY Continuous Infusions: fentaNYL (SUBLIMAZE) 1000 mcg/ NS 100 mL IV infusion (std conc)(premade) 30 mcg/hr (07/22/171853) furosemide (LASIX) 500 mg/ 50 mL IV drip (max conc) 10 mg/hr (07/22/170 ) propofol (DIPRIVAN) 10 mg/mL IV infusion 20 mcg/kg/min (07/22/171853) PRN and Respiratory Meds: Vital Signs: Last Filed Vital Signs: 24 Hour Range BP: 125/54 (07/22 1899) Temp: 37.4 C (99.4 F) (07/22 1599) Pulse: 89 (07/22 1899) Respirations: 19 PER MINUTE (07/22 1899) SpO2: 93 % (07/22 1899) O2 Delivery: Endotracheal Tube (Oral) (07/22 1899) Height: 175.3 cm (69") (01/24 0803) Weight: 81.2 kg (179 lb) (07/22 802) BP: (91-141)/(46-72) Temp: [36.8 C (98.2 F)-37.7 C (99.9 F)] Pulse: [72-94] Respirations: [15 PER MINUTE-27 PER MINUTE] SpO2: [90 %-100 %] O2 Delivery: Endotracheal Tube (Oral) Intensity Pain Scale 0-10 (Pain 1): (not recorded) Vitals: 07/21/17 1700 07/22/17 0803 Weight: 81.2 kg (179 lb 0.2 oz) 81.2 kg (179 lb) Critical Care Vitals: ICP Monitoring: PA Catheter: Hemodynamics/Oxycalcs: Intake/Output Summary: (Last 24 hours) Intake/Output Summary (Last 24 hours) at 07/22/17 1934 Last data filed at 07/22/17 1900 Gross per 24 hour Intake 1316.51 ml Output 2050 ml Net -733.49 ml Physical Exam: General Appearance: Alert,intubated, no distress HEENT: NC/AT, Conjunctivae/corneas clear. PERRL, Neck: Supple, no bruits, no LAD, Lungs: improved rales bilaterally, no wheezes. Heart: RRR, S1, S2 normal, no murmur, rub, or gallop Abdomen: Soft, non-tender. Bowel sounds +. No masses. No organomegaly. Extremities: Atraumatic, no cyanosis, 1+ edema. Pulses: +2 pulse in both extremities. Neurologic: no focal deficits Artificial airway: Endotracheal Tube Ventilator/ Respiratory Therapy: Yes: Mode: V/AC+ Set Vt (ml): [400 milliliters] Tidal Volume Spont (mL): [372 milliliters-400 milliliters] Set RR: [14 breaths/minutes] Total Respiratory Rate (Breaths/Min): [17 breaths/minutes-22 breaths/minutes] O2%: [45 %] PIP Actual: [19 cm H20-22 cm H20] PEEP/CPAP: [5 cm H2O] Plateau Pressure: [17 cm H2O-21 cm H2O] Vent weaning trial: Per protocol Drains: Lara Prophylaxis Review: Lines: PIV Urinary Catheter: yes Antibiotic Usage: Levaquin and Zosyn VTE: Heparin and SCD Lab Review: 24-hour labs: Results for orders placed or performed during the hospital encounter of (from the past 24 hour(s)) TROPONIN-I Collection Time: 07/21/17 9:19 PM Result Value Ref Range Troponin-I 0.03 0.0 - 0.05 NG/ML CREATININE-URINE RANDOM Collection Time: 07/21/17 9:49 PM Result Value Ref Range Creatinine, Random 44 MG/DL SODIUM-URINE RANDOM Collection Time: 07/21/17 9:49 PM Result Value Ref Range Sodium, Random 80 MMOL/L UREA NITROGEN-URINE RANDOM Collection Time: 07/21/17 9:49 PM Result Value Ref Range Urea Nitrogen 245 MG/DL BASIC METABOLIC PANEL Collection Time: 07/22/17 12:09 AM Result Value Ref Range Sodium 127 (L) 137 - 147 MMOL/L Potassium 5.0 3.5 - 5.1 MMOL/L Chloride 92 (L) 98 - 110 MMOL/L CO2 27 21 - 30 MMOL/L Anion Gap 8 3 - 12 Glucose 106 (H) 70 - 100 MG/DL Blood Urea Nitrogen 81 (H) 7 - 25 MG/DL Creatinine 3.48 (H) 0.4 - 1.24 MG/DL Calcium 8.5 8.5 - 10.6 MG/DL eGFR Non 18 (L) >60 mL/min eGFR 22 (L) >60 mL/min MAGNESIUM Collection Time: 07/22/17 12:09 AM Result Value Ref Range Magnesium 2.8 (H) 1.6 - 2.6 mg/dL CBC AND DIFF Collection Time: 07/22/17 6:06 AM Result Value Ref Range White Blood Cells 7.6 4.5 - 11.0 K/UL RBC 3.22 (L) 4.4 - 5.5 M/UL Hemoglobin 8.8 (L) 13.5 - 16.5 GM/DL Hematocrit 28.1 (L) 40 - 50 % MCV 87.3 80 - 100 FL MCH 27.3 26 - 34 PG MCHC 31.3 (L) 32.0 - 36.0 G/DL RDW 16.5 (H) 11 - 15 % Platelet Count 160 150 - 400 K/UL MPV 8.1 7 - 11 FL Neutrophils 87 (H) 41 - 77 % Lymphocytes 4 (L) 24 - 44 % Monocytes 6 4 - 12 % Eosinophils 2 0 - 5 % Basophils 1 0 - 2 % Absolute Neutrophil Count 6.60 1.8 - 7.0 K/UL Absolute Lymph Count 0.30 (L) 1.0 - 4.8 K/UL Absolute Monocyte Count 0.50 0 - 0.80 K/UL Absolute Eosinophil Count 0.10 0 - 0.45 K/UL Absolute Basophil Count 0.00 0 - 0.20 K/UL COMPREHENSIVE METABOLIC PANEL Collection Time: 07/22/17 6:06 AM Result Value Ref Range Sodium 127 (L) 137 - 147 MMOL/L Potassium 5.0 3.5 - 5.1 MMOL/L Chloride 95 (L) 98 - 110 MMOL/L Glucose 76 70 - 100 MG/DL Blood Urea Nitrogen 81 (H) 7 - 25 MG/DL Creatinine 3.68 (H) 0.4 - 1.24 MG/DL Calcium 8.3 (L) 8.5 - 10.6 MG/DL Total Protein 5.5 (L) 6.0 - 8.0 G/DL Total Bilirubin 0.5 0.3 - 1.2 MG/DL Albumin 2.9 (L) 3.5 - 5.0 G/DL Alk Phosphatase 91 25 - 110 U/L AST (SGOT) 3 (L) 7 - 40 U/L CO2 28 21 - 30 MMOL/L ALT (SGPT) 4 (L) 7 - 56 U/L Anion Gap 4 3 - 12 eGFR Non 17 (L) >60 mL/min eGFR 21 (L) >60 mL/min CYCLOSPORINE TROUGH Collection Time: 07/22/17 6:06 AM Result Value Ref Range Cyclosporine 93 50 - 400 NG/ML BLOOD GASES, PERIPHERAL VENOUS Collection Time: 07/22/17 6:06 AM Result Value Ref Range pH-Venous 7.28 (L) 7.30 - 7.40 PCO2-Venous 63 (H) 36 - 50 MMHG PO2-Venous 50 (H) 33 - 48 MMHG Base Excess-Venous 1.5 MMOL/L O2 Sat-Venous 82.4 (H) 55 - 71 % Pljiifjqwui-VAF-Wpl 25.5 MMOL/L MAGNESIUM Collection Time: 07/22/17 6:06 AM Result Value Ref Range Magnesium 2.4 1.6 - 2.6 mg/dL PHOSPHORUS Collection Time: 07/22/17 6:06 AM Result Value Ref Range Phosphorus 5.2 (H) 2.0 - 4.0 MG/DL BLOOD GASES, ARTERIAL Collection Time: 07/22/17 10:52 AM Result Value Ref Range pH-Arterial 7.29 (L) 7.35 - 7.45 pCO2-Arterial 60 (H) 35 - 45 MMHG pO2-Arterial 74 (L) 80 - 100 MMHG Base Excess-Arterial 1.0 MMOL/L O2 Sat-Arterial 94.5 (L) 95 - 99 % Mcogojmjugt-GMP-Hnd 25.3 21 - 28 MMOL/L BASIC METABOLIC PANEL Collection Time: 07/22/17 1:09 PM Result Value Ref Range Sodium 129 (L) 137 - 147 MMOL/L Potassium 5.3 (H) 3.5 - 5.1 MMOL/L Chloride 91 (L) 98 - 110 MMOL/L CO2 28 21 - 30 MMOL/L Anion Gap 10 3 - 12 Glucose 92 70 - 100 MG/DL Blood Urea Nitrogen 86 (H) 7 - 25 MG/DL Creatinine 3.73 (H) 0.4 - 1.24 MG/DL Calcium 8.7 8.5 - 10.6 MG/DL eGFR Non 17 (L) >60 mL/min eGFR 20 (L) >60 mL/min MAGNESIUM Collection Time: 07/22/17 1:09 PM Result Value Ref Range Magnesium 2.2 1.6 - 2.6 mg/dL Point of Care Testing: (Last 24 hours): Glucose: 92 (07/22/17 1309) Radiology and Other Diagnostic Procedures Review: Pertinent radiology reviewed. Landon Lacey MD Pager [phone] Associated attestation - Lois Braun MD - 07/22/2017 9:09 PM CNC SET UP OPERATOR Formatting of this note may be different from the original. Attending Attestation I have seen, personally fully evaluated, and discussed patient with the ICU team. I agree with the objective findings and agree with the plan of care as documented by the resident with the exceptions noted. The patient is critically ill with acute on chronic hypercapnic and hypoxemic respiratory failure, pulmonary edema, possible pneumonia, history of renal transplantation, and chronic immunosuppression. I spent 35 minutes (excluding time spent performing or supervising any procedures) providing and personally directing critical care services including: Systems and physical examination Review and management of ICU prophylaxis and core measures Review of laboratory data Review of telemetry data Review of imaging studies Review of medications Fluid and electrolyte management Management of mechanical ventilation The patient has had significant improvement overnight in his final ventilatory status. He failed his weaning trial today due to worsening hypercarbia with his trial. We will continue diuresis. Continue current antibiotics, but I do not think we need vancomycin, as there is no dense consolidating infiltrate. We will restart his immunosuppressive agents as per renal's recommendations. His family was updated at bedside. Staff name: Lois Braun MD Date: 07/22/2017 * Teresa Lisa RN - 07/22/2017 7:33 PM CNC SET UP OPERATOR 1910: Report received from Re Armstrong RN. Bedside safety check complete. 1999: Systems assessment completed and documented per ICU flow sheets VSS per patient trends. Call light in place, bedside rails up and bed alarm active. Pt expresses and indicates minor signs pain or other discomforts, pain for which he feels is well controled with current inteventions. Pt is A&Ox4, and follows commands. Will continue to closely monitor and notify MDs if there are changes. * Nona Chatman - 07/22/2017 8:06 AM CNC SET UP OPERATOR Procedure explained, questions answered and Definity administered per standard without complications. Total of _1.5__ ml of Definity/NS given slow IVP per product support manager direction. * Re Armstrong, SAMANTA - 07/22/2017 7:34 AM CNC SET UP OPERATOR [id number]: Assumed care of pt and bedside safety check complete. Pt sedated, following commands and opening eyes spontaneously. SBP in 110s and HR in 80s. Assessment complete via ICU flowsheet. Family @ bedside. * Oliva Ceja RN - 07/22/2017 7:19 AM CNC SET UP OPERATOR 1930 Report received from day shift RN. Bedside safety check complete. VSS per trends. 1999 Assessment complete. Pt remains intubated, follows commands, denies pain. in this encounter H&P Notes * Kip Godoy MD - 07/21/2017 6:54 PM CNC SET UP OPERATOR Formatting of this note may be different from the original. Admission History and Physical Examination Name: Doug Dawson Admission Date: 07/21/2017 Assessment/Plan Active Problems: Respiratory failure (HCC) Doug Dawson is a 57 y.o. male With past medical history of COPD, renal transplant, hypertension, GERD, CHF, who presented to an outside hospital yesterday with complaints of shortness of breath, started on NIPPV without any improvement, due toConcern for opportunistic infections as he is immunosuppressed he was requested to be transferred to ; Neuro: He was alert on arrival Seemed to be comfortable on vent, nodding to questions and following commands, nonfocal exam We will continue propofol and fentanyl for sedation while intubated CV: History of CHF: Worsening shortness of breath, peripheral edema, BNP 1500, bilateral lower lobe infiltrates on chest x-ray and small bilateral effusions EKG showed normal sinus rhythm at outside hospital , negative troponin Echo OSH 07/20/16 ; EF 45% with mild to moderate MR and PASP 50, -EF 55% on last echo in 2015 Concern for current picture to be consistent with CHF Plan Obtain EKG, troponin, BNP Obtain echocardiogram Lasix bolus 80 mg IV and started on Lasix drip at 5 mg/h titrated to -1500 mL in the next 12-16 hours HTN Hold scow captain meds as normotensive Pulm: Acute hypoxic hypercapnic respiratory failure Acute volume overload versus pneumonia versus COPD exacerbation Chest x-ray with bilateral infiltrates and small bilateral pleural effusions 07/21/16 ABG at outside hospital after stopping noninvasive positive pressure ventilation showed pH 7.27/70 04/2017 PFTs Fev1 17, Fev/FVC 42, He is on 6 L NC chronically We will diurese as above broad infectious workup as below Duonebs 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 He is also on prednisone 5mg daily. has had prolonged kidney injury, now with a recent Cr 3.2-3.5 Cr 3.61 Plan Hold myfortic and cyclosporine now Continue prednisone Renal consult for immunosuppressant management ID: WBC 5.1 , No SIRS criteria met for now Given immunosuppression will culture broadly with rvp , procalcitonin, fungitell , galactomannan, histoplasma Ag, Blood and urine cultures, sputum cultures S/p Vanc and zosyn today @ OSH, will hold off on restarting for now and re assess tomorrow Will initiate levaquin for atypical coverage Endo: No acute issues Heme/Onc Chronic anemia, no other issues monito B/l ext swelling L > R Will obtain b/l Dopplers to r/o DVT No fluid, NPO Heparin and PPI ppx Full code ICU admit Pt. discussed with Dr. Jayne Daley PGY-2 Pager: [phone] ATTESTATION I have seen, personally fully evaluated, and discussed patient with resident team. I agree with the physical exam findings and agree with the plan of care as documented by the resident with the exceptions noted. I have reviewed all pertinent labs, images, and diagnostic studies outlined above. The patient is critically ill with the followin acute on chronic hypoxemic respiratory failure. Most likely this is secondary to volume overload and less likely infectious etiology or COPD exacerbation. Discussed with and patient has had declining respiratory status for approximately 1 week. Also noted progressive lower extremity edema and decreased urinary output a few days prior to presentation to outside hospital. Denies fevers or purulent sputum or new cough. 2. New cardiomyopathy on outside echo. 3. Acute on chronic renal dysfunction with history of renal transplant. 4. Immunosuppressed 5. Very severe COPD I spent 45 minutes (excluding time spent performing or supervising any procedures) providing and personally directing critical care services including directing the formulation of the plan outlined above. Mechanical ventilation optimize oxygenation and ventilation. We will initiate on Lasix drip to optimize diuresis. EKG and trend troponins as well as repeat echocardiogram Consult renal transplant service. As may have possible infection will hold immunosuppression at least for tonight. Panculture. Initially started on Tamiflu per outside [place] that he was positive for flu. However RVP is negative so we will discontinue. Staff name: Kip Godoy MD Date: 07/21/2017 __ Chief Complaint: Shortness of breath History of Present Illness: Doug Dawson is a 57 y.o. male With past medical history of COPD, renal transplant, hypertension, GERD, CHF, who presented to an outside hospital yesterday with complaints of shortness of breath going on for a few days prior to presentation and acutely worsening in the last few days. His family had not seen him from [place] and when they saw him yesterday they thought he looked puffier. He has reported at the outside hospital that he only takes his Lasix every other day or sometimes at his own convenience. He noted that he also looked puffier and he had leg swelling as well. He did not have any fevers. He was initially started on high flow and liters and higher oxygen and then switched to noninvasive overnight and kept on noninvasive ventilation through the night. He was given 160 mg of Lasix at the outside hospital with only 300 mL of urine output. He was given a break from the noninvasive in the morning and his ABG showed hypercapnic respiratory failure 7.27/72/156. He was put back on noninvasive. he was also found to be flu positive at the outside hospital. She was then transferred here and electively intubated prior to transfer. Past Medical History: Diagnosis Date Cancer of lip squam cell Cataract Chronic kidney disease transplant COPD (chronic obstructive pulmonary disease) (HCC) copd Hypertension On supplemental oxygen therapy Pneumonia Renal failure Past Surgical History: Procedure Laterality Date HX APPENDECTOMY HX CHOLECYSTECTOMY HX RENAL TRANSPLANT KS REMOVE BILE DUCT STONE, PERCUT KS TENOTOMY PRQ ACHILLES TENDON SPX GENERAL ANES Family History Problem Relation Age of Onset Hypertension Mother Heart Failure Mother Arthritis-osteo Mother Diabetes Father Diabetes Sister Asthma Neg Hx Blood Clots Neg Hx Cancer Neg Hx COPD Neg Hx Cystic Fibrosis Neg Hx Coronary Artery Disease Neg Hx DVT Neg Hx Pulmonary Embolism Neg Hx Pulmonary Fibrosis Neg Hx Pulmonary HTN Neg Hx Glaucoma Neg Hx Macular Degen Neg Hx Strabismus Neg Hx Retinal Detachment Neg Hx Cataract Neg Hx Blindness Neg Hx Amblyopia Neg Hx Social History Substance Use Topics Smoking status: Former Smoker Packs/day: 1.00 Years: 30.00 Types: Cigarettes Quit date: 05/01/2012 Smokeless tobacco: Never Used Alcohol use No Allergies: Ruhmtum-qwe-bql reductase inhibitors Medications: Prior to Admission Medications Prescriptions Last Dose Informant Patient Reported? Taking? MULTIVITAMIN PO Yes No Sig: Take 1 Tab by mouth daily. albuterol (VENTOLIN HFA, PROAIR HFA) 90 mcg/actuation inhaler Self No No Sig: Inhale 2 Puffs by mouth every 6 hours as needed for Wheezing. allopurinol (ZYLOPRIM) 100 mg tablet No No Sig: Take 1 tablet by mouth daily. Take with food. amLODIPine (NORVASC) 5 mg tablet No No Sig: Take 1 tablet by mouth daily. budesonide/formoterol (SYMBICORT HFA) 160/4.5 mcg inhalation No No Sig: Inhale 2 Puffs by mouth into the lungs twice daily. carvedilol (COREG) 25 mg tablet No No Sig: Take 1 tablet by mouth twice daily. cycloSPORINE (GENGRAF) 25 mg cap No No Sig: Take 3 Caps by mouth twice daily. furosemide (LASIX) 80 mg tablet No No Sig: Take 1 Tab by mouth every 48 hours. levalbuterol (XOPENEX) 0.31 mg/3 mL nebulizer solution Yes No Sig: Inhale 0.63 mg solution as directed three times daily as needed for Wheezing. mycophenolate DR (MYFORTIC) 360 mg TbEC tablet No No Sig: Take 1 tablet by mouth twice daily. nystatin (MYCOSTATIN) 100,000 units/mL oral suspension No No Sig: Take 5 mL by mouth four times daily. Indications: ORAL CANDIDIASIS pantoprazole DR (PROTONIX) 40 mg tablet No No Sig: Take 1 tablet by mouth every 12 hours. prednisone (DELTASONE) 5 mg tablet No No Sig: Take 1 Tab by mouth daily. sodium chloride 3 % nebulizer solution No No Sig: Inhale 4 mL by mouth into the lungs twice daily. Patient taking differently: Inhale 4 mL by mouth into the lungs as Needed. tiotropium (SPIRIVA) 18 mcg capsule for inhaler No No Sig: Place 1 Cap into inhaler and inhale into lungs as directed daily. Facility-Administered Medications: None Review of Systems: Not able to obtain due to patient condition Physical Exam: Blood pressure 134/44, pulse 82, temperature 36.6 C (97.9 F), height 175.3 cm (69"), weight 81.2 kg (179 lb 0.2 oz), SpO2 95 %. Vital Signs: Last Filed In 24 Hours Vital Signs: 24 Hour Range BP: 134/44 (07/21 1799) Temp: 36.6 C (97.9 F) (07/21 1633) Pulse: 82 (07/21 1800) Respirations: 18 PER MINUTE (07/21 1800) SpO2: 95 % (07/21 1799) O2 Delivery: Endotracheal Tube (Oral) (07/21 1800) SpO2 Pulse: 79 (07/21 1799) Height: 175.3 cm (69") (07/21 1700) BP: (114-144)/(44-88) Temp: [36.6 C (97.9 F)] Pulse: [77-82] Respirations: [15 PER MINUTE-18 PER MINUTE] SpO2: [95 %-98 %] O2 Delivery: Endotracheal Tube (Oral) General Appearance: Alert,intubated, no distress HEENT: NC/AT, Conjunctivae/corneas clear. PERRL, Neck: Supple, no bruits, no LAD, Lungs: rales bilaterally, no wheezes. Heart: RRR, S1, S2 normal, no murmur, rub, or gallop Abdomen: Soft, non-tender. Bowel sounds sluggish. No masses. No organomegaly. Extremities: Atraumatic, no cyanosis, 2+ edema. R>L Pulses: +2 pulse in both extremities. Neurologic: no focal deficits Labs and Data: 24-hour labs: Results for orders placed or performed during the hospital encounter of (from the past 24 hour(s)) CBC AND DIFF Collection Time: 07/21/17 4:38 PM Result Value Ref Range White Blood Cells 5.1 4.5 - 11.0 K/UL RBC 3.11 (L) 4.4 - 5.5 M/UL Hemoglobin 8.6 (L) 13.5 - 16.5 GM/DL Hematocrit 27.5 (L) 40 - 50 % MCV 88.5 80 - 100 FL MCH 27.8 26 - 34 PG MCHC 31.5 (L) 32.0 - 36.0 G/DL RDW 16.1 (H) 11 - 15 % Platelet Count 151 150 - 400 K/UL MPV 8.3 7 - 11 FL Neutrophils 76 41 - 77 % Lymphocytes 11 (L) 24 - 44 % Monocytes 10 4 - 12 % Eosinophils 3 0 - 5 % Basophils 0 0 - 2 % Absolute Neutrophil Count 3.90 1.8 - 7.0 K/UL Absolute Lymph Count 0.60 (L) 1.0 - 4.8 K/UL Absolute Monocyte Count 0.50 0 - 0.80 K/UL Absolute Eosinophil Count 0.20 0 - 0.45 K/UL Absolute Basophil Count 0.00 0 - 0.20 K/UL PROTIME INR (PT) Collection Time: 07/21/17 4:38 PM Result Value Ref Range INR 1.0 0.8 - 1.2 PTT (APTT) Collection Time: 07/21/17 4:38 PM Result Value Ref Range APTT 30.8 21.0 - 39.0 SEC COMPREHENSIVE METABOLIC PANEL Collection Time: 07/21/17 4:38 PM Result Value Ref Range Sodium 131 (L) 137 - 147 MMOL/L Potassium 4.8 3.5 - 5.1 MMOL/L Chloride 94 (L) 98 - 110 MMOL/L Glucose 79 70 - 100 MG/DL Blood Urea Nitrogen 81 (H) 7 - 25 MG/DL Creatinine 3.61 (H) 0.4 - 1.24 MG/DL Calcium 8.7 8.5 - 10.6 MG/DL Total Protein 5.8 (L) 6.0 - 8.0 G/DL Total Bilirubin 0.6 0.3 - 1.2 MG/DL Albumin 3.2 (L) 3.5 - 5.0 G/DL Alk Phosphatase 100 25 - 110 U/L AST (SGOT) <3 (L) 7 - 40 U/L CO2 28 21 - 30 MMOL/L ALT (SGPT) 3 (L) 7 - 56 U/L Anion Gap 9 3 - 12 eGFR Non 17 (L) >60 mL/min eGFR 21 (L) >60 mL/min MAGNESIUM Collection Time: 07/21/17 4:38 PM Result Value Ref Range Magnesium 1.2 (L) 1.6 - 2.6 mg/dL PHOSPHORUS Collection Time: 07/21/17 4:38 PM Result Value Ref Range Phosphorus 4.6 (H) 2.0 - 4.0 MG/DL TROPONIN-I Collection Time: 07/21/17 4:38 PM Result Value Ref Range Troponin-I 0.03 0.0 - 0.05 NG/ML POC GLUCOSE Collection Time: 07/21/17 4:39 PM Result Value Ref Range Glucose, POC 84 70 - 100 MG/DL URINALYSIS DIPSTICK Collection Time: 07/21/17 4:40 PM Result Value Ref Range Color,UA YELLOW Turbidity,UA 1+ (A) CLEAR-CLEAR Specific [place]-Urine 1.014 1.003 - 1.035 pH,UA 5.0 5.0 - 8.0 Protein,UA 2+ (A) NEG-NEG Glucose,UA NEG NEG-NEG Ketones,UA NEG NEG-NEG Bilirubin,UA NEG NEG-NEG Blood,UA 1+ (A) NEG-NEG Urobilinogen,UA NORMAL NORM-NORMAL Nitrite,UA NEG NEG-NEG Leukocytes,UA NEG NEG-NEG Urine Ascorbic Acid, UA NEG NEG-NEG URINALYSIS, MICROSCOPIC Collection Time: 07/21/17 4:40 PM Result Value Ref Range WBCs,UA NONE 0 - 2 /HPF RBCs,UA NONE 0 - 3 /HPF BNP (B-TYPE NATRIURETIC PEPTI) Collection Time: 07/21/17 4:45 PM Result Value Ref Range B Type Natriuretic Peptide 563.0 (H) 0 - 100 PG/ML BLOOD GASES, ARTERIAL Collection Time: 07/21/17 5:41 PM Result Value Ref Range pH-Arterial 7.32 (L) 7.35 - 7.45 pCO2-Arterial 56 (H) 35 - 45 MMHG pO2-Arterial 61 (L) 80 - 100 MMHG Base Excess-Arterial 1.9 MMOL/L O2 Sat-Arterial 91.1 (L) 95 - 99 % Kfhtdfkdfvc-DOB-Qgk 26.0 21 - 28 MMOL/L LACTIC ACID (BG - RAPID LACTATE) Collection Time: 07/21/17 5:41 PM Result Value Ref Range Lactic Acid,BG 0.7 0.5 - 2.0 MMOL/L TROPONIN-I Collection Time: 07/21/17 6:39 PM Result Value Ref Range Troponin-I 0.04 0.0 - 0.05 NG/ML Glucose: 79 (07/21/17 3858) POC Glucose (Download): 84 (07/21/17 6424) No results found. Pertinent radiology reviewed. in this encounter Consult Notes * Barb Sebastian - 07/23/2017 1:40 PM CNC SET UP OPERATOR Associated Order(s): CONSULT DIETITIAN CLINICAL NUTRITION Clinical Nutrition Assessment Summary Nutrition Assessment of Patient: BMI Categories Adult: Over Weight: 25-29.9 Current Oral Intake: NPO Estimated Calorie Needs: 1825 (25 kca/kg DBW) Estimated Protein Needs: 110 (1.5g/kg DBW) Oral Diet Order: NPO 57yoM past medical history of cancer of lip, COPD, renal transplant, hypertension, GERD, CHF, who presented to an outside hospital with complaints of shortness of breath and swelling, started on NIPPV without any improvement, transferred to [facility] 07/21 d/t immunocompromised state and concern for opportunistic infection. Now intubated, sedation stopped. Lasix gtt on board. + Steroids. Family at bedside reports pt with poor appetite/PO intake past several weeks. No n/v issues. 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 Consult received to provide TF recs; OGT in place. Recommendation: REC Novasource Renal at 40ml/hr + 2 prosource packs/d. Provides 2040 kcal, 117g protein, and 691ml water daily Intervention / Plan: Assessed adequacy/tolerance of recent intakes EN recs Nutrition Diagnosis: Nutrition Diagnosis: Inadequate protein-energy intake Etiology: vent, medical status Signs & Symptoms: NPO day 3, pending EN Start Goals: EN tolerated and meeting >75% of nutritional needs Time Frame: Within [address], LD, CNSC *[facility] office [phone] * Monik Sawant MD - 07/22/2017 1:39 PM CNC SET UP OPERATOR Associated Order(s): CONSULT NEPHROLOGY PHYSICIAN Formatting of this note may be different from the original. Nephrology Consult Note Admission Date: 07/21/2017 LOS: 1 day Reason for Consult: Renal transplant. 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 On 3 drug regimen, cyclosporin 75mg bid, MMF 360mg bid and prednisone 5mg daily. Graft failure with new baseline creatinine around 3.2 to 3.5mg/dL. Resp failure acute on chronic. Hx of complex SEMAJ infection. HTN Mild hyperkalemia. Recommendations: Continue on the 3 immunosuppressants that he takes at home. Prednisone has been increased to 10mg. Keep cyclosporine trough around 70 to 100. I will try to keep it closer to 70 during the acute illness to allow room for diuresis. Pt on lasix drip for possible fluid overload. He does stand at high risk for losing his graft function due to concurrent critical illness. Monitor renal function closely and avoid nephrotoxins. Monitor cyclosporine level daily. I will follow along closely. Thank you for involving me in the care of Mr. Dawson History of Present Illness: Doug Dawson is a 57 y.o. male with hx of hereditary nephritis who underwent DDRT in 1991 from a 17 years old donor. His PRA was 3% only. 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 He has had relatively rapid loss of graft function in the last two years or so. His baseline creatinine now is around 3.2 to 3.5mg/dL. He is on 3 drug regimen, cyclosporine , pred and MMF. His cyclosporine trough goal is around 70 to 100. He was admitted last night as a transfer from [facility] for acute on chronic resp failure. He has both hypercapnic and hypoxemic resp failure. Pt is also considering to undergo a repeat kidney and lung transplant in [facility]. In ICU his BP has been stable. Pt is on lasix drip. He is awake but remains on vent and is unable to provide hx or ROS. Past Medical History: Diagnosis Date Cancer of lip squam cell Cataract Chronic kidney disease transplant COPD (chronic obstructive pulmonary disease) (HCC) copd Hypertension On supplemental oxygen therapy Pneumonia Renal failure Past Surgical History: Procedure Laterality Date HX APPENDECTOMY HX CHOLECYSTECTOMY HX RENAL TRANSPLANT KS REMOVE BILE DUCT STONE, PERCUT KS TENOTOMY PRQ ACHILLES TENDON SPX GENERAL ANES Social History Social History Marital status: Spouse name: N/A Number of children: 1 Years of education: 16 Occupational History [employer] Social History Main Topics Smoking status: Former Smoker Packs/day: 1.00 Years: 30.00 Types: Cigarettes Quit date: 05/01/2012 Smokeless tobacco: Never Used Alcohol use No Drug use: No Comment: when he was younger smoked marijuana. Sexual activity: Yes Partners: Female Other Topics Concern Not on file Social History Narrative Family History Problem Relation Age of Onset Hypertension Mother Heart Failure Mother Arthritis-osteo Mother Diabetes Father Diabetes Sister Asthma Neg Hx Blood Clots Neg Hx Cancer Neg Hx COPD Neg Hx Cystic Fibrosis Neg Hx Coronary Artery Disease Neg Hx DVT Neg Hx Pulmonary Embolism Neg Hx Pulmonary Fibrosis Neg Hx Pulmonary HTN Neg Hx Glaucoma Neg Hx Macular Degen Neg Hx Strabismus Neg Hx Retinal Detachment Neg Hx Cataract Neg Hx Blindness Neg Hx Amblyopia Neg Hx Allergies: Tssajso-zov-yzm reductase inhibitors Scheduled Meds: albuterol 0.5% (PROVENTIL; VENTOLIN) nebulizer solution 2.5 mg 2.5 mg Inhalation Q4H & PRN budesonide/formoterol (SYMBICORT HFA) 160/4.5 mcg inhalation 2 puff 2 puff Inhalation BID chlorhexidine gluconate (PERIDEX) 0.12 % solution 15 mL 15 mL Swish & Spit BID heparin (porcine) PF syringe 5,000 Units 5,000 Units Subcutaneous Q8H ipratropium bromide (ATROVENT) 0.02 % nebulizer solution 0.5 mg 0.5 mg Inhalation Q4H & PRN [START ON 07/23/2017] levofloxacin (LEVAQUIN) 750 mg/150 mL IVPB 750 mg Intravenous Q48H* pantoprazole (PROTONIX) injection 40 mg 40 mg Intravenous QDAY [START ON 07/23/2017] prednisone (DELTASONE) tablet 10 mg 10 mg Oral QDAY Continuous Infusions: fentaNYL (SUBLIMAZE) 1000 mcg/ NS 100 mL IV infusion (std conc)(premade) 20 mcg/hr (07/21/17 1831) furosemide (LASIX) 500 mg/ 50 mL IV drip (max conc) 10 mg/hr (07/22/17 0240 ) propofol (DIPRIVAN) 10 mg/mL IV infusion 20 mcg/kg/min (07/22/17 1113) PRN and Respiratory Meds: Review of Systems: Review of systems not obtained from patient due to patient factors. Vital Signs: Last Filed in 24 hours Vital Signs: 24 hour Range BP: 139/64 (07/22 1299) Temp: 37.7 C (99.9 F) (07/22 1200) Pulse: 88 (07/22 1300) Respirations: 19 PER MINUTE (07/22 1300) SpO2: 95 % (07/22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 tablet Take 1 tablet by mouth daily. Take with food. amLODIPine (NORVASC) 5 mg tablet Take 1 tablet by mouth daily. budesonide/formoterol (SYMBICORT HFA) 160/4.5 mcg inhalation Inhale 2 Puffs by mouth into the lungs twice daily. carvedilol (COREG) 25 mg tablet Take 1 tablet by mouth twice daily. cycloSPORINE (GENGRAF) 25 mg cap Take 3 Caps by mouth twice daily. furosemide (LASIX) 80 mg tablet Take 1 Tab by mouth every 48 hours. levalbuterol (XOPENEX) 0.31 mg/3 mL nebulizer solution Inhale 0.63 mg solution as directed three times daily as needed for Wheezing. MULTIVITAMIN PO Take 1 Tab by mouth daily. mycophenolate DR (MYFORTIC) 360 mg TbEC tablet Take 1 tablet by mouth twice daily. nystatin (MYCOSTATIN) 100,000 units/mL oral suspension Take 5 mL by mouth four times daily. Indications: ORAL CANDIDIASIS pantoprazole DR (PROTONIX) 40 mg tablet Take 1 tablet by mouth every 12 hours. prednisone (DELTASONE) 5 mg tablet Take 1 Tab by mouth daily. sodium chloride 3 % nebulizer solution Inhale 4 mL by mouth into the lungs twice daily. (Patient taking differently: Inhale 4 mL by mouth into the lungs as Needed.) tiotropium (SPIRIVA) 18 mcg capsule for inhaler Place 1 Cap into inhaler and inhale into lungs as directed daily. Vital Signs: Last Filed Vital Signs: 24 Hour Range BP: 131/65 (07/22 699) Temp: 37.2 C (98.9 F) (07/22 0400) Pulse: 85 (07/22 699) Respirations: 18 PER MINUTE (07/22 699) SpO2: 94 % (07/22 699) O2 Delivery: Endotracheal Tube (Oral) (07/22 06) SpO2 Pulse: 86 (07/22 699) Height: 175.3 cm (69") (07/21 1700) BP: (91-144)/(44-88) Temp: [36.6 C (97.9 F)-37.2 C (98.9 F)] Pulse: [72-85] Respirations: [14 PER MINUTE-20 PER MINUTE] SpO2: [90 %-100 %] O2 Delivery: Endotracheal Tube (Oral) Vitals: 07/21/17 1700 Weight: 81.2 kg (179 lb 0.2 oz) Physical Exam: General: alert and oriented, no acute distress, responsive to verbal stimulus and nods appropriately ENT: ET tube in place Eyes: EOMI Neck: supple CV: heart regular rate, normal S1 and S2, no murmur/click/rub Respiratory: mild rales bilaterally, improved from yesterday Abdomen: +BS, soft, non-distended, transplanted kidney palpable Extremities: intact peripheral pulses, 2+ pitting edema in ankles, improved from yesterday Skin: diffuse SK, skin of abdomen slightly discolored Neuro: non-focal Artificial Airway Endotracheal Tube Ventilator/Respiratory Therapy Yes: Mode: V/AC+ Set Vt (ml): [400 milliliters] Tidal Volume Spont (mL): [394 milliliters-426 milliliters] Set RR: [14 breaths/minutes] Total Respiratory Rate (Breaths/Min): [16 breaths/minutes-17 breaths/minutes] O2%: [45 %-50 %] PIP Actual: [25 cm H20-31 cm H20] PEEP/CPAP: [5 cm H2O] Vent Weaning Per protocol Laboratory: Recent Labs 07/21/17 1638 07/22/17 0009 07/22/17 0606 NA 131* 127* 127* K 4.8 5.0 5.0 CL 94* 92* 95* CO2 28 27 28 GAP 9 8 4 BUN 81* 81* 81* CR 3.61* 3.48* 3.68* GLU 79 106* 76 CA 8.7 8.5 8.3* ALBUMIN 3.2* -- 2.9* MG 1.2* 2.8* -- PO4 4.6* -- -- Recent Labs 07/21/17 1638 07/21/17 1839 07/21/17 2119 07/22/17 0606 WBC 5.1 -- -- 7.6 HGB 8.6* -- -- 8.8* HCT 27.5* -- -- 28.1* PLTCT 151 -- -- 160 INR 1.0 -- -- -- PTT 30.8 -- -- -- AST <3* -- -- 3* ALT 3* -- -- 4* ALKPHOS 100 -- -- 91 TNI 0.03 0.04 0.03 -- Estimated Creatinine Clearance: 24.8 mL/min (based on Cr of 3.68). Vitals: 07/21/17 1700 Weight: 81.2 kg (179 lb 0.2 oz) Recent Labs 07/21/17 1741 PHART 7.32* PO2ART 61* Radiology and Other Diagnostic Procedures Review: Reviewed Anika Ramos MS4 in this encounter Plan of Treatment Name Priority Associated Diagnoses Order Schedule ECG 12-LEAD STAT ONE TIME for 1 Occurrences starting 07/23/2017 until 07/23/2017 BASIC METABOLIC PANEL Routine History of renal Expected: 08/03/2017 transplant (Approximate), Expires: GRZEGORZ (acute kidney injury) 07/27/2018 (HCC) Immunosuppression (HCC) Hyperkalemia Acute on chronic respiratory failure with hypoxia (HCC) CYCLOSPORINE TROUGH Routine History of renal Expected: 08/03/2017 transplant (Approximate), Expires: GRZEGORZ (acute kidney injury) 07/27/2018 (HCC) Immunosuppression (HCC) Hyperkalemia Acute on chronic respiratory failure with hypoxia (HCC) as of this encounter Procedures Procedure Name Priority Date/Time Associated Diagnosis Comments TELEMETRY STRIPS-SCAN 07/31/2017 Results for this 3:12 PM CNC SET UP OPERATOR procedure are in the results section. ECG-SCAN 07/30/2017 Results for this 7:20 AM CNC SET UP OPERATOR procedure are in the results section. ECG-SCAN 07/25/2017 Results for this 9:20 AM CNC SET UP OPERATOR procedure are in the results section. in this encounter Results * TELEMETRY STRIPS-SCAN (07/31/2017 3:12 PM) Narrative Ordered by an unspecified provider. * ECG-SCAN (07/30/2017 7:20 AM) Narrative Ordered by an unspecified provider. * CYCLOSPORINE TROUGH (07/27/2017 6:16 AM) Component Value Ref Range Cyclosporine 90 50 - 400 NG/ML Comment: Target concentrations vary by type of transplant, patient response, concomitant immunosuppression and post-transplant time interval.Test was performed on whole blood using VSporto QMS reagent and a [employer] [place] AU analyzer. Specimen Performing Laboratory Blood MAIN [facility] [address] [place] [address] * MAGNESIUM (07/27/2017 6:14 AM) Component Value Ref Range Magnesium 1.3 (L) 1.6 - 2.6 mg/dL Specimen Performing Laboratory Blood MAIN [facility] [address] [place] [address] * COMPREHENSIVE METABOLIC PANEL (07/27/2017 6:14 AM) Component Value Ref Range Sodium 130 (L) [...] Pharmacist for questions. Specimen Performing Laboratory Blood [facility] [address] [place] [address] * CBC AND DIFF (07/27/2017 6:14 AM) Component Value Ref Range White Blood Cells [...] Specimen Performing Laboratory Blood [facility] [address] [place] [address] * BASIC METABOLIC PANEL (07/26/2017 3:50 PM) Component Value Ref Range Sodium 128 (L) [...] Pharmacist for questions. Specimen Performing Laboratory Blood [facility] [address] [place] [address] * CYCLOSPORINE TROUGH (07/26/2017 6:00 AM) Component Value Ref Range Cyclosporine 93 50 - 400 NG/ML Comment: Target concentrations vary by type of transplant, patient response, concomitant immunosuppression and post-transplant time interval.Test was performed on whole blood using VSporto QMS reagent and a [employer]quin [address] [place] AU analyzer. Specimen Performing Laboratory Blood [facility] [address] [place] [address] * MAGNESIUM (07/26/2017 5:59 AM) Component Value Ref Range Magnesium 1.5 (L) 1.6 - 2.6 mg/dL Specimen Performing Laboratory Blood [facility] [address] [place] [address] * COMPREHENSIVE METABOLIC PANEL (07/26/2017 5:59 AM) Component Value Ref Range Sodium 134 (L) 137 - 147 MMOL/L Potassium 4.3 3.5 - 5.1 MMOL/L Chloride 85 (L) 98 - 110 MMOL/L Glucose 90 70 - 100 MG/DL Blood Urea Nitrogen 84 (H) 7 - 25 MG/DL Creatinine 3.24 (H) 0.4 - 1.24 MG/DL Calcium 9.5 8.5 - 10.6 MG/DL Total Protein 6.4 6.0 - 8.0 G/DL Total Bilirubin 0.5 0.3 - 1.2 MG/DL Albumin 3.4 (L) 3.5 - 5.0 G/DL Alk Phosphatase 89 25 - 110 U/L AST (SGOT) 7 7 - 40 U/L CO2 40 (H) 21 - 30 MMOL/L ALT (SGPT) 4 (L) 7 - 56 U/L Anion Gap 9 3 - 12 eGFR Non 20 (L) >60 mL/min Comment: The eGFR is not validated for use in drug dosing adjustments.Continue to use estimated creatinine clearance per dosing reference text.Please contact the Clinical Pharmacist for questions. eGFR 24 (L) >60 mL/min Comment: The eGFR is not validated for use in drug dosing adjustments.Continue to use estimated creatinine clearance per dosing reference text.Please contact the Clinical Pharmacist for questions. Specimen Performing Laboratory Blood [facility] [address] [place] [address] * CBC AND DIFF (07/26/2017 5:59 AM) Component Value Ref Range White Blood Cells 6.5 4.5 - 11.0 K/UL RBC 3.31 (L) 4.4 - 5.5 M/UL Hemoglobin 9.2 (L) 13.5 - 16.5 GM/DL Hematocrit 29.4 (L) 40 - 50 % MCV 88.8 80 - 100 FL MCH 27.9 26 - 34 PG MCHC 31.4 (L) 32.0 - 36.0 G/DL RDW 16.1 (H) 11 - 15 % Platelet Count 200 150 - 400 K/UL MPV 8.2 7 - 11 FL Neutrophils 75 41 - 77 % Lymphocytes 8 (L) 24 - 44 % Monocytes 14 (H) 4 - 12 % Eosinophils 2 0 - 5 % Basophils 1 0 - 2 % Absolute Neutrophil Count 4.90 1.8 - 7.0 K/UL Absolute Lymph Count 0.50 (L) 1.0 - 4.8 K/UL Absolute Monocyte Count 0.90 (H) 0 - 0.80 K/UL Absolute Eosinophil Count 0.10 0 - 0.45 K/UL Absolute Basophil Count 0.00 0 - 0.20 K/UL Specimen Performing Laboratory Blood [facility] [address] [place] [address] * BASIC METABOLIC PANEL (07/25/2017 4:58 PM) Component Value Ref Range Sodium 132 (L) 137 - 147 MMOL/L Potassium 4.7 3.5 - 5.1 MMOL/L Chloride 84 (L) 98 - 110 MMOL/L CO2 38 (H) 21 - 30 MMOL/L Anion Gap 10 3 - 12 Glucose 161 (H) 70 - 100 MG/DL Blood Urea Nitrogen 90 (H) 7 - 25 MG/DL Creatinine 3.24 (H) 0.4 - 1.24 MG/DL Calcium 10.1 8.5 - 10.6 MG/DL eGFR Non 20 (L) >60 mL/min Comment: The eGFR is not validated for use in drug dosing adjustments.Continue to use estimated creatinine clearance per dosing reference text.Please contact the Clinical Pharmacist for questions. eGFR 24 (L) >60 mL/min Comment: The eGFR is not validated for use in drug dosing adjustments.Continue to use estimated creatinine clearance per dosing reference text.Please contact the Clinical Pharmacist for questions. Specimen Performing Laboratory MAIN [facility] [address] [place] [address] * ECG-SCAN (07/25/2017 9:20 AM) Narrative Ordered by an unspecified provider. * CYCLOSPORINE TROUGH (07/25/2017 8:06 AM) Component Value Ref Range Cyclosporine 90 50 - 400 NG/ML Comment: Target concentrations vary by type of transplant, patient response, concomitant immunosuppression and post-transplant time interval.Test was performed on whole blood using VSporto QMS reagent and a [employer] [place] AU analyzer. Specimen Performing Laboratory Blood [facility] [address] [place] [address] * MAGNESIUM (07/25/2017 4:45 AM) Component Value Ref Range Magnesium 1.9 1.6 - 2.6 mg/dL Specimen Performing Laboratory Blood [facility] [address] [place] [address] * COMPREHENSIVE METABOLIC PANEL (07/25/2017 4:45 AM) Component Value Ref Range Sodium 135 (L) 137 - 147 MMOL/L Potassium 4.6 3.5 - 5.1 MMOL/L Chloride 88 (L) 98 - 110 MMOL/L Glucose 107 (H) 70 - 100 MG/DL Blood Urea Nitrogen 93 (H) 7 - 25 MG/DL Creatinine 3.75 (H) 0.4 - 1.24 MG/DL Calcium 9.7 8.5 - 10.6 MG/DL Total Protein 6.4 6.0 - 8.0 G/DL Total Bilirubin 0.5 0.3 - 1.2 MG/DL Albumin 3.4 (L) 3.5 - 5.0 G/DL Alk Phosphatase 93 25 - 110 U/L AST (SGOT) 5 (L) 7 - 40 U/L CO2 36 (H) 21 - 30 MMOL/L ALT (SGPT) 5 (L) 7 - 56 U/L Anion Gap 11 3 - 12 eGFR Non 17 (L) >60 mL/min Comment: The eGFR is not validated for use in drug dosing adjustments.Continue to use estimated creatinine clearance per dosing reference text.Please contact the Clinical Pharmacist for questions. eGFR 20 (L) >60 mL/min Comment: The eGFR is not validated for use in drug dosing adjustments.Continue to use estimated creatinine clearance per dosing reference text.Please contact the Clinical Pharmacist for questions. Specimen Performing Laboratory Blood [facility] [address] [place] [address] * CBC AND DIFF (07/25/2017 4:45 AM) Component Value Ref Range White Blood Cells 5.4 4.5 - 11.0 K/UL RBC 3.22 (L) 4.4 - 5.5 M/UL Hemoglobin 8.9 (L) 13.5 - 16.5 GM/DL Hematocrit 28.0 (L) 40 - 50 % MCV 86.9 80 - 100 FL MCH 27.5 26 - 34 PG MCHC 31.6 (L) 32.0 - 36.0 G/DL RDW 16.2 (H) 11 - 15 % Platelet Count 182 150 - 400 K/UL MPV 8.0 7 - 11 FL Neutrophils 81 (H) 41 - 77 % Lymphocytes 6 (L) 24 - 44 % Monocytes 11 4 - 12 % Eosinophils 1 0 - 5 % Basophils 1 0 - 2 % Absolute Neutrophil Count 4.40 1.8 - 7.0 K/UL Absolute Lymph Count 0.30 (L) 1.0 - 4.8 K/UL Absolute Monocyte Count 0.60 0 - 0.80 K/UL Absolute Eosinophil Count 0.00 0 - 0.45 K/UL Absolute Basophil Count 0.00 0 - 0.20 K/UL Specimen Performing Laboratory Blood [facility] [address] [place] [address] * BASIC METABOLIC PANEL (07/24/2017 5:28 PM) Component Value Ref Range Sodium 133 (L) 137 - 147 MMOL/L Potassium 5.1 3.5 - 5.1 MMOL/L Chloride 87 (L) 98 - 110 MMOL/L CO2 37 (H) 21 - 30 MMOL/L Anion Gap 9 3 - 12 Glucose 146 (H) 70 - 100 MG/DL Blood Urea Nitrogen 96 (H) 7 - 25 MG/DL Creatinine 3.78 (H) 0.4 - 1.24 MG/DL Calcium 9.7 8.5 - 10.6 MG/DL eGFR Non 16 (L) >60 mL/min Comment: The eGFR is not validated for use in drug dosing adjustments.Continue to use estimated creatinine clearance per dosing reference text.Please contact the Clinical Pharmacist for questions. eGFR 20 (L) >60 mL/min Comment: The eGFR is not validated for use in drug dosing adjustments.Continue to use estimated creatinine clearance per dosing reference text.Please contact the Clinical Pharmacist for questions. Specimen Performing Laboratory Blood [facility] [address] [place] [address] * CYCLOSPORINE TROUGH (07/24/2017 6:05 AM) Component Value Ref Range Cyclosporine 151 50 - 400 NG/ML Comment: Target concentrations vary by type of transplant, patient response, concomitant immunosuppression and post-transplant time interval.Test was performed on whole blood using VSporto QMS reagent and a [employer] AU analyzer. Specimen Performing Laboratory Blood [facility] [address] [place] [address] * MAGNESIUM (07/24/2017 2:45 AM) Component Value Ref Range Magnesium 1.9 1.6 - 2.6 mg/dL Specimen Performing Laboratory Blood [facility] [address] [place] [address] * COMPREHENSIVE METABOLIC PANEL (07/24/2017 2:45 AM) Component Value Ref Range Sodium 133 (L) 137 - 147 MMOL/L Potassium 4.9 3.5 - 5.1 MMOL/L Chloride 90 (L) 98 - 110 MMOL/L Glucose 83 70 - 100 MG/DL Blood Urea Nitrogen 93 (H) 7 - 25 MG/DL Creatinine 3.75 (H) 0.4 - 1.24 MG/DL Calcium 9.1 8.5 - 10.6 MG/DL Total Protein 5.9 (L) 6.0 - 8.0 G/DL Total Bilirubin 0.6 0.3 - 1.2 MG/DL Albumin 3.1 (L) 3.5 - 5.0 G/DL Alk Phosphatase 90 25 - 110 U/L AST (SGOT) 5 (L) 7 - 40 U/L CO2 30 21 - 30 MMOL/L ALT (SGPT) 3 (L) 7 - 56 U/L Anion Gap 13 (H) 3 - 12 eGFR Non 17 (L) >60 mL/min Comment: The eGFR is not validated for use in drug dosing adjustments.Continue to use estimated creatinine clearance per dosing reference text.Please contact the Clinical Pharmacist for questions. eGFR 20 (L) >60 mL/min Comment: The eGFR is not validated for use in drug dosing adjustments.Continue to use estimated creatinine clearance per dosing reference text.Please contact the Clinical Pharmacist for questions. Specimen Performing Laboratory Blood [facility] [address] [place] [address] * CBC AND DIFF (07/24/2017 2:45 AM) Component Value Ref Range White Blood Cells 5.1 4.5 - 11.0 K/UL RBC 2.93 (L) 4.4 - 5.5 M/UL Hemoglobin 8.0 (L) 13.5 - 16.5 GM/DL Hematocrit 25.8 (L) 40 - 50 % MCV 88.0 80 - 100 FL MCH 27.3 26 - 34 PG MCHC 31.0 (L) 32.0 - 36.0 G/DL RDW 16.3 (H) 11 - 15 % Platelet Count 161 150 - 400 K/UL MPV 8.1 7 - 11 FL Neutrophils 84 (H) 41 - 77 % Lymphocytes 5 (L) 24 - 44 % Monocytes 9 4 - 12 % Eosinophils 1 0 - 5 % Basophils 1 0 - 2 % Absolute Neutrophil Count 4.40 1.8 - 7.0 K/UL Absolute Lymph Count 0.30 (L) 1.0 - 4.8 K/UL Absolute Monocyte Count 0.40 0 - 0.80 K/UL Absolute Eosinophil Count 0.00 0 - 0.45 K/UL Absolute Basophil Count 0.00 0 - 0.20 K/UL Specimen Performing Laboratory Blood [facility] [address] [place] [address] * BASIC METABOLIC PANEL (07/23/2017 7:50 PM) Component Value Ref Range Sodium 131 (L) 137 - 147 MMOL/L Potassium 5.4 (H) 3.5 - 5.1 MMOL/L Chloride 89 (L) 98 - 110 MMOL/L CO2 30 21 - 30 MMOL/L Anion Gap 12 3 - 12 Glucose 96 70 - 100 MG/DL Blood Urea Nitrogen 94 (H) 7 - 25 MG/DL Creatinine 4.04 (H) 0.4 - 1.24 MG/DL Calcium 9.2 8.5 - 10.6 MG/DL eGFR Non 15 (L) >60 mL/min Comment: The eGFR is not validated for use in drug dosing adjustments.Continue to use estimated creatinine clearance per dosing reference text.Please contact the Clinical Pharmacist for questions. eGFR 18 (L) >60 mL/min Comment: The eGFR is not validated for use in drug dosing adjustments.Continue to use estimated creatinine clearance per dosing reference text.Please contact the Clinical Pharmacist for questions. Specimen Performing Laboratory Blood [facility] [address] [place] [address] * BASIC METABOLIC PANEL (07/23/2017 4:45 PM) Component Value Ref Range Sodium 128 (L) 137 - 147 MMOL/L Potassium 6.2 (H)Comment: SLT HEMOLYSIS 3.5 - 5.1 MMOL/L Chloride 89 (L) 98 - 110 MMOL/L CO2 28 21 - 30 MMOL/L Anion Gap 11 3 - 12 Glucose 94 70 - 100 MG/DL Blood Urea Nitrogen 91 (H) 7 - 25 MG/DL Creatinine 3.96 (H) 0.4 - 1.24 MG/DL Calcium 8.9 8.5 - 10.6 MG/DL eGFR Non 16 (L) >60 mL/min Comment: The eGFR is not validated for use in drug dosing adjustments.Continue to use estimated creatinine clearance per dosing reference text.Please contact the Clinical Pharmacist for questions. eGFR 19 (L) >60 mL/min Comment: The eGFR is not validated for use in drug dosing adjustments.Continue to use estimated creatinine clearance per dosing reference text.Please contact the Clinical Pharmacist for questions. Specimen Performing Laboratory [facility] [address] [place] [address] * BLOOD GASES, ARTERIAL (07/23/2017 1:15 PM) Component Value Ref Range pH-Arterial 7.31 (L) 7.35 - 7.45 pCO2-Arterial 58 (H) 35 - 45 MMHG pO2-Arterial 104 (H) 80 - 100 MMHG Base Excess-Arterial 1.7 MMOL/L O2 Sat-Arterial 97.6 95 - 99 % Qiahxnpivfg-KQT-Sey 25.9 21 - 28 MMOL/L Specimen Performing Laboratory Blood, arterial - Blood [facility] [address] [place] [address] * BASIC METABOLIC PANEL (07/23/2017 1:15 PM) Component Value Ref Range Sodium 128 (L) 137 - 147 MMOL/L Potassium 5.4 (H) 3.5 - 5.1 MMOL/L Chloride 88 (L) 98 - 110 MMOL/L CO2 26 21 - 30 MMOL/L Anion Gap 14 (H) 3 - 12 Glucose 90 70 - 100 MG/DL Blood Urea Nitrogen 90 (H) 7 - 25 MG/DL Creatinine 4.03 (H) 0.4 - 1.24 MG/DL Calcium 9.2 8.5 - 10.6 MG/DL eGFR Non 15 (L) >60 mL/min Comment: The eGFR is not validated for use in drug dosing adjustments.Continue to use estimated creatinine clearance per dosing reference text.Please contact the Clinical Pharmacist for questions. eGFR 19 (L) >60 mL/min Comment: The eGFR is not validated for use in drug dosing adjustments.Continue to use estimated creatinine clearance per dosing reference text.Please contact the Clinical Pharmacist for questions. Specimen Performing Laboratory [facility] [address] [place] [address] * BLOOD GASES, ARTERIAL (07/23/2017 9:48 AM) Component Value Ref Range pH-Arterial 7.31 (L) 7.35 - 7.45 pCO2-Arterial 58 (H) 35 - 45 MMHG pO2-Arterial 96 80 - 100 MMHG Base Excess-Arterial 1.6 MMOL/L O2 Sat-Arterial 96.9 95 - 99 % Hlaufoalwof-LCI-Cgm 25.8 21 - 28 MMOL/L Specimen Performing Laboratory Blood, arterial - Blood [facility] [address] [place] [address] * CYCLOSPORINE TROUGH (07/23/2017 6:09 AM) Component Value Ref Range Cyclosporine 101 50 - 400 NG/ML Comment: Target concentrations vary by type of transplant, patient response, concomitant immunosuppression and post-transplant time interval.Test was performed on whole blood using VS[employer]o QMS reagent and a [employer] AU analyzer. Specimen Performing Laboratory Blood [facility] [address] [place] [address] * POC BLOOD GAS ARTERIAL (07/23/2017 4:39 AM) Component Value Ref Range PH-ART-POC 7.42 7.35 - 7.45 ZIP9-ARV-PLG 46 (H) 35 - 45 MMHG PO2-ART-POC 94 80 - 100 MMHG Base Ex-ART-POC 5.0 MMOL/L O2 Sat-ART-POC 97.0 95 - 99 % Douaukbjbwr-KZB-XSA 29.9 (H) 21 - 28 MMOL/L Specimen Performing Laboratory MAIN [facility] [address] [place] [address] * MAGNESIUM (07/23/2017 3:21 AM) Component Value Ref Range Magnesium 2.1 1.6 - 2.6 mg/dL Specimen Performing Laboratory [facility] [address] [place] [address] * COMPREHENSIVE METABOLIC PANEL (07/23/2017 3:21 AM) Component Value Ref Range Sodium 127 (L) 137 - 147 MMOL/L Potassium 4.9 3.5 - 5.1 MMOL/L Chloride 89 (L) 98 - 110 MMOL/L Glucose 69 (L) 70 - 100 MG/DL Blood Urea Nitrogen 87 (H) 7 - 25 MG/DL Creatinine 3.77 (H) 0.4 - 1.24 MG/DL Calcium 8.6 8.5 - 10.6 MG/DL Total Protein 5.5 (L) 6.0 - 8.0 G/DL Total Bilirubin 0.5 0.3 - 1.2 MG/DL Albumin 2.9 (L) 3.5 - 5.0 G/DL Alk Phosphatase 88 25 - 110 U/L AST (SGOT) 3 (L) 7 - 40 U/L CO2 25 21 - 30 MMOL/L ALT (SGPT) <3 (L) 7 - 56 U/L Anion Gap 13 (H) 3 - 12 eGFR Non 17 (L) >60 mL/min Comment: The eGFR is not validated for use in drug dosing adjustments.Continue to use estimated creatinine clearance per dosing reference text.Please contact the Clinical Pharmacist for questions. eGFR 20 (L) >60 mL/min Comment: The eGFR is not validated for use in drug dosing adjustments.Continue to use estimated creatinine clearance per dosing reference text.Please contact the Clinical Pharmacist for questions. Specimen Performing Laboratory Blood [facility] [address] [place] [address] * CBC AND DIFF (07/23/2017 3:21 AM) Component Value Ref Range White Blood Cells 5.7 4.5 - 11.0 K/UL RBC 2.98 (L) 4.4 - 5.5 M/UL Hemoglobin 8.1 (L) 13.5 - 16.5 GM/DL Hematocrit 26.3 (L) 40 - 50 % MCV 88.3 80 - 100 FL MCH 27.4 26 - 34 PG MCHC 31.0 (L) 32.0 - 36.0 G/DL RDW 16.3 (H) 11 - 15 % Platelet Count 151 150 - 400 K/UL MPV 8.6 7 - 11 FL Neutrophils 84 (H) 41 - 77 % Lymphocytes 6 (L) 24 - 44 % Monocytes 8 4 - 12 % Eosinophils 1 0 - 5 % Basophils 1 0 - 2 % Absolute Neutrophil Count 4.80 1.8 - 7.0 K/UL Absolute Lymph Count 0.40 (L) 1.0 - 4.8 K/UL Absolute Monocyte Count 0.50 0 - 0.80 K/UL Absolute Eosinophil Count 0.00 0 - 0.45 K/UL Absolute Basophil Count 0.00 0 - 0.20 K/UL Specimen Performing Laboratory Blood [facility] [address] [place] [address] * PHOSPHORUS (07/23/2017 3:21 AM) Component Value Ref Range Phosphorus 5.8 (H) 2.0 - 4.0 MG/DL Specimen Performing Laboratory [facility] [address] [place] [address] * BASIC METABOLIC PANEL (07/22/2017 9:42 PM) Component Value Ref Range Sodium 129 (L) 137 - 147 MMOL/L Potassium 5.3 (H) 3.5 - 5.1 MMOL/L Chloride 90 (L) 98 - 110 MMOL/L CO2 26 21 - 30 MMOL/L Anion Gap 13 (H) 3 - 12 Glucose 75 70 - 100 MG/DL Blood Urea Nitrogen 83 (H) 7 - 25 MG/DL Creatinine 3.90 (H) 0.4 - 1.24 MG/DL Calcium 8.7 8.5 - 10.6 MG/DL eGFR Non 16 (L) >60 mL/min Comment: The eGFR is not validated for use in drug dosing adjustments.Continue to use estimated creatinine clearance per dosing reference text.Please contact the Clinical Pharmacist for questions. eGFR 19 (L) >60 mL/min Comment: The eGFR is not validated for use in drug dosing adjustments.Continue to use estimated creatinine clearance per dosing reference text.Please contact the Clinical Pharmacist for questions. Specimen Performing Laboratory [facility] [address] [place] [address] * US DOPPLER VENOUS W BETHANY ARANGO (07/22/2017 4:00 PM) Specimen Performing Laboratory Bilateral [facility]U RAD RESULTS Impressions No femoral/popliteal deep venous thrombosis in either lower extremity. Approved by Davis Booker M.D. on 07/22/2017 5:07 PM By my electronic signature, I attest that I have personally reviewed the images for this examination and formulated the interpretations and opinions expressed in this report Finalized by Ita Stapleton M.D. on 07/22/2017 5:14 PM. Dictated by Davis Booker M.D. on 07/22/2017 4:06 PM. Narrative Doppler lower extremity ultrasound Clinical Indication: 57-year-old male. Concern for DVT. Lower extremity swelling. Technique: Multiple grayscale sonographic images were obtained of both lower extremities with additional color and spectral Doppler acquisitions. Comparison: None Findings: The common femoral, upper saphenous, deep femoral, femoral, and popliteal veins of both lower extremities are patent and fully compressible without focal narrowing. No soft tissue mass or fluid collection is identified within visualized portions of the lower extremities. Procedure Note Interface, Radiant Results - 07/27/2017 8:15 AM CNC SET UP OPERATOR Doppler lower extremity ultrasound Clinical Indication: 57-year-old male. Concern for DVT. Lower extremity swelling. Technique: Multiple grayscale sonographic images were obtained of both lower extremities with additional color and spectral Doppler acquisitions. Comparison: None Findings: The common femoral, upper saphenous, deep femoral, femoral, and popliteal veins of both lower extremities are patent and fully compressible without focal narrowing. No soft tissue mass or fluid collection is identified within visualized portions of the lower extremities. IMPRESSION No femoral/popliteal deep venous thrombosis in either lower extremity. Approved by Davis Booker M.D. on 07/22/2017 5:07 PM By my electronic signature, I attest that I have personally reviewed the images for this examination and formulated the interpretations and opinions expressed in this report Finalized by Ita Stapleton M.D. on 07/22/2017 5:14 PM. Dictated by Davis Booker M.D. on 07/22/2017 4:06 PM. * MAGNESIUM (07/22/2017 1:09 PM) Component Value Ref Range Magnesium 2.2 1.6 - 2.6 mg/dL Specimen Performing Laboratory [facility] [address] [place] [address] * BASIC METABOLIC PANEL (07/22/2017 1:09 PM) Component Value Ref Range Sodium 129 (L) 137 - 147 MMOL/L Potassium 5.3 (H) 3.5 - 5.1 MMOL/L Chloride 91 (L) 98 - 110 MMOL/L CO2 28 21 - 30 MMOL/L Anion Gap 10 3 - 12 Glucose 92 70 - 100 MG/DL Blood Urea Nitrogen 86 (H) 7 - 25 MG/DL Creatinine 3.73 (H) 0.4 - 1.24 MG/DL Calcium 8.7 8.5 - 10.6 MG/DL eGFR Non 17 (L) >60 mL/min Comment: The eGFR is not validated for use in drug dosing adjustments.Continue to use estimated creatinine clearance per dosing reference text.Please contact the Clinical Pharmacist for questions. eGFR 20 (L) >60 mL/min Comment: The eGFR is not validated for use in drug dosing adjustments.Continue to use estimated creatinine clearance per dosing reference text.Please contact the Clinical Pharmacist for questions. Specimen Performing Laboratory [facility] [address] [place] [address] * BLOOD GASES, ARTERIAL (07/22/2017 10:52 AM) Component Value Ref Range pH-Arterial 7.29 (L) 7.35 - 7.45 pCO2-Arterial 60 (H) 35 - 45 MMHG pO2-Arterial 74 (L) 80 - 100 MMHG Base Excess-Arterial 1.0 MMOL/L O2 Sat-Arterial 94.5 (L) 95 - 99 % Tzzcfptrmjr-LCD-Oax 25.3 21 - 28 MMOL/L Specimen Performing Laboratory Blood, arterial - [facility] [address] [place] [address] * 2-D + DOPPLER ECHOCARDIOGRAM (07/22/2017 8:03 AM) Component Value Ref Range IVS 0.87 0.6 - 1.0 cm LVIDD 5.83 4.2 - 5.9 cm LVIDS 4.67 cm PW 0.84 0.6 - 1.0 cm TDI e' 0.12 m/s Right Ventricular Long 8.10 5.9 - 8.3 cm Diameter Right Ventricular Mid 2.72 1.9 - 3.5 cm Diameter LA size 4.21 3.0 - 4.0 cm LA volume 48.57 18 - 58 mL Right Atrial Area 17.29 <=18 cm2 Right Atrial Major 6.02 <=5.3 cm Dimension AV peak velocity 1.50 m/s MV Peak A Elmer 0.90 m/s MV Peak E Elmer PW 0.81 m/s Right Heart Systolic 1.84 cm Mmode TAPSE Right Ventricular Basal 3.99 2.5 - 4.1 cm Diameter Sinus 3.23 2.1 - 3.5 cm BSA 1.99 m2 FS 19.90 28 - 44 % EF 33.83 % Left Atrium Index 24.41 10 - 32 E/A ratio 0.90 E/E' ratio 6.75 TV rest pulmonary artery n/a mmHg pressure ECHO EF 50 % Specimen Performing Laboratory OTHER OUTSIDE LAB Narrative Normal chamber sizes. Borderline LV systolic function; LVEF 50%. No regional wall motion abnormalities. Mild mitral valve regurgitation. Unable to estimate PASP. Technically challenging study with poor endocardial definition. * PHOSPHORUS (07/22/2017 6:06 AM) Component Value Ref Range Phosphorus 5.2 (H) 2.0 - 4.0 MG/DL Specimen Performing Laboratory [facility] [address] [place] [address] * MAGNESIUM (07/22/2017 6:06 AM) Component Value Ref Range Magnesium 2.4 1.6 - 2.6 mg/dL Specimen Performing Laboratory [facility] [address] [place] [address] * BLOOD GASES, PERIPHERAL VENOUS (07/22/2017 6:06 AM) Component Value Ref Range pH-Venous 7.28 (L) 7.30 - 7.40 PCO2-Venous 63 (H) 36 - 50 MMHG PO2-Venous 50 (H) 33 - 48 MMHG Base Excess-Venous 1.5 MMOL/L O2 Sat-Venous 82.4 (H) 55 - 71 % Plppgacxwwq-MZC-Hyx 25.5 MMOL/L Specimen Performing Laboratory Blood, venous - [facility] [address] [place] [address] * CYCLOSPORINE TROUGH (07/22/2017 6:06 AM) Component Value Ref Range Cyclosporine 93 50 - 400 NG/ML Comment: Target concentrations vary by type of transplant, patient response, concomitant immunosuppression and post-transplant time interval.Test was performed on whole blood using VSporto QMS reagent and a Joaquin Yasmeen AU analyzer. Specimen Performing Laboratory [facility] [address] [place] [address] * COMPREHENSIVE METABOLIC PANEL (07/22/2017 6:06 AM) Component Value Ref Range Sodium 127 (L) 137 - 147 MMOL/L Potassium 5.0 3.5 - 5.1 MMOL/L Chloride 95 (L) 98 - 110 MMOL/L Glucose 76 70 - 100 MG/DL Blood Urea Nitrogen 81 (H) 7 - 25 MG/DL Creatinine 3.68 (H) 0.4 - 1.24 MG/DL Calcium 8.3 (L) 8.5 - 10.6 MG/DL Total Protein 5.5 (L) 6.0 - 8.0 G/DL Total Bilirubin 0.5 0.3 - 1.2 MG/DL Albumin 2.9 (L) 3.5 - 5.0 G/DL Alk Phosphatase 91 25 - 110 U/L AST (SGOT) 3 (L) 7 - 40 U/L CO2 28 21 - 30 MMOL/L ALT (SGPT) 4 (L) 7 - 56 U/L Anion Gap 4 3 - 12 eGFR Non 17 (L) >60 mL/min Comment: The eGFR is not validated for use in drug dosing adjustments.Continue to use estimated creatinine clearance per dosing reference text.Please contact the Clinical Pharmacist for questions. eGFR 21 (L) >60 mL/min Comment: The eGFR is not validated for use in drug dosing adjustments.Continue to use estimated creatinine clearance per dosing reference text.Please contact the Clinical Pharmacist for questions. Specimen Performing Laboratory [facility] [address] [place] [address] * CBC AND DIFF (07/22/2017 6:06 AM) Component Value Ref Range White Blood Cells 7.6 4.5 - 11.0 K/UL RBC 3.22 (L) 4.4 - 5.5 M/UL Hemoglobin 8.8 (L) 13.5 - 16.5 GM/DL Hematocrit 28.1 (L) 40 - 50 % MCV 87.3 80 - 100 FL MCH 27.3 26 - 34 PG MCHC 31.3 (L) 32.0 - 36.0 G/DL RDW 16.5 (H) 11 - 15 % Platelet Count 160 150 - 400 K/UL MPV 8.1 7 - 11 FL Neutrophils 87 (H) 41 - 77 % Lymphocytes 4 (L) 24 - 44 % Monocytes 6 4 - 12 % Eosinophils 2 0 - 5 % Basophils 1 0 - 2 % Absolute Neutrophil Count 6.60 1.8 - 7.0 K/UL Absolute Lymph Count 0.30 (L) 1.0 - 4.8 K/UL Absolute Monocyte Count 0.50 0 - 0.80 K/UL Absolute Eosinophil Count 0.10 0 - 0.45 K/UL Absolute Basophil Count 0.00 0 - 0.20 K/UL Specimen Performing Laboratory [facility] [address] [place] [address] * CHEST SINGLE VIEW (07/22/2017 4:38 AM) Specimen Performing Laboratory [facility] RAD RESULTS Impressions Stable chest radiograph with thick-walled cavitation in the right upper lobe with opacification of the right apex and no significant change in predominantly bibasilar pulmonary opacities. Approved by Doug Lozada M.D. on 07/22/2017 10:04 AM By my electronic signature, I attest that I have personally reviewed the images for this examination and formulated the interpretations and opinions expressed in this report Finalized by Ita Stapleton M.D. on 07/22/2017 10:21 AM. Dictated by Doug Lozada M.D. on 07/22/2017 9:04 AM. Narrative Procedure: CHEST SINGLE VIEW Clinical Indication: Dyspnea Comparison: Chest x-ray from one day prior Findings: Endotracheal tube, and gastric tube remain in similar position. The heart size and pulmonary vasculature are unremarkable. There is persistent thick walled cavitation in the right upper lobe with complete opacification of the right lung apex. No significant change in bilateral pulmonary opacities, basilar predominant. 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 The heart size and pulmonary vasculature are unremarkable. There is persistent thick walled cavitation in the right upper lobe with complete opacification of the right lung apex. No significant change in bilateral pulmonary opacities, basilar predominant. IMPRESSION Stable chest radiograph with thick-walled cavitation in the right upper lobe with opacification of the right apex and no significant change in predominantly bibasilar pulmonary opacities. Approved by Doug Lozada M.D. on 07/22/2017 10:04 AM By my electronic signature, I attest that I have personally reviewed the images for this examination and formulated the interpretations and opinions expressed in this report Finalized by Ita Stapleton M.D. on 07/22/2017 10:21 AM. Dictated by Doug Lozada M.D. on 07/22/2017 9:04 AM. * MAGNESIUM (07/22/2017 12:09 AM) Component Value Ref Range Magnesium 2.8 (H)Comment: SLT HEMOLYSIS 1.6 - 2.6 mg/dL Specimen Performing Laboratory [facility] [address] [place] [address] * BASIC METABOLIC PANEL (07/22/2017 12:09 AM) Component Value Ref Range Sodium 127 (L) 137 - 147 MMOL/L Potassium 5.0Comment: SLT HEMOLYSIS 3.5 - 5.1 MMOL/L Chloride 92 (L) 98 - 110 MMOL/L CO2 27 21 - 30 MMOL/L Anion Gap 8 3 - 12 Glucose 106 (H) 70 - 100 MG/DL Blood Urea Nitrogen 81 (H) 7 - 25 MG/DL Creatinine 3.48 (H) 0.4 - 1.24 MG/DL Calcium 8.5 8.5 - 10.6 MG/DL eGFR Non 18 (L) >60 mL/min Comment: The eGFR is not validated for use in drug dosing adjustments.Continue to use estimated creatinine clearance per dosing reference text.Please contact the Clinical Pharmacist for questions. eGFR 22 (L) >60 mL/min Comment: The eGFR is not validated for use in drug dosing adjustments.Continue to use estimated creatinine clearance per dosing reference text.Please contact the Clinical Pharmacist for questions. Specimen Performing Laboratory [facility] [address] [place] [address] * UREA NITROGEN-URINE RANDOM (07/21/2017 9:49 PM) Component Value Ref Range Urea Nitrogen 245 MG/DL Specimen Performing Laboratory U[facility] [address] [place] [address] * SODIUM-URINE RANDOM (07/21/2017 9:49 PM) Component Value Ref Range Sodium, Random 80 MMOL/L Specimen Performing Laboratory U[facility] [address] [place] [address] * CREATININE-URINE RANDOM (07/21/2017 9:49 PM) Component Value Ref Range Creatinine, Random 44 MG/DL Specimen Performing Laboratory U[facility] [address] [place] [address] * TROPONIN-I (07/21/2017 9:19 PM) Component Value Ref Range Troponin-I 0.03 0.0 - 0.05 NG/ML Specimen Performing Laboratory [facility] [address] [place] [address] * CHEST SINGLE VIEW (07/21/2017 7:24 PM) Specimen Performing Laboratory [facility] RESULTS Impressions 1.No significant change in bilateral, basilar predominant pulmonary opacities. 2.Redemonstration of thick-walled cavitation and opacification in the right lung apex. 3.Small bilateral pleural effusions. Approved by Christine Guo M.D. on 07/22/2017 9:40 AM By my electronic signature, I attest that I have personally reviewed the images for this examination and formulated the interpretations and opinions expressed in this report Finalized by Ita Stapleton M.D. on 07/22/2017 10:21 AM. Dictated by Christine Guo M.D. on 07/22/2017 8:41 AM. Narrative CHEST SINGLE VIEW Clinical Indication: Male, 57 years old. Dyspnea Comparison: Chest radiograph from earlier the same day Findings: Endotracheal tube and gastric tube remain in place. The heart size is normal without pulmonary vascular congestion. Emphysematous changes are again noted. Thick-walled cavitation in the right upper lobe with complete opacification of the right lung apex are redemonstrated. Mixed opacities throughout both lungs not significantly changed, greatest in the lung bases. Small bilateral pleural effusions are present. No pneumothorax is identified. Procedure Note Interface, Radiant Results - 07/22/2017 10:24 AM CNC SET UP OPERATOR CHEST SINGLE VIEW Clinical Indication: Male, 57 years old. Dyspnea Comparison: Chest radiograph from earlier the same day Findings: Endotracheal tube and gastric tube remain in place. The heart size is normal without pulmonary vascular congestion. Emphysematous changes are again noted. Thick-walled cavitation in the right upper lobe with complete opacification of the right lung apex are redemonstrated. Mixed opacities throughout both lungs not significantly changed, greatest in the lung bases. Small bilateral pleural effusions are present. No pneumothorax is identified. IMPRESSION 1. No significant change in bilateral, basilar predominant pulmonary opacities. 2. Redemonstration of thick-walled cavitation and opacification in the right lung apex. 3. Small bilateral pleural effusions. Approved by Christine Guo M.D. on 07/22/2017 9:40 AM By my electronic signature, I attest that I have personally reviewed the images for this examination and formulated the interpretations and opinions expressed in this report Finalized by Ita Stapleton M.D. on 07/22/2017 10:21 AM. Dictated by Christine Guo M.D. on 07/22/2017 8:41 AM. * HISTOPLASMA AG-URINE RANDOM (07/21/2017 6:39 PM) Component Value Ref Range Histo Wheat Ag NONE DETECTED ng/mL Comment: NEGATIVE SEE AGILE JAVA DEVELOPER FOR REPORT Specimen Performing Laboratory Urine REFERENCE [facility] * TROPONIN-I (07/21/2017 6:39 PM) Component Value Ref Range Troponin-I 0.04 0.0 - 0.05 NG/ML Specimen Performing Laboratory [facility] [address] [place], [place] [id number] * LEGIONELLA ANTIGEN URINE,RAN (07/21/2017 6:16 PM) Component Value Ref Range Battery Name LEGIONELLA URINE ANTIGEN Specimen Description URINE Special Requests NONE Antigen NEGATIVE Report Status FINAL 07/21/2017 Specimen Performing Laboratory Urine [facility] [address] [place] [address] * STREPTOCOCCUS PNEUMO AG, URINE (07/21/2017 6:16 PM) Component Value Ref Range Battery Name STREP PNEUMO AG, UR Specimen Description URINE Special Requests NONE Antigen NEGATIVE Report Status FINAL 07/21/2017 Specimen Performing Laboratory Urine [facility] [address] [place] [address] * CULTURE-BLOOD W/SENSITIVITY (07/21/2017 6:04 PM) Component Value Ref Range Battery Name BLOOD CULTURE Specimen Description BLOOD LEFT FA Special Requests NONE Culture NO GROWTH 5 DAYS Report Status FINAL 07/27/2017 Specimen Performing Laboratory [facility] [address] [place] [address] * LACTIC ACID (BG - RAPID LACTATE) (07/21/2017 5:41 PM) Component Value Ref Range Lactic Acid,BG 0.7 0.5 - 2.0 MMOL/L Specimen Performing Laboratory [facility] [address] [place] [address] * BLOOD GASES, ARTERIAL (07/21/2017 5:41 PM) Component Value Ref Range pH-Arterial 7.32 (L) 7.35 - 7.45 pCO2-Arterial 56 (H) 35 - 45 MMHG pO2-Arterial 61 (L) 80 - 100 MMHG Base Excess-Arterial 1.9 MMOL/L O2 Sat-Arterial 91.1 (L) 95 - 99 % Gbhkphhwpuq-VLF-Cmq 26.0 21 - 28 MMOL/L Specimen Performing Laboratory Blood, arterial - [facility] [address] [place] [address] * GRAM STAIN (07/21/2017 5:22 PM) Component Value Ref Range Battery Name GRAM STAIN Specimen Description SPUTUM Special Requests NONE Gram Stain 10-25/LPF NEUTROPHILS LESS THAN 10/LPF SQUAMOUS EPITHELIAL CELLS NO ORGANISMS SEEN Report Status FINAL 07/21/2017 Specimen Performing Laboratory Sputum [facility] [address] [place] [address] * CULTURE-RESP,LOWER W/SENSITIVITY (07/21/2017 5:22 PM) Component Value Ref Range Battery Name LOWER RESP CULTURE Specimen Description SPUTUM Special Requests NONE Direct Gram Stain 10-25/LPF NEUTROPHILS LESS THAN 10/LPF SQUAMOUS EPITHELIAL CELLS NO ORGANISMS SEEN Culture Light growth NORMAL OROPHARYNGEAL SAMIRA Report Status FINAL 07/23/2017 Specimen Performing Laboratory Sputum [facility] [address] [place], [place] [id number] * HISTOPLASMA AG, SERUM (07/21/2017 5:20 PM) Component Value Ref Range Result, Histoplasma None Detected AG,Serum Unit: ng/mL Comment, Histoplasma Negative AG,Serum ADDITIONAL INFORMATION Reference interval: None Detected Results reported as ng/mL in 0.4 - 19 ng/mL range Results above the limit of detection but below 0.4 ng/mL are reported as 'Positive, Below the Limit of Quantification' Results above 19.0 ng/mL are reported as 'Positive, Above the Limit of Quantification' This test was developed and its performance characteristics determined by [facility]. It has not been cleared or approved by the FDA; however, FDA clearance or approval is not currently required for clinical use. The results are not intended to be used as the sole means for clinical diagnosis or patient management decisions. Test Performed by: [facility] [address] [facility] [place] [address] Specimen Performing Laboratory REFERENCE LAB * PROCALCITONIN (07/21/2017 5:20 PM) Component Value Ref Range Procalcitonin 0.22 (H) <0.10 NG/ML Specimen Performing Laboratory [facility] [address] [place] [address] * RVP VIRAL PANEL PCR (07/21/2017 5:20 PM) Component Value Ref Range Specimen Source NASOPHARYNGEAL SWAB Adenovirus NOT DETECTED Coronavirus 229E NOT DETECTED [...] Pneumoniae NOT DETECTED Mycoplasma Pneumoniae NOT DETECTED Specimen Performing Laboratory Nasopharyngeal Swab [facility] [address] [place] [address] * ASPERGILLUS (GALACTOMANNAN) AG (07/21/2017 5:20 PM) Component Value Ref Range Aspergillus Galactomann 0.099 AG Comment: Reference Value: Index value less than 0.5.- Interpretation:- Patients with an index value of greater than or equal to 0.5 are considered to be positive for galactomannan antigen.-The Platelia(TM) Aspergillus EIA package insert also recommends a new sample be collected from the patient for follow-up testing.-Patients with an index value of less than 0.5 are considered to be negative for galactomannan antigen.-A negative result may indicate that the patients result is below the detectable level of the assay.- Negative results do not rule out the diagnosis of Invasive Aspergillosis.-Pursuant to the package insert, repeat testing is recommended if the result is negative, but the disease is suspected. Due to the potential for environmental contamination when transferred to pour-off tubes, which can lead to false positive results, interpret positive results from samples provided in pour-off tubes with caution.-Results should be used in conjunction with clinical findings, and should not form the sole basis for a diagnosis or treatment decision.- The Platelia Aspergillus Galactomannan EIA is a product of [employer] and is FDA approved for in vitro diagnostic use. Testing Performed At: [email or web address] [address] [place] [address] [place] [id number] CLIA ID: [id number] Specimen Performing Laboratory Blood REFERENCE [facility] * FUNGITELL (07/21/2017 5:20 PM) Component Value Ref Range Fungitell 32 Comment: Reference range: <80 Unit: pg/mL Interpretation: The Fungitell assay does not detect certain fungal species such as the genus Cryptococcus (Lucian et al. 1991) which produces very low levels of (1-3)-Bdqu-G-Aqpacd. The assay also does not detect the Zygomycetes such as Absidia, Mucor and Rhizopus (Tova et al. 1994) which are not known to produce (1-3)-Rwwu-G-Apilak. In addition, the yeast phase of Blastomyces dermatitidis produces little (1-3)-Yjtb-D-Clgfnm and may not be detected by the assay (Kathy et al. 2007). Reference Range: Less than 60 pg/mL. Glucan values of less than 60 pg/mL are interpreted as negative. Glucan values of 60 to 79 pg/mL are interpreted as indeterminate, and suggest a possible fungal infection. Additional sampling and testing of sera is required to interpret the results. Glucan values of greater than or equal to 80 pg/mL are interpreted as positive. Due to the potential for environmental contamination when transferred to pour-off tubes, which can lead to false positive results, interpret positive results from samples provided in pour-off tubes with caution. Results should be used in conjunction with clinical findings, and should not form the sole basis for a diagnosis or treatment decision. The Fungitell test is approved or cleared for in vitro diagnostic use by the U.[place] Food and Drug Administration. Modifications to the approved package insert have been made and the performance characteristics for these modifications were determined by [email or web address]. If sample result is greater than 500 pg/mL, physician may order a titer of the sample. Please contact [email or web address] if you would like to order a retest of this sample to obtain an actual value. Samples are held for 1 week after initial testing date. Testing Performed At: [email or web address] [place] [address] CLIA ID: [id number] Specimen Performing Laboratory Blood REFERENCE [facility] * CHEST SINGLE VIEW (07/21/2017 4:46 PM) Specimen Performing Laboratory [facility] RAD RESULTS Impressions 1.Endotracheal tube as described. 2.Persistent thick-walled cavitation in the right upper lobe with opacification of the right apex. 3.Increasing opacities in the lungs bilaterally, predominantly involving the bases, likely reflecting edema and/or pneumonia. Approved by Doug Lozada M.D. on 07/21/2017 5:20 PM By my electronic signature, I attest that I have personally reviewed the images for this examination and formulated the interpretations and opinions expressed in this report Finalized by Ita Stapleton M.D. on 07/22/2017 8:11 AM. Dictated by Doug Lozada M.D. on 07/21/2017 5:17 PM. Narrative Procedure: CHEST SINGLE VIEW Clinical Indication: Intubated Comparison: CT chest December 10, 2016 Findings: The lung bases are not fully included on this bhgmd-le-yrlj. Endotracheal tube is in place with tip well above the carlito. A gastric tube is in place coursing below the diaphragm and tip not included on this cbedb-ni-qsmn. The heart size and pulmonary vasculature are unremarkable. There is persistent thick-walled cavitation in the upper lobe with complete opacification of the right apex. There is increased opacities in the lungs bilaterally, basilar predominant. 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 Endotracheal tube is in place with tip well above the carlito. A gastric tube is in place coursing below the diaphragm and tip not included on this bcgta-yk-iraz. The heart size and pulmonary vasculature are unremarkable. There is persistent thick-walled cavitation in the upper lobe with complete opacification of the right apex. There is increased opacities in the lungs bilaterally, basilar predominant. IMPRESSION 1. Endotracheal tube as described. 2. Persistent thick-walled cavitation in the right upper lobe with opacification of the right apex. 3. Increasing opacities in the lungs bilaterally, predominantly involving the bases, likely reflecting edema and/or pneumonia. Approved by Doug Lozada M.D. on 07/21/2017 5:20 PM By my electronic signature, I attest that I have personally reviewed the images for this examination and formulated the interpretations and opinions expressed in this report Finalized by Ita Stapleton M.D. on 07/22/2017 8:11 AM. Dictated by Doug Lozada M.D. on 07/21/2017 5:17 PM. * BNP (B-TYPE NATRIURETIC PEPTI) (07/21/2017 4:45 PM) Component Value Ref Range B Type Natriuretic 563.0 (H) 0 - 100 PG/ML Peptide Specimen Performing Laboratory [facility] [address] [place] [address] * URINALYSIS, MICROSCOPIC (07/21/2017 4:40 PM) Component Value Ref Range WBCs,UA NONE 0 - 2 /HPF RBCs,UA NONE 0 - 3 /HPF Specimen Performing Laboratory Urine [facility] [address] [place] [address] * URINALYSIS DIPSTICK (07/21/2017 4:40 PM) Component Value Ref Range Color,UA YELLOW Turbidity,UA 1+ (A) CLEAR-CLEAR Specific [place]-Urine 1.014 1.003 - 1.035 pH,UA 5.0 5.0 - 8.0 Protein,UA 2+ (A) NEG-NEG Glucose,UA NEG NEG-NEG Ketones,UA NEG NEG-NEG Bilirubin,UA NEG NEG-NEG Blood,UA 1+ (A) NEG-NEG Urobilinogen,UA NORMAL NORM-NORMAL Nitrite,UA NEG NEG-NEG Leukocytes,UA NEG NEG-NEG Urine Ascorbic Acid, UA NEG NEG-NEG Specimen Performing Laboratory Urine [facility]IN [facility] [address] [place] [address] * POC GLUCOSE (07/21/2017 4:39 PM) Component Value Ref Range Glucose, POC 84 70 - 100 MG/DL Specimen Performing Laboratory MAIN LAB [address] [place] [id number] * TROPONIN-I (07/21/2017 4:38 PM) Component Value Ref Range Troponin-I 0.03 0.0 - 0.05 NG/ML Specimen Performing Laboratory Blood MAIN LAB [address] [place] [id number] * PHOSPHORUS (07/21/2017 4:38 PM) Component Value Ref Range Phosphorus 4.6 (H) 2.0 - 4.0 MG/DL Specimen Performing Laboratory Blood MAIN LAB [address] [place] [id number] * MAGNESIUM (07/21/2017 4:38 PM) Component Value Ref Range Magnesium 1.2 (L) 1.6 - 2.6 mg/dL Specimen Performing Laboratory Blood MAIN LAB [address] [place] [id number] * COMPREHENSIVE METABOLIC PANEL (07/21/2017 4:38 PM) Component Value Ref Range Sodium 131 (L) 137 - 147 MMOL/L Potassium 4.8 3.5 - 5.1 MMOL/L Chloride 94 (L) 98 - 110 MMOL/L Glucose 79 70 - 100 MG/DL Blood Urea Nitrogen 81 (H) 7 - 25 MG/DL Creatinine 3.61 (H) 0.4 - 1.24 MG/DL Calcium 8.7 8.5 - 10.6 MG/DL Total Protein 5.8 (L) 6.0 - 8.0 G/DL Total Bilirubin 0.6 0.3 - 1.2 MG/DL Albumin 3.2 (L) 3.5 - 5.0 G/DL Alk Phosphatase 100 25 - 110 U/L AST (SGOT) <3 (L) 7 - 40 U/L CO2 28 21 - 30 MMOL/L ALT (SGPT) 3 (L) 7 - 56 U/L Anion Gap 9 3 - 12 eGFR Non 17 (L) >60 mL/min Comment: The eGFR is not validated for use in drug dosing adjustments.Continue to use estimated creatinine clearance per dosing reference text.Please contact the Clinical Pharmacist for questions. eGFR 21 (L) >60 mL/min Comment: The eGFR is not validated for use in drug dosing adjustments.Continue to use estimated creatinine clearance per dosing reference text.Please contact the Clinical Pharmacist for questions. Specimen Performing Laboratory Blood MAIN LAB [address] [place] [address] * PTT (APTT) (07/21/2017 4:38 PM) Component Value Ref Range APTT 30.8 21.0 - 39.0 SEC Specimen Performing Laboratory Blood MAIN LAB [address] [place] [address] * PROTIME INR (PT) (07/21/2017 4:38 PM) Component Value Ref Range INR 1.0 0.8 - 1.2 Specimen Performing Laboratory Blood MAIN LAB [address] [place] [id number] * CBC AND DIFF (07/21/2017 4:38 PM) Component Value Ref Range White Blood Cells 5.1 4.5 - 11.0 K/UL RBC 3.11 (L) 4.4 - 5.5 M/UL Hemoglobin 8.6 (L) 13.5 - 16.5 GM/DL Hematocrit 27.5 (L) 40 - 50 % MCV 88.5 80 - 100 FL MCH 27.8 26 - 34 PG MCHC 31.5 (L) 32.0 - 36.0 G/DL RDW 16.1 (H) 11 - 15 % Platelet Count 151 150 - 400 K/UL MPV 8.3 7 - 11 FL Neutrophils 76 41 - 77 % Lymphocytes 11 (L) 24 - 44 % Monocytes 10 4 - 12 % Eosinophils 3 0 - 5 % Basophils 0 0 - 2 % Absolute Neutrophil Count 3.90 1.8 - 7.0 K/UL Absolute Lymph Count 0.60 (L) 1.0 - 4.8 K/UL Absolute Monocyte Count 0.50 0 - 0.80 K/UL Absolute Eosinophil Count 0.20 0 - 0.45 K/UL Absolute Basophil Count 0.00 0 - 0.20 K/UL Specimen Performing Laboratory Blood MAIN LAB [address] [place] [id number] * GENERAL RAD CHEST EXTERNAL IMAGING (07/21/2017 12:15 AM) Narrative This order has been auto finalized and does not contain a result. * GENERAL RAD CHEST EXTERNAL IMAGING (07/21/2017) Narrative This order has been auto finalized and does not contain a result. * GENERAL RAD CHEST EXTERNAL IMAGING (07/20/2017) Narrative This order has been auto finalized and does not contain a result. 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 Given 07/26/2017 2.5 mg 17:13 CNC SET UP OPERATOR Given 07/27/2017 2.5 mg 05:54 CNC SET UP OPERATOR albuterol 0.5% (PROVENTIL; VENTOLIN) Given 07/25/2017 2.5 mg nebulizer solution 2.5 mg 00:03 CNC SET UP OPERATOR 2.5 mg, Inhalation, RT EVERY 4 HOURS AND PRN, First dose on Thu07/21/17 at 2000, Until Discontinued, ADMINISTERED BY RT Given 07/25/2017 2.5 mg 04:37 CNC SET UP OPERATOR Given 07/25/2017 2.5 mg 09:02 CNC SET UP OPERATOR budesonide/formoterol (SYMBICORT HFA) Given 07/26/2017 2 puffs 160/4.5 mcg inhalation 2 puff 05:44 CNC SET UP OPERATOR 2 puff, Inhalation, RT TWICE DAILY, First dose on Thu07/21/17 at 1845, Until Discontinued, When administered by RT, will be per RT policy. Given 07/26/2017 2 puffs 17:19 CNC SET UP OPERATOR Given 07/27/2017 2 puffs 05:56 CNC SET UP OPERATOR carvedilol (COREG) tablet 25 mg Given 07/27/2017 25 mg 25 mg, Oral, TWICE DAILY, First dose on 13:15 CNC SET UP OPERATOR 07/27/17 at 1300, Until Discontinued, Hold for heart rate < 60 bpm or systolic BP < 90 chlorhexidine gluconate (PERIDEX) 0.12 % Given 07/22/2017 15 mL solution 15 mL 20:10 CNC SET UP OPERATOR 15 mL, Swish & Spit, TWICE DAILY, First dose on Thu07/21/17 at 2100, Until Discontinued Given 07/23/2017 15 mL 08:28 CNC SET UP OPERATOR Given 07/23/2017 15 mL 20:03 CNC SET UP OPERATOR cycloSPORINE (GENGRAF) capsule 25 mg Given 07/25/2017 25 mg 25 mg, Oral, ONCE, 1 dose, 07/25/17 15:04 CNC SET UP OPERATOR at 1445, For Trough Cyclosporine Drug levels: - Draw Cyclosporine level 30 min prior to dose cycloSPORINE (GENGRAF) capsule 25 mg Given 07/26/2017 25 mg 25 mg, Oral, TWICE DAILY, First dose on 08:16 CNC SET UP OPERATOR 07/25/17 at 2100, Until Discontinued, For Trough Cyclosporine Drug levels: - Draw Cyclosporine level 30 min prior to dose Given 07/26/2017 25 mg 20:37 CNC SET UP OPERATOR Given 07/27/2017 25 mg 08:03 CNC SET UP OPERATOR cycloSPORINE (GENGRAF) capsule 50 mg Given 07/24/2017 50 mg 50 mg, Oral, TWICE DAILY, First dose on 11:24 CNC SET UP OPERATOR 07/24/17 at 1030, Until Discontinued, For Trough Cyclosporine Drug levels: - Draw Cyclosporine level 30 min prior to dose cycloSPORINE (GENGRAF) capsule 75 mg Given 07/22/2017 75 mg 75 mg, Oral, TWICE DAILY, First dose on 15:45 CNC SET UP OPERATOR 07/22/17 at 1400, Until Discontinued, For Trough Cyclosporine Drug levels: - Draw Cyclosporine level 30 min prior to dose Given 07/22/2017 75 mg 20:10 CNC SET UP OPERATOR cycloSPORINE (NEORAL) oral solution 50 Given 07/23/2017 50 mg mg 10:50 CNC SET UP OPERATOR 50 mg, Per OG Tube, TWICE DAILY, First dose on Vidhi 07/23/17 at 0945, Until Discontinued, VIA TUBE -- ADMIN. OF CSA LIQUID VIA FEEDING TUBE -- 1) Medication must be diluted in approx. 120ml water for administration. 2) Diluting liquid must be at room temperature. 3) Mix medication well with about 60ml of the liquid using a plastic spoon in a 270mL plastic graduated cup (NO styrofoam) and administer down tube. 4) Rinse the container with the remainder of the water and rinse down tube. For Trough Cyclosporine Drug levels: - Draw Cyclosporine level 60 min prior to dose Given 07/23/2017 50 mg 20:04 CNC SET UP OPERATOR DEXTROSE 5% IN WATER IV SOLP (Cabinet Given - New 07/23/2017 250 mL Override) Bag 19:57 CNC SET UP OPERATOR NOW, 1 dose, [facility] 07/23/17 at 2000, Created by cabinet override fentaNYL (SUBLIMAZE) 1000 mcg/ NS 100 mL Given - New 07/21/2017 20 mcg/ hr 2 mL/hr IV infusion (std conc)(premade) Bag 18:31 CNC SET UP OPERATOR 10-100 mcg/hr (1-10 mL/hr) 100 mL, at 1-10 mL/hr, Intravenous, TITRATE DIRECTED , Starting Thu07/21/17 at 1745, Until Thu07/24/17 at 0925, Loading dose 50 mcg (50-150 mcg), administer slowly Initiate at 10 mcg/hr Titrate to keep: Pain score of <=4 Bolus 25 mcg (25-50 mcg) IV and/or increase infusion by 5-20 mcg/hr prn breakthrough pain. Recommend titrate every 15 minutes as needed. Std Conc=10mcg/mL. NOTE: This is a HIGH ALERT Medication. Given - New Bag 07/22/2017 30 mcg/hr 3 mL/hr 18:54 CNC SET UP OPERATOR FENTANYL CITRATE (PF) 50 MCG/ML IJ SOLN (Cabinet Override) NOW, 1 dose, Thu07/21/17 at 1700, Created by cabinet override fentaNYL citrate PF (SUBLIMAZE) Given 07/21/2017 50 mcg injection 50 mcg 16:55 CNC SET UP OPERATOR 50 mcg, Intravenous, ONCE, 1 dose, Thu07/21/17 at 1700 furosemide (LASIX) 500 mg/ 50 mL IV drip Given - New 07/21/2017 5 mg/hr 0.5 mL/hr (max conc) Bag 19:15 CNC SET UP OPERATOR Intravenous, 10 mg/hr (1 mL/hr), 50 mL, at 1 mL/hr, CONTINUOUS, Starting Thu07/21/17 at 1900, Until Thu07/24/17 at 0925, Initiate at 5 mg/hr Titrate to keep: Do NOT titrate Max Conc=10mg/ml -- PROTECT FROM LIGHT Dose/Rate Change 07/22/2017 10 mg/hr 1 mL/hr 02:40 CNC SET UP OPERATOR Given - New Bag 07/22/2017 10 mg/hr 1 mL/hr 20:28 CNC SET UP OPERATOR furosemide (LASIX) injection 80 mg Given 07/21/2017 80 mg 80 mg, Intravenous, ONCE, 1 dose, Thu 19:16 CNC SET UP OPERATOR 07/21/17 at 1830, For hyperkalemia furosemide (LASIX) injection 80 mg Given 07/22/2017 80 mg 80 mg, Intravenous, ONCE, 1 dose, Thu 02:44 CNC SET UP OPERATOR 07/22/17 at 0245, PROTECT FROM LIGHT furosemide (LASIX) injection 80 mg Given 07/25/2017 80 mg 80 mg, Intravenous, TWICE DAILY, First 08:02 CNC SET UP OPERATOR dose on Thu07/24/17 at 1030, Until Discontinued, PROTECT FROM LIGHT Given 07/25/2017 80 mg 17:14 CNC SET UP OPERATOR Given 07/26/2017 80 mg 08:16 CNC SET UP OPERATOR furosemide (LASIX) tablet 80 mg Given 07/26/2017 80 mg 80 mg, Oral, TWICE DAILY, First dose on 16:00 CNC SET UP OPERATOR 07/26/17 at 1700, Until Discontinued Given 07/27/2017 80 mg 08:03 CNC SET UP OPERATOR heparin (porcine) PF syringe 5,000 Units Given 07/26/2017 5,000 Units Arm, Right 5,000 Units, Subcutaneous, EVERY 8 21:42 CNC SET UP OPERATOR HOURS, First dose on Thu07/21/17 at 2200, Until Discontinued, NOTE: This is a HIGH ALERT Medication. Given 07/27/2017 5,000 Units Abdominal 06:10 CNC SET UP OPERATOR Tissue Given 07/27/2017 5,000 Units Arm, Right 13:15 CNC SET UP OPERATOR ipratropium bromide (ATROVENT) 0.02 % Given 07/25/2017 0.5 mg nebulizer solution 0.5 mg 00:03 CNC SET UP OPERATOR 0.5 mg, Inhalation, RT EVERY 4 HOURS AND PRN, First dose on Thu07/21/17 at 2000, Until Discontinued, ADMINISTERED BY RT Given 07/25/2017 0.5 mg 04:37 CNC SET UP OPERATOR Given 07/25/2017 0.5 mg 09:02 CNC SET UP OPERATOR levofloxacin (LEVAQUIN) 750 mg/150 mL Given - New 07/21/2017 750 mg IVPB Bag 19:48 CNC SET UP OPERATOR 750 mg, 150 mL, Administer over 90 Minutes, Intravenous, EVERY 24 HOURS, First dose on Thu07/21/17 at 2000, Until Discontinued levofloxacin (LEVAQUIN) 750 mg/150 mL Given - New 07/23/2017 750 mg IVPB Bag 19:56 CNC SET UP OPERATOR 750 mg, 150 mL, Administer over 90 Minutes, Intravenous, EVERY 48 HOURS, 2 doses, First dose on Thu07/23/17 at 2000, Last dose on Thu07/25/17 at 2000 Given - New Bag 07/25/2017 750 mg 20:12 CNC SET UP OPERATOR lidocaine (LIDODERM) 5 % topical patch 1 patch 1 patch, Topical, Administer over 12 Hours, DAILY, First dose on Thu07/23/17 at 2045, Until Discontinued, NURSING PLEASE NOTE: Apply patch ONCE DAILY to area of back pain and REMOVE after designated duration. Apply only to intact skin. Patch may be cut to fit affected area. magnesium sulfate 1 g/D5W 100 mL IVPB Given - 07/21/2017 1 g 100 mL/hr 1 g, Intravenous, 100 mL, Administer Bag 21:11 CNC SET UP OPERATOR over 1 Hours, EVERY 1 HOUR FOR 4 DOSES, 4 doses, First dose on Thu07/21/17 at 1900, Last dose on Thu07/21/17 at 2200, Each 1gm delivers 8.1 mEq Magnesium. Given - New Bag 07/21/2017 1 g 100 mL/hr 22:02 CNC SET UP OPERATOR Given - New Bag 07/21/2017 1 g 100 mL/hr 23:04 CNC SET UP OPERATOR melatonin tablet 5 mg Given 07/24/2017 5 mg 5 mg, Oral, AT BEDTIME DAILY, First dose 20:37 CNC SET UP OPERATOR on Thu07/23/17 at 2100, Until Discontinued Given 07/25/2017 5 mg 20:12 CNC SET UP OPERATOR Given 07/26/2017 5 mg 20:36 CNC SET UP OPERATOR mycophenolate DR (MYFORTIC) tablet 360 Given 07/22/2017 360 mg mg 15:45 CNC SET UP OPERATOR 360 mg, Oral, TWICE DAILY, First dose on Thu07/22/17 at 1400, Until Discontinued, NURSING: Please educate patient and document: Give with food. Do not administer within 2 hours of antacids, magnesium, calcium, iron, or zinc. NOTE: If or wanting to become , do not touch broken tablets without gloves due to risk of defects. Given 07/22/2017 360 mg 20:11 CNC SET UP OPERATOR mycophenolate DR (MYFORTIC) tablet 360 Given 07/26/2017 360 mg mg 08:16 CNC SET UP OPERATOR 360 mg, Oral, TWICE DAILY, First dose on Thu07/24/17 at 1030, Until Discontinued, NURSING: Please educate patient and document: Give with food. Do not administer within 2 hours of antacids, magnesium, calcium, iron, or zinc. NOTE: If or wanting to become , do not touch broken tablets without gloves due to risk of defects. Given 07/26/2017 360 mg 20:36 CNC SET UP OPERATOR Given 07/27/2017 360 mg 08:03 CNC SET UP OPERATOR mycophenolate mofetil (CELLCEPT) oral Given 07/23/2017 500 mg suspension 500 mg 10:46 CNC SET UP OPERATOR 500 mg, Oral, TWICE DAILY, First dose on Vidhi 07/23/17 at 0945, Until Discontinued, NURSING: Please educate patient and document: Give with food. Do not administer within 2 hours of antacids, magnesium, calcium, iron, or zinc. NOTE: If or wanting to become , avoid contact with skin due to risk of defects. Given 07/23/2017 500 mg 20:04 CNC SET UP OPERATOR nystatin (MYCOSTATIN) oral suspension Given 07/26/2017 500,000 500,000 Units 20:36 CNC SET UP OPERATOR Units 500,000 Units, Swish & Swallow, FOUR TIMES DAILY, First dose on Thu07/24/17 at 2215, Until Discontinued Given 07/27/2017 500,000 08:04 CNC SET UP OPERATOR Units Given 07/27/2017 500,000 13:15 CNC SET UP OPERATOR Units oseltamivir (TAMIFLU) capsule 30 mg Given 07/21/2017 30 mg 30 mg, Oral, TWICE DAILY, First dose on 20:17 CNC SET UP OPERATOR 07/21/17 at 2100, Until Discontinued oxyCODONE (ROXICODONE, OXY-IR) tablet 5 mg 5 mg, Oral, EVERY 4 HOURS PRN, Starting Vidhi 07/23/17 at 1935, Until Thu07/27/17 at 1746, Pain PO pantoprazole (PROTONIX) injection 40 mg Given 07/21/2017 40 mg 40 mg, Intravenous, DAILY, First dose on 21:22 CNC SET UP OPERATOR 07/21/17 at 2100, Until Discontinued Given 07/22/2017 40 mg 20:11 CNC SET UP OPERATOR Given 07/23/2017 40 mg 20:03 CNC SET UP OPERATOR pantoprazole DR (PROTONIX) tablet 40 mg Given 07/24/2017 40 mg 40 mg, Oral, DAILY, First dose on Thu 22:37 CNC SET UP OPERATOR 07/24/17 at 2030, Until Discontinued, Do not crush or chew tablet. Given 07/25/2017 40 mg 17:14 CNC SET UP OPERATOR Given 07/26/2017 40 mg 15:54 CNC SET UP OPERATOR perflutren lipid microspheres (DEFINITY) Given 07/22/2017 1.5 Diluted injection 1-20 Diluted mL 08:00 CNC SET UP OPERATOR mL 1-20 Diluted mL, Intravenous, ONCE, 1 dose, Thu07/22/17 at 0745, NOTE: This is a HIGH ALERT Medication. polyethylene glycol 3350 (MIRALAX) Given 07/24/2017 17 g packet 17 g 11:24 CNC SET UP OPERATOR 17 g (1 packet), Oral, DAILY, First dose on Thu07/24/17 at 1045, Until Discontinued, 8.5 GRAMS=0.5 PACKET 17 GRAMS=1 PACKET 34 GRAMS=2 PACKETS Given 07/25/2017 17 g 08:02 CNC SET UP OPERATOR Given 07/27/2017 17 g 08:04 CNC SET UP OPERATOR prednisone (DELTASONE) tablet 10 mg Given 07/23/2017 10 mg 10 mg, Oral, DAILY, First dose on Thu 08:28 CNC SET UP OPERATOR 07/23/17 at 0900, Until Discontinued, Give with food prednisone (DELTASONE) tablet 5 mg Given 07/21/2017 5 mg 5 mg, Oral, DAILY, First dose on Thu 20:17 CNC SET UP OPERATOR 07/21/17 at 2000, Until Discontinued, Give with food Given 07/22/2017 5 mg 08:07 CNC SET UP OPERATOR prednisone (DELTASONE) tablet 5 mg Given 07/22/2017 5 mg 5 mg, Oral, ONCE, 1 dose, Thu07/22/17 at 10:25 CNC SET UP OPERATOR 1000, Give with food prednisone (DELTASONE) tablet 5 mg Given 07/25/2017 5 mg 5 mg, Oral, DAILY, First dose on Thu 08:02 CNC SET UP OPERATOR 07/24/17 at 0945, Until Discontinued, Give with food Given 07/26/2017 5 mg 08:16 CNC SET UP OPERATOR Given 07/27/2017 5 mg 08:03 CNC SET UP OPERATOR propofol (DIPRIVAN) 10 mg/mL IV infusion Infusion 07/22/2017 20 9.7 mL/ hr 5-150 mcg/kg/min Restarted 11:13 CNC SET UP OPERATOR mcg/kg/min 81.2 kg (2.436-73.08 mL/hr, rounded to 2.4-73.1 mL/hr) 100 mL, at 2.4-73.1 mL/hr, Intravenous, TITRATE DIRECTED , Starting Thu07/21/17 at 1715, Until Thu07/24/17 at 0925, -Initiate at 10 mcg/kg/min (No loading dose) -Titrate to keep: RASS of 0 to -2- -Increase in 5 mcg/kg/min increments every 1 minute to achieve goal sedation level. -Call physician if maintenance exceeds 150 mcg/kg/min -Taper agent continuously to lowest effective dose to achieve desired level of sedation keeping patient calm and able to participate in care. propofol (DIPRIVAN) 1000mg/100mL injection NOTE: This is a HIGH ALERT Medication. Given - New Bag 07/22/2017 20 9.7 mL/hr 18:54 CNC SET UP OPERATOR mcg/kg/min Given - New Bag 07/23/2017 20 9.7 mL/hr 03:42 CNC SET UP OPERATOR mcg/kg/min senna/docusate (SENOKOT-S) tablet 1 Given 07/26/2017 1 tablet tablet 08:16 CNC SET UP OPERATOR 1 tablet, Oral, TWICE DAILY, First dose on Thu07/24/17 at 1045, Until Discontinued, Hold for loose stools Given 07/26/2017 1 tablet 20:37 CNC SET UP OPERATOR Given 07/27/2017 1 tablet 08:04 CNC SET UP OPERATOR tiotropium (SPIRIVA) capsule for inhaler Given 07/26/2017 1 capsule 1 capsule 05:44 CNC SET UP OPERATOR 1 capsule, Inhalation, RT DAILY, First dose on Thu07/25/17 at 1015, Until Discontinued, When administered by RT, will be per RT policy. NOTES: Administer immediately after opening blister foil pouch. Each capsule is meant to deliver 2 inhalations (1 cap=2 inhalations). Given 07/27/2017 1 capsule 05:56 CNC SET UP OPERATOR vancomycin (VANCOCIN) 1,500 mg in Given - New 07/22/2017 1,500 mg 200 mL/hr dextrose 5% (D5W) IVPB Bag 08:23 CNC SET UP OPERATOR 1,500 mg, Intravenous, 300 mL, Administer over 90 Minutes, ONCE, 1 dose, Thu07/22/17 at 0715, Note Pharmacokinetic Monitoring: Please record infusion start time (Action=Given) and stop time (Action=Completed) of dose when blood levels are drawn. in this encounter
[2017-10-23 13:41] LABS: BASOPHILS % (AUTO) 0 % (0-10); EOSINOPHILS # (AUTO) 0.1 10^3/uL (0.0-0.3); EOSINOPHILS % (AUTO) 2 % (0-10); HEMATOCRIT 31 % (40-54); HEMOGLOBIN 9.3 G/DL (13.3-17.7); LYMPHOCYTES # (AUTO) 0.4 X 10^3 (1.0-4.0); LYMPHOCYTES % (AUTO) 8 % (12-44); MEAN CORPUSCULAR HEMOGLOBIN 28 PG (25-34); MEAN CORPUSCULAR HGB CONC 30 G/DL (32-36); MEAN CORPUSCULAR VOLUME 95 FL (80-99); MONOCYTES # (AUTO) 0.7 X 10^3 (0.0-1.0); MONOCYTES % (AUTO) 12 % (0-12); NEUTROPHILS # (AUTO) 4.4 X 10^3 (1.8-7.8); NEUTROPHILS % (AUTO) 78 % (42-75); PLATELET COUNT 162 10^3/uL (130-400); RED BLOOD COUNT 3.29 10^6/uL (4.35-5.85); RED CELL DISTRIBUTION WIDTH 14.7 % (10.0-14.5); WHITE BLOOD COUNT 5.7 10^3/uL (4.3-11.0)
[2017-10-23] MEDS ORDERED: ASPIRIN 81 MG CHEW (CHILDREN'S ASA) PO ONE (13:45)
[2017-10-23 13:58] LABS: ALANINE AMINOTRANSFERASE < 6 U/L (0-55); ALBUMIN 3.4 GM/DL (3.2-4.5); ALKALINE PHOSPHATASE 86 U/L (40-136); BUN/CREATININE RATIO 20; CALCIUM 8.7 MG/DL (8.5-10.1); CARBON DIOXIDE 28 MMOL/L (21-32); CHLORIDE 87 MMOL/L (98-107); CREATININE SERUM 3.88 MG/DL (0.60-1.30); GFR ESTIMATED 16; GLUCOSE 115 MG/DL (70-105); MAGNESIUM 1.2 MG/DL (1.8-2.4); POTASSIUM 4.7 MMOL/L (3.6-5.0); SODIUM 129 MMOL/L (135-145); TOTAL PROTEIN 6.4 GM/DL (6.4-8.2)
[2017-10-23 14:04] LABS: MYOGLOBIN SERUM 115.5 NG/ML (10.0-92.0)
[2017-10-23 14:05] LABS: BAND NEUTROPHILS 4 %; LYMPHOCYTES % (MANUAL) 7 %; MONOCYTES % (MANUAL) 3 %; NEUTROPHILS % (MANUAL) 86 %; POIKILOCYTOSIS SLIGHT
[2017-10-23 14:12] LABS: PROTHROMBIN TIME PATIENT 13.2 SEC (12.2-14.7)
--- NOTE | 2017-10-23 14:15 | Diagnostic Imaging Report ---
INDICATION: Chest tightness. TIME OF EXAM: 01:45 p.m. Correlation is made with prior study from 07/21/2017. FINDINGS: The heart is enlarged but stable. Chronic pleural and parenchymal changes in the right upper chest are stable when compared with prior. Remainder of the lung gaona appears to be fairly clear. No effusion or pneumothorax is seen. IMPRESSION: Stable chronic changes when compared with exam from 07/21/2017. Dictated by: Dictated on workstation # [id number]
--- NOTE | 2017-10-23 14:54 | ED General ---
General Chief Complaint: Chest Pain Stated Complaint: CP Nursing Triage Note: PT ARRIVED PER EMS, PT CO OF SOA, CHEST CONGESTION, PAIN ON R SIDE CHEST AND ABD, PT HAS LARGE OUTBREAK OF SHINGLES NOTED, STATES STARTED A COUPLE DAYS AGO, AREA IS RED AND BLISTERED ON ABD AND BACK. PT HAS HAD KIDNEY TRANSPLANT. IS WAITING FOR LUNG TRANSPLANT Nursing Sepsis Screen: No Definite Risk Source of Information: Patient Exam Limitations: No Limitations History of Present Illness Date Seen by Provider: Oct 23, 2017 Time Seen by Provider: 14:50 Initial Comments The patient is a 57-year-old white male who is chronically ill. He reports that this week he has been experiencing a decline in performance. He normally uses oxygen continuously at 8 L/m. He reports that this week when he has been up to walk which he does in a limited basis he has had to turn the oxygen flow up. Earlier in the week and he is not clear whether that represents Thursday or Thursday he began having some right chest and abdomen pain. The following day he noted some redness around his belly at the level of the umbilicus. This has gotten angrier by the day. He has had a previous kidney transplant. Presently his creatinine is running in the 3.8 range. He states he is awaiting a lung transplant. Timing/Duration: 4-5 Days Severity: Moderate Allergies and Home Medications Allergies Coded Allergies: varenicline (Unverified Allergy, Severe, 05/11/17) Clhapse-Jkk-Dyx Reductase Inhibitor (Unverified Allergy, Unknown, 05/11/17 ) Home Medications Albuterol Sulfate 8.5 Gm Hfa.aer.ad, 2 PUFF INH Q6H PRN for SHORTNESS OF BREATH, (Reported) Allopurinol 100 Mg Tablet, 100 MG PO 1300, (Reported) Amlodipine Besylate 5 Mg Tablet, 5 MG PO 1300, (Reported) Budesonide/Formoterol Fumarate 10.2 Gm Hfa.aer.ad, 2 PUFF IH 1300,0100, ( Reported) Carvedilol 25 Mg Tablet, 25 MG PO 1300,0100, (Reported) Cyclosporine, Modified 25 Mg Capsule, 75 MG PO 1300,0100, (Reported) TAKES 3 (25MG) CAPSULES Furosemide 80 Mg Tablet, 80 MG PO Q48H, (Reported) Levalbuterol HCl 0.63 Mg/3 Ml Vial.neb, 0.63 MG NEB TID PRN for SHORTNESS OF BREATH, (Reported) Multivitamin 1 Each Tablet, 1 TAB PO 1300, (Reported) Mycophenolate Sodium 360 Mg Tablet.dr, 360 MG PO 1300,0100, (Reported) LASST FILLED #60 11-20-17 Nystatin 100,000 Unit/1 Ml Oral.susp, 5 ML PO QID PRN for SORES, (Reported) Pantoprazole Sodium 40 Mg Tablet.dr, 40 MG PO 1300,0100, (Reported) Prednisone 5 Mg Tablet, 5 MG PO 1300, (Reported) Tiotropium Patrick 1 Inh Aerp, 1 CAP INH 1300, (Reported) Patient Home Medication List Home Medication List Reviewed: Yes Review of Systems Constitutional: see HPI EENTM: no symptoms reported Respiratory: cough, dyspnea on exertion, short of breath Cardiovascular: no symptoms reported Gastrointestinal: loss of appetite Genitourinary: no symptoms reported Musculoskeletal: muscle weakness Skin: see HPI Psychiatric/Neurological: No Symptoms Reported Hematologic/Lymphatic: No Symptoms Reported Immunological/Allergic: transplant Past Ktleezb-Rkeldg-Ebpkpn Hx Patient Social History Alcohol Use: Denies Use Recreational Drug Use: No Smoking Status: Former Smoker Type Used: Cigarettes Former Smoker, Quit: May 11, 2011 Recent Foreign Travel: No Contact w/Someone Who Travel: No Recent Infectious Disease Expo: No Recent Hopitalizations: No Physical Abuse: No Sexual Abuse: No Immunizations Up To Date Tetanus Booster (TDap): Less than 5yrs Date of Pneumonia Vaccine: Jun 30, 2016 Date of Influenza Vaccine: Apr 27, 2017 Seasonal Allergies Seasonal Allergies: Yes Past Medical History Surgeries: Yes (skin ca removed, kidney transplant) Appendectomy, Gallbladder, Kidney Transplant, Renal Respiratory: Yes (WEARS O2 AT 6L PER NC) Pneumonia, COPD, Emphysema Currently Using CPAP: No Currently Using BIPAP: No Cardiac: Yes Hypertension Neurological: No Reproductive Disorders: No Sexually Transmitted Disease: No HIV/AIDS: No Genitourinary: Yes (HX OF DIALYSIS, HAD KIDNEY TRANSPLANT) Renal Failure, Dialysis Gastrointestinal: No Gastroesophageal Reflux Musculoskeletal: Yes Arthritis Endocrine: No Cataract Loss of Vision: Denies Hearing Impairment: Hard of Hearing, Bilateral Hearing Aide Cancer: Yes Skin Psychosocial: No Nursing Suicide Risk Score: 0 Integumentary: Yes (SKIN CA) Blood Disorders: Yes (anemia) Adverse Reaction/Blood Tranf: No Family Medical History Arthritis 19 MOTHER Cardiovascular disease 19 FATHER 19 MOTHER Coronary thrombosis 19 MOTHER Deafness or hearing loss 19 FATHER Diabetes mellitus 19 FATHER G8 SISTER Hypertension 19 MOTHER Myocardial infarction 19 FATHER 19 MOTHER G8 SISTER Respiratory disorder No Family History of: AIDS Abdominal aortic aneurysm Ivan's disease Alcoholism Alzheimer's disease Aphasia Asthma Cancer of mouth Cataracts Colon cancer Completed stroke Congenital disease Congenital heart disease Cystic fibrosis Dementia Drug abuse Dysphasia Fibrocystic disease of breast Gastroenteritis Glaucoma Headache disorder Hypercholesterolemia Infertility Kidney disease Neoplasm Osteoporosis Parkinson's disease Prostate cancer Psychosocial problem Seizure disorder Severe allergy Thyroid disease Tuberculosis Visual disorder No Pertinent Family Hx Physical Exam Vital Signs Vital Signs - First Documented 10/23/17 13:29 Temp 97.7 Pulse 94 Resp 13 B/P (MAP) 126/83 (97) Capillary Refill : Less Than 3 Seconds General Appearance: Mild Distress, Moderate Distress HEENT: Normal ENT Inspection Neck: Full Range of Motion Respiratory: Decreased Breath Sounds (plus tachypnea) Cardiovascular: Regular Rate, Rhythm, No Edema, No Gallop, No JVD, No Murmur, Normal Peripheral Pulses Gastrointestinal: Other Comments There is a band of hemorrhagic-appearing papules beginning in the lumbar area at a line extended from the lateral scapular border to the umbilicus. This is consistent with shingles. Procedures/Interventions Date of ETT Placement: Jul 21, 2017 Time of ETT Placement: 1200 Progress/Results/Core Measures Suspected Sepsis Recent Fever Within 48 Hours: No Infection Criteria Present: None New/Unexplained Altered Menta: No Sepsis Screen: No Definite Risk SIRS Temperature:97.7 Pulse: 94 Respiratory Rate: 13 Laboratory Tests 10/23/17 13:30: White Blood Count 5.7 Blood Pressure 126 /83 Mean: 97 Laboratory Tests 10/23/17 13:30: Creatinine 3.88H, Platelet Count 162, Total Bilirubin 1.0 10/23/17 13:55: INR Comment 1.0 Results/Orders Lab Results Laboratory Tests Test 10/23/17 13:30 10/23/17 13:55 Range/Units White Blood Count 5.7 4.3-11.0 10^3/uL Red Blood Count 3.29 L 4.35-5.85 10^6/uL Hemoglobin 9.3 L 13.3-17.7 G/DL Hematocrit 31 L 40-54 % Mean Corpuscular Volume 95 80-99 FL Mean Corpuscular Hemoglobin 28 25-34 PG Mean Corpuscular Hemoglobin Concent 30 L 32-36 G/DL Red Cell Distribution Width 14.7 H 10.0-14.5 % Platelet Count 162 130-400 10^3/uL Mean Platelet Volume 11.0 H 7.4-10.4 FL Neutrophils (%) (Auto) 78 H 42-75 % Lymphocytes (%) (Auto) 8 L 12-44 % Monocytes (%) (Auto) 12 0-12 % Eosinophils (%) (Auto) 2 0-10 % Basophils (%) (Auto) 0 0-10 % Neutrophils # (Auto) 4.4 1.8-7.8 X 10^3 Lymphocytes # (Auto) 0.4 L 1.0-4.0 X 10^3 Monocytes # (Auto) 0.7 0.0-1.0 X 10^3 Eosinophils # (Auto) 0.1 0.0-0.3 10^3/uL Basophils # (Auto) 0.0 0.0-0.1 10^3/uL Neutrophils % (Manual) 86 % Lymphocytes % (Manual) 7 % Monocytes % (Manual) 3 % Band Neutrophils 4 % Poikilocytosis SLIGHT Sodium Level 129 L 135-145 MMOL/L Potassium Level 4.7 3.6-5.0 MMOL/L Chloride Level 87 L 98-107 MMOL/L Carbon Dioxide Level 28 21-32 MMOL/L Anion Gap 14 5-14 MMOL/L Blood Urea Nitrogen 78 H 7-18 MG/DL Creatinine 3.88 H 0.60-1.30 MG/DL Estimat Glomerular Filtration Rate 16 BUN/Creatinine Ratio 20 Glucose Level 115 H 70-105 MG/DL Calcium Level 8.7 8.5-10.1 MG/DL Magnesium Level 1.2 L 1.8-2.4 MG/DL Total Bilirubin 1.0 0.1-1.0 MG/DL Aspartate Amino Transf (AST/SGOT) 7 5-34 U/L Alanine Aminotransferase (ALT/SGPT) < 6 0-55 U/L Alkaline Phosphatase 86 40-136 U/L Myoglobin 115.5 H 10.0-92.0 NG/ML Troponin I < 0.30 <0.30 NG/ML Total Protein 6.4 6.4-8.2 GM/DL Albumin 3.4 3.2-4.5 GM/DL Prothrombin Time 13.2 12.2-14.7 SEC INR Comment 1.0 0.8-1.4 Activated Partial Thromboplast Time 24 24-35 SEC My Orders Orders - ELISEO HARRIS MD Ekg Tracing (10/23/17 13:32) Medications Given in ED Current Medications Medications Dose Ordered Sig/Samir Route Start Time Stop Time Status Last Admin Dose Admin Aspirin 324 mg ONCE ONCE PO 10/23/17 13:45 10/23/17 13:46 DC 10/23/17 13:42 324 MG Vital Signs/I&O 10/23/17 10/23/17 10/23/17 13:29 13:29 13:29 Temp 97.7 Pulse 94 Resp 13 B/P (MAP) 126/83 (97) Pulse Ox 96 96 O2 Delivery Nasal Cannula Nasal Cannula O2 Flow Rate 6.00 6.0 Capillary Refill : Less Than 3 Seconds Blood Pressure Mean: 97 Departure Communication (Admissions) Laboratory shows anemia which after reviewing previous CBCs appears consistent with chronic renal disease. His creatinine is 3.88 with a BUN of 78. This may be slightly elevated as compared to previously but not much. Impression Primary Impression: herpes zoster Additional Impression: chronic/severe pulmonary disease Disposition: 01 HOME, SELF-CARE Condition: Stable/Unchanged Departure-Patient Inst. Decision time for Depature: 14:59 Referrals: HELADIO HOOPER MD (PCP/Family) Primary Care Physician Add. Discharge Instructions: All discharge instructions reviewed with patient and/or family. Voiced understanding. Hydrocodone as necessary for pain. It is likely that the blisters will weep. You can use zinc oxide or calamine lotion as a drying agent. I would then cover with gauze dressings. This process is likely to take 10 days to 2 weeks. ELISEO HARRIS MD Oct 23, 2017 14:54
[2017-10-23] MEDS ORDERED: HYDR-756 PO (15:06)
[2017-10-23 15:29] VITALS: BP 126/83
== END 2017-10-23 15:29 | disposition home or self-care (01) ==
LOC: EDUNIT# 13:29 → ER 13:30
DX: B02.9 Zoster without complications (principal); J98.4 Other disorders of lung; J43.9 Emphysema, unspecified; I12.0 Hypertensive chronic kidney disease with stage 5 chronic kidney disease or end stage renal disease; N18.6 End stage renal disease; K21.9 Gastro-esophageal reflux disease without esophagitis; Z99.2 Dependence on renal dialysis; Z88.8 Allergy status to other drugs, medicaments and biological substances; Z82.49 Family history of ischemic heart disease and other diseases of the circulatory system; Z79.52 Long term (current) use of systemic steroids; Z79.51 Long term (current) use of inhaled steroids; Z87.891 Personal history of nicotine dependence; Z85.828 Personal history of other malignant neoplasm of skin; Z94.0 Kidney transplant status; Z90.49 Acquired absence of other specified parts of digestive tract
CPT/HCPCS: 36415; 71045; 80053; 83735; 83874; 83880; 84484; 85007; 85027; 85610; 85730; 93005; 93041; 96374

== ENCOUNTER 2017-11-03 23:18 | Inpatient (IN) | payer BC, MEDICARE ==
[~2017-11-03] VITALS: Ht 172.7 cm; Wt 72.8 kg
[~2017-11-03 23:18] MED LIST changes: +HYDR-756 PO
[2017-11-03] MEDS ORDERED: NS IV 1000 ML 1,000 ML IV ONE (23:24)
--- OUTSIDE RECORDS SUMMARY | 2017-11-03 23:24 | XMS REPORT | Encounter Summary ---
Author Author [facility] Organization [facility] Address Unknown Phone Unavailable Care Team Providers Care Rn Lpn Cna Name Role Phone Otto Bartholomew MD Unavailable Venecia Olivas MD Unavailable Amy Joyner RN Unavailable Unavailable Brandy Scott MD Unavailable Tani Keenan MD PCP Franklin Gerber MD Unavailable Unavailable Jonathan Loya RN Unavailable Tash Calhoun RN 2 Unavailable Lisa Chavarria Unavailable Unavailable Mckenna Hidalgo Unavailable Unavailable Mari Braun DIAMOND SAW OPERATOR Unavailable Jigar Christian MD Unavailable Kip Godoy MD Unavailable Lianne Hughes MD Unavailable Alfonso Koehler OD Unavailable Cheri Evans BEREAVEMENT COUNSELOR Unavailable Unavailable Katelyn Chris RN Unavailable Fartun Parker LPN Unavailable Unavailable Encounter Details Date Type Department Care Team Description 10/29/[address] [facility] Mike Mcnamara MD CKD (chronic kidney Physicians - Internal [address] disease) stage 4, GFR Medicine [place] 3002 15-29 ml/min (HCC) [address] [place] [address] (Primary Dx) [address] MED [phone] [place] [id number] Social History Tobacco Use Types Packs/Day Years [...] as of this encounter Plan of Treatment Name Priority Associated Diagnoses Order Schedule CBC AND DIFF Routine CKD (chronic kidney ONE TIME for 12 disease) stage 4, GFR Occurrences starting 15-29 ml/min ([facility]) 10/29/2017 until 10/29/2018 COMPREHENSIVE METABOLIC PANEL Routine CKD (chronic kidney ONE TIME for 12 disease) stage 4, GFR Occurrences starting 15-29 ml/min ([facility]) 10/29/2017 until 10/29/2018 URIC ACID Routine CKD (chronic kidney ONE TIME for 12 disease) stage 4, GFR Occurrences starting 15-29 ml/min ([facility]) 10/29/2017 until 10/29/2018 PHOSPHORUS Routine CKD (chronic kidney ONE TIME for 12 disease) stage 4, GFR Occurrences starting 15-29 ml/min ([facility]) 10/29/2017 until 10/29/2018 25-OH VITAMIN D (D2 + D3) Routine CKD (chronic kidney ONE TIME for 3 disease) stage 4, GFR Occurrences starting 15-29 ml/min ([facility]) 10/29/2017 until 10/29/2018 PARATHYROID HORMONE Routine CKD (chronic kidney ONE TIME for 3 disease) stage 4, GFR Occurrences starting 15-29 ml/min ([facility]) 10/29/2017 until 10/29/2018 IRON + BINDING CAPACITY + %SAT+ FERRITIN Routine CKD (chronic kidney ONE TIME for 4 disease) stage 4, GFR Occurrences starting 15-29 ml/min ([facility]) 10/29/2017 until 10/29/2018 as of this encounter Visit Diagnoses Diagnosis CKD (chronic kidney disease) stage 4, GFR 15-29 ml/min (HCC) - Primary Chronic kidney disease, Stage IV (severe)
--- OUTSIDE RECORDS SUMMARY | 2017-11-03 23:24 | XMS REPORT | Encounter Summary ---
Author Author [facility] Organization [facility] Address Unknown Phone Unavailable Care Team Providers Care Vtc Technician Name Role Phone Otto Bartholomew MD Unavailable Venecia Olivas MD Unavailable Amy Joyner RN Unavailable Unavailable Brandy Scott MD Unavailable Tani Keenan MD PCP Franklin Gerber MD Unavailable Unavailable Jonathan Loya RN Unavailable Tash Calhoun RN 2 Unavailable Lisa Chavarria Unavailable Unavailable Mckenna Hidalgo Unavailable Unavailable Mari Braun CARE TRAINER Unavailable Jigar Christian MD Unavailable Kip Godoy MD Unavailable Lianne Hughes MD Unavailable Alfonso Koehler OD Unavailable Cheri Evans LPN Unavailable Unavailable Katelyn Chris RN Unavailable Fartun Parker LPN Unavailable Unavailable Encounter Details Date Type Department Care Team Description 10/23/2017 Orders Only [facility] Mike Mcnamara MD Physicians - Internal [address] Medicine [place] [address] [place] [address] [address] MED [phone] [place] [address] Social History Tobacco Use Types [...]
--- OUTSIDE RECORDS SUMMARY | 2017-11-03 23:24 | XMS REPORT | Encounter Summary ---
Author Author [facility] Organization [facility] Address Unknown Phone Unavailable Care Team Providers Care Farmworker Fruit Name Role Phone Otto Bartholomew MD Unavailable Venecia Olivas MD Unavailable Amy Joyner RN Unavailable Unavailable Brandy Scott MD Unavailable Tani Keenan MD PCP Franklin Gerber MD Unavailable Unavailable Jonathan Loya RN Unavailable Tash Calhoun RN 2 Unavailable Lisa Chavarria Unavailable Unavailable Mckenna Hidalgo Unavailable Unavailable Mari Braun OBSTETRICIAN AND GYNAECOLOGIST Unavailable Jigar Christian MD Unavailable Kip Godoy MD Unavailable Lianne Hughes MD Unavailable Alfonso Koehler OD Unavailable Cheri Evans CONTACT CENTER TEAM LEAD Unavailable Unavailable Katelyn Chris RN Unavailable Fartun Parker LPN Unavailable Unavailable Reason for Visit * Reason Comments Transplant Referral Encounter Details Date Type Department Care Team Description 10/19/2017 Telephone [facility] Kip Godoy MD Transplant Referral Physicians - Internal [address] [facility] Medicine [address] [place] [address] [address] [facility] [facility] [facility] [facility] [phone] [id number] Social History Tobacco Use Types Packs/Day Years [...]
--- OUTSIDE RECORDS SUMMARY | 2017-11-03 23:24 | XMS REPORT | Clinical Summary ---
Author Author [facility] Organization [facility] Address Unknown Phone Unavailable Care Team Providers Care Process Plant Operator Name Role Phone Otto Bartholomew MD Unavailable Venecia Olivas MD Unavailable Amy Joyner RN Unavailable Unavailable Brandy Scott MD Unavailable Tani Keenan MD PCP Franklin Gerber MD Unavailable Unavailable Jonathan Loya RN Unavailable Tash Calhoun RN 2 Unavailable Lisa Chavarria Unavailable Unavailable Mckenna Hidalgo Unavailable Unavailable Mari Braun COLLECTION ANALYST Unavailable Jigar Christian MD Unavailable Kip Godoy [...] in the Health Information Management department at [phone] for further assistance in locating additional records.[facility] Allergies Active Allergy Reactions Severity Noted Date Comments Vbvtora-Pcz-Mkl Reductase SEE COMMENTS Low 11/10/2016 Put patient [...] 1 capsule 18 (25mg) in the evening acyclovir (ZOVIRAX) 400 Take 1 tablet by mouth 20 tablet 0 10/24/19 Active mg tablet every 12 hours. 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 Following with ID. Cavitary lung disease 09/17/2015 Pseudophakia of both eyes 09/17/2015 Last Assessment & Plan: Stable, no PCO, observe Hospital-acquired pneumonia 08/20/2015 Hyperkalemia 08/20/2015 Acute tubular necrosis (HCC) 08/20/2015 Adrenal insufficiency ([facility]) 04/30/2015 Hypomagnesemia 04/30/2015 Hyperuricemia 04/30/2015 Vitamin D deficiency 04/30/2015 Chronic lung disease 04/30/2015 Immunosuppression (HCC) 04/30/2015 Stage 4 very severe COPD by GOLD classification ([facility]) 07/12/2012 Overview: FEV1 0.83, 25% Oxygen needs-4L Inhaler Regimen Spiriva Symbicort Pulm Rehab-x1 (outside hospital) Smoking-quit pyh Last Assessment & Plan: Continue inhalers. Sending orders for the following- Pulm rehab in [place], [place]- if denied will appeal- only completed rehab once. Look into portable concentrator and/or new regulator that allows for 6L continuous (with exertion). Updated rx for 6L with exertion- (may need qualifying testing) Overnight ox on 4L. Will benefit from pulm rehab and has benefited tremendously in the past. Chronic hypoxemic respiratory failure (HCC) 05/24/2012 Overview: Oxygen 4L DME: [facility] ast Assessment & Plan: Orders sent to [...] height 68 in 05-23-12 tramsfer from [facility] where he presented for continued gradual [...] Encounters Date Type Specialty Care Team Description 10/29/2017 Orders Only Nephrology Mike Mcnamara MD CKD (chronic kidney disease) stage 4, GFR 15-29 ml/min (HCC) (Primary Dx) 10/23/2017 Orders Only Nephrology Mike Mcnamara MD 10/19/2017 Telephone Pulmonology Kip Godoy MD Transplant Referral 10/02/2017 Refill Transplant Surgery Mari Hull LPN 10/02/2017 Refill Transplant Surgery Mari Braun APRN 09/30/2017 Telephone Pulmonology Kip Godoy MD Other (pre- transplant work up) 09/14/2017 Office Visit Pulmonology Kip Godoy MD Chronic hypoxemic respiratory failure (HCC) (Primary Dx); Cavitary lung disease; Stage 4 very severe COPD by GOLD classification ([facility]) 09/11/2017 Refill Transplant Surgery Mari Hull LPN 09/10/2017 Refill Transplant Surgery Mari Braun APRN 09/08/2017 Telephone Pulmonology Kip Godoy MD Results ( bronchoscopy) 09/01/2017 Telephone Pulmonology Kip Godoy MD Pulmonary Rehab 08/31/2017 Hospital Lab Romero Eilas, Neoplasm of uncertain Encounter MD behavior, unspecified 08/31/2017 Office Visit Dermatology Harish Pimentel DO Actinic keratosis (Primary Dx); Inflamed seborrheic keratosis; Neoplasm of uncertain behavior; Viral warts, unspecified type; Immunosuppressed status (HCC); History of blistering sunburn; History of squamous cell carcinoma; Multiple benign nevi 08/31/2017 [facility] Kip Godoy MD Cavitary lesion of lung Encounter Gareth Sarkar MD 08/31/2017 Procedure Pass 08/31/2017 Surgery Gareth Sarkar MD BRONCHOSCOPY WITH LAVAGE and cytology brush 08/30/2017 Anesthesia Wendy Dwyer CRNA Event 08/21/2017 Prep for Case Pulmonology Kip Godoy MD Cavitary lesion of lung (Primary Dx) 08/21/2017 Telephone Pulmonology Kip Godoy MD Results 08/20/2017 Telephone Pulmonology Kip Godoy MD Records Request from Last 3 Months Immunizations Name Dates [...] STRIPS-SCAN 09/03/2017 Results for this 10:30 AM MATH AND SCIENCE INSTRUCTOR procedure are in the results section. PROCEDURE RECORD-SCAN 09/03/2017 Results for this 10:30 AM MATH AND SCIENCE INSTRUCTOR procedure are in the results section. BRONCHOSCOPY WITH LAVAGE 08/31/2017 Cavitary lesion of lung and cytology brush 9:15 AM MATH AND SCIENCE INSTRUCTOR Special Needs ANTONINA/REGINA BUSH. PLEASE SCHEDULE 08/31/17 AT 915AM. 60 MIN BLOCK. THANKS from Last 3 Months Results * PROCEDURE RECORD-SCAN (09/23/2017 4:19 PM) Narrative Ordered by an unspecified provider. * TELEMETRY STRIPS-SCAN (09/03/2017 10:30 AM) Narrative Ordered by an unspecified provider. * PROCEDURE RECORD-SCAN (09/03/2017 10:30 AM) Narrative Ordered by an unspecified provider. * SURGICAL PATHOLOGY (08/31/2017 1:49 PM) Component Value Ref Range PATHOLOGY REPORT [facility] [email or web address] Department of Pathology and Laboratory Medicine [address] [place] [address] Surgical Pathology Office:[phone]:[phone] SURGICAL PATHOLOGY REPORT NAME: BRUCE KAHN Jatin SURG PATH #: [id number] MR #: [id number] SPECIMEN CLASS: SR BILLING #: [id number] ALT ID #:LOCATION: [facility] DATE OF PROCEDURE: 08/31/2017 AGE:57 SEX: [...] Specimen Performing Laboratory [facility] LAB RESULTS * NON-TUBE DRAWER CYTOLOGY (BODY FLUIDS/TISSUE) (08/31/2017 11:58 AM) Component Value Ref Range Cytology [facility] [email or web address] Department of Pathology and Laboratory Medicine [address] [place] [address] Surgical Pathology Office:[phone]:[phone] CYTOLOGY REPORT NAME: BRUCE KAHN CYTOLOGY #: [id number] MR #: [id number] ALT ID #: BILLING #: [id number] LOCATION: DERM DATE OF PROCEDURE: 08/31/2017 AGE: [...] CHARLETTE Echevarria MD Resident Specimen Performing Laboratory LAB RESULTS * CULTURE-FUNGAL,OTHER (08/31/2017 10:20 AM) Only the most recent of 2 results within the time period is included. Component Value Ref Range Battery Name FUNGUS CULTURE Specimen Description BRONCHIAL BRUSH, RUL Special Requests NONE Culture NO GROWTH OF FUNGUS AT 4 WEEKS Report Status FINAL 10/05/2017 Specimen Performing Laboratory Bronchial [place],RUL MAIN LAB [address] [place] [address] * CULTURE-TISSUE QUANT W/SENSITIVITY (08/31/2017 10:20 AM) Component Value Ref Range Battery Name TISSUE QUANT CULTURE Specimen Description BRONCHIAL BRUSH RIGHT UPPER LOBE Special Requests NONE Culture 1,800 cfu/ml GAMMA HEMOLYTIC STREPTOCOCCUS 500 cfu/ml ALPHA HEMOLYTIC STREPTOCOCCUS SPECIES 1,000 cfu/ml ROTHIA MUCILAGINOSA Report Status FINAL 09/04/2017 Specimen Performing Laboratory Bronchial [place] (Specify MAIN LAB Site) [address] [place] [address] * FLOW CYTOMETRY (08/31/2017 10:18 AM) Component Value Ref Range PATHOLOGY REPORT [facility] [email or web address] Yuliya Kamara MD, Director of Clinical Laboratory Nicholas Johnson MD, Director of Flow Cytometry Laboratory Department of Pathology and Laboratory Medicine [address] [place] [address] [place] [address] Surgical Pathology Office:[phone]:[phone] FLOW CYTOMETRY REPORT NAME: BRUCE KAHN SURG PATH #: [id number] MR #: [id number] SPECIMEN CLASS: LC BILLING #: [id number] ALT ID #:LOCATION: [facility] DATE OF PROCEDURE: 08/31/2017 AGE:57 SEX: [...] Cells): CD56=0 Miscellaneous Markers (% Positive Cells): AE92=400 Cell Viability (%): 94 Number of Cells Analyzed:10,000 Total Number of Markers: 7 Summary of Marker Combinations: 08/18/3/4/45/56/8 This test was developed and its performance characteristics determined by the [facility] Flow Cytometry Laboratory.It has not [...] Laboratory Bronchial Alveolar Lavage MAIN LAB [address] [place] [address] * CMV QUANT PCR-FLUID (08/31/2017 10:18 AM) Component Value Ref Range Specimen, CMV BRONCHIAL ALVEOLAR LAVAGE CMV by PCR-fluid CMV DNA NOT DETECTED CMV Comment-Fluid This assay is an off label use of the Ceja RealTime Assay for detection of CMV in fluids and has not been approved by the US Food and Drug Administration. The performance characteristics were determined by the [facility] Laboratory.The lower limit of detection is 50IU/mL. Specimen Performing Laboratory Fluid - Bronchial MAIN LAB Alveolar Lavage [address] [place] [address] * CELL COUNT W/DIFF-FLUIDS (08/31/2017 10:18 AM) [...] report. Specimen Performing Laboratory Fluid - Bronchial MAIN LAB Alveolar Lavage [address] [place] [address] * GRAM STAIN (08/31/2017 10:17 AM) Component Value Ref Range Battery Name GRAM STAIN Specimen Description BRONCHIAL ALVEOLAR LAVAGE, RUL Special Requests NONE Gram Stain MANY NEUTROPHILS FEW SQUAMOUS EPITHELIAL CELLS MANY MIXED BACTERIA Report Status FINAL 08/31/2017 Specimen Performing Laboratory Bronchial Alveolar [facility] MAIN LAB Lavage,RUL [address] [place] [address] * CULTURE-TB (AFB) (08/31/2017 10:17 AM) Component Value Ref Range Battery Name AFB CULTURE Specimen Description BRONCHIAL ALVEOLAR LAVAGE, RUL Special Requests NONE Acid Fast Stain NO ACID FAST BACILLI SEEN Culture NO GROWTH OF MYCOBACTERIA AT 6 WEEKS Report Status FINAL 10/19/2017 Specimen Performing Laboratory Bronchial Alveolar [facility] MAIN LAB Lavage,RUL [address] [place] [address] * CULTURE-RESP,LOWER W/SENSITIVITY (08/31/2017 10:17 AM) Component Value Ref Range Battery Name LOWER RESP CULTURE Specimen Description BRONCHIAL ALVEOLAR LAVAGE, RUL Special Requests NONE Direct Gram Stain MANY NEUTROPHILS FEW SQUAMOUS EPITHELIAL CELLS MANY MIXED BACTERIA Culture Moderate growth NORMAL OROPHARYNGEAL SAMIRA Report Status FINAL 09/02/2017 Specimen Performing Laboratory Bronchial Alveolar [facility] MAIN LAB Lavage,RUL [address] [place] [address] * BRONCHOSCOPY (08/31/2017 10:04 AM) Component Value Ref Range Provation Report Patient Name: Bruce Kahn Procedure Date: 08/31/2017 10:04 AM CSN: [id number] Date of : 1960 Gender: Male Attending Physician: Gareth Sarkar MD Procedure:Bronchoscopy Indications:Right upper lobe infiltrate, history of MAC with cavita ry disease Providers:Gareth Sarkar MD (Doctor), Cece Fisher MD (Fellow), Ashwini Sanchez RN (Nurse), [employer] (Accounts Payable Accountant) Referring Physician:Kip Godoy MD Medications:Tetracaine 0.25%/Epinephrine 0.003% [...] Out: 10:23:17 AM Procedure Code(s):--- Professional --- 19797, Bronchoscopy, rigid or flexible, including fluoro scopic guidance, when performed; with bronchial alveol ar lavage CPT copyright 2016 [employer]. All rights reserved. The codes documented in this report are preliminary and upon lute packer or applier review may be revised to meet current compliance requirements. Attending Participation: I was present and participated during the entire procedure, including non-montoya portions. MD Gareth Robert MD 08/31/2017 1:28 PM The attending physician has electronically signed and finalized this document. MD Cece Quinonez MD 08/31/2017 10:30 AM Number of Addenda: 0 Note Initiated On: 08/31/2017 10:04 AM Specimen Performing Laboratory [facility] OTHER RESULTS from Last 3 Months
--- OUTSIDE RECORDS SUMMARY | 2017-11-03 23:24 | XMS REPORT | Continuity of Care Document ---
Author Author [employer] Organization [facility] Address Unknown Phone Unavailable Care Team Providers Care Behavioral Health Worker Name Role Phone [employer] Unavailable Unavailable Problems Medications Allergies, Adverse Reactions, Alerts Immunizations Results Vital Signs Encounters Location Location Details Encounter Type Encounter Number Reason For Visit Attending Provider ADM Date DC Date Status Source OUTPATIENT [id number] SL[place] PINTO 02/02/20172016 Active [facility] OUTPATIENT [id number] ALEJANDRO PERI 03/03/2017 03/03/2017 Active [facility] OUTPATIENT [id number] ADI CARLTON 04/27/2017 04/27/2017 Active [facility] SPECIMEN [id number] ALEJANDROLesley WHITT 05/18/2017 05/18/2017 Active [facility] INPATIENT [id number] CHIQUI MARTINEZ 07/21/20172017 Active [facility] SPECIMEN [id number] ROMERO ELIAS 08/31/20172017 Active [facility] SPECIMEN [id number] ROMERO ELIAS 08/31/20172017 Active [facility] O [place] Active [facility] Procedures Plan of Care Social History Assessment and Plan Family History Advance Directives Functional Status
--- OUTSIDE RECORDS SUMMARY | 2017-11-03 23:24 | XMS REPORT | Encounter Summary ---
Author Author [facility] Organization [facility] Address Unknown Phone Unavailable Care Team Providers Care Stringed Instrument Repairer Name Role Phone Otto Bartholomew MD Unavailable Venecia Olivas MD Unavailable Amy Joyner RN Unavailable Unavailable Brandy Scott MD Unavailable Tani Keenan MD PCP Franklin Gerber MD Unavailable Unavailable Jonathan Loya RN Unavailable Tash Calhoun RN 2 Unavailable Lisa Chavarria Unavailable Unavailable Mckenna Hidalgo Unavailable Unavailable Mari Braun DIRECTOR CASE MANAGEMENT Unavailable Jigar Christian MD Unavailable Kip Godoy MD Unavailable Lianne Hughes MD Unavailable Alfonso Koehler OD Unavailable Cheri Evans LPN Unavailable Unavailable Katelyn Chris RN Unavailable Fartun Parker LPN Unavailable Unavailable Reason for Visit * Reason Comments Medication Refill Encounter Details Date Type Department Care Team Description 10/02/2017 Refill Center for Mari Hull LPN Transplantation-Kidney/Pa ncreas Nep [address] [facility] [place] [address] Social History Tobacco Use Types [...]
--- OUTSIDE RECORDS SUMMARY | 2017-11-03 23:24 | XMS REPORT | Encounter Summary ---
Author Author [facility] Organization [facility] Address Unknown Phone Unavailable Care Team Providers Care Servicing Rep Name Role Phone Otto Bartholomew MD Unavailable [...] LPN Unavailable Unavailable Katelyn Chris RN Unavailable Fartnu Parker LPN Unavailable Unavailable Reason for Visit * Reason Comments Medication Refill Encounter Details Date Type Department Care Team Description 10/02/2017 Refill Center for Mari Braun APRN Transplantation-Kidney/Pa [address] [place] ncreas Nep [place] [address] [place] [address] [facility] FOR [phone] [place] [address] Social History Tobacco Use Types [...]
--- OUTSIDE RECORDS SUMMARY | 2017-11-03 23:25 | XMS REPORT | Encounter Summary ---
Author Author [facility] Organization [facility] Address Unknown Phone Unavailable Care Team Providers Care Grey Goods Examiner Name Role Phone Otto Bartholomew MD Unavailable Venecia Olivas MD Unavailable Amy Joyner RN Unavailable Unavailable Brandy Scott MD Unavailable Tani Keenan MD PCP Franklin Gerber MD Unavailable Unavailable Jonathan Loya RN Unavailable Tash Calhoun RN 2 Unavailable Lisa Chavarria Unavailable Unavailable Mckenna Hidalgo Unavailable Unavailable Mari Braun FARMWORKER MACHINE Unavailable Jigar Christian MD Unavailable Kip Godoy MD Unavailable Lianne Hughes MD Unavailable Alfonso Koehler OD Unavailable Cheri Evans CALKER Unavailable Unavailable Katelyn Chris RN Unavailable Fartun Parker LPN Unavailable Unavailable Reason for Visit * Reason Comments Results bronchoscopy Encounter Details Date Type Department Care Team Description 09/08/2017 Telephone [facility] Kip Godoy MD Results (bronchoscopy) Physicians - Internal [address] [facility] [place] [address] [place] [address] [address] [facility] [phone] [address] Social History Tobacco Use Types Packs/Day Years [...]
--- OUTSIDE RECORDS SUMMARY | 2017-11-03 23:25 | XMS REPORT | Encounter Summary ---
Author Author [facility] Organization [facility] Address Unknown Phone Unavailable Care Team Providers Care Companion Name Role Phone Otto Bartholomew MD Unavailable Venecia Olivas MD Unavailable Amy Joyner RN Unavailable Unavailable Brandy Scott MD Unavailable Tani Keenan MD PCP Franklin Gerber MD Unavailable Unavailable Jonathan Loya RN Unavailable Tash Calhoun RN 2 Unavailable Lisa Chavarria Unavailable Unavailable Mckenna Hidalgo Unavailable Unavailable Mari Braun ESOL TEACHER ASSISTANT Unavailable Jigar Christian MD Unavailable Kip Godoy MD Unavailable Lianne Hughes MD Unavailable Alfonso Koehler OD Unavailable Cheri Evans CARDIAC MONITOR Unavailable Unavailable Katelyn Chris RN Unavailable Fartun Parker LPN Unavailable Unavailable Reason for Visit * Auth/Cert Status Reason Specialty Diagnoses / Referred By Referred To Procedures Contact Contact Diagnoses Cavitary lesion of lung UNKNOWN P rocedures [place] BRNCHSC BRUSHING/PROTECT ED BRUSHINGS BRONCHOSCOPY WITH LAVAGE and cytology brush Encounter Details Date Type Department Care Team Description 08/31/2017 Hospital Clin[facility] Romero Elias, Neoplasm of uncertain Encounter [address] behavior, [place] [address] [address] [place] [address] [place] [address] [phone] Social History Tobacco Use Types Packs/Day Years [...] * Fartun Murillo - 09/04/2017 5:55 AM FOOD AND BEVERAGE CONTROLLER Bruce Kahn Lesion A Dorsal Nose Picture All documentation and picture emailed to Dr Marks's office for scheduling Padilla Frias in this encounter Plan of Treatment Not on fileas of this encounter Results * SURGICAL PATHOLOGY (08/31/2017 1:49 PM) Component Value Ref Range PATHOLOGY REPORT [facility] [email or web address] Department of Pathology and Laboratory Medicine [address] [place] [address] Surgical Pathology Office:[phone]:[phone] SURGICAL PATHOLOGY REPORT NAME: BRUCE KAHN SURG PATH #: [id number] MR #: [id number] SPECIMEN CLASS: SR BILLING #: [id number] ALT ID #:LOCATION: DERM DATE OF PROCEDURE: [...] Specimen Performing Laboratory [facility] LAB RESULTS * NON-FIELD IRONWORKER CYTOLOGY (BODY FLUIDS/TISSUE) (08/31/2017 11:58 AM) Component Value Ref Range Cytology [facility] [email or web address] Department of Pathology and Laboratory Medicine [address] [place] [address] Surgical Pathology Office:[phone]:[phone] CYTOLOGY REPORT NAME: BRUCE KAHN CYTOLOGY #: [id number] MR #: [id number] ALT ID #: BILLING #: [id number] LOCATION: [facility] DATE OF PROCEDURE: 08/31/2017 AGE: 57 SEX: [...]
--- OUTSIDE RECORDS SUMMARY | 2017-11-03 23:25 | XMS REPORT | Encounter Summary ---
Author Author [facility] Organization [facility] Address Unknown Phone Unavailable Care Team Providers Care Processing Tech Name Role Phone Otto Bartholomew MD Unavailable Venecia Olivas MD Unavailable Amy Joyner RN Unavailable Unavailable Brandy Scott MD Unavailable Tani Keenan MD PCP Franklin Gerber MD Unavailable Unavailable Jonathan Loya RN Unavailable Tash Calhoun RN 2 Unavailable Lisa Chavarria Unavailable Unavailable Mckenna Hidalgo Unavailable Unavailable Mari Braun FRENCH POLISHER Unavailable Jigar Christian MD Unavailable Kip Godoy MD Unavailable Lianne Hughes MD Unavailable Alfonso Koehler OD Unavailable Cheri Evans LPN Unavailable Unavailable Katelyn Chris RN Unavailable Fartun Parker LPN Unavailable Unavailable Reason for Visit * Reason Comments Medication Refill Encounter Details Date Type Department Care Team Description 09/11/2017 Refill Center for Mari Hull LPN Transplantation-Kidney/Pa ncreas Nep [address] [facility] [place] [address] Social History Tobacco Use Types [...]
--- OUTSIDE RECORDS SUMMARY | 2017-11-03 23:25 | XMS REPORT | Encounter Summary ---
Author Author [facility] Organization [facility] Address Unknown Phone Unavailable Care Team Providers Care Ultrasound Coordinator Name Role Phone Otto Bartholomew MD Unavailable Venecia Olivas MD Unavailable Amy Joyner RN Unavailable Unavailable Brandy Scott MD Unavailable Tani Keenan MD PCP Franklin Gerber MD Unavailable Unavailable Jonathan Loya RN Unavailable Tash Calhoun RN 2 Unavailable Lisa Chavarria Unavailable Unavailable Mckenna Hidalgo Unavailable Unavailable Mari Braun STAFF WEAPONS OFFICER Unavailable Jigar Christian MD Unavailable Kip Godoy MD Unavailable Lianne Hughes MD Unavailable Alfonso Koehler OD Unavailable Cheri Evans MECHANICAL DETAILER Unavailable Unavailable Katelyn Chris RN Unavailable Fartun Parker LPN Unavailable Unavailable Reason for Visit * Auth/Cert Status Reason Specialty Diagnoses / Referred By Referred To Procedures Contact Contact Diagnoses Cavitary lesion of lung UNKNOWN P rocedures WA BRNCHSC BRUSHING/PROTECT ED BRUSHINGS BRONCHOSCOPY WITH LAVAGE and cytology brush Encounter Details Date Type Department Care Team Description 08/31/2017 Surgery Gastrointenstinal Gareth Sarkar MD BRONCHOSCOPY WITH LAVAGE Endoscopy [address] and cytology brush [address] [place] [address] [place] [address] [phone] Social History Tobacco Use Types Packs/Day Years Used Date Former Smoker Cigarettes 1 30 Quit: 05/01/2012 Smokeless Tobacco: Never Used Alcohol Use Drinks/Week oz/Week Comments No Sex Assigned at Date Recorded Not on file as of this encounter Last Filed Vital Signs Vital Sign Reading Time Taken Blood Pressure 117/78 08/31/2017 11:47 AM DESIGN ENG Pulse 97 08/31/2017 11:47 AM DESIGN ENG Temperature 36.4 C (97.5 F) 08/31/2017 8:43 AM DESIGN ENG Respiratory Rate - - Oxygen Saturation 97% 08/31/2017 11:47 AM DESIGN ENG Inhaled Oxygen - - Concentration Weight - [...] Moraima Latham RN - 08/31/2017 10:56 AM DESIGN ENG POST BRONCHOSCOPY INSTRUCTIONS 1. When your brochscopy [...] or problems after your procedure please call [phone] between the hours of 8 a.m. until 4:30 p.m. After 4:30 p.m., holidays, or weekends call [phone] and ask for the Pulmonary Physician programmer numerical control. * Discharge Instr - Other Info - Rudy Thomas RN - 08/31/2017 10:45 AM DESIGN ENG POST BRONCHOSCOPY INSTRUCTIONS 1. When your brochscopy [...] or problems after your procedure please call [phone] between the hours of 8 a.m. until 4:30 p.m. After 4:30 p.m., holidays, or weekends call [phone] and ask for the Pulmonary Physician programmer numerical control. in this encounter Medications at Time of [...] Cece Fisher MD - 08/31/2017 8:04 AM DESIGN ENG Formatting of this note may be different [...] currently being evaluated for lung transplant in [place]. Previous Anesthetic/Sedation History: Tolerated sedation with previous bronchoscopies. Past Medical History: Diagnosis Date Cancer of lip squam cell Cataract Chronic kidney disease transplant COPD (chronic obstructive pulmonary disease) (HCC) copd Hypertension On supplemental oxygen therapy Pneumonia Renal failure Past Surgical History: Procedure Laterality Date HX APPENDECTOMY HX CHOLECYSTECTOMY HX RENAL TRANSPLANT WA REMOVE BILE DUCT STONE, PERCUT WA TENOTOMY PRQ ACHILLES TENDON SPX GENERAL ANES Pertinent medical/surgical history reviewed Pertinent family history reviewed Social History Substance Use Topics Smoking status: Former Smoker Packs/day: 1.00 Years: 30.00 Types: Cigarettes Quit date: 05/01/2012 Smokeless tobacco: Never Used Alcohol use No History Drug Use No Comment: when he was younger smoked marijuana. Allergies: Ntfwewc-adp-oat reductase inhibitors and Varenicline Medications No current [...] past 24 hour(s)). Cece Fisher MD Pager [phone] in this encounter Plan of Treatment Not on fileas of this encounter Procedures Procedure Name Priority Date/Time Associated Diagnosis Comments TELEMETRY STRIPS-SCAN 09/03/2017 Results for this 10:30 AM DESIGN ENG procedure are in the results section. PROCEDURE RECORD-SCAN 09/03/2017 Results for this 10:30 AM DESIGN ENG procedure are in the results section. BRONCHOSCOPY WITH LAVAGE 08/31/2017 Cavitary lesion of lung and cytology brush 9:15 AM DESIGN ENG Special Needs ANTONINA/REGINA BUSH. PLEASE SCHEDULE 08/31/17 [...] Status FINAL 10/05/2017 Specimen Performing Laboratory Bronchial [place],[facility] MAIN LAB [address] [id number] * CULTURE-TISSUE QUANT W/SENSITIVITY (08/31/2017 10:20 AM) Component Value Ref Range Battery Name TISSUE QUANT CULTURE Specimen Description BRONCHIAL BRUSH RIGHT UPPER LOBE Special Requests NONE Culture 1,800 cfu/ml GAMMA HEMOLYTIC STREPTOCOCCUS 500 cfu/ml ALPHA HEMOLYTIC STREPTOCOCCUS SPECIES 1,000 cfu/ml ROTHIA MUCILAGINOSA Report Status FINAL 09/04/2017 Specimen Performing Laboratory Bronchial [place] (Specify MAIN LAB Site) [address] [place] [address] * FLOW CYTOMETRY (08/31/2017 10:18 AM) Component Value Ref Range PATHOLOGY REPORT [facility] [email or web address] Yuliya Kamara MD, Director of Clinical Laboratory Nicholas Johnson MD, Director of Flow Cytometry Laboratory Department of Pathology and Laboratory Medicine [address] [place] [address] Surgical Pathology Office:[phone]:[phone] FLOW CYTOMETRY REPORT NAME: BRUCE KAHN SURG PATH #: [id number] MR #: [id number] SPECIMEN CLASS: LC BILLING #: [id number] ALT ID #:LOCATION: [facility] DATE OF PROCEDURE: 08/31/2017 AGE:57 SEX: [...] Cells): CD56=0 Miscellaneous Markers (% Positive Cells): WY28=417 Cell Viability (%): 94 Number of Cells Analyzed:10,000 Total Number of Markers: 7 Summary of Marker Combinations: 08/18////56/8 This test was developed and its performance characteristics determined by the [facility] Flow Cytometry Laboratory.It has not been [...] The performance characteristics were determined by the [facility] Laboratory.The lower limit of detection is 50IU/mL. Specimen Performing Laboratory Fluid - Bronchial [facility] Alveolar Lavage [address] [place] [address] * CELL COUNT W/DIFF-FLUIDS (08/31/2017 10:18 AM) [...] Bronchial [facility] Alveolar Lavage [address] [place] [address] * LEUKEMIA/LYMPHOMA PANEL FLUID/TISSUE (08/31/2017 10:18 AM) Component Value Ref Range Leuk/Lymph Interpretation SEE PATHOLOGY REPORT Specimen/LLM BRONCHIAL ALVEOLAR LAVAGE Specimen Performing Laboratory Bronchial Alveolar Lavage [facility] [address] [place] [address] * GRAM STAIN (08/31/2017 10:17 AM) Component Value Ref Range Battery Name GRAM STAIN Specimen Description BRONCHIAL ALVEOLAR [place]AV[place], RUL Special Requests NONE Gram Stain MANY NEUTROPHILS FEW SQUAMOUS EPITHELIAL CELLS MANY MIXED BACTERIA Report Status FINAL 08/31/2017 Specimen Performing Laboratory Bronchial Alveolar [facility] [place] [address] [place] [address] * CULTURE-FUNGAL,OTHER (08/31/2017 10:17 AM) Component Value Ref Range Battery Name FUNGUS CULTURE Specimen Description BRONCHIAL ALVEOLAR LAV[place], RUL Special Requests NONE Culture Light growth RICARDO GLABRATA Light growth RICARDO ALBICANS Report Status FINAL 09/08/2017 Specimen Performing Laboratory Bronchial Alveolar [facility] [place] [address] [place] [address] * CULTURE-TB (AFB) (08/31/2017 10:17 AM) Component Value Ref Range Battery Name AFB CULTURE Specimen Description BRONCHIAL ALVEOLAR LAV[place], RUL Special Requests NONE Acid Fast Stain NO ACID FAST BACILLI SEEN Culture NO GROWTH OF MYCOBACTERIA AT 6 WEEKS Report Status FINAL 10/19/2017 Specimen Performing Laboratory Bronchial Alveolar [facility] [place] [address] [place] [address] * CULTURE-RESP,LOWER W/SENSITIVITY (08/31/2017 10:17 AM) Component Value Ref Range Battery Name LOWER RESP CULTURE Specimen Description BRONCHIAL ALVEOLAR LAVAGE, RUL Special Requests NONE Direct Gram Stain MANY NEUTROPHILS FEW SQUAMOUS EPITHELIAL CELLS MANY MIXED BACTERIA Culture Moderate growth NORMAL OROPHARYNGEAL SAMIRA Report Status FINAL 09/02/2017 Specimen Performing Laboratory Bronchial Alveolar [facility] [place] [address] [place] [address] * BRONCHOSCOPY (08/31/2017 10:04 AM) Component Value Ref Range Provation Report Patient Name: Bruce Kahn Procedure Date: 08/31/2017 10:04 AM CSN: [id number] Date of : 1960 Gender: Male Attending Physician: Gareth Sarkar MD Procedure:Bronchoscopy Indications:Right upper lobe infiltrate, history of MAC with cavita ry disease Providers:Gareth Sarkar MD (Doctor), Cece Fisher MD (Fellow), Ashwini Sanchez RN (Nurse), Urban Sun (Leno Sewer) Referring Physician:Kip Godoy MD Medications:Tetracaine 0.25%/Epinephrine 0.003% [...] Out: 10:23:17 AM Procedure Code(s):--- Professional --- 59055, Bronchoscopy, rigid or flexible, including fluoro scopic guidance, when performed; with bronchial alveol ar lavage CPT copyright 2016 [employer]. All rights reserved. The codes documented in this report are preliminary and upon clinical esthetician review may be revised to meet current [...] hr 1,000 mL, Intravenous, CONTINUOUS, Bag 09:00 DESIGN ENG Starting Thu08/31/17 at 0845, Until Thu08/31/17 at 1256, Pre-Op sodium chloride 0.9% irrigation bottle Given 08/31/2017 150 mL INTRA-PROCEDURE MED, Starting Thu08/31/17 10:18 DESIGN ENG at 1018, Until Thu08/31/17 at 1256, Intra-op tetracaine 0.25% /EPINEPHrine 0.003%(#) Given 08/31/2017 8 mL injection 10:12 DESIGN ENG INTRA-PROCEDURE MED, Starting Thu08/31/17 at 1012, Until Thu08/31/17 at 1256, Intra-op Given 08/31/2017 4 mL 10:13 DESIGN ENG in this encounter
--- OUTSIDE RECORDS SUMMARY | 2017-11-03 23:25 | XMS REPORT | Encounter Summary ---
Author Author [facility] Organization [facility] Address Unknown Phone Unavailable Care Team Providers Care Mail Deliverer Name Role Phone Otto Bartholomew MD Unavailable Venecia Olivas MD Unavailable Amy Joyner RN Unavailable Unavailable Brandy Scott MD Unavailable Tani Keenan MD PCP Franklin Gerber MD Unavailable Unavailable Jonathan Loya RN Unavailable Tash Calhoun RN 2 Unavailable Lisa Chavarria Unavailable Unavailable Mckenna Hidalgo Unavailable Unavailable Mari Braun TRANSLATOR Unavailable Jigar Christian MD Unavailable Kip Godoy MD Unavailable Lianne Hughes MD Unavailable Alfonso Koehler OD Unavailable Cheri Evans ASSOCIATE ATTORNEY Unavailable Unavailable Katelyn Chris RN Unavailable Fartun Parker LPN Unavailable Unavailable Reason for Visit * Reason Comments Pulmonary Rehab Encounter Details Date Type Department Care Team Description 09/01/2017 Telephone [facility] Kip Godoy MD Pulmonary Rehab Physicians - Internal [address] [facility] Medicine [address] [address] [address] [facility] [phone] [place] [address] Social History Tobacco Use Types Packs/Day Years [...] Courtney Dominguez RN - 09/01/2017 8:40 AM NUCLEAR MONITORING TECHNICIAN Called [facility] Pulmonary Rehab and spoke to Shira. [facility] has approved 18 sessions of Pulmonary Rehab. They will call patient today to schedule his first session. in this encounter Plan of Treatment Not on fileas of this encounter Visit Diagnoses Not on filein this encounter
--- OUTSIDE RECORDS SUMMARY | 2017-11-03 23:25 | XMS REPORT | Encounter Summary ---
Author Author [facility] Organization [facility] Address Unknown Phone Unavailable Care Team Providers Care Pattern Keeper Name Role Phone Otto Bartholomew MD Unavailable Venecia Olivas MD Unavailable Amy Joyner RN Unavailable Unavailable Brandy Scott MD Unavailable Tani Keenan MD PCP Franklin Gerber MD Unavailable Unavailable Jonathan Loya RN Unavailable Tash Calhoun RN 2 Unavailable Lisa Chavarria Unavailable Unavailable Mckenna Hidalgo Unavailable Unavailable Mari Braun MAGNETIC TAPE TYPEWRITER OPERATOR Unavailable Jigar Christian MD Unavailable Kip Godoy MD Unavailable Lianne Hughes MD Unavailable Alfonso Koehler OD Unavailable Cheri Evans BIOINFORMATICS ASSOCIATE Unavailable Unavailable Katelyn Chris RN Unavailable Fartun Parker LPN Unavailable Unavailable Reason for Visit * Reason Comments Copd Dyspnea Encounter Details Date Type Department Care Team Description 09/14/2017 Office Visit [facility] Kip Godoy MD Chronic hypoxemic Physicians - Internal [address] [facility] respiratory failure (HCC) Medicine [address] (Primary Dx); [address] [address] Cavitary lung disease; [address] [facility] MED [phone] Stage 4 very severe COPD OFFICE BLDG by GOLD classification [place] ([facility]) [id number] Social History Tobacco Use Types Packs/Day [...] or concerns. Pulmonary RN Coordinator-Dottie Dominguez RN T)[phone] F)[phone] For refills on medications, please have your pharmacy fax a refill authorization request form to our office at Fax) [phone]. Please allow at least 3 business days for refill requests. For urgent issues after business hours/weekends/holidays call [phone] and request for the manufacturing inspector to be paged in this encounter Progress [...] her last visit he did travel to [place] to be seen by the transplant clinic at [facility]. We have also gotten him approved for [...] was seen by the transplant center at [facility] and we recently performed BAL with brush [...] also seen by renal transplant while at [facility]. 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
--- OUTSIDE RECORDS SUMMARY | 2017-11-03 23:25 | XMS REPORT | Encounter Summary ---
Author Author [facility] Organization [facility] Address Unknown Phone Unavailable Care Team Providers Care Medical Director/Head Team Physician Name Role Phone Otto Bartholomew MD Unavailable Venecia Olivas MD Unavailable Amy Joyner RN Unavailable Unavailable Brandy Scott MD Unavailable Tani Keenan MD PCP Franklin Gerber MD Unavailable Unavailable Jonathan Loya RN Unavailable Tash Calhoun RN 2 Unavailable Lisa Chavarria Unavailable Unavailable Mckenna Hidalgo Unavailable Unavailable Mari Braun GROCERY STORE MANAGER Unavailable Jigar Christian MD Unavailable Kip Godoy MD Unavailable Lianne Hughes MD Unavailable Alfonso Koehler OD Unavailable Cheri Evans RULING MACHINE FEEDER Unavailable Unavailable Katelyn Chris RN Unavailable Fartun Parker LPN Unavailable Unavailable Reason for Visit * Reason Comments Other pre-transplant work up Encounter Details Date Type Department Care Team Description 09/30/2017 Telephone [facility] Kip Godoy MD Other ( pre-transplant Physicians - Internal [address] work up) Medicine [address] [place] [address] MED [phone] [place] [address] Social History Tobacco Use Types [...] Transplant - updated records regarding bronch? Tel: [phone] Called Frida. All current bronchoscopy results faxed. in this encounter Plan of Treatment Not on fileas of this encounter Visit Diagnoses Not on filein this encounter
--- OUTSIDE RECORDS SUMMARY | 2017-11-03 23:25 | XMS REPORT | Encounter Summary ---
Author Author [facility] Organization [facility] Address Unknown Phone Unavailable Care Team Providers Care Basting Machine Operator Name Role Phone Otto Bartholomew MD Unavailable Venecia Olivas MD Unavailable Amy Joyner RN Unavailable Unavailable Brandy Scott MD Unavailable Tani Keenan MD PCP Franklin Gerber MD Unavailable Unavailable Jonathan Loya RN Unavailable Tash Calhoun RN 2 Unavailable Lisa Chavarria Unavailable Unavailable Mckenna Hidalgo Unavailable Unavailable Mari Braun OUTREACH ASSISTANT Unavailable Jigar Christian MD Unavailable Kip Godoy MD Unavailable Lianne Hughes MD Unavailable Alfonso Koehler OD Unavailable Cheri Evans LPN Unavailable Unavailable Katelyn Chris RN Unavailable Fartun Parker LPN Unavailable Unavailable Encounter Details Date Type Department Care Team Description 08/31/2017 Procedure Pass Gastrointenstinal Endoscopy [address] [place] [address] Social History Tobacco Use Types [...]
--- OUTSIDE RECORDS SUMMARY | 2017-11-03 23:25 | XMS REPORT | Encounter Summary ---
Author Author [facility] Organization [facility] Address Unknown Phone Unavailable Care Team Providers Care School Speech Language Pathologist Name Role Phone Otto Bartholomew MD Unavailable [...] [facility] APRN Transplantation[facility] [address] [place] [address] [place] [phone] [place] [address] Social History Tobacco Use Types [...]
--- OUTSIDE RECORDS SUMMARY | 2017-11-03 23:26 | XMS REPORT | Encounter Summary ---
Author Author [facility] Organization [facility] Address Unknown Phone Unavailable Care Team Providers Care Senior Loss Control Specialist Name Role Phone Otto Bartholomew MD Unavailable Venecia Olivas MD Unavailable Amy Joyner RN Unavailable Unavailable Brandy Scott MD Unavailable Tani Keenan MD PCP Franklin Gerber MD Unavailable Unavailable Jonathan Loya RN Unavailable Tash Calhoun RN 2 Unavailable Lisa Chavarria Unavailable Unavailable Mckenna Hidalgo Unavailable Unavailable Mari Braun PATTERN MOLDER Unavailable Jigar Christian MD Unavailable Kip Godoy MD Unavailable Lianne Hughes MD Unavailable Alfonso Koehler OD Unavailable Cheri Evans LPN Unavailable Unavailable Katelyn Chris RN Unavailable Fartun Parker LPN Unavailable Unavailable Reason for Visit * Reason Comments Skin Problem Encounter Details Date Type Department Care Team Description 08/31/2017 Office Visit [facility] Harish Pimentel DO Actinic keratosis Physicians - Internal [address] (Primary Dx); [place] [address] Inflamed seborrheic 4TH FLOOR POD C [phone] keratosis; [address] Neoplasm of uncertain OFFICE BLDG behavior; [place], [place] Viral warts, unspecified [address] type; [phone] Immunosuppressed status (HCC); History of blistering sunburn; [...] 79.8 kg (176 lb) 08/31/2017 12:56 PM SR RISK MANAGEMENT CONSULTANT Height 175.3 cm (5' 9") 08/31/2017 12:56 PM SR RISK MANAGEMENT CONSULTANT Body Mass Index 25.99 08/31/2017 12:56 PM SR RISK MANAGEMENT CONSULTANT in this encounter Functional Status Functional Status [...] Harish Pimentel, DO - 08/31/2017 1:00 PM SR RISK MANAGEMENT CONSULTANT Ammonium Lactate Lotion to forearms and legs 1-2 times daily Am Lactin Lac Lotion Lac Hydrin Find at [facility], and [employer] Shave Biopsy Site Care - [...] of sunscreens and not all are zinc-based) Greybull, Bare Minerals, Blue Lizard, CeraVe, Cotz, GodParallelss Garden, Green Screen, [employer], Mineral Fusion, SkinCeuticals, Vanicream 2 shot-glases=whole body Melanoma Patient Information Also called malignant melanoma Skin cancer screening: If you notice a mole that differs from others or one that changes, bleeds, or itches, see a director of product development. Melanoma is a type of skin cancer. [...] people: Knew the warning signs of melanoma. [place] how to examine their skin for signs [...] immediately make an appointment to see a director of product development. Signs of melanoma The most common early [...] dermatologists diagnose melanoma? To diagnose melanoma, a director of product development begins by looking at the patients skin. A director of product development will carefully examine moles and other suspicious spots. To get a better look, a director of product development may use a device called a dermoscope. [...] as high blood pressure and kidney damage. [employer] recommending everyone get vitamin D from foods naturally rich in vitamin D, foods and beverages fortified with vitamin D or vitamin D supplements. The foods that contain the greatest amount are fatty fishes such as salmon, tuna and mackerel. Fish liver oil is another good source. One of the sources to look up vitamin amount is through [employer] library. Http://ndb.nal.usda.gov/. This can help you find [...] to a weakened immune system. Therefore , [employer] recommend getting vitamin D safely from foods , beverages and supplements. in this encounter Progress Notes * Virgilio Clay MD - 08/31/2017 1:00 PM SR RISK MANAGEMENT CONSULTANT Formatting of this note may be different [...] Harish Pimentel, DO - 08/31/2017 1:00 PM SR RISK MANAGEMENT CONSULTANT Formatting of this note may be different [...] evidence of recurrence. No lymphadenopathy. Soft, pigmented, ohqib-pt-lqolywlft papules are distributed over the trunk and [...] Harish Pimentel DO - 08/31/2017 1:00 PM SR RISK MANAGEMENT CONSULTANT Associated Order(s): [id number] Procedure(s): [place] BX SKIN SUBCUTANEOUS&/MUCOUS MEMBRANE 1 LESION; [place] DESTRUCTION PREMALIGNANT LESION 1ST; [place] DESTRUCTION PREMALIGNANT LESION 2-14 EA; [place] DESTRUCTION BENIGN LESIONS UP TO 14 Pre-Procedure [...] Ambulated from room: Yes Pathology sent to: [facility] Pathology Duration of procedure: >5 minutes [...] Treatment Name Priority Associated Diagnoses Order Schedule [id number] Routine Actinic keratosis Ordered: 08/31/2017 Inflamed seborrheic [...]
--- OUTSIDE RECORDS SUMMARY | 2017-11-03 23:26 | XMS REPORT | Encounter Summary ---
Author Author [facility] Organization [facility] Address Unknown Phone Unavailable Care Team Providers Care Lock Master Name Role Phone Otto Bartholomew MD Unavailable Venecia Olivas MD Unavailable Amy Joyner RN Unavailable Unavailable Brandy Scott MD Unavailable Tani Keenan MD PCP Franklin Gerber MD Unavailable Unavailable Jonathan Loya RN Unavailable Tash Calhoun RN 2 Unavailable Lisa Chavarria Unavailable Unavailable Mckenna Hidalgo Unavailable Unavailable Mari Braun MAGNETIC TAPE WINDER Unavailable Jigar Christian MD Unavailable Kip Godoy MD Unavailable Lianne Hughes MD Unavailable Alfonso Koehler OD Unavailable Cheri Evans ASSISTANT CUSTOMER SERVICE MANAGER Unavailable Unavailable Katelyn Chris RN Unavailable Fartun Parker LPN Unavailable Unavailable Reason for Visit * Auth/Cert Status Reason Specialty Diagnoses / Referred By Referred To Procedures Contact Contact Diagnoses Cavitary lesion of lung UNKNOWN P rocedures [place] BRNCHSC BRUSHING/PROTECT ED BRUSHINGS BRONCHOSCOPY WITH LAVAGE and cytology brush Encounter Details Date Type Department Care Team Description 08/31/2017 Anesthesia Gastrointenstinal Wendy Dwyer CRNA Event Endoscopy [address] [place] [address] [place] [address] [phone] Anesthesia Record Procedure Name Responsible Anesthesia Start [...] Amy Veloz MD - 08/31/2017 12:07 PM ASSISTANCE REPRESENTATIVE Post-Anesthesia Evaluation Name: Doug Dawson : 1960 [...] Karla Cotton MD - 08/31/2017 11:52 AM ASSISTANCE REPRESENTATIVE Post-Anesthesia Evaluation Name: Doug Dawson : 1960 [...] Amy Veloz MD - 08/31/2017 8:44 AM ASSISTANCE REPRESENTATIVE Formatting of this note may be different [...] (08/31 842) Patient History Allergies Allergen Reactions Wpcgfpy-Lww-Tjg Reductase Inhibitors SEE COMMENTS Put patient in [...] 07/16)- h/o difficult intubation for ERCP at [facility]- although this record not available in O2- [...] consented to blood products. Plan discussed with: [facility]ACTICE RN and anesthesiologist. in this encounter Plan of Treatment Not on fileas of this encounter Visit Diagnoses Not on filein this encounter Administered Medications Medication Order MAR Action Action Date Dose Rate Site propofol (DIPRIVAN) infusion Given - New 08/31/2017 120 57.6 mL/hr 20 mL, Intravenous, INTRA-PROCEDURE Bag 10:08 ASSISTANCE REPRESENTATIVE mcg/kg/min MED(CONT), Starting Thu08/31/17 at 1008, Until Thu08/31/17 at 1039, Anesthesia Intra-op propofol (DIPRIVAN) injection Given 08/31/2017 10 mg INTRA-PROCEDURE MED, Starting Thu08/31/17 10:11 ASSISTANCE REPRESENTATIVE at 1007, Until Thu08/31/17 at 1039, Anesthesia Intra-op Given 08/31/2017 10 mg 10:13 ASSISTANCE REPRESENTATIVE Given 08/31/2017 10 mg 10:15 ASSISTANCE REPRESENTATIVE in this encounter
--- OUTSIDE RECORDS SUMMARY | 2017-11-03 23:26 | XMS REPORT | Encounter Summary ---
Author Author [facility] Organization [facility] Address Unknown Phone Unavailable Care Team Providers Care Rubber Curer Name Role Phone Otto Barhtolomew MD Unavailable Venecia Olivas MD Unavailable Amy Joyner RN Unavailable Unavailable Brandy Scott MD Unavailable Tani Keenan MD PCP Franklin Gerber MD Unavailable Unavailable Jonathan Loya RN Unavailable Tash Calhoun RN 2 Unavailable Lisa Chavarria Unavailable Unavailable Mckenna Hidalgo Unavailable Unavailable Mari Braun PLATFORM MATERIAL HANDLER MANAGER Unavailable Jigar Christian MD Unavailable Kip Godoy MD Unavailable Lianne Hughes MD Unavailable Alfonso Koehler OD Unavailable Cheri Evans ASSISTANT TEACHING PROFESSOR Unavailable Unavailable Katelyn Chris RN Unavailable Fartun Parker LPN Unavailable Unavailable Encounter Details Date Type Department Care Team Description 08/21/2017 Prep for Case [facility] Kip Godoy MD Cavitary lesion of lung Physicians - Internal [address] (Primary Dx) Medicine [address] [place] [address] MED [phone] [address] Social History Tobacco Use Types Packs/Day Years [...]
--- OUTSIDE RECORDS SUMMARY | 2017-11-03 23:26 | XMS REPORT | Encounter Summary ---
Author Author [facility] Organization [facility] Address Unknown Phone Unavailable Care Team Providers Care Sales Development Director Name Role Phone Otto Bartholomew MD Unavailable Venecia Olivas MD Unavailable Amy Joyner RN Unavailable Unavailable Brandy Scott MD Unavailable Tani Keenan MD PCP Franklin Gerber MD Unavailable Unavailable Jonathan Loya RN Unavailable Tash Calhoun RN 2 Unavailable Lisa Chavarria Unavailable Unavailable Mckenna Hidalgo Unavailable Unavailable Mari Braun DYE HOUSE HAND Unavailable Jigar Christian MD Unavailable Kip Godoy MD Unavailable Lianne Hughes MD Unavailable Alfonso Koehler OD Unavailable Cheri Evans CHARTER REPRESENTATIVE Unavailable Unavailable Katelyn Chris RN Unavailable Fartun Parker LPN Unavailable Unavailable Reason for Visit * Reason Comments Results Encounter Details Date Type Department Care Team Description 08/21/2017 Telephone [facility] Kip Godoy MD Results Physicians - Internal [address] [facility] Medicine [address] [place] [address] [address] [facility] [phone] [address] Social History Tobacco Use Types Packs/Day Years [...] Kip Godoy MD - 08/21/2017 2:27 PM STATIONARY FIREMAN Received a call from the [facility] transplant automotive service writer yesterday regarding Mr. Dawson's recent evaluation. They [...] to grow before he follows up in [place] in the next 6 weeks. He is [...]
--- OUTSIDE RECORDS SUMMARY | 2017-11-03 23:26 | XMS REPORT | Encounter Summary ---
Author Author [facility] Organization [facility] Address Unknown Phone Unavailable Care Team Providers Care Permanent Waver Name Role Phone Otto Bartholomew MD Unavailable Venecia Olivas MD Unavailable Amy Joyner RN Unavailable Unavailable Brandy Scott MD Unavailable Tani Keenan MD PCP Franklin Gerber MD Unavailable Unavailable Jonathan Loya RN Unavailable Tash Calhoun RN 2 Unavailable Lisa Chavarria Unavailable Unavailable Mckenna Hidalgo Unavailable Unavailable Mari Braun GREEN CHAIN OFFBEARER Unavailable Jigar Christian MD Unavailable Kip Godoy MD Unavailable Lianne Hughes MD Unavailable Alfonso Koehler OD Unavailable Cheri Evans ADDICTIONS COUNSELOR Unavailable Unavailable Katelyn Chris RN Unavailable Fartun Parker LPN Unavailable Unavailable Reason for Visit * Auth/Cert Status Reason Specialty Diagnoses / Referred By Referred To Procedures Contact Contact Diagnoses Cavitary lesion of lung UNKNOWN P rocedures [place] BRNCHSC BRUSHING/PROTECT ED BRUSHINGS BRONCHOSCOPY WITH LAVAGE and cytology brush Encounter Details Date Type Department Care Team Description 08/31/2017 Hospital Gastro[facility]enstinal Kip Godoy MD Cavitary lesion of lung Encounter Endoscopy [address] [place] [address] [place] [address] [phone] Gareth Yancey MD [address] [facility] [address] [place] [address] [phone] Social History Tobacco Use Types Packs/Day Years Used Date Former Smoker Cigarettes 1 Quit: 05/01/2012 Smokeless Tobacco: Never Used Alcohol Use Drinks/Week oz/Week Comments No Sex Assigned at Date Recorded Not on file as of this encounter Last Filed Vital Signs Vital Sign Reading Time Taken Blood Pressure 117/78 08/31/2017 11:47 AM NET UI DEVELOPER Pulse 97 08/31/2017 11:47 AM NET UI DEVELOPER Temperature 36.4 C (97.5 F) 08/31/2017 8:43 AM NET UI DEVELOPER Respiratory Rate - - Oxygen Saturation 97% 08/31/2017 11:47 AM NET UI DEVELOPER Inhaled Oxygen - - Concentration Weight - [...] Moraima Latham RN - 08/31/2017 10:56 AM NET UI DEVELOPER POST BRONCHOSCOPY INSTRUCTIONS 1. When your brochscopy [...] or problems after your procedure please call [phone] between the hours of 8 a.m. until 4:30 p.m. After 4:30 p.m., holidays, or weekends call [phone] and ask for the Pulmonary Physician rehabilitation services aide. * Discharge Instr - Other Info - Rudy Thomas RN - 08/31/2017 10:45 AM NET UI DEVELOPER POST BRONCHOSCOPY INSTRUCTIONS 1. When your brochscopy [...] or problems after your procedure please call [phone] between the hours of 8 a.m. until 4:30 p.m. After 4:30 p.m., holidays, or weekends call [phone] and ask for the Pulmonary Physician rehabilitation services aide. in this encounter Medications at Time of [...] Cece Fisher MD - 08/31/2017 8:04 AM NET UI DEVELOPER Formatting of this note may be different [...] Complaint: Dyspnea History of Present Illness: Bruce Khan is a 57 y.o. male with severe COPD and chronic hypoxemic respiratory failure, referred by Dr. Godoy for BAL and brushings of the RUL given history of MAC. Mr. Kahn is currently being evaluated for lung transplant in [place]. Previous Anesthetic/Sedation History: Tolerated sedation with previous bronchoscopies. Past Medical History: Diagnosis Date Cancer of lip squam cell Cataract Chronic kidney disease transplant COPD (chronic obstructive pulmonary disease) (HCC) copd Hypertension On supplemental oxygen therapy Pneumonia Renal failure Past Surgical History: Procedure Laterality Date HX APPENDECTOMY HX CHOLECYSTECTOMY HX RENAL TRANSPLANT TN REMOVE BILE DUCT STONE, PERCUT TN TENOTOMY PRQ ACHILLES TENDON SPX GENERAL ANES Pertinent medical/surgical history reviewed Pertinent family history reviewed Social History Substance Use Topics Smoking status: Former Smoker Packs/day: 1.00 Years: 30.00 Types: Cigarettes Quit date: 05/01/2012 Smokeless tobacco: Never Used Alcohol use No History Drug Use No Comment: when he was younger smoked marijuana. Allergies: Piomflq-oed-dbt reductase inhibitors and Varenicline Medications No current [...] past 24 hour(s)). Cece Fisher MD Pager [phone] in this encounter Plan of Treatment Not on fileas of this encounter Procedures Procedure Name Priority Date/Time Associated Diagnosis Comments TELEMETRY STRIPS-SCAN 09/03/2017 Results for this 10:30 AM NET UI DEVELOPER procedure are in the results section. PROCEDURE RECORD-SCAN 09/03/2017 Results for this 10:30 AM NET UI DEVELOPER procedure are in the results section. BRONCHOSCOPY WITH LAVAGE 08/31/2017 Cavitary lesion of lung and cytology brush 9:15 AM NET UI DEVELOPER Special Needs ANTONINA/REGINA BUSH. PLEASE SCHEDULE 08/31/17 [...] Status FINAL 10/05/2017 Specimen Performing Laboratory Bronchial [facility] MAIN LAB [address] [place] [address] * CULTURE-TISSUE QUANT W/SENSITIVITY (08/31/2017 10:20 AM) Component Value Ref Range Battery Name TISSUE QUANT CULTURE Specimen Description BRONCHIAL BRUSH RIGHT UPPER LOBE Special Requests NONE Culture 1,800 cfu/ml GAMMA HEMOLYTIC STREPTOCOCCUS 500 cfu/ml ALPHA HEMOLYTIC STREPTOCOCCUS SPECIES 1,000 cfu/ml ROTHIA MUCILAGINOSA Report Status FINAL 09/04/2017 Specimen Performing Laboratory Bronchial [facility] (Specify MAIN LAB Site) [address] [place] [address] * FLOW CYTOMETRY (08/31/2017 10:18 AM) Component Value Ref Range PATHOLOGY REPORT [facility] [email or web address] Yuliya Kamara MD, Director of Clinical Laboratory Nicholas Johnson MD, Director of Flow Cytometry Laboratory Department of Pathology and Laboratory Medicine [address] [place] [address] Surgical Pathology Office:[phone]:[phone] FLOW CYTOMETRY REPORT NAME: BRUCE KAHN SURG PATH #: [id number] MR #: [id number] SPECIMEN CLASS: LC BILLING #: [id number] ALT ID #:LOCATION: [facility] DATE OF PROCEDURE: 08/31/2017 AGE:57 SEX: M [...] Cells): CD56=0 Miscellaneous Markers (% Positive Cells): SN28=396 Cell Viability (%): 94 Number of Cells Analyzed:10,000 Total Number of Markers: 7 Summary of Marker Combinations: 08/18///45/56/8 This test was developed and its performance characteristics determined by the [facility] Flow Cytometry Laboratory.It has not [...] The performance characteristics were determined by the [facility] Laboratory.The lower limit of detection is 50IU/mL. Specimen Performing Laboratory Fluid - Bronchial [facility] Alveolar Lavage [address] [place] [address] * CELL COUNT W/DIFF-FLUIDS (08/31/2017 10:18 AM) [...] Bronchial [facility] Alveolar Lavage [address] [place] [address] * LEUKEMIA/LYMPHOMA PANEL FLUID/TISSUE (08/31/2017 10:18 AM) Component Value Ref Range Leuk/Lymph Interpretation SEE PATHOLOGY REPORT Specimen/LLM BRONCHIAL ALVEOLAR LAVAGE Specimen Performing Laboratory Bronchial Alveolar Lavage [facility] [address] [place] [address] * GRAM STAIN (08/31/2017 10:17 AM) Component Value Ref Range Battery Name GRAM STAIN Specimen Description BRONCHIAL ALVEOLAR LAVAGE, RUL Special Requests NONE Gram Stain MANY NEUTROPHILS FEW SQUAMOUS EPITHELIAL CELLS MANY MIXED BACTERIA Report Status FINAL 08/31/2017 Specimen Performing Laboratory Bronchial Alveolar [facility] Lavage,RUL [address] [place] [address] * CULTURE-FUNGAL,OTHER (08/31/2017 10:17 AM) Component Value Ref Range Battery Name FUNGUS CULTURE Specimen Description BRONCHIAL ALVEOLAR LAVAGE, RUL Special Requests NONE Culture Light growth RICARDO GLABRATA Light growth RICARDO ALBICANS Report Status FINAL 09/08/2017 Specimen Performing Laboratory Bronchial Alveolar [facility] Lavage,[facility] [address] [place] [id number] * CULTURE-TB (AFB) (08/31/2017 10:17 AM) Component Value Ref Range Battery Name AFB CULTURE Specimen Description BRONCHIAL ALVEOLAR LAVAGE, RUL Special Requests NONE Acid Fast Stain NO ACID FAST BACILLI SEEN Culture NO GROWTH OF MYCOBACTERIA AT 6 WEEKS Report Status FINAL 10/19/2017 Specimen Performing Laboratory Bronchial Alveolar [facility] Lavage,RUL [address] [place] [address] * CULTURE-RESP,LOWER W/SENSITIVITY (08/31/2017 10:17 AM) Component Value Ref Range Battery Name LOWER RESP CULTURE Specimen Description BRONCHIAL ALVEOLAR LAVAGE, RUL Special Requests NONE Direct Gram Stain MANY NEUTROPHILS FEW SQUAMOUS EPITHELIAL CELLS MANY MIXED BACTERIA Culture Moderate growth NORMAL OROPHARYNGEAL SAMIRA Report Status FINAL 09/02/2017 Specimen Performing Laboratory Bronchial Alveolar [facility] Lavage,RUL [address] [place] [address] * BRONCHOSCOPY (08/31/2017 10:04 AM) Component Value Ref Range Provation Report Patient Name: Bruce Kahn Procedure Date: 08/31/2017 10:04 AM CSN: [id number] Date of : 1960 Gender: Male Attending Physician: Gareth Sarkar MD Procedure:Bronchoscopy Indications:Right upper lobe infiltrate, history of MAC with cavita ry disease Providers:Gareth Sarkar MD (Doctor), Cece Fisher MD (Fellow), Ashwini Sanchez RN (Nurse), [employer] (Electric Utility Lineworker) Referring Physician:Kip Godoy MD Medications:Tetracaine 0.25%/Epinephrine 0.003% [...] Out: 10:23:17 AM Procedure Code(s):--- Professional --- 60499, Bronchoscopy, rigid or flexible, including fluoro scopic guidance, when performed; with bronchial alveol ar lavage CPT copyright 2016 [employer]. All rights reserved. The codes documented in this report are preliminary and upon inspector missile review may be revised to meet current [...] hr 1,000 mL, Intravenous, CONTINUOUS, Bag 09:00 NET UI DEVELOPER Starting Thu08/31/17 at 0845, Until Thu08/31/17 at 1256, Pre-Op sodium chloride 0.9% irrigation bottle Given 08/31/2017 150 mL INTRA-PROCEDURE MED, Starting Thu08/31/17 10:18 NET UI DEVELOPER at 1018, Until Thu08/31/17 at 1256, Intra-op tetracaine 0.25% /EPINEPHrine 0.003%(#) Given 08/31/2017 8 mL injection 10:12 NET UI DEVELOPER INTRA-PROCEDURE MED, Starting Thu08/31/17 at 1012, Until Thu08/31/17 at 1256, Intra-op Given 08/31/2017 4 mL 10:13 NET UI DEVELOPER in this encounter
--- OUTSIDE RECORDS SUMMARY | 2017-11-03 23:26 | XMS REPORT | Encounter Summary ---
Author Author [facility] Organization [facility] Address Unknown Phone Unavailable Care Team Providers Care Staff Assistant Name Role Phone Otto Bartholomew MD Unavailable Venecia Olivas MD Unavailable Amy Joyner RN Unavailable Unavailable Brandy Scott MD Unavailable Tani Keenan MD PCP Franklin Gerber MD Unavailable Unavailable Jonathan Loya RN Unavailable Tash Calhoun RN 2 Unavailable Lisa Chavarria Unavailable Unavailable Mckenna Hidalgo Unavailable Unavailable Mari Braun SALSA DANCE INSTRUCTOR Unavailable Jigar Christian MD Unavailable Kip Godoy MD Unavailable Lianne Hughes MD Unavailable Alfonso Koehler OD Unavailable Cheri Evans DRAW FIRE OPERATOR Unavailable Unavailable Katelyn Chris RN Unavailable Fartun Parker LPN Unavailable Unavailable Reason for Visit * Reason Comments Records Request Encounter Details Date Type Department Care Team Description 08/20/2017 Telephone [facility] Kip Godoy MD Records Request Physicians - Internal [address] [facility] Medicine [address] [place] [address] [address] [facility] [address] [facility] [phone] [place] [address] Social History Tobacco Use Types Packs/Day Years [...] Courtney Dominguez RN - 08/20/2017 10:54 AM FIREBREAK CUTTER Spoke with Frida at [facility]. She will fax the [...]
[2017-11-03] MEDS ORDERED: methylPREDNISolone 125 MG (Solu-MEDROL) VIAL IVP ONE (23:30)
[2017-11-03] MEDS ORDERED: ONDANSETRON 4 MG/2 ML (SDV) Z0FRAN IVP ONE (23:30)
[2017-11-03] MEDS ORDERED: RT-ALBUTEROL/IPRATROPIUM 3 ML (DUONEB) VIAL INH ONE (23:30)
[2017-11-03 23:40] LABS: BASOPHILS % (AUTO) 0 % (0-10); EOSINOPHILS # (AUTO) 0.1 10^3/uL (0.0-0.3); EOSINOPHILS % (AUTO) 1 % (0-10); HEMATOCRIT 27 % (40-54); HEMOGLOBIN 8.4 G/DL (13.3-17.7); LYMPHOCYTES # (AUTO) 0.4 X 10^3 (1.0-4.0); LYMPHOCYTES % (AUTO) 4 % (12-44); MEAN CORPUSCULAR HEMOGLOBIN 29 PG (25-34); MEAN CORPUSCULAR HGB CONC 32 G/DL (32-36); MEAN CORPUSCULAR VOLUME 91 FL (80-99); MEAN PLATELET VOLUME 9.8 FL (7.4-10.4); MONOCYTES # (AUTO) 0.4 X 10^3 (0.0-1.0); MONOCYTES % (AUTO) 4 % (0-12); NEUTROPHILS # (AUTO) 8.8 X 10^3 (1.8-7.8); NEUTROPHILS % (AUTO) 91 % (42-75); PLATELET COUNT 303 10^3/uL (130-400); RED BLOOD COUNT 2.91 10^6/uL (4.35-5.85); RED CELL DISTRIBUTION WIDTH 14.5 % (10.0-14.5); WHITE BLOOD COUNT 9.7 10^3/uL (4.3-11.0)
[2017-11-03 23:50] LABS: PROTHROMBIN TIME PATIENT 13.6 SEC (12.2-14.7)
[2017-11-04] VITALS (11 sets, daily range): BP systolic 116–153; BP diastolic 71–100
[2017-11-04] LABS: ALANINE AMINOTRANSFERASE < 6 U/L (0-55); ALBUMIN 3.3 GM/DL (3.2-4.5); ALKALINE PHOSPHATASE 96 U/L (40-136); BILIRUBIN,TOTAL 0.7 MG/DL (0.1-1.0); BUN/CREATININE RATIO 20; CALCIUM 8.5 MG/DL (8.5-10.1); CARBON DIOXIDE 24 MMOL/L (21-32); CHLORIDE 82 MMOL/L (98-107); CREATININE SERUM 3.85 MG/DL (0.60-1.30); GFR ESTIMATED 16; GLUCOSE 124 MG/DL (70-105); POTASSIUM 4.4 MMOL/L (3.6-5.0)
[2017-11-04 00:09] LABS: SODIUM 121 MMOL/L (135-145)
--- NOTE | 2017-11-04 01:17 | ED General ---
General Chief Complaint: Respiratory Problems Stated Complaint: SOB Nursing Triage Note: SOA Nursing Sepsis Screen: No Definite Risk History of Present Illness Date Seen by Provider: November 03, 2017 Time Seen by Provider: 23:23 Initial Comments This 57-year-old gentleman presents to the emergency room via EMS with complaints of intermittent shortness of air and chest tightness 1 week. He has a temperature of 100.3 for EMS. He is afebrile on arrival. He has had some vomiting and diarrhea for about 4 days. Patient is on immunosuppressive therapy as a renal transplant patient. He has debilitation respirations and is receiving a DuoNeb treatment by EMS. He is chronically hypoxic requiring high flow nasal cannula at home. Allergies and Home Medications Allergies Coded Allergies: varenicline (Unverified Allergy, Severe, 05/11/17) Lievzkw-Gmf-Brg Reductase Inhibitor (Unverified Allergy, Unknown, 05/11/17 ) Home Medications Albuterol Sulfate 8.5 Gm Hfa.aer.ad, 2 PUFF INH Q6H PRN for SHORTNESS OF BREATH, (Reported) Allopurinol 100 Mg Tablet, 100 MG PO 1300, (Reported) Amlodipine Besylate 5 Mg Tablet, 5 MG PO 1300, (Reported) Budesonide/Formoterol Fumarate 10.2 Gm Hfa.aer.ad, 2 PUFF IH 1300,0100, ( Reported) Carvedilol 25 Mg Tablet, 25 MG PO 1300,0100, (Reported) Cyclosporine, Modified 25 Mg Capsule, 75 MG PO 1300,0100, (Reported) TAKES 3 (25MG) CAPSULES Furosemide 80 Mg Tablet, 80 MG PO Q48H, (Reported) Hydrocodone/Acetaminophen 1 Each Tablet, 1 EACH PO every 4 hours Prescribed by: ELISEO HARRIS on 10/23/17 1506 Levalbuterol HCl 0.63 Mg/3 Ml Vial.neb, 0.63 MG NEB TID PRN for SHORTNESS OF BREATH, (Reported) Multivitamin 1 Each Tablet, 1 TAB PO 1300, (Reported) Mycophenolate Sodium 360 Mg Tablet.dr, 360 MG PO 1300,0100, (Reported) LASST FILLED #60 05-18-17 Nystatin 100,000 Unit/1 Ml Oral.susp, 5 ML PO QID PRN for SORES, (Reported) Pantoprazole Sodium 40 Mg Tablet.dr, 40 MG PO 1300,0100, (Reported) Prednisone 5 Mg Tablet, 5 MG PO 1300, (Reported) Tiotropium [place] 1 Inh Aerp, 1 CAP INH 1300, (Reported) Patient Home Medication List Home Medication List Reviewed: Yes Review of Systems Constitutional: see HPI EENTM: no symptoms reported Respiratory: see HPI Cardiovascular: no symptoms reported Gastrointestinal: see HPI Genitourinary: no symptoms reported Musculoskeletal: no symptoms reported Skin: no symptoms reported Psychiatric/Neurological: No Symptoms Reported Hematologic/Lymphatic: No Symptoms Reported Past Jrrxxph-Iyedsa-Brpogm Hx Patient Social History Alcohol Use: Denies Use Recreational Drug Use: No Smoking Status: Former Smoker Type Used: Cigarettes Former Smoker, Quit: May 11, 2011 2nd Hand Smoke Exposure: No Recent Foreign Travel: No Contact w/Someone Who Travel: No Recent Infectious Disease Expo: No Recent Hopitalizations: No Immunizations Up To Date Tetanus Booster (TDap): Less than 5yrs Date of Pneumonia Vaccine: Jun 30, 2016 Date of Influenza Vaccine: Apr 27, 2017 Seasonal Allergies Seasonal Allergies: Yes Past Medical History Surgeries: Yes (skin ca removed, kidney transplant) Appendectomy, Gallbladder, Kidney Transplant, Renal Respiratory: Yes (WEARS O2 AT 6L PER NC) Pneumonia, COPD, Emphysema Currently Using CPAP: No Currently Using BIPAP: No Cardiac: Yes Hypertension Neurological: No Reproductive Disorders: No Sexually Transmitted Disease: No HIV/AIDS: No Genitourinary: Yes (HX OF DIALYSIS, HAD KIDNEY TRANSPLANT) Renal Failure, Dialysis Gastrointestinal: No Gastroesophageal Reflux Musculoskeletal: Yes Arthritis Endocrine: No Cataract Loss of Vision: Denies Hearing Impairment: Hard of Hearing, Bilateral Hearing Aide Cancer: Yes Skin Psychosocial: No Integumentary: Yes (SKIN CA) Blood Disorders: Yes (anemia) Adverse Reaction/Blood Tranf: No Family Medical History Arthritis 19 MOTHER Cardiovascular disease 19 FATHER 19 MOTHER Coronary thrombosis 19 MOTHER Deafness or hearing loss 19 FATHER Diabetes mellitus 19 FATHER G8 SISTER Hypertension 19 MOTHER Myocardial infarction 19 FATHER 19 MOTHER G8 SISTER Respiratory disorder No Family History of: AIDS Abdominal aortic aneurysm Clark's disease Alcoholism Alzheimer's disease Aphasia Asthma Cancer of mouth Cataracts Colon cancer Completed stroke Congenital disease Congenital heart disease Cystic fibrosis Dementia Drug abuse Dysphasia Fibrocystic disease of breast Gastroenteritis Glaucoma Headache disorder Hypercholesterolemia Infertility Kidney disease Neoplasm Osteoporosis Parkinson's disease Prostate cancer Psychosocial problem Seizure disorder Severe allergy Thyroid disease Tuberculosis Visual disorder No Pertinent Family Hx Physical Exam Vital Signs Vital Signs - First Documented 11/03/17 23:20 Temp 98.3 Pulse 97 Resp 13 B/P (MAP) 135/84 (101) Pulse Ox 100 O2 Delivery Nasal Cannula O2 Flow Rate 6.00 Capillary Refill : Less Than 3 Seconds General Appearance: WD/WN, Mild Distress (Respiratory) HEENT: PERRL/EOMI, Normal ENT Inspection, Pharynx Normal Neck: Normal Inspection Respiratory: Lungs Clear, Normal Breath Sounds, No Accessory Muscle Use, No Respiratory Distress Cardiovascular: Regular Rate, Rhythm, No Edema, No Murmur Gastrointestinal: Normal Bowel Sounds, Non Tender, Soft Extremity: Normal Inspection, Pedal Edema Neurologic/Psychiatric: Alert, Oriented x3, No Motor/Sensory Deficits, Normal Mood/Affect, prune washer II-XII Norm as Tested Skin: Normal Color, Warm/Dry Focused Exam Lactate Level 11/03/17 23:27: Lactic Acid Level 0.78 Lactic Acid Level Procedures/Interventions Date of ETT Placement: Jul 21, 2017 Time of ETT Placement: 1200 Progress/Results/Core Measures Suspected Sepsis Recent Fever Within 48 Hours: No Infection Criteria Present: Documented Infection New/Unexplained Altered Menta: No Sepsis Screen: No Definite Risk SIRS Temperature:98.3 Pulse: 97 Respiratory Rate: 13 Laboratory Tests 11/03/17 23:27: White Blood Count 9.7 11/04/17 05:50: White Blood Count 6.8 Blood Pressure 135 /84 Mean: 101 11/03/17 23:27: Lactic Acid Level 0.78 Laboratory Tests 11/03/17 23:27: Creatinine 3.85H, INR Comment 1.0, Platelet Count 303, Total Bilirubin 0.7 11/04/17 05:50: Creatinine 3.73H, Platelet Count 274 Results/Orders Lab Results Laboratory Tests Test 11/03/17 23:27 11/04/17 00:00 11/04/17 05:50 Range/Units White Blood Count 9.7 6.8 4.3-11.0 10^3/uL Red Blood Count 2.91 L 3.02 L 4.35-5.85 10^6/uL Hemoglobin 8.4 L 8.7 L 13.3-17.7 G/DL Hematocrit 27 L 28 L 40-54 % Mean Corpuscular Volume 91 91 80-99 FL Mean Corpuscular Hemoglobin 29 29 25-34 PG Mean Corpuscular Hemoglobin Concent 32 32 32-36 G/DL Red Cell Distribution Width 14.5 14.2 10.0-14.5 % Platelet Count 303 274 130-400 10^3/uL Mean Platelet Volume 9.8 10.1 7.4-10.4 FL Neutrophils (%) (Auto) 91 H 98 H 42-75 % Lymphocytes (%) (Auto) 4 L 2 L 12-44 % Monocytes (%) (Auto) 4 1 0-12 % Eosinophils (%) (Auto) 1 0 0-10 % Basophils (%) (Auto) 0 0 0-10 % Neutrophils # (Auto) 8.8 H 6.7 1.8-7.8 X 10^3 Lymphocytes # (Auto) 0.4 L 0.1 L 1.0-4.0 X 10^3 Monocytes # (Auto) 0.4 0.1 0.0-1.0 X 10^3 Eosinophils # (Auto) 0.1 0.0 0.0-0.3 10^3/uL Basophils # (Auto) 0.0 0.0 0.0-0.1 10^3/uL Prothrombin Time 13.6 12.2-14.7 SEC INR Comment 1.0 0.8-1.4 Activated Partial Thromboplast Time 31 24-35 SEC Sodium Level 121 *L 122 *L 135-145 MMOL/L Potassium Level 4.4 4.9 3.6-5.0 MMOL/L Chloride Level 82 L 84 L 98-107 MMOL/L Carbon Dioxide Level 24 22 21-32 MMOL/L Anion Gap 15 H 16 H 5-14 MMOL/L Blood Urea Nitrogen 76 H 74 H 7-18 MG/DL Creatinine 3.85 H 3.73 H 0.60-1.30 MG/DL Estimat Glomerular Filtration Rate 16 17 BUN/Creatinine Ratio 20 20 Glucose Level 124 H 151 H 70-105 MG/DL Lactic Acid Level 0.78 0.50-2.00 MMOL/L Calcium Level 8.5 8.3 L 8.5-10.1 MG/DL Total Bilirubin 0.7 0.1-1.0 MG/DL Aspartate Amino Transf (AST/SGOT) 4 L 5-34 U/L Alanine Aminotransferase (ALT/SGPT) < 6 0-55 U/L Alkaline Phosphatase 96 40-136 U/L Troponin I < 0.30 <0.30 NG/ML Total Protein 6.0 L 6.4-8.2 GM/DL Albumin 3.3 3.2-4.5 GM/DL C-Reactive Protein High Sensitivity 4.74 H 0.00-0.50 MG/DL B-Type Natriuretic Peptide 7348.6 H <100.0 PG/ML Micro Results Microbiology 11/04/17 Influenza Types A,B Antigen (TANIYA) - Final, Complete My Orders Orders - CLEVELAND PAGAN MD Cbc With Automated Diff (11/03/17 23:24) Comprehensive Metabolic Panel (11/03/17 23:24) Lactic Acid Analyzer (11/03/17 23:24) Blood Culture (11/03/17:24) Sputum Culture (11/03/17:24) Ua Culture If Indicated (11/03/17:24) Protime With Inr (11/03/17:24) Partial Thromboplastin Time (11/03/17:24) Chest 1 View, Ap/Pa Only (11/03/17:24) O2 (11/03/17 23:24) Saline Lock/Iv-Start (11/03/17 23:24) Saline Lock/Iv-Start (11/03/17 23:24) Vital Signs Adult Sepsis Patie Q1H (11/03/17 23:24) Remove Rings In Anticipation O (11/03/17 23:24) Influenza A And B Antigens (11/03/17 23:24) Ns Iv 1000 Ml (Sodium Chloride 0.9%) (11/03/17 23:24) Ondansetron Injection (Zofran Injectio (11/03/17 23:30) Troponin I (11/03/17 23:26) Ekg Tracing (11/03/17 23:26) Methylprednisolone Sod Succ (Solu-Medrol (11/03/17 23:30) Albuterol/Ipra Inhalation Soln (Duoneb I (11/03/17 23:30) Svn Small Volume Nebulizer (11/03/17 23:27) BNP (11/04/17 01:01) Hs C Reactive Protein (11/04/17 01:02) Medications Given in ED Current Medications Medications Dose Ordered Sig/Samir Route Start Time Stop Time Status Last Admin Dose Admin Albuterol/ Ipratropium 3 ml ONCE ONCE INH 11/03/17 23:30 11/03/17 23:31 DC 11/03/17 23:35 3 ML Methylprednisolone Sodium Succinate 62.5 mg ONCE ONCE IVP 11/03/17 23:30 11/03/17 23:31 DC 11/03/17 23:39 62.5 MG Ondansetron HCl 8 mg ONCE ONCE IVP 11/03/17 23:30 11/03/17 23:31 DC 11/03/17 23:39 8 MG Sodium Chloride 1,000 ml @ 0 mls/hr Q0M ONCE IV 11/03/17 23:24 11/03/17 23:26 DC 11/03/17 23:40 0 MLS/HR Vital Signs/I&O 11/03/17 11/03/17 11/03/17 11/04/17 23:20 23:20 23:36 01:29 Temp 98.3 98.3 Pulse 97 92 Resp 13 20 B/P (MAP) 135/84 (101) 134/93 (101) Pulse Ox 100 100 100 96 O2 Delivery Nasal Cannula Nasal Cannula Nasal Cannula Nasal Cannula O2 Flow Rate 6.00 6.00 8.00 4.00 11/04/17 11/04/17 11/04/17 11/04/17 01:45 01:45 03:00 03:01 Temp 97.7 98.0 Pulse 97 94 Resp 22 19 B/P (MAP) 132/79 (96) 131/89 (103) Pulse Ox 91 96 90 O2 Delivery Nasal Cannula Nasal Cannula Nasal Cannula Nasal Cannula O2 Flow Rate 4.00 4.00 5.00 4.00 11/04/17 11/04/17 11/04/17 11/04/17 03:15 04:00 05:00 05:59 Pulse 94 93 97 95 Resp 16 19 20 B/P (MAP) 142/85 (104) 122/79 (93) 149/91 (110) Pulse Ox 100 98 92 O2 Delivery Nasal Cannula Nasal Cannula Nasal Cannula O2 Flow Rate 5.00 5.00 5.00 11/04/17 11/04/17 06:52 06:52 Pulse 107 Resp 24 B/P (MAP) 116/71 (86) Pulse Ox 94 92 O2 Delivery Nasal Cannula Nasal Cannula O2 Flow Rate 8.00 6.00 Capillary Refill : Less Than 3 Seconds Blood Pressure Mean: 101 Progress Note : Progress Note For treatment of COPD exacerbation patient was given an additional DuoNeb treatment as well as Solu-Medrol 62.5 mg. A liter of IV normal saline was administered. Chest x-ray was viewed and compared with prior. There is no definite evidence of new infiltrate. Influenza screen was negative. Patient had no fever or leukocytosis to suggest bacterial infection. Patient was found to be significantly hyponatremic. He was admitted to Dr. Harris. CODE STATUS was discussed with patient and he wishes to remain full code. ECG Initial ECG Impression Date: November 03, 2017 Initial ECG Impression Time: 23:29 Initial ECG Rate: 96 Initial ECG Rhythm: Normal Sinus Initial ECG Intervals: Normal Initial ECG Impression: Normal Comment Normal sinus rhythm with no ST elevation or depression. No abnormal intervals or axis deviation. Diagnostic Imaging Diagonstic Imaging: Xray Plain Films/CT/US/NM/MRI: chest Comments Chest x-ray viewed by me and compared with prior. Report not yet available. There are chronic interstitial markings with no new infiltrate or consolidation appreciated by this provider. Departure Communication (Admissions) Time/Spoke to Admitting Phy: 01:03 Dr. Harris Impression Primary Impression: Hyponatremia Additional Impressions: COPD exacerbation Nausea vomiting and diarrhea Chronic kidney failure Qualified Codes: N18.9 - Chronic kidney disease, unspecified Disposition: 09 ADMITTED INPATIENT Condition: Improved Admissions Decision to Admit Reason: Admit from ER (General) Decision to Admit/Date: November 04, 2017 Time/Decision to Admit Time: 23:30 Departure-Patient Inst. Referrals: HELADIO HOOPER MD (PCP/Family) Primary Care Physician CLEVELAND PAGAN MD November 04, 2017 01:17
--- OUTSIDE RECORDS SUMMARY | 2017-11-04 01:31 | XMS REPORT | Continuity of Care Document ---
Author Author [employer] Organization [facility] Address Unknown Phone Unavailable Care Team Providers Care Inspector And Tester Name Role Phone [employer] Unavailable Unavailable Problems Medications Allergies, Adverse Reactions, Alerts Immunizations Results Vital Signs Encounters Location Location Details Encounter Type Encounter Number Reason For Visit Attending Provider ADM Date DC Date Status Source OUTPATIENT [id number] SLIME PINTO 02/02/20172016 Active [facility] OUTPATIENT [id number] ALEJANDRO PERI 03/03/2017 03/03/2017 Active [facility] OUTPATIENT [id number] ADI CARLTON 04/27/2017 04/27/2017 Active [facility] SPECIMEN [id number] ALEJANDROLesley WHITT 05/18/2017 05/18/2017 Active [facility] INPATIENT [id number] CHIQUI MARTINEZ 07/21/20172017 Active [facility] SPECIMEN [id number] ROMERO ELIAS 08/31/20172017 Active [facility] SPECIMEN [id number] ROMERO ELIAS 08/31/20172017 Active [facility] O SLIME PINTO Active [facility] Procedures Plan of Care Social History Assessment and Plan Family History Advance Directives Functional Status
--- OUTSIDE RECORDS SUMMARY | 2017-11-04 01:32 | XMS REPORT | Encounter Summary ---
Author Author [facility] Organization [facility] Address Unknown Phone Unavailable Care Team Providers Care Equal Opportunity Specialist Name Role Phone Otto Bartholomew MD Unavailable Venecia Olivas MD Unavailable Amy Joyner RN Unavailable Unavailable Brandy Scott MD Unavailable Tani Keenan MD PCP Franklin Gerber MD Unavailable Unavailable Jonathan Loya RN Unavailable Tash Calhoun RN 2 Unavailable Lisa Chavarria Unavailable Unavailable Mckenna Hidalgo Unavailable Unavailable Mari Braun SURGICAL SCHEDULER Unavailable Jigar Christina MD Unavailable Kip Godoy MD Unavailable Lianne Hughes MD Unavailable Alfonso Koehler OD Unavailable Cheri Evans WOOD CARVING MACHINE OPERATOR Unavailable Unavailable Katelyn Chris RN Unavailable Fartun Parker LPN Unavailable Unavailable Reason for Visit * Reason Comments Other pre-transplant work up Encounter Details Date Type Department Care Team Description 09/30/2017 Telephone [facility] Kip Godoy MD Other ( pre-transplant Physicians - Internal [address] work up) Medicine [place] [address] [place] [address] MED [phone] [place] [address] Social History Tobacco Use Types [...] Transplant - updated records regarding bronch? Tel: [phone] Called Frida. All current bronchoscopy results faxed. in this encounter Plan of Treatment Not on fileas of this encounter Visit Diagnoses Not on filein this encounter
--- OUTSIDE RECORDS SUMMARY | 2017-11-04 01:32 | XMS REPORT | Encounter Summary ---
Author Author [facility] Organization [facility] Address Unknown Phone Unavailable Care Team Providers Care Pipe Fittings Molder Name Role Phone Otto Bartholomew MD Unavailable [...] for Mari Braun APRN Transplantation-Kidney/[facility] [address] [place] ncreas Nep [place] [address] [place] [address] [place] FOR [phone] [place] [address] Social History Tobacco Use Types [...]
--- OUTSIDE RECORDS SUMMARY | 2017-11-04 01:32 | XMS REPORT | Encounter Summary ---
Author Author [facility] Organization [facility] Address Unknown Phone Unavailable Care Team Providers Care Lmft Name Role Phone Otto Bartholomew MD Unavailable Venecia Olivas MD Unavailable Amy Joyner RN Unavailable Unavailable Brandy Scott MD Unavailable Tani Keenan MD PCP Franklin Gerber MD Unavailable Unavailable Jonathan Loya RN Unavailable Tash Calhoun RN 2 Unavailable Lisa Chavarria Unavailable Unavailable Mckenna Hidalgo Unavailable Unavailable Mari Braun ASSESSMENT TECHNICIAN Unavailable Jigar Christian MD Unavailable Kip Godoy MD Unavailable Lianne Hughes MD Unavailable Alfonso Koehler OD Unavailable Cheri Evans BRIDGE MECHANIC Unavailable Unavailable Katelyn Chris RN Unavailable Fartun Parker LPN Unavailable Unavailable Reason for Visit * Reason Comments Pulmonary Rehab Encounter Details Date Type Department Care Team Description 09/01/2017 Telephone [facility] Kip Godoy MD Pulmonary Rehab Physicians - Internal [address] [facility] Medicine [place] [address] [place] [address] [address] [facility] [phone] [place] [address] Social History Tobacco Use Types Packs/Day Years [...] Courtney Dominguez RN - 09/01/2017 8:40 AM CORN DETASSELER MACHINE OPERATOR Called [facility] and spoke to Shira. [facility] has approved 18 sessions of Pulmonary Rehab. They will call patient today to schedule his first session. in this encounter Plan of Treatment Not on fileas of this encounter Visit Diagnoses Not on filein this encounter
--- OUTSIDE RECORDS SUMMARY | 2017-11-04 01:32 | XMS REPORT | Clinical Summary ---
Author Author [facility] Organization [facility] Address Unknown Phone Unavailable Care Team Providers Care Compressor Station Chief Engineer Name Role Phone Otto Bartholomew MD Unavailable Venecia Olivas MD Unavailable Amy Joyner RN Unavailable Unavailable Brandy Scott MD Unavailable Tani Keenan MD PCP Franklin Gerber MD Unavailable Unavailable Jonathan Loya RN Unavailable Tash Calhoun RN 2 Unavailable Lisa Chavarria Unavailable Unavailable Mckenna Hidalgo Unavailable Unavailable Mari Braun RESIDENT SERVICES MANAGER Unavailable Jigar Christian MD Unavailable Kip [...] in the Health Information Management department at [phone] for further assistance in locating additional records.[facility] Allergies Active Allergy Reactions Severity Noted Date Comments Ipqyliv-Ejw-Zgm Reductase SEE COMMENTS Low 11/10/2016 Put patient [...] Overview: Added automatically from request for surgery [id number] Hyponatremia 07/26/2017 Acute on chronic respiratory failure [...] forward Microscopic hematuria 05/21/2016 SEMAJ (mycobacterium avium-intracellulare) ([facility]) 09/17/2015 Overview: Follows with ID Planned therapy through L ast Assessment & Plan: Continue with current dual/daily therapy. Following with ID. Cavitary lung disease 09/17/2015 Pseudophakia of both eyes 09/17/2015 Last Assessment & Plan: Stable, no PCO, observe Hospital-acquired pneumonia 08/20/2015 Hyperkalemia 08/20/2015 Acute tubular necrosis (HCC) 08/20/2015 Adrenal insufficiency ([facility]) 04/30/2015 Hypomagnesemia 04/30/2015 Hyperuricemia 04/30/2015 Vitamin D deficiency 04/30/2015 Chronic lung disease 04/30/2015 Immunosuppression (HCC) 04/30/2015 Stage 4 very severe COPD by GOLD classification ([facility]) 07/12/2012 Overview: FEV1 0.83, 25% Oxygen needs-4L Inhaler Regimen Spiriva Symbicort Pulm Rehab-x1 (outside hospital) Smoking-quit pyh Last Assessment & Plan: Continue inhalers. Sending orders for the following- Pulm rehab in [place], [place]- if denied will appeal- only completed rehab once. Look into portable concentrator and/or new regulator that allows for 6L continuous (with exertion). Updated rx for 6L with exertion- (may need qualifying testing) Overnight ox on 4L. Will benefit from pulm rehab and has benefited tremendously in the past. Chronic hypoxemic respiratory failure (HCC) 05/24/2012 Overview: Oxygen 4L DME: Via [facility] ast Assessment & Plan: Orders [...] height 68 in 05-23-12 tramsfer from [facility] where he presented for continued gradual [...] 4 very severe COPD by GOLD classification ([facility]) 09/11/2017 Refill Transplant Surgery Mari Hull [...] squamous cell carcinoma; Multiple benign nevi 08/31/2017 [facility] Kip Godoy MD Cavitary lesion of lung [...] STRIPS-SCAN 09/03/2017 Results for this 10:30 AM OFFICE MACHINE SERVICER APPRENTICE procedure are in the results section. PROCEDURE RECORD-SCAN 09/03/2017 Results for this 10:30 AM OFFICE MACHINE SERVICER APPRENTICE procedure are in the results section. BRONCHOSCOPY WITH LAVAGE 08/31/2017 Cavitary lesion of lung and cytology brush 9:15 AM OFFICE MACHINE SERVICER APPRENTICE Special Needs ANTONINA/REGINA BUSH. PLEASE SCHEDULE 08/31/17 [...] Component Value Ref Range PATHOLOGY REPORT [facility] [email or web address] Department of Pathology and Laboratory Medicine [address] [place] [address] Surgical Pathology Office:[phone]:[phone] SURGICAL PATHOLOGY REPORT NAME: BRUCE KAHN Jatin SURG PATH #: [id number] MR #: [id number] SPECIMEN CLASS: SR BILLING #: [id number] ALT ID #:LOCATION: [facility] DATE OF PROCEDURE: 08/31/2017 AGE:57 SEX: [...] Specimen Performing Laboratory [facility] LAB RESULTS * NON-ADMIN DIR CYTOLOGY (BODY FLUIDS/TISSUE) (08/31/2017 11:58 AM) Component Value Ref Range Cytology [facility] [email or web address] Department of Pathology and Laboratory Medicine [address] [place] [address] Surgical Pathology Office:[phone]:[phone] CYTOLOGY REPORT NAME: BRUCE KAHN CYTOLOGY #: [id number] MR #: [id number] ALT ID #: BILLING #: [id number] LOCATION: DERM DATE OF PROCEDURE: 08/31/2017 AGE: [...] Status FINAL 10/05/2017 Specimen Performing Laboratory Bronchial [place],RUL MAIN LAB [address] [place] [address] * CULTURE-TISSUE QUANT W/SENSITIVITY (08/31/2017 10:20 AM) Component Value Ref Range Battery Name TISSUE QUANT CULTURE Specimen Description BRONCHIAL BRUSH RIGHT UPPER LOBE Special Requests NONE Culture 1,800 cfu/ml GAMMA HEMOLYTIC STREPTOCOCCUS 500 cfu/ml ALPHA HEMOLYTIC STREPTOCOCCUS SPECIES 1,000 cfu/ml ROTHIA MUCILAGINOSA Report Status FINAL 09/04/2017 Specimen Performing Laboratory [facility] [place] (Specify MAIN LAB Site) [address] [place] [address] * FLOW CYTOMETRY (08/31/2017 10:18 AM) Component Value Ref Range PATHOLOGY REPORT [facility] [email or web address] Yuliya Kamara MD, Director of Clinical Laboratory Nicholas Johnson MD, Director of Flow Cytometry Laboratory Department of Pathology and Laboratory Medicine [address] [place] [address] [place] [address] Surgical Pathology Office:[phone]:[phone] FLOW CYTOMETRY REPORT NAME: BRUCE KAHN SURG PATH #: [id number] MR #: [id number] SPECIMEN CLASS: LC BILLING #: [id number] ALT ID #:LOCATION: [facility] DATE OF PROCEDURE: 08/31/2017 AGE:57 SEX: [...] Cells): CD56=0 Miscellaneous Markers (% Positive Cells): AN87=770 Cell Viability (%): 94 Number of Cells Analyzed:10,000 Total Number of Markers: 7 Summary of Marker Combinations: 08/18/3/4/45/56/8 This test was developed and its performance characteristics determined by the [facility] Flow Cytometry Laboratory.It has not been cleared or approved by the U.S. Food and Drug Administration (FDA).The FDA has determined that such clearance or approval is not necessary. Specimen Performing Laboratory LAB RESULTS * LEUKEMIA/LYMPHOMA PANEL FLUID/TISSUE (08/31/2017 10:18 AM) Component Value Ref Range Leuk/Lymph Interpretation SEE PATHOLOGY REPORT Specimen/LLM BRONCHIAL ALVEOLAR LAVAGE Specimen Performing Laboratory Bronchial Alveolar Lavage MAIN LAB [address] [place] [address] * CMV QUANT PCR-FLUID (08/31/2017 10:18 AM) Component Value Ref Range Specimen, CMV BRONCHIAL ALVEOLAR LAVAGE CMV by PCR-fluid CMV DNA NOT DETECTED CMV Comment-Fluid This assay is an off label use of the Ceja RealTime Assay for detection of CMV in fluids and has not been approved by the US Food and Drug Administration. The performance characteristics were determined by the [facility] Laboratory.The lower limit of detection is 50IU/mL. Specimen Performing Laboratory Fluid - Bronchial MAIN LAB Alveolar Lavage [address] [place] [address] * CELL COUNT W/DIFF-FLUIDS (08/31/2017 10:18 AM) [...] - Bronchial MAIN LAB Alveolar Lavage [address] [place] [address] * GRAM STAIN (08/31/2017 10:17 AM) Component Value Ref Range Battery Name GRAM STAIN Specimen Description BRONCHIAL ALVEOLAR LAVAGE, RUL Special Requests NONE Gram Stain MANY NEUTROPHILS FEW SQUAMOUS EPITHELIAL CELLS MANY MIXED BACTERIA Report Status FINAL 08/31/2017 Specimen Performing Laboratory Bronchial Alveolar [facility] MAIN LAB Lavage,RUL [address] [place] [address] * CULTURE-TB (AFB) (08/31/2017 10:17 AM) Component Value Ref Range Battery Name AFB CULTURE Specimen Description BRONCHIAL ALVEOLAR LAVAGE, RUL Special Requests NONE Acid Fast Stain NO ACID FAST BACILLI SEEN Culture NO GROWTH OF MYCOBACTERIA AT 6 WEEKS Report Status FINAL 10/19/2017 Specimen Performing Laboratory Bronchial Alveolar [facility] MAIN LAB Lavage,RUL [address] [place] [address] * CULTURE-RESP,LOWER W/SENSITIVITY (08/31/2017 10:17 AM) Component Value Ref Range Battery Name LOWER RESP CULTURE Specimen Description BRONCHIAL ALVEOLAR LAVAGE, RUL Special Requests NONE Direct Gram Stain MANY NEUTROPHILS FEW SQUAMOUS EPITHELIAL CELLS MANY MIXED BACTERIA Culture Moderate growth NORMAL OROPHARYNGEAL SAMIRA Report Status FINAL 09/02/2017 Specimen Performing Laboratory Bronchial Alveolar [facility] MAIN LAB Lavage,RUL [address] [place] [address] * BRONCHOSCOPY (08/31/2017 10:04 AM) Component Value Ref Range Provation Report Patient Name: Bruce Kahn Procedure Date: 08/31/2017 10:04 AM CSN: [id number] Date of : 1960 Gender: Male Attending Physician: Gareth Sarkar MD Procedure:Bronchoscopy Indications:Right upper lobe infiltrate, history of MAC with cavita ry disease Providers:Gareth Sarkar MD (Doctor), Cece Fisher MD (Fellow), Ashwini Sanchez RN (Nurse), Urban Sun (Caser In) Referring Physician:Kip Godoy MD Medications:Tetracaine 0.25%/Epinephrine 0.003% [...] Out: 10:23:17 AM Procedure Code(s):--- Professional --- 78277, Bronchoscopy, rigid or flexible, including fluoro scopic guidance, when performed; with bronchial alveol ar lavage CPT copyright 2016 [employer]. All rights reserved. The codes documented in this report are preliminary and upon animal daycare provider review may be revised to meet current [...]
--- OUTSIDE RECORDS SUMMARY | 2017-11-04 01:32 | XMS REPORT | Encounter Summary ---
Author Author [facility] Organization [facility] Address Unknown Phone Unavailable Care Team Providers Care Measurement Psychologist Name Role Phone Otto Bartholomew MD Unavailable Venecia Olivas MD Unavailable Amy Joyner RN Unavailable Unavailable Brandy Scott MD Unavailable Tani Keenan MD PCP Franklin Gerber MD Unavailable Unavailable Jonathan Loya RN Unavailable Tash Calhoun RN 2 Unavailable Lisa Chavarria Unavailable Unavailable Mckenna Hidalgo Unavailable Unavailable Mari Braun LOGGER Unavailable Jigar Christian MD Unavailable Kip Godoy MD Unavailable Lianne Hughes MD Unavailable Alfonso Koehler OD Unavailable Cheri Evans MINILAB OPERATOR Unavailable Unavailable Katelyn Chris RN Unavailable Fartun Parker LPN Unavailable Unavailable Encounter Details Date Type Department Care Team Description 10/29/2017 Orders Only [facility] Mike Mcnamara MD CKD (chronic kidney Physicians - Internal [address] disease) stage 4, GFR Medicine MS 3002 15-29 ml/min (HCC) [address]TH [place] [address] (Primary Dx) [address] MED [phone] [place] [phone] Social History Tobacco Use Types Packs/Day Years [...] stage 4, GFR Occurrences starting 15-29 ml/min ([facility]) 10/29/2017 until 10/29/2018 COMPREHENSIVE METABOLIC PANEL Routine CKD (chronic kidney ONE TIME for 12 disease) stage 4, GFR Occurrences starting 15-29 ml/min ([facility]) 10/29/2017 until 10/29/2018 URIC ACID Routine CKD (chronic kidney ONE TIME for 12 disease) stage 4, GFR Occurrences starting 15-29 ml/min ([facility]) 10/29/2017 until 10/29/2018 PHOSPHORUS Routine CKD (chronic kidney ONE TIME for 12 disease) stage 4, GFR Occurrences starting 15-29 ml/min ([facility]) 10/29/2017 until 10/29/2018 25-OH VITAMIN D (D2 + D3) Routine CKD (chronic kidney ONE TIME for 3 disease) stage 4, GFR Occurrences starting 15-29 ml/min ([facility]) 10/29/2017 until 10/29/2018 PARATHYROID HORMONE Routine CKD (chronic kidney ONE TIME for 3 disease) stage 4, GFR Occurrences starting 15-29 ml/min ([facility]) 10/29/2017 until 10/29/2018 IRON + BINDING CAPACITY + %SAT+ FERRITIN Routine CKD (chronic kidney ONE TIME for 4 disease) stage 4, GFR Occurrences starting 15-29 ml/min ([facility]) 10/29/2017 until 10/29/2018 as of this encounter Visit Diagnoses Diagnosis CKD (chronic kidney disease) stage 4, GFR 15-29 ml/min (HCC) - Primary Chronic kidney disease, Stage IV (severe)
--- OUTSIDE RECORDS SUMMARY | 2017-11-04 01:32 | XMS REPORT | Encounter Summary ---
Author Author [facility] Address Unknown Phone Unavailable Care Team Providers Care Insole Department Worker Name Role Phone Otto Bartholomew MD [...] [facility] APRN Transplantation-Kidney/Pa [address] [place] ncreas Nep [place] [address] [place] [address] [place] FOR [phone] [place] [address] Social History Tobacco Use Types [...]
--- OUTSIDE RECORDS SUMMARY | 2017-11-04 01:32 | XMS REPORT | Encounter Summary ---
Author Author [facility] Organization [facility] Address Unknown Phone Unavailable Care Team Providers Care High School Foreign Language Tutor Name Role Phone Otto Bartholomew MD Unavailable Venecia Olivas MD Unavailable Amy Joyner RN Unavailable Unavailable Brandy Scott MD Unavailable Tani Keenan MD PCP Franklin Gerber MD Unavailable Unavailable Jonathan Loya RN Unavailable Tash Calhoun RN 2 Unavailable Lisa Chavarria Unavailable Unavailable Mckenna Hidalgo Unavailable Unavailable Mari Braun SCREENING SPECIALIST Unavailable Jigar Christian MD Unavailable Kip Godoy MD Unavailable Lianne Hughes MD Unavailable Alfonso Koehler OD Unavailable Cheri Evans RADIOLOGY CLERK Unavailable Unavailable Katelyn Chris RN Unavailable Fartun Parker LPN Unavailable Unavailable Reason for Visit * Reason Comments Transplant Referral Encounter Details Date Type Department Care Team Description 10/19/2017 Telephone [facility] Kip Godoy MD Transplant Referral Physicians - Internal [address] [facility] Medicine [address] [place] [address] [address] [facility] [phone] [place] [phone] Social History Tobacco Use Types Packs/Day Years [...]
--- OUTSIDE RECORDS SUMMARY | 2017-11-04 01:32 | XMS REPORT | Encounter Summary ---
Author Author [facility] Organization [facility] Address Unknown Phone Unavailable Care Team Providers Care Diagnostic Technician Name Role Phone Otto Bartholomew MD Unavailable Venecia Olivas MD Unavailable Amy Joyner RN Unavailable Unavailable Brandy Scott MD Unavailable Tani Keenan MD PCP Franklin Gerber MD Unavailable Unavailable Jonathan Loya RN Unavailable Tash Calhoun RN 2 Unavailable Lisa Chavarria Unavailable Unavailable Mckenna Hidalgo Unavailable Unavailable Mari Braun MAGNETIC OBSERVER Unavailable Jigar Christian MD Unavailable Kip Godoy MD Unavailable Lianne Hughes MD Unavailable Alfonso Koehler OD Unavailable Cheri Evans GROCERY STORE ASSOCIATE Unavailable Unavailable Katelyn Chris RN Unavailable Fartun Parker LPN Unavailable Unavailable Reason for Visit * Auth/Cert Status Reason Specialty Diagnoses / Referred By Referred To Procedures Contact Contact Diagnoses Cavitary lesion of lung UNKNOWN P rocedures MS BRNCHSC BRUSHING/PROTECT ED BRUSHINGS BRONCHOSCOPY WITH LAVAGE and cytology brush Encounter Details Date Type Department Care Team Description 08/31/2017 [facility] Elias, Neoplasm of uncertain Encounter [address], [place] [address] [address] [place] [address] [phone] Social History Tobacco Use Types Packs/Day Years [...] * Fartun Murillo - 09/04/2017 5:55 AM ORDER CALLER Bruce Kahn Lesion A Dorsal Nose Picture All documentation and picture emailed to Dr Marks's office for scheduling Padilla Frias in this encounter Plan of Treatment Not on fileas of this encounter Results * SURGICAL PATHOLOGY (08/31/2017 1:49 PM) Component Value Ref Range PATHOLOGY REPORT [facility] [email or web address] Department of Pathology and Laboratory Medicine [address] [place] [address] Surgical Pathology Office:[phone]:[phone] SURGICAL PATHOLOGY REPORT NAME: BRUCE KAHN SURG PATH #: [id number] MR #: [id number] SPECIMEN CLASS: SR BILLING #: [id number] ALT ID #:LOCATION: DERM DATE OF PROCEDURE: [...] Specimen Performing Laboratory [facility] LAB RESULTS * NON-ZONING TECHNICIAN CYTOLOGY (BODY FLUIDS/TISSUE) (08/31/2017 11:58 AM) Component Value Ref Range Cytology [facility] [email or web address] Department of Pathology and Laboratory Medicine [address] [place] [address] Surgical Pathology Office:[phone]:[phone] CYTOLOGY REPORT NAME: BRUCE KAHN CYTOLOGY #: [id number] MR #: [id number] ALT ID #: BILLING #: [id number] LOCATION: [facility] DATE OF PROCEDURE: 08/31/2017 AGE: 57 [...]
--- OUTSIDE RECORDS SUMMARY | 2017-11-04 01:32 | XMS REPORT | Encounter Summary ---
Author Author [facility] Organization [facility] Address Unknown Phone Unavailable Care Team Providers Care Grinder Needle Tip Name Role Phone Otto Bartholomew MD Unavailable Venecia Olivas MD Unavailable Amy Joyner RN Unavailable Unavailable Brandy Scott MD Unavailable Tani Keenan MD PCP Franklin Gerber MD Unavailable Unavailable Jonathan Loya RN Unavailable Tash Calhoun RN 2 Unavailable Lisa Chavarria Unavailable Unavailable Mckenna Hidalgo Unavailable Unavailable Mari Braun THERAPIST SPEECH Unavailable Jigar Christian MD Unavailable Kip Godoy MD Unavailable Lianne Hughes MD Unavailable Alfonso Koehler OD Unavailable Cheri Evans ASSET MANAGEMENT ANALYST Unavailable Unavailable Katelyn Chris RN Unavailable Fartun Parker LPN Unavailable Unavailable Reason for Visit * Reason Comments Results bronchoscopy Encounter Details Date Type Department Care Team Description 09/08/2017 Telephone [facility] Kip Godoy MD Results (bronchoscopy) Physicians - Internal [address] [facility] Medicine [address] [place] [address] [address] [facility] MED [phone] [place] [address] Social History Tobacco Use Types Packs/Day Years [...]
--- OUTSIDE RECORDS SUMMARY | 2017-11-04 01:32 | XMS REPORT | Encounter Summary ---
Author Author [facility] Organization [facility] Address Unknown Phone Unavailable Care Team Providers Care Garment Sewing Machine Operator Name Role Phone Otto Bartholomew MD Unavailable Venecia Olivas MD Unavailable Amy Joyner RN Unavailable Unavailable Brandy Scott MD Unavailable Tani Keenan MD PCP Franklin Gerber MD Unavailable Unavailable Jonathan Loya RN Unavailable Tash Calhoun RN 2 Unavailable Lisa Chavarria Unavailable Unavailable Mckenna Hidalgo Unavailable Unavailable Mari Braun STATISTICAL MODELER Unavailable Jigar Christian MD Unavailable Kip Godoy MD Unavailable Lianne Hughes MD Unavailable Alfonso Koehler OD Unavailable Cheri Evans LPN Unavailable Unavailable Katelyn Chris RN Unavailable Fartun Parker LPN Unavailable Unavailable Reason for Visit * Reason Comments Medication Refill Encounter Details Date Type Department Care Team Description 10/02/2017 Refill [facility] for [facility] LPN Transplantation-Kidney/Pa ncreas Nep [address] [facility] [place] [address] Social History Tobacco Use Types [...]
--- OUTSIDE RECORDS SUMMARY | 2017-11-04 01:32 | XMS REPORT | Encounter Summary ---
Author Author [facility] Organization [facility] Address Unknown Phone Unavailable Care Team Providers Care Plant And Equipment Worker Name Role Phone Otto Bartholomew MD Unavailable Venecia Olivas MD Unavailable Amy Joyner RN Unavailable Unavailable Brandy Scott MD Unavailable Tani Keenan MD PCP Franklin Gerber MD Unavailable Unavailable Jonathan Loya RN Unavailable Tash Calhoun RN 2 Unavailable Lisa Chavarria Unavailable Unavailable Mckenna Hidalgo Unavailable Unavailable Mari Braun COPY HOLDER Unavailable Jigar Christian MD Unavailable Kip Godoy MD Unavailable Lianne Hughes MD Unavailable Alfonso Koehler OD Unavailable Cheri Evans SPLUNK DASHBOARD DEVELOPER Unavailable Unavailable Katelyn Chris RN Unavailable Fartun Parker LPN Unavailable Unavailable Reason for Visit * Reason Comments Copd Dyspnea Encounter Details Date Type Department Care Team Description 09/14/2017 Office Visit [facility] Kip Godoy MD Chronic hypoxemic Physicians - Internal [address] [facility] respiratory failure (HCC) Medicine [place] [address] (Primary Dx); [address]TH [place] [address] Cavitary lung disease; [address] [facility] [phone] Stage 4 very severe COPD OFFICE BLDG by GOLD classification [place], [place] ([facility]) [address] Social History Tobacco Use Types Packs/Day [...] or concerns. Pulmonary RN Coordinator-Dottie Dominguez RN [phone] [phone] For refills on medications, please have your pharmacy fax a refill authorization request form to our office at Fax) [phone]. Please allow at least 3 business days for refill requests. For urgent issues after business hours/weekends/holidays call [phone] and request for the attendant honor bar to be paged in this encounter Progress Notes * Kip Godoy MD - 09/14/2017 2:50 PM CDT Formatting of this note may be different from the original. Subjective: History of Present Illness Doug Dawson is a 57 y.o. male. Had the pleasure of seeing Mr. aDwson in my pulmonary clinic today in follow-up for his chronic hypoxemic respiratory failure and very severe COPD. Since her last visit he did travel to [place] to be seen by [place] [facility]. We have also gotten him approved for [...] was seen by the transplant center at [facility] and we recently performed BAL [...] also seen by renal transplant while at [facility]. 3: Superficial squamous cell carcinoma [...] 4 very severe COPD by GOLD classification ([facility])
--- OUTSIDE RECORDS SUMMARY | 2017-11-04 01:32 | XMS REPORT | Encounter Summary ---
Author Author [facility] Organization [facility] Address Unknown Phone Unavailable Care Team Providers Care Marine Steam Fitter Helper Name Role Phone Otto Bartholomew MD Unavailable Venecia Olivas MD Unavailable Amy Joyner RN Unavailable Unavailable Brandy Scott MD Unavailable Tani Keenan MD PCP Franklin Gerber MD Unavailable Unavailable Jonathan Loya RN Unavailable Tash Calhoun RN 2 Unavailable Lisa Chavarria Unavailable Unavailable Mckenna Hidalgo Unavailable Unavailable Mari Braun CHORAL DIRECTOR Unavailable Jigar Christian MD Unavailable Kip Godoy MD Unavailable Lianne Hughes MD Unavailable Alfonso Koehler OD Unavailable Cheri Evans LPN Unavailable Unavailable Katelyn Chris RN Unavailable Fartun Parker LPN Unavailable Unavailable Reason for Visit * Reason Comments Medication Refill Encounter Details Date Type Department Care Team Description 09/11/2017 Refill [facility] for [facility] Hull LPN Transplantation-Kidney/Pa ncreas Nep [address] [facility] [place] [address] Social History Tobacco Use Types [...]
--- OUTSIDE RECORDS SUMMARY | 2017-11-04 01:32 | XMS REPORT | Encounter Summary ---
Author Author [facility] Organization [facility] Address Unknown Phone Unavailable Care Team Providers Care Geophysical Laboratory Supervisor Name Role Phone Otto Bartholomew MD Unavailable Venecia Olivas MD Unavailable Amy Joyner RN Unavailable Unavailable Brandy Scott MD Unavailable Tani Keenan MD PCP Franklin Gerber MD Unavailable Unavailable Jonathan Loya RN Unavailable Tash Calhoun RN 2 Unavailable Lisa Chavarria Unavailable Unavailable Mckenna Hidalgo Unavailable Unavailable Mari Braun ULTRASONIC SOLDERER Unavailable Jigar Christian MD Unavailable Kip Godoy MD Unavailable Lianne Hughes MD Unavailable Alfonso Koehler OD Unavailable Cheri Evans LPN Unavailable Unavailable Katelyn Chris RN Unavailable Fartun Parker LPN Unavailable Unavailable Encounter Details Date Type Department Care Team Description 10/23/2017 Orders Only [facility] Mike Mcnamara MD Physicians - Internal [address] [facility] [address] [place] [address] [address] [facility] [phone] [place] [address] Social History Tobacco Use Types [...]
--- OUTSIDE RECORDS SUMMARY | 2017-11-04 01:33 | XMS REPORT | Encounter Summary ---
Author Author [facility] Organization [facility] Address Unknown Phone Unavailable Care Team Providers Care Architectural Model Maker Name Role Phone Otto Bartholomew MD Unavailable Venecia Olivas MD Unavailable Amy Joyner RN Unavailable Unavailable Brandy Scott MD Unavailable Tani Keenan MD PCP Franklin Gerber MD Unavailable Unavailable Jonathan Loya RN Unavailable Tash Calhoun RN 2 Unavailable Lisa Chavarria Unavailable Unavailable Mckenna Hidalgo Unavailable Unavailable Mari Braun COOK SHIP Unavailable Jigar Christian MD Unavailable Kip Godoy MD Unavailable Lianne Hughes MD Unavailable Alfonso Koehler OD Unavailable Cheri Evans CHILD CARE SPECIALIST Unavailable Unavailable Katelyn Chris RN Unavailable Fartun Parker LPN Unavailable Unavailable Encounter Details Date Type Department Care Team Description 08/21/2017 Prep for Case [facility] Kip Godoy MD Cavitary lesion of lung Physicians - Internal [address] (Primary Dx) Medicine [address] [place] [address] [phone] [address] Social History Tobacco Use Types Packs/Day Years [...]
--- OUTSIDE RECORDS SUMMARY | 2017-11-04 01:33 | XMS REPORT | Encounter Summary ---
Author Author [facility] Organization [facility] Address Unknown Phone Unavailable Care Team Providers Care Dog Food Shredder Operator Name Role Phone Otto Bartholomew MD Unavailable Venecia Olivas MD Unavailable Amy Joyner RN Unavailable Unavailable Brandy Scott MD Unavailable Tani Keenan MD PCP Franklin Gerber MD Unavailable Unavailable Jonathan Loya RN Unavailable Tash Calhoun RN 2 Unavailable Lisa Chavarria Unavailable Unavailable Mckenna Hidalgo Unavailable Unavailable Mari Braun CONSUMER SAFETY OFFICER Unavailable Jigar Christian MD Unavailable Kip Godyo MD Unavailable Lianne Hughes MD Unavailable Alfonso Koehler OD Unavailable Cheri Evans CASH APPLICATION REPRESENTATIVE Unavailable Unavailable Katelyn Chris RN Unavailable Fartun Parker LPN Unavailable Unavailable Reason for Visit * Auth/Cert Status Reason Specialty Diagnoses / Referred By Referred To Procedures Contact Contact Diagnoses Cavitary lesion of lung UNKNOWN P rocedures GA BRNCHSC BRUSHING/PROTECT ED BRUSHINGS BRONCHOSCOPY WITH LAVAGE and cytology brush Encounter Details Date Type Department Care Team Description 08/31/2017 Hospital Gastrointenstinal Kip Godoy MD Cavitary lesion of lung Encounter Endoscopy [address] [place] [address] [place] [address] [phone] Gareth Yancey MD [address] [facility] [address] [place] [address] [phone] Social History Tobacco Use Types Packs/Day Years Used Date Former Smoker Cigarettes 1 Quit: 05/01/2012 Smokeless Tobacco: Never Used Alcohol Use Drinks/Week oz/Week Comments No Sex Assigned at Date Recorded Not on file as of this encounter Last Filed Vital Signs Vital Sign Reading Time Taken Blood Pressure 117/78 08/31/2017 11:47 AM PLATE PAINTER Pulse 97 08/31/2017 11:47 AM PLATE PAINTER Temperature 36.4 C (97.5 F) 08/31/2017 8:43 AM PLATE PAINTER Respiratory Rate - - Oxygen Saturation 97% 08/31/2017 11:47 AM PLATE PAINTER Inhaled Oxygen - - Concentration Weight - [...] Moraima Latham RN - 08/31/2017 10:56 AM PLATE PAINTER POST BRONCHOSCOPY INSTRUCTIONS 1. When your brochscopy [...] or problems after your procedure please call [phone] between the hours of 8 a.m. until 4:30 p.m. After 4:30 p.m., holidays, or weekends call [phone] and ask for the Pulmonary Physician safety consultant. * Discharge Instr - Other Info - Rudy Thomas RN - 08/31/2017 10:45 AM PLATE PAINTER POST BRONCHOSCOPY INSTRUCTIONS 1. When your brochscopy [...] or problems after your procedure please call [phone] between the hours of 8 a.m. until 4:30 p.m. After 4:30 p.m., holidays, or weekends call [phone] and ask for the Pulmonary Physician safety consultant. in this encounter Medications at Time of [...] Cece Fisher MD - 08/31/2017 8:04 AM PLATE PAINTER Formatting of this note may be different [...] currently being evaluated for lung transplant in [place]. Previous Anesthetic/Sedation History: Tolerated sedation with previous bronchoscopies. Past Medical History: Diagnosis Date Cancer of lip squam cell Cataract Chronic kidney disease transplant COPD (chronic obstructive pulmonary disease) (HCC) copd Hypertension On supplemental oxygen therapy Pneumonia Renal failure Past Surgical History: Procedure Laterality Date HX APPENDECTOMY HX CHOLECYSTECTOMY HX RENAL TRANSPLANT GA REMOVE BILE DUCT STONE, PERCUT GA TENOTOMY PRQ ACHILLES TENDON SPX GENERAL ANES Pertinent medical/surgical history reviewed Pertinent family history reviewed Social History Substance Use Topics Smoking status: Former Smoker Packs/day: 1.00 Years: 30.00 Types: Cigarettes Quit date: 05/01/2012 Smokeless tobacco: Never Used Alcohol use No History Drug Use No Comment: when he was younger smoked marijuana. Allergies: Zkysguy-fgc-dcu reductase inhibitors and Varenicline Medications No current [...] past 24 hour(s)). Cece Fisher MD Pager [phone] in this encounter Plan of Treatment Not on fileas of this encounter Procedures Procedure Name Priority Date/Time Associated Diagnosis Comments TELEMETRY STRIPS-SCAN 09/03/2017 Results for this 10:30 AM PLATE PAINTER procedure are in the results section. PROCEDURE RECORD-SCAN 09/03/2017 Results for this 10:30 AM PLATE PAINTER procedure are in the results section. BRONCHOSCOPY WITH LAVAGE 08/31/2017 Cavitary lesion of lung and cytology brush 9:15 AM PLATE PAINTER Special Needs ANTONINA/REGINA BUSH. PLEASE SCHEDULE 08/31/17 [...] Status FINAL 10/05/2017 Specimen Performing Laboratory Bronchial [place],[facility] MAIN LAB [address] [place] [address] * CULTURE-TISSUE QUANT W/SENSITIVITY (08/31/2017 10:20 AM) Component Value Ref Range Battery Name TISSUE QUANT CULTURE Specimen Description BRONCHIAL BRUSH RIGHT UPPER LOBE Special Requests NONE Culture 1,800 cfu/ml GAMMA HEMOLYTIC STREPTOCOCCUS 500 cfu/ml ALPHA HEMOLYTIC STREPTOCOCCUS SPECIES 1,000 cfu/ml ROTHIA MUCILAGINOSA Report Status FINAL 09/04/2017 Specimen Performing Laboratory Bron[facility]ial [place] (Specify MAIN LAB Site) [address] [place] [address] * FLOW CYTOMETRY (08/31/2017 10:18 AM) Component Value Ref Range PATHOLOGY REPORT [facility] [email or web address] Yuliya Kamara MD, Director of Clinical Laboratory Nicholas Johnson MD, Director of Flow Cytometry Laboratory Department of Pathology and Laboratory Medicine [address] [place] [address] Surgical Pathology Office:[phone]:[phone] FLOW CYTOMETRY REPORT NAME: BRUCE KAHN SURG PATH #: [id number] MR #: [id number] SPECIMEN CLASS: LC BILLING #: [id number] ALT ID #:LOCATION: [facility] DATE OF PROCEDURE: 08/31/2017 AGE:57 SEX: [...] Cells): CD56=0 Miscellaneous Markers (% Positive Cells): AH81=057 Cell Viability (%): 94 Number of Cells Analyzed:10,000 Total Number of Markers: 7 Summary of Marker Combinations: 08/18///45/56/8 This test was developed and its performance characteristics determined by the [facility] Flow Cytometry Laboratory.It has not been cleared [...] The performance characteristics were determined by the [facility] Laboratory.The lower limit of detection is 50IU/mL. Specimen Performing Laboratory Fluid - Bronchial [facility] Alveolar Lavage [address] [place] [address] * CELL COUNT W/DIFF-FLUIDS (08/31/2017 10:18 AM) [...] Bronchial [facility] Alveolar Lavage [address] [place] [address] * LEUKEMIA/LYMPHOMA PANEL FLUID/TISSUE (08/31/2017 10:18 AM) Component Value Ref Range Leuk/Lymph Interpretation SEE PATHOLOGY REPORT Specimen/LLM BRONCHIAL ALVEOLAR LAVAGE Specimen Performing Laboratory Bronchial Alveolar Lavage [facility] [address] [place] [address] * GRAM STAIN (08/31/2017 10:17 AM) Component Value Ref Range Battery Name GRAM STAIN Specimen Description BRONCHIAL ALVEOLAR LAVAGE, RUL Special Requests NONE Gram Stain MANY NEUTROPHILS FEW SQUAMOUS EPITHELIAL CELLS MANY MIXED BACTERIA Report Status FINAL 08/31/2017 Specimen Performing Laboratory Bronchial Alveolar [facility] Lavage,RUL [address] [place] [address] * CULTURE-FUNGAL,OTHER (08/31/2017 10:17 AM) Component Value Ref Range Battery Name FUNGUS CULTURE Specimen Description BRONCHIAL ALVEOLAR LAVAGE, RUL Special Requests NONE Culture Light growth RICARDO GLABRATA Light growth RICARDO ALBICANS Report Status FINAL 09/08/2017 Specimen Performing Laboratory Bronchial Alveolar [facility] Lavage,RUL [address] [place] [address] * CULTURE-TB (AFB) (08/31/2017 10:17 AM) Component Value Ref Range Battery Name AFB CULTURE Specimen Description BRONCHIAL ALVEOLAR LAVAGE, RUL Special Requests NONE Acid Fast Stain NO ACID FAST BACILLI SEEN Culture NO GROWTH OF MYCOBACTERIA AT 6 WEEKS Report Status FINAL 10/19/2017 Specimen Performing Laboratory Bronchial Alveolar [facility] Lavage,RUL [address] [place] [address] * CULTURE-RESP,LOWER W/SENSITIVITY (08/31/2017 10:17 AM) Component Value Ref Range Battery Name LOWER RESP CULTURE Specimen Description BRONCHIAL ALVEOLAR LAVAGE, RUL Special Requests NONE Direct Gram Stain MANY NEUTROPHILS FEW SQUAMOUS EPITHELIAL CELLS MANY MIXED BACTERIA Culture Moderate growth NORMAL OROPHARYNGEAL SAMIRA Report Status FINAL 09/02/2017 Specimen Performing Laboratory Bronchial Alveolar [facility] Lavage,RUL [address] [place] [address] * BRONCHOSCOPY (08/31/2017 10:04 AM) Component Value Ref Range Provation Report Patient Name: Bruce Kahn Procedure Date: 08/31/2017 10:04 AM CSN: [id number] Date of : 1960 Gender: Male Attending Physician: Gareth Sarkar MD Procedure:Bronchoscopy Indications:Right upper lobe infiltrate, history of MAC with cavita ry disease Providers:Gareth Sarkar MD (Doctor), Cece Fisher MD (Fellow), Ashwini Sanchez RN (Nurse), [employer] (Mach[employer]ist [employer]) Referring Physician:Kip Godoy MD Medications:Tetracaine 0.25%/Epinephrine 0.003% [...] Out: 10:23:17 AM Procedure Code(s):--- Professional --- 43970, Bronchoscopy, rigid or flexible, including fluoro scopic guidance, when performed; with bronchial alveol ar lavage CPT copyright 2016 [employer]. All rights reserved. The codes documented in this report are preliminary and upon aoc director combat operations officer review may be revised to meet current [...] hr 1,000 mL, Intravenous, CONTINUOUS, Bag 09:00 PLATE PAINTER Starting Thu08/31/17 at 0845, Until Thu08/31/17 at 1256, Pre-Op sodium chloride 0.9% irrigation bottle Given 08/31/2017 150 mL INTRA-PROCEDURE MED, Starting Thu08/31/17 10:18 PLATE PAINTER at 1018, Until Thu08/31/17 at 1256, Intra-op tetracaine 0.25% /EPINEPHrine 0.003%(#) Given 08/31/2017 8 mL injection 10:12 PLATE PAINTER INTRA-PROCEDURE MED, Starting Thu08/31/17 at 1012, Until Thu08/31/17 at 1256, Intra-op Given 08/31/2017 4 mL 10:13 PLATE PAINTER in this encounter
--- OUTSIDE RECORDS SUMMARY | 2017-11-04 01:33 | XMS REPORT | Encounter Summary ---
Author Author [facility] Organization [facility] Address Unknown Phone Unavailable Care Team Providers Care Driver Wheelchair Name Role Phone Otto Bartholomew MD Unavailable Venecia Olivas MD Unavailable Amy Joyner RN Unavailable Unavailable Brandy Scott MD Unavailable Tani Keenan MD PCP Franklin Gerber MD Unavailable Unavailable Jonathan Loya RN Unavailable Tash Calhoun RN 2 Unavailable Lisa Chavarria Unavailable Unavailable Mckenna Hidalgo Unavailable Unavailable Mari Braun KETTLE OPERATOR HEAD Unavailable Jigar Christian MD Unavailable Kip Godoy MD Unavailable Lianne Hughes MD Unavailable Alfonso Koehler OD Unavailable Cheri Evans LPN Unavailable Unavailable Katelyn Chris RN Unavailable Fartun Parker LPN Unavailable Unavailable Encounter Details Date Type Department Care Team Description 08/31/2017 Procedure Pass Gastrointenstinal Endoscopy [address] [place] [address] Social History Tobacco Use Types [...]
--- OUTSIDE RECORDS SUMMARY | 2017-11-04 01:33 | XMS REPORT | Encounter Summary ---
Author Author [facility] Organization [facility] Address Unknown Phone Unavailable Care Team Providers Care Horticulture Superintendent Name Role Phone Otto Bartholomew MD Unavailable Venecia Olivas MD Unavailable Amy Joyner RN Unavailable Unavailable Brandy Scott MD Unavailable Tani Keenan MD PCP Franklin Gerber MD Unavailable Unavailable Jonathan Loya RN Unavailable Tash Calhoun RN 2 Unavailable Lisa Chavarria Unavailable Unavailable Mckenna Hidalgo Unavailable Unavailable Mari Braun BASKET MAKER Unavailable Jigar Christian MD Unavailable Kip Godoy MD Unavailable Lianne Hughes MD Unavailable Alfonso Koehler OD Unavailable Cheri Evans LPN Unavailable Unavailable Katelyn Chris RN Unavailable Fartun Parker LPN Unavailable Unavailable Reason for Visit * Reason Comments Skin Problem Encounter Details Date Type Department Care Team Description 08/31/2017 Office Visit [facility] Harish Pimentel DO Actinic keratosis Physicians - Internal [address] (Primary Dx); [place] [address] Inflamed seborrheic 4TH FLOOR POD C [phone] keratosis; [address] Neoplasm of uncertain OFFICE BLDG behavior; [place], [place] Viral warts, unspecified [phone] type; [phone] Immunosuppressed status (HCC); History of blistering sunburn; [...] 79.8 kg (176 lb) 08/31/2017 12:56 PM [facility] Height 175.3 cm (5' 9") 08/31/2017 12:56 PM [facility] Body Mass Index 25.99 08/31/2017 12:56 PM [facility] in this encounter Functional Status Functional Status [...] Harish Pimentel, DO - 08/31/2017 1:00 PM [facility] Ammonium Lactate Lotion to forearms and legs 1-2 times daily Am Lactin Lac Lotion Lac Hydrin Find at [facility], and [employer] Shave Biopsy Site Care - [...] of sunscreens and not all are zinc-based) [place], Bare Minerals, Blue Lizard, CeraVe, Cotz, GodCashplay.cos Garden, Green Screen, [employer], Mineral Fusion, SkinCeuticals, Vanicream 2 shot-glases=whole body Melanoma Patient Information Also called malignant melanoma Skin cancer screening: If you notice a mole that differs from others or one that changes, bleeds, or itches, see a school teacher. Melanoma is a type of skin cancer. [...] people: Knew the warning signs of melanoma. Samak how to examine their skin for signs [...] immediately make an appointment to see a school teacher. Signs of melanoma The most common early [...] dermatologists diagnose melanoma? To diagnose melanoma, a school teacher begins by looking at the patients skin. A school teacher will carefully examine moles and other suspicious spots. To get a better look, a school teacher may use a device called a dermoscope. [...] as high blood pressure and kidney damage. [employer] recommending everyone get vitamin D from foods naturally rich in vitamin D, foods and beverages fortified with vitamin D or vitamin D supplements. The foods that contain the greatest amount are fatty fishes such as salmon, tuna and mackerel. Fish liver oil is another good source. One of the sources to look up vitamin amount is through Graph[employer] library. Http://ndb.nal.usda.gov/. This can help you find [...] to a weakened immune system. Therefore , [employer] recommend getting vitamin D safely from foods , beverages and supplements. in this encounter Progress Notes * Virgilio Clay MD - 08/31/2017 1:00 PM [facility] Formatting of this note may be different [...] Harish Pimentel, DO - 08/31/2017 1:00 PM [facility] Formatting of this note may be different [...] evidence of recurrence. No lymphadenopathy. Soft, pigmented, haozy-kv-kfgniqvlt papules are distributed over the trunk and [...] Harish Pimentel DO - 08/31/2017 1:00 PM [facility] Associated Order(s): [id number] Procedure(s): WA BX SKIN SUBCUTANEOUS&/MUCOUS MEMBRANE 1 LESION; WA DESTRUCTION PREMALIGNANT LESION 1ST; WA DESTRUCTION PREMALIGNANT LESION 2-14 EA; WA DESTRUCTION BENIGN LESIONS UP TO 14 Pre-Procedure [...] Ambulated from room: Yes Pathology sent to: [facility] Duration of procedure: >5 minutes Liquid [...] Treatment Name Priority Associated Diagnoses Order Schedule [id number] Routine Actinic keratosis Ordered: 08/31/2017 Inflamed seborrheic [...]
--- OUTSIDE RECORDS SUMMARY | 2017-11-04 01:33 | XMS REPORT | Encounter Summary ---
Author Author [facility] Organization [facility] Address Unknown Phone Unavailable Care Team Providers Care Foxpro Developer Name Role Phone Otto Bartholomew MD Unavailable Venecia Olivas MD Unavailable Amy Joyner RN Unavailable Unavailable Brandy Scott MD Unavailable Tani Keenan MD PCP Franklin Gerber MD Unavailable Unavailable Jonathan Loya RN Unavailable Tash Calhoun RN 2 Unavailable Lisa Chavarria Unavailable Unavailable Mckenna Hidalgo Unavailable Unavailable Mari Braun GRID TRIMMER Unavailable Jigar Christian MD Unavailable Kip Godoy MD Unavailable Lianne Hughes MD Unavailable Alfonso Koehler OD Unavailable Cheri Evans PAINT PREPPER Unavailable Unavailable Katelyn Chris RN Unavailable Fartun [...] Gastrointenstinal Wendy Dwyer CRNA Event Endoscopy [address] [place] [address] [place] [address] [phone] Anesthesia Record Procedure Name Responsible Anesthesia Start [...] Amy Veloz MD - 08/31/2017 12:07 PM OR FIRST ASSIST REGISTERED NURSE Post-Anesthesia Evaluation Name: Doug Dawson : 1960 [...] Karla Cotton MD - 08/31/2017 11:52 AM OR FIRST ASSIST REGISTERED NURSE Post-Anesthesia Evaluation Name: Doug Dawson : 1960 [...] Amy Veloz MD - 08/31/2017 8:44 AM OR FIRST ASSIST REGISTERED NURSE Formatting of this note may be different [...] (08/31 842) Patient History Allergies Allergen Reactions Clfnlwl-Lpv-Dwg Reductase Inhibitors SEE COMMENTS Put patient in [...] 07/16)- h/o difficult intubation for ERCP at [facility]- although this record not available in O2- [...] consented to blood products. Plan discussed with: LEGAL SPECIALIST and anesthesiologist. in this encounter Plan of Treatment Not on fileas of this encounter Visit Diagnoses Not on filein this encounter Administered Medications Medication Order MAR Action Action Date Dose Rate Site propofol (DIPRIVAN) infusion Given - New 08/31/2017 120 57.6 mL/hr 20 mL, Intravenous, INTRA-PROCEDURE Bag 10:08 OR FIRST ASSIST REGISTERED NURSE mcg/kg/min MED(CONT), Starting Thu08/31/17 at 1008, Until Thu08/31/17 at 1039, Anesthesia Intra-op propofol (DIPRIVAN) injection Given 08/31/2017 10 mg INTRA-PROCEDURE MED, Starting Thu08/31/17 10:11 OR FIRST ASSIST REGISTERED NURSE at 1007, Until Thu08/31/17 at 1039, Anesthesia Intra-op Given 08/31/2017 10 mg 10:13 OR FIRST ASSIST REGISTERED NURSE Given 08/31/2017 10 mg 10:15 OR FIRST ASSIST REGISTERED NURSE in this encounter
--- OUTSIDE RECORDS SUMMARY | 2017-11-04 01:33 | XMS REPORT | Encounter Summary ---
Author Author [facility] Organization [facility] Address Unknown Phone Unavailable Care Team Providers Care Esthetician Facialist Name Role Phone Otto Bartholomew MD Unavailable Venecia Olivas MD Unavailable Amy Joyner RN Unavailable Unavailable Brandy Scott MD Unavailable Tani Keenan MD PCP Franklin Gerber MD Unavailable Unavailable Jonathan Loya RN Unavailable Tash Calhoun RN 2 Unavailable Lisa Chavarria Unavailable Unavailable Mckenna Hidalgo Unavailable Unavailable Mari Braun SPACE AND MISSILE DEFENSE OPERATIONS Unavailable Jigar Christian MD Unavailable Kip Godoy MD Unavailable Lianne Hughes MD Unavailable Alfonso Koehler OD Unavailable Cheri Evans MANAGER QUALITY IMPROVEMENT Unavailable Unavailable Katelyn Chris RN Unavailable Fartun Parker LPN Unavailable Unavailable Reason for Visit * Auth/Cert Status Reason Specialty Diagnoses / Referred By Referred To Procedures Contact Contact Diagnoses Cavitary lesion of lung UNKNOWN P rocedures MT BRNCHSC BRUSHING/PROTECT ED BRUSHINGS BRONCHOSCOPY WITH LAVAGE and cytology brush Encounter Details Date Type Department Care Team Description 08/31/2017 Surgery Gastrointenstinal Gareth Sarkar MD BRONCHOSCOPY WITH LAVAGE Endoscopy [address] and cytology brush [address] [place] [address] [place] [address] [phone] Social History Tobacco Use Types Packs/Day Years Used Date Former Smoker Cigarettes 1 30 Quit: 05/01/2012 Smokeless Tobacco: Never Used Alcohol Use Drinks/Week oz/Week Comments No Sex Assigned at Date Recorded Not on file as of this encounter Last Filed Vital Signs Vital Sign Reading Time Taken Blood Pressure 117/78 08/31/2017 11:47 AM DERRICK BOAT RUNNER Pulse 97 08/31/2017 11:47 AM DERRICK BOAT RUNNER Temperature 36.4 C (97.5 F) 08/31/2017 8:43 AM DERRICK BOAT RUNNER Respiratory Rate - - Oxygen Saturation 97% 08/31/2017 11:47 AM [employer]ERRICK [employer]AT RUNNER Inhaled Oxygen - - Concentration Weight - [...] Moraima Latham RN - 08/31/2017 10:56 AM DERRICK BOAT RUNNER POST BRONCHOSCOPY INSTRUCTIONS 1. When your brochscopy [...] or problems after your procedure please call [phone] between the hours of 8 a.m. until 4:30 p.m. After 4:30 p.m., holidays, or weekends call [phone] and ask for the Pulmonary Physician transportation mechanic. * Discharge Instr - Other Info - Rudy Thomas RN - 08/31/2017 10:45 AM [employer] RUNNER POST BRONCHOSCOPY INSTRUCTIONS 1. When your brochscopy [...] or problems after your procedure please call [phone] between the hours of 8 a.m. until 4:30 p.m. After 4:30 p.m., holidays, or weekends call [phone] and ask for the Pulmonary Physician transportation mechanic. in this encounter Medications at Time of [...] Cece Fisher MD - 08/31/2017 8:04 AM [employer] BOAT RUNNER Formatting of this note may be different [...] currently being evaluated for lung transplant in [place]. Previous Anesthetic/Sedation History: Tolerated sedation with previous bronchoscopies. Past Medical History: Diagnosis Date Cancer of lip squam cell Cataract Chronic kidney disease transplant COPD (chronic obstructive pulmonary disease) (HCC) copd Hypertension On supplemental oxygen therapy Pneumonia Renal failure Past Surgical History: Procedure Laterality Date HX APPENDECTOMY HX CHOLECYSTECTOMY HX RENAL TRANSPLANT MT REMOVE BILE DUCT STONE, PERCUT MT TENOTOMY PRQ ACHILLES TENDON SPX GENERAL ANES Pertinent medical/surgical history reviewed Pertinent family history reviewed Social History Substance Use Topics Smoking status: Former Smoker Packs/day: 1.00 Years: 30.00 Types: Cigarettes Quit date: 05/01/2012 Smokeless tobacco: Never Used Alcohol use No History Drug Use No Comment: when he was younger smoked marijuana. Allergies: Vchdoys-lft-qfl reductase inhibitors and Varenicline Medications No current [...] past 24 hour(s)). Cece Fisher MD Pager [phone] in this encounter Plan of Treatment Not on fileas of this encounter Procedures Procedure Name Priority Date/Time Associated Diagnosis Comments TELEMETRY STRIPS-SCAN 09/03/2017 Results for this 10:30 AM DERRICK BOAT RUNNER procedure are in the results section. PROCEDURE RECORD-SCAN 09/03/2017 Results for this 10:30 AM [employer]ICK BO[employer] RUNNER procedure are in the results section. BRONCHOSCOPY WITH LAVAGE 08/31/2017 Cavitary lesion of lung and cytology brush 9:15 AM [employer] BO[employer] RUNNER Special Needs ANTONINA/REGINA BUSH. PLEASE SCHEDULE 08/31/17 [...] Status FINAL 10/05/2017 Specimen Performing Laboratory Bronchial [place],[facility] MAIN LAB [address] [id number] * CULTURE-TISSUE QUANT W/SENSITIVITY (08/31/2017 10:20 AM) Component Value Ref Range Battery Name TISSUE QUANT CULTURE Specimen Description BRONCHIAL BRUSH RIGHT UPPER LOBE Special Requests NONE Culture 1,800 cfu/ml GAMMA HEMOLYTIC STREPTOCOCCUS 500 cfu/ml ALPHA HEMOLYTIC STREPTOCOCCUS SPECIES 1,000 cfu/ml ROTHIA MUCILAGINOSA Report Status FINAL 09/04/2017 Specimen Performing Laboratory Bronchial [place] (Specify MAIN LAB Site) [address] [place] [address] * FLOW CYTOMETRY (08/31/2017 10:18 AM) Component Value Ref Range PATHOLOGY REPORT [facility] www.Yostro Yuliya Kamara MD, Director of Clinical Laboratory Nicholas Johnson MD, Director of Flow Cytometry Laboratory Department of Pathology and Laboratory Medicine [address] [place] [address] Surgical Pathology Office:[phone]:[phone] FLOW CYTOMETRY REPORT NAME: BRUCE KAHN SURG PATH #: [id number] MR #: [id number] SPECIMEN CLASS: LC BILLING #: [id number] ALT ID #:LOCATION: [facility] DATE OF PROCEDURE: 08/31/2017 AGE:57 SEX: M [...] Cells): CD56=0 Miscellaneous Markers (% Positive Cells): [id number] Cell Viability (%): 94 Number of Cells Analyzed:10,000 Total Number of Markers: 7 Summary of Marker Combinations: 08/18////56/8 This test was developed and its performance characteristics determined by the [facility] Flow Cytometry Laboratory.It has not been [...] The performance characteristics were determined by the [facility] Laboratory.The lower limit of detection is 50IU/mL. Specimen Performing Laboratory Fluid - Bronchial [facility] MAIN LAB Alveolar Lavage [address] [place] [address] * CELL COUNT W/DIFF-FLUIDS (08/31/2017 10:18 AM) [...] Bronchial [facility] Alveolar Lavage [address] [place] [address] * LEUKEMIA/LYMPHOMA PANEL FLUID/TISSUE (08/31/2017 10:18 AM) Component Value Ref Range Leuk/Lymph Interpretation SEE PATHOLOGY REPORT Specimen/LLM BRONCHIAL ALVEOLAR LAVAGE Specimen Performing Laboratory Bronchial Alveolar Lavage [facility] [address] [place] [address] * GRAM STAIN (08/31/2017 10:17 AM) Component Value Ref Range Battery Name GRAM STAIN Specimen Description BRONCHIAL ALVEOLAR LAVAGE, RUL Special Requests NONE Gram Stain MANY NEUTROPHILS FEW SQUAMOUS EPITHELIAL CELLS MANY MIXED BACTERIA Report Status FINAL 08/31/2017 Specimen Performing Laboratory Bronchial Alveolar [facility]IN [facility] Lavage,RUL [address] [place] [address] * CULTURE-FUNGAL,OTHER (08/31/2017 10:17 AM) Component Value Ref Range Battery Name FUNGUS CULTURE Specimen Description BRONCHIAL ALVEOLAR LAVAGE, RUL Special Requests NONE Culture Light growth RICARDO GLABRATA Light growth RICARDO ALBICANS Report Status FINAL 09/08/2017 Specimen Performing Laboratory Bronchial Alveolar [facility] Lavage,RUL [address] [place] [address] * CULTURE-TB (AFB) (08/31/2017 10:17 AM) Component Value Ref Range Battery Name AFB CULTURE Specimen Description BRONCHIAL ALVEOLAR LAVAGE, RUL Special Requests NONE Acid Fast Stain NO ACID FAST BACILLI SEEN Culture NO GROWTH OF MYCOBACTERIA AT 6 WEEKS Report Status FINAL 10/19/2017 Specimen Performing Laboratory Bronchial Alveolar [facility] Lavage,RUL [address] [place] [address] * CULTURE-RESP,LOWER W/SENSITIVITY (08/31/2017 10:17 AM) Component Value Ref Range Battery Name LOWER RESP CULTURE Specimen Description BRONCHIAL ALVEOLAR LAVAGE, RUL Special Requests NONE Direct Gram Stain MANY NEUTROPHILS FEW SQUAMOUS EPITHELIAL CELLS MANY MIXED BACTERIA Culture Moderate growth NORMAL OROPHARYNGEAL SAMIRA Report Status FINAL 09/02/2017 Specimen Performing Laboratory Bronchial Alveolar [facility] Lavage,RUL [address] [place] [address] * BRONCHOSCOPY (08/31/2017 10:04 AM) Component Value Ref Range Provation Report Patient Name: Bruce Kahn Procedure Date: 08/31/2017 10:04 AM CSN: [id number] Date of : 1960 Gender: Male Attending Physician: Gareth Sarkar MD Procedure:Bronchoscopy Indications:Right upper lobe infiltrate, history of MAC with cavita ry disease Providers:Gareth Sarkar MD (Doctor), Cece Fisher MD (Fellow), Ashwini Sanchez RN (Nurse), Urban Sun (Supply Service Worker) Referring Physician:Kip Godoy MD Medications:Tetracaine 0.25%/Epinephrine 0.003% [...] Out: 10:23:17 AM Procedure Code(s):--- Professional --- 36622, Bronchoscopy, rigid or flexible, including fluoro scopic guidance, when performed; with bronchial alveol ar lavage CPT copyright 2016 [employer]. All rights reserved. The codes documented in this report are preliminary and upon label coder review may be revised to meet current [...] hr 1,000 mL, Intravenous, CONTINUOUS, Bag 09:00 [employer]NER Starting Thu08/31/17 at 0845, Until Thu08/31/17 at 1256, Pre-Op sodium chloride 0.9% irrigation bottle Given 08/31/2017 150 mL INTRA-PROCEDURE MED, Starting Thu08/31/17 10:18 DERRICK BOAT RUNNER at 1018, Until Thu08/31/17 at 1256, Intra-op tetracaine 0.25% /EPINEPHrine 0.003%(#) Given 08/31/2017 8 mL injection 10:12 DERRICK BOAT RUNNER INTRA-PROCEDURE MED, Starting Thu08/31/17 at 1012, Until Thu08/31/17 at 1256, Intra-op Given 08/31/2017 4 mL 10:13 DERRICK BOAT RUNNER in this encounter
--- OUTSIDE RECORDS SUMMARY | 2017-11-04 01:34 | XMS REPORT | Encounter Summary ---
Author Author [facility] Organization [facility] Address Unknown Phone Unavailable Care Team Providers Care Atomic Physics Professor Name Role Phone Otto Bartholomew MD Unavailable Venecia Olivas MD Unavailable Amy Joyner RN Unavailable Unavailable Brandy Scott MD Unavailable Tani Keenan MD PCP Franklin Gerber MD Unavailable Unavailable Jonathan Loya RN Unavailable Tash Calhoun RN 2 Unavailable Lisa Chavarria Unavailable Unavailable Mckenna Hidalgo Unavailable Unavailable Mari Braun CHEF FRENCH Unavailable Jigar Christian MD Unavailable Kip Godoy MD Unavailable Lianne Hughes MD Unavailable Alfonso Koehler OD Unavailable Cheri Evans PIG CONVEYOR OPERATOR Unavailable Unavailable Katelyn Chris RN Unavailable Fartun Parker LPN Unavailable Unavailable Reason for Visit * Reason Comments Results Encounter Details Date Type Department Care Team Description 08/21/2017 Telephone [facility] Kip Godoy MD Results Physicians - Internal [address] [facility] Medicine [address] [place] [address] [address] [phone] [place] [address] Social History Tobacco Use Types Packs/Day Years [...] Kip Godoy MD - 08/21/2017 2:27 PM TRAFFIC ADMINISTRATOR Received a call from the [facility] transplant data conversion analyst yesterday regarding Mr. Dawson's recent evaluation. They [...] to grow before he follows up in [place] in the next 6 weeks. He is [...]
--- OUTSIDE RECORDS SUMMARY | 2017-11-04 01:34 | XMS REPORT | Encounter Summary ---
Author Author [facility] Organization [facility] Address Unknown Phone Unavailable Care Team Providers Care Welding Machine Operator/Tender Name Role Phone Otto Bartholomew MD Unavailable Venecia Olivas MD Unavailable Amy Joyner RN Unavailable Unavailable Brandy Scott MD Unavailable Tani Keenan MD PCP Franklin Gerber MD Unavailable Unavailable Jonathan Loya RN Unavailable Tash Calhoun RN 2 Unavailable Lisa Chavarria Unavailable Unavailable Mckenna Hidalgo Unavailable Unavailable Mari Braun POMOLOGIST Unavailable Jigar Christian MD Unavailable Kip Godoy MD Unavailable Lianne Hughes MD Unavailable Alfonso Koehler OD Unavailable Cheri Evans HIGH SCHOOL DRAFTING TEACHER Unavailable Unavailable Katelyn Chris RN Unavailable Fartun Parker LPN Unavailable Unavailable Reason for Visit * Reason Comments Records Request Encounter Details Date Type Department Care Team Description 08/20/2017 Telephone [facility] Kip Godoy MD Records Request Physicians - Internal [address] [facility] Medicine [address] [place] [address] [address] [phone] [address] Social History Tobacco Use Types Packs/Day Years [...] Courtney Dominguez RN - 08/20/2017 10:54 AM TEMPER MILL OPERATOR Spoke with Frida at [facility]. She will fax [...]
[2017-11-04] MEDS ORDERED: NS IV 1000 ML 1,000 ML ONE (01:58)
[2017-11-04] MEDS: NS IV 1000 ML 1,000 ML IV SCH ×2 (02:08→16:38)
[2017-11-04] MEDS ORDERED: RT-ALBUTEROL SULF 2.5 MG/3 ML PRE-MIX VIAL IH PRN (02:15)
[2017-11-04] MEDS ORDERED: ONDANSETRON 4 MG/2 ML (SDV) Z0FRAN IV PRN (02:15)
[2017-11-04 06:09] LABS: BASOPHILS % (AUTO) 0 % (0-10); EOSINOPHILS % (AUTO) 0 % (0-10); HEMATOCRIT 28 % (40-54); HEMOGLOBIN 8.7 G/DL (13.3-17.7); LYMPHOCYTES # (AUTO) 0.1 X 10^3 (1.0-4.0); LYMPHOCYTES % (AUTO) 2 % (12-44); MEAN CORPUSCULAR HEMOGLOBIN 29 PG (25-34); MEAN CORPUSCULAR HGB CONC 32 G/DL (32-36); MEAN CORPUSCULAR VOLUME 91 FL (80-99); MEAN PLATELET VOLUME 10.1 FL (7.4-10.4); MONOCYTES # (AUTO) 0.1 X 10^3 (0.0-1.0); MONOCYTES % (AUTO) 1 % (0-12); NEUTROPHILS # (AUTO) 6.7 X 10^3 (1.8-7.8); NEUTROPHILS % (AUTO) 98 % (42-75); PLATELET COUNT 274 10^3/uL (130-400); RED BLOOD COUNT 3.02 10^6/uL (4.35-5.85); RED CELL DISTRIBUTION WIDTH 14.2 % (10.0-14.5); WHITE BLOOD COUNT 6.8 10^3/uL (4.3-11.0)
[2017-11-04 06:39] LABS: CALCIUM 8.3 MG/DL (8.5-10.1); CREATININE SERUM 3.73 MG/DL (0.60-1.30); POTASSIUM 4.9 MMOL/L (3.6-5.0)
[2017-11-04] MEDS: RT-ALBUTEROL/IPRATROPIUM 3 ML (DUONEB) VIAL IH SCH ×5 (06:52→21:52)
--- NOTE | 2017-11-04 07:58 | Diagnostic Imaging Report ---
EXAMINATION: Chest radiograph, portable AP view. DATE: November 03, 2017 at 2334 hours. INDICATION: 57-year-old male, shortness of breath. COMPARISON: 10/23/2017. FINDINGS: Stable overall appearance of the cardiomediastinal silhouette. There is no identified pneumothorax. There are unchanged and redemonstrated right apical lung opacities. There are predominantly interstitial opacities in the right mid to lower lung as well as the left mid to lower lung which are also unchanged since the comparison exam. There is no identified new area of focal airspace consolidation. IMPRESSION: 1. Grossly unchanged right apical lung consolidation and additional right upper lobe consolidation with mid and lower lung zone predominant bilateral predominantly interstitial opacities. The interstitial appearing opacities in the left mid to lower lung are new since prior chest radiograph of 03/11/2016 and developed in the interval between the 03/17/2016 and 07/20/2017. These are nonspecific. Dictated by: Dictated on workstation # [id number]
[2017-11-04] MEDS ORDERED: CYCL25CA12 PO (09:59)
[2017-11-04] MEDS ORDERED: LEVALBUTEROL HCL 0.63 MG NEB PRN (12:00)
[2017-11-04] MEDS ORDERED: ALLOPURINOL 100 MG (ZYLOPRIM) TAB PO SCH (13:00)
[2017-11-04] MEDS ORDERED: NYSTATIN ORAL SUSP 5 ML UDC PO PRN (13:00)
[2017-11-04] MEDS ORDERED: PATIENT MAY USE OWN MEDS, ALL MC SCH (13:15)
[2017-11-04] MEDS: PANTOPRAZOLE 40 MG (PROTONIX) TAB PO SCH (13:25)
[2017-11-04] MEDS: MYCOPHENOLIC ACID 360 MG PO SCH (13:25)
[2017-11-04] MEDS: CARVEDILOL 12.5 MG (COREG) TABLET PO SCH (13:25)
--- NOTE | 2017-11-04 15:33 | History & Physical-Hospitalist ---
History of Present Illness HPI/Chief Complaint The patient is a 57-year-old white male known to me. I had seen him on October 23 when he presented to the emergency room with chest pain and was found to have a classic eruption in the right lower rib cage consistent with shingles. He presented to the emergency room last night with complaints of weakness and generalized disability. He was found to have a sodium of 121. His creatinine is chronically elevated. He had a remote kidney transplant. 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 The treatment of the fungal lung infection caused injury in the transplanted kidney. He also has chronic fibrotic changes and hypoxia from the effect of the fungus and treatment on the lungs. He is hoping of going to [place] and being placed on the recipient list for a bilateral lung replacement and a new kidney transplant. Date Seen 11/04/17 Time Seen by Provider: 15:37 Attending Physician Darian Harris MD PCP Tani Keenan MD Referring Physician Date of Admission November 04, 2017 at 01:15 Home Medications & Allergies Home Medications Reviewed patient Home Medication Reconciliation performed by pharmacy medication reconciliations construction technician and/or nursing. Patients Allergies have been reviewed. Allergies Allergies Coded Allergies varenicline (Unverified Allergy, Severe, 05/11/17) Xpibady-Nlg-Edu Reductase Inhibitor (Unverified Allergy, Unknown, 05/11/17) Past Cjutaqg-Iytczc-Keoykv Hx Past Med/Social Hx: Reviewed Nursing Past Med/Soc Hx Patient Social History Alcohol Use: Denies Use Recreational Drug Use: No Smoking Status: Former Smoker Former Smoker, Quit: May 11, 2011 Type Used: Cigarettes 2nd Hand Smoke Exposure: No Physical Abuse Screen: No Sexual Abuse: No Recent Foreign Travel: No Contact w/other who traveled: No Recent Hopitalizations: No Recent Infectious Disease Expo: No Immunizations Up To Date Tetanus Booster (TDap): Less than 5yrs Date of Pneumonia Vaccine: Jun 30, 2016 Date of Influenza Vaccine: Apr 27, 2017 Seasonal Allergies Seasonal Allergies: Yes Past Medical History Surgeries: Appendectomy, Gallbladder, Kidney Transplant, Renal Respiratory: Pneumonia Currently Using CPAP: No Currently Using BIPAP: No Cardiac: Hypertension Reproductive: No Sexually Transmitted Disease: No HIV/AIDS: No Genitourinary: Renal Failure, Dialysis Gastrointestinal: Gastroesophageal Reflux Musculoskeletal: Arthritis HEENT: Cataract Loss of Vision: Denies Hearing Impairment: Hard of Hearing, Bilateral Hearing Aide Cancer: Skin History of Blood Disorders: Yes (anemia) Adverse Reaction to Blood [place]: No Family History Arthritis 19 MOTHER Cardiovascular disease 19 FATHER 19 MOTHER Coronary thrombosis 19 MOTHER Deafness or hearing loss 19 FATHER Diabetes mellitus 19 FATHER G8 SISTER Hypertension 19 MOTHER Myocardial infarction 19 FATHER 19 MOTHER G8 SISTER Respiratory disorder No Family History of: AIDS Abdominal aortic aneurysm Loa's disease Alcoholism Alzheimer's disease Aphasia Asthma Cancer of mouth Cataracts Colon cancer Completed stroke Congenital disease Congenital heart disease Cystic fibrosis Dementia Drug abuse Dysphasia Fibrocystic disease of breast Gastroenteritis Glaucoma Headache disorder Hypercholesterolemia Infertility Kidney disease Neoplasm Osteoporosis Parkinson's disease Prostate cancer Psychosocial problem Seizure disorder Severe allergy Thyroid disease Tuberculosis Visual disorder No Pertinent Family Hx Review of Systems Constitutional: see HPI EENTM: hearing loss Respiratory: dyspnea on exertion (chronic O2 use), other (chronic calf O2 requirements) Cardiovascular: no symptoms reported Gastrointestinal: no symptoms reported Genitourinary: see HPI, decreased output Musculoskeletal: muscle weakness Skin: no symptoms reported Psychiatric/Neurological: No Symptoms Reported Physical Exam Physical Exam Vital Signs Vital Signs - First Documented 11/03/17 23:20 Temp 98.3 Pulse 97 Resp 13 B/P (MAP) 135/84 (101) Pulse Ox 100 O2 Delivery Nasal Cannula O2 Flow Rate 6.00 Capillary Refill : Less Than 3 Seconds General Appearance: Mild Distress, Moderate Distress Eyes: Bilateral Eye Normal Inspection HEENT: Normal ENT Inspection Neck: Normal Inspection Respiratory: Decreased Breath Sounds (distant breath sounds bilaterally) Cardiovascular: Regular Rate, Rhythm, No Edema, No Gallop, No JVD, No Murmur, Normal Peripheral Pulses Gastrointestinal: Normal Bowel Sounds, No Organomegaly, No Pulsatile Mass, Non Tender, Soft Neurologic/Psychiatric: Alert, Oriented x3, No Motor/Sensory Deficits, Normal Mood/Affect, insulation foreman II-XII Norm as Tested Results Results/Procedures Labs Laboratory Tests 11/03/17 23:27 11/04/17 05:50 Patient resulted labs reviewed. Assessment/Plan Admission Diagnosis Hyponatremia. 2.renal failure and a transplanted kidney. 3.pulmonary fibrosis and hypoxia. 4.resolving shingles right lower chest Admission Status: Observation Assessment and Plan PT and OT consultation. Oral fluid restriction and sodium containing IVs in an attempt to raise the sodium to the high 120s. Clinical Quality Measures DVT/VTE Risk/Contraindication: Risk Factor Score Per Nursin RFS Level Per Nursing on Admit: 3=High DARIAN HARRIS MD November 04, 2017 15:33
--- NOTE | 2017-11-04 16:23 | Physical Therapy Evaluation ---
PT Evaluation-General Medical Diagnosis Admission Date November 04, 2017 at 01:15 Medical Diagnosis: hyponatremia, renal failure Onset Date: November 04, 2017 Therapy Diagnosis Therapy Diagnosis: weakness;abn gait Height/Weight Height (Feet): 5 Height (Inches): 8.00 Weight (Pounds): 160 Weight (Ounces): 8.0 Precautions Precautions/Isolations: Contact Isolation Referral Physician: Dane Reason for Referral: Evaluation/Treatment Medical History Pertinent Medical History: COPD Additional Medical History Pulmonary fibrosis, COPD, fungal lung infection, kidney transplant(25 yrs ago), shingles. Pt currently on a wait list for a lung transplant and if he gets a lung, he will then be on the list for a kidney Current History Admitted with above diagnosis; COPD exacerbation. Recent shingles. Reviewed History: Yes Social History Home: Single Level Current Living Status: Spouse Entry Into Home: Stairs With Railing PT Steps Into Home: 2 Prior/Core FIM Prior Level of Function Functional [place] Measure 0=Not Assessed/NA 4=Minimal Assistance 1=Total Assistance 5=Supervision or Setup 2=Maximal Assistance 6=Modified [place] 3=Moderate Assistance 7=Complete [place] Bed Mobility: 6 Transfers (B,C,W/C) (FIM): 6 Gait: 6 extra time with all mobiolity; has a 4WW but doesnt always use; O2 at home on 6- 8 l/min PT Evaluation-Current Subjective Agreeable to PT. Reports his sats drop easily. Pain Numeric Pain Scale: 0-No Pain Location: No Pain Reported Objective Patient Orientation: Person, Place, Time, Situation Problem Solving: Good Attachments: Oxygen (5l/min), IV ROM/Strength ROM Lower Extremities WNL Strength Lower Extremities WFL Integumentary/Posture Integumentary refer to nursing notes. Shingles scabs across abdomen and wrap across lateral thorax on the righ. Bowel Incontinence: No Bladder Incontinence: No Posture normal and symmetrical Neuromuscular (Tone, Coordination, Reflexes) no noted functional deficits Sensory Vision: Wears Glasses Hearing: Functional Hand Dominance: Right Sensation Right Lower Extremit: Intact Sensation Left Lower Extremity: Intact Transfers Functional [place] Measure 0=Not Assessed/NA 4=Minimal Assistance 1=Total Assistance 5=Supervision or Setup 2=Maximal Assistance 6=Modified [place] 3=Moderate Assistance 7=Complete [place] Transfers (B, C, W/C) (FIM): 5 He is SBA with all transfers. Stood at EOB x 5 minutes, marched in place standing EOB. Monitored O2 sats. In standing his sats dropped to 87%; sat down and it took 3-4 minutes to return to 90%. Assessment/Needs Pt presents with decreased functional activity [place] and oxygen sat drops with activity. He will benefit from skilled PT intervnetion to work on functional activity tolerance to mobility with the monitor of his oxygen levels to promote functional strength to complete tasks and mobility at home once he is discharged. Rehab Potential: Fair (due to comorbidities) PT Pole Maker Goals Mcc Goals PT Pole Maker Goals Time Frame: November 11, 2017 Transfers (B,C,W/C) (FIM): 6 Gait (FIM): 5 (household) Gait distance (FIM): 8=191-56 ft Gait Assistive Device: FWW PT Plan Problem List Problem List: Activity Tolerance, Functional Strength, Safety, Gait, Transfer Treatment/Plan Treatment Plan: Continue Plan of Care Treatment Plan: Bed Mobility, Education, Functional Activity [place], Functional Strength, Gait, Safety, Therapeutic Exercise, Transfers Treatment Duration: November 11, 2017 Frequency: 6 times per week Estimated Hrs Per Day: .5 hour per day Patient and/or Family Agrees t: Yes Safety Risks/Education Patient Education: Safety Issues Teaching Recipient: Patient Teaching Methods: Discussion Response to Teaching: Reinforcement Needed Time/GCodes Time In: 1155 Time Out: 1615 Total Billed Treatment Time: 20 Total Billed Treatment visit EVM 20 CHRIS HADDAD PT November 04, 2017 16:23
[2017-11-04] MEDS: ADVAIR HFA 115/21 MCG INHALER 8 GM IH SCH (21:57)
[2017-11-05] VITALS (8 sets, daily range): BP systolic 63–136; BP diastolic 29–96
[2017-11-05] MEDS: PANTOPRAZOLE 40 MG (PROTONIX) TAB PO SCH (00:27)
[2017-11-05] MEDS: CARVEDILOL 12.5 MG (COREG) TABLET PO SCH (00:27)
[2017-11-05] MEDS: MYCOPHENOLIC ACID 360 MG PO SCH (00:28)
[2017-11-05] MEDS ORDERED: CYCLOSPORINE MODIFIED 25 MG PO SCH (01:00)
[2017-11-05] MEDS ORDERED: RT-ADVAIR HFA 115/21 MCG PER PUFF IH SCH (01:00)
[2017-11-05] MEDS ORDERED: NON-FORMULARY MEDICATION 1 EA EA (Budesonide/Formoterol Fumarate (Symbicort 160-4.5 Mcg In IH SCH (01:00)
[2017-11-05] MEDS: RT-ALBUTEROL/IPRATROPIUM 3 ML (DUONEB) VIAL IH SCH ×3 (02:10→09:55)
[2017-11-05] MEDS: NS IV 1000 ML 1,000 ML IV SCH (05:34)
[2017-11-05] MEDS: ADVAIR HFA 115/21 MCG INHALER 8 GM IH SCH (06:14)
[2017-11-05] MEDS ORDERED: EPINEPHrine INJECTION 1 MG/ML AMP IV STA ×2 (10:37→10:40)
--- NOTE | 2017-11-05 10:49 | Physical Therapy Daily Note ---
PT Daily Note-Current Subjective Patient in bed and agrees to PT. SAO2 on 6L HF 95%. Pain Numeric Pain Scale: 0-No Pain Location: No Pain Reported Mental Status Patient Orientation: Normal For Age Attachments: Oxygen, IV Transfers Functional [place] Measure 0=Not Assessed/NA 4=Minimal Assistance 1=Total Assistance 5=Supervision or Setup 2=Maximal Assistance 6=Modified [place] 3=Moderate Assistance 7=Complete IndependenceIRFPAI Quality Coding Scale 6 Independent with activity with or without an assistive device 5 Patient requires set up or clean up by helper. Patient completes activity by themselves 4 Supervision or touching assist (CGA). [place] provide cues , steadying assist 3 The helper provides less than half the effort to complete the activity 2 The helper provides more than half the effort to complete the activity 1 Dependent. The helper does all the effort to complete an activity 7 Patient refused to complete or attempt activity 9 The patient did not perform the activity before the current illness or injury 88 Not attempted due to Medical conditions or safety concerns Transfers (B, C, W/C) (FIM): 5 Scootin Rollin Supine to/from Sit: 5 Sit to/from Stand: 5 Patient SBA to EOB with PT taking SAO2 on 6L HF at 94%. PT then checked SAO2 in stand on 6L O2 HF at 94% Gait Training Gait (FIM): 1 Distance (FIM): 1=up to 49 ft Distance: 8' Gait Level of Assist: 4 Gait Assistive Device: FWW at 8' patient stated he needed to sit down secondary to he reported he was going to "pass out" PT got him to commode and called for assistance. Assessment PT called for assistance as I placed him in sit on commode and he went unresponsive. Nursing arrived and called a code blue. We got him to the bed and code team arrived. PT Distribution Center Manager Goals Senior Living Goals PT Senior Living Goals Time Frame: November 11, 2017 Transfers (B,C,W/C) (FIM): 6 Gait (FIM): 5 (household) Gait distance (FIM): 7=051-70 ft Gait Assistive Device: FWW PT Plan Treatment/Plan Treatment Plan: Discontinue PT Treatment Plan: Bed Mobility, Education, Functional Activity [place], Functional Strength, Gait, Safety, Therapeutic Exercise, Transfers Treatment Duration: November 11, 2017 Frequency: 6 times per week Estimated Hrs Per Day: .5 hour per day Patient and/or Family Agrees t: Yes Time/GCodes Time In: 1020 Time Out: 1028 Total Billed Treatment Time: 8 Total Billed Treatment 1 visit FA 8 min RICHY BOOGIE PT November 05, 2017 10:49
--- NOTE | 2017-11-05 10:53 | Code Blue Response-Hospitalist ---
General Date Seen/Responded 11/05/17 Source: RN/MD Exam Limitations: clinical condition History of Present Illness Time seen by provider: 09:35 Initial Comments This is a 57-year-old white male who is in process of evaluation for lung transplant with history of kidney transplant that had very severe COPD and chronic respiratory failure who became cyanotic and unresponsive after getting up with physical therapy. He never regained consciousness he was intubated and sent up to the ICU under Dr. Ambriz's care after the CODE BLUE. Timing/Duration: just prior to arrival Severity: severe Modifying Factors: Improves With Activity Associated Symptoms: shortness of breath Allergies and Home Medications Allergies Coded Allergies: varenicline (Unverified Allergy, Severe, 05/11/17) Hkmyitm-Tar-Exg Reductase Inhibitor (Unverified Allergy, Unknown, 05/11/17 ) Home Medications Albuterol Sulfate 8.5 Gm Hfa.aer.ad, 2 PUFF INH Q6H PRN for SHORTNESS OF BREATH, (Reported) Allopurinol 100 Mg Tablet, 100 MG PO 1300, (Reported) Budesonide/Formoterol Fumarate 10.2 Gm Hfa.aer.ad, 2 PUFF IH 1300,0100, ( Reported) Carvedilol 25 Mg Tablet, 25 MG PO 1300,0100, (Reported) Cyclosporine, Modified 25 Mg Capsule, 50 MG PO 1300, (Reported) TAKES 2 (25MG) CAPSULES Cyclosporine, Modified 25 Mg Capsule, 25 MG PO 0100, (Reported) Furosemide 80 Mg Tablet, 80 MG PO DAILY, (Reported) Levalbuterol HCl 0.63 Mg/3 Ml Vial.neb, 0.63 MG NEB TID PRN for SHORTNESS OF BREATH, (Reported) Mycophenolate Sodium 360 Mg Tablet.dr, 360 MG PO 1300,0100, (Reported) Nystatin 100,000 Unit/1 Ml Oral.susp, 5 ML PO QID PRN for MOUTH SORES, (Reported ) Pantoprazole Sodium 40 Mg Tablet.dr, 40 MG PO 1300,0100, (Reported) Prednisone 5 Mg Tablet, 5 MG PO 1300, (Reported) Tiotropium [place] 1 Inh Aerp, 1 CAP INH 1300, (Reported) Patient Home Medication List Home Medication List Reviewed: Yes Physical Exam Vital Signs Vital Signs - First Documented 11/03/17 11/05/17 23:20 10:50 Temp 98.3 Pulse 97 Resp 13 B/P (MAP) 135/84 (101) Pulse Ox 100 O2 Delivery Nasal Cannula O2 Flow Rate 6.00 FiO2 60 Capillary Refill : Less Than 3 Seconds General Appearance: severe distress, obese Neck: normal inspection Respiratory: respiratory distress, decreased breath sounds, accessory muscle use, crackles, rales, rhonchi Cardiovascular: tachycardia Neurologic/Psychiatric: disoriented x 3 Procedures/Interventions Date of ETT Placement: Jul 21, 2017 Time of ETT Placement: 1200 Critical Care Note Critical Care Start Time: 09:35 Stop Time: 09:55 Progress Patient had a standard CODE BLUE and team was notified arrived at the bedside immediately and patient was cyanotic and unresponsive. He was pulseless revealed rhythm on telemetry so CPR was initiated along with 2 rounds of epinephrine regain pulse patient was intubated by anesthesia services and was transferred up to the ICU to Dr. Ambriz. Progress/Results/Core Measures Results/Orders Lab Results Laboratory Tests Test 11/03/17 23:27 11/04/17 00:00 11/04/17 05:50 11/05/17 11:00 Range/Units White Blood Count 9.7 6.8 13.0 H 4.3-11.0 10^3/uL Red Blood Count 2.91 L 3.02 L 2.97 L 4.35-5.85 10^6/uL Hemoglobin 8.4 L 8.7 L 8.5 L 13.3-17.7 G/DL Hematocrit 27 L 28 L 27 L 40-54 % Mean Corpuscular Volume 91 91 92 80-99 FL Mean Corpuscular Hemoglobin 29 29 29 25-34 PG Mean Corpuscular Hemoglobin Concent 32 32 31 L 32-36 G/DL Red Cell Distribution Width 14.5 14.2 14.5 10.0-14.5 % Platelet Count 303 274 339 130-400 10^3/uL Mean Platelet Volume 9.8 10.1 9.9 7.4-10.4 FL Neutrophils (%) (Auto) 91 H 98 H 87 H 42-75 % Lymphocytes (%) (Auto) 4 L 2 L 8 L 12-44 % Monocytes (%) (Auto) 4 1 5 0-12 % Eosinophils (%) (Auto) 1 0 0 0-10 % Basophils (%) (Auto) 0 0 0 0-10 % Neutrophils # (Auto) 8.8 H 6.7 11.4 H 1.8-7.8 X 10^3 Lymphocytes # (Auto) 0.4 L 0.1 L 1.0 1.0-4.0 X 10^3 Monocytes # (Auto) 0.4 0.1 0.7 0.0-1.0 X 10^3 Eosinophils # (Auto) 0.1 0.0 0.0 0.0-0.3 10^3/uL Basophils # (Auto) 0.0 0.0 0.0 0.0-0.1 10^3/uL Prothrombin Time 13.6 12.2-14.7 SEC INR Comment 1.0 0.8-1.4 Activated Partial Thromboplast Time 31 24-35 SEC Sodium Level 121 *L 122 *L 122 *L 135-145 MMOL/L Potassium Level 4.4 4.9 5.7 H 3.6-5.0 MMOL/L Chloride Level 82 L 84 L 90 L 98-107 MMOL/L Carbon Dioxide Level 24 22 16 L 21-32 MMOL/L Anion Gap 15 H 16 H 16 H 5-14 MMOL/L Blood Urea Nitrogen 76 H 74 H 90 H 7-18 MG/DL Creatinine 3.85 H 3.73 H 4.55 #H 0.60-1.30 MG/DL Estimat Glomerular Filtration Rate 16 17 13 BUN/Creatinine Ratio 20 20 20 Glucose Level 124 H 151 H 179 H 70-105 MG/DL Lactic Acid Level 0.78 5.54 *H 0.50-2.00 MMOL/L Calcium Level 8.5 8.3 L 7.6 L 8.5-10.1 MG/DL Total Bilirubin 0.7 0.8 0.1-1.0 MG/DL Aspartate Amino Transf (AST/SGOT) 4 L 83 H 5-34 U/L Alanine Aminotransferase (ALT/SGPT) < 6 87 H 0-55 U/L Alkaline Phosphatase 96 78 40-136 U/L Troponin I < 0.30 < 0.30 <0.30 NG/ML Total Protein 6.0 L 5.4 L 6.4-8.2 GM/DL Albumin 3.3 2.9 L 3.2-4.5 GM/DL C-Reactive Protein High Sensitivity 4.74 H 0.00-0.50 MG/DL B-Type Natriuretic Peptide 7348.6 H <100.0 PG/ML Phosphorus Level 7.3 H 2.3-4.7 MG/DL Magnesium Level 1.2 L 1.8-2.4 MG/DL Test 11/05/17 11:05 Range/Units Glucometer 176 H 70-110 MG/DL Micro Results Microbiology 11/04/17 Blood Culture - Preliminary, Resulted No growth 11/03/17 Blood Culture - Preliminary, Resulted No growth 11/04/17 Influenza Types A,B Antigen (TANIYA) - Final, Complete My Orders Orders - INDIGO FARRIS DO Transfer - Bed/Room Transfer (11/05/17 11:06) Vital Signs/I&O 11/03/17 11/03/17 11/03/17 11/04/17 23:20 23:20 23:36 01:29 Temp 98.3 98.3 Pulse 97 92 Resp 13 20 B/P (MAP) 135/84 (101) 134/93 (101) Pulse Ox 100 100 100 96 O2 Delivery Nasal Cannula Nasal Cannula Nasal Cannula Nasal Cannula O2 Flow Rate 6.00 6.00 8.00 4.00 11/04/17 11/04/17 11/04/17 11/04/17 01:45 01:45 03:00 03:01 Temp 97.7 98.0 Pulse 97 94 Resp 22 19 B/P (MAP) 132/79 (96) 131/89 (103) Pulse Ox 91 96 90 O2 Delivery Nasal Cannula Nasal Cannula Nasal Cannula Nasal Cannula O2 Flow Rate 4.00 4.00 5.00 4.00 11/04/17 11/04/17 11/04/17 11/04/17 03:15 04:00 05:00 05:59 Pulse 94 93 97 95 Resp 16 19 20 B/P (MAP) 142/85 (104) 122/79 (93) 149/91 (110) Pulse Ox 100 98 92 O2 Delivery Nasal Cannula Nasal Cannula Nasal Cannula O2 Flow Rate 5.00 5.00 5.00 11/04/17 11/04/17 11/04/17 11/04/17 06:52 06:52 07:00 08:00 Temp 97.3 Pulse 107 97 98 Resp 24 16 B/P (MAP) 116/71 (86) 153/100 (117) Pulse Ox 94 92 98 O2 Delivery Nasal Cannula Nasal Cannula Nasal Cannula O2 Flow Rate 8.00 6.00 8.00 11/04/17 11/04/17 11/04/17 11/04/17 09:00 11:10 12:00 13:00 Temp 98.1 Pulse 104 96 Resp 18 B/P (MAP) 127/75 (92) Pulse Ox 99 95 O2 Delivery Nasal Cannula Nasal Cannula Nasal Cannula O2 Flow Rate 6.00 6.00 8.00 11/04/17 11/04/17 11/04/17 11/04/17 15:18 15:56 18:56 19:00 Temp 97.4 Pulse 96 91 Resp 22 B/P (MAP) 135/80 (98) Pulse Ox 100 95 98 O2 Delivery Nasal Cannula Nasal Cannula Nasal Cannula O2 Flow Rate 6.00 8.00 6.00 11/04/17 11/04/17 11/04/17 11/04/17 19:14 21:00 21:52 21:57 Temp 97.5 Pulse 90 Resp 20 B/P (MAP) 132/76 (94) Pulse Ox 96 96 O2 Delivery Nasal Cannula Nasal Cannula Nasal Cannula Nasal Cannula O2 Flow Rate 8.00 6.00 5.00 5.00 11/05/17 11/05/17 11/05/17 11/05/17 00:01 01:00 02:10 04:02 Temp 98.4 97.6 Pulse 95 92 93 Resp 17 18 B/P (MAP) 136/71 (92) 128/70 (89) Pulse Ox 20 88 94 O2 Delivery Nasal Cannula Nasal Cannula Nasal Cannula O2 Flow Rate 8.00 5.00 8.00 11/05/17 11/05/17 11/05/17 11/05/17 06:20 06:26 07:00 08:49 Temp 97.6 Pulse 93 94 Resp 18 B/P (MAP) 131/79 (96) Pulse Ox 97 97 O2 Delivery Nasal Cannula Nasal Cannula Nasal Cannula O2 Flow Rate 6.00 6.00 5.00 11/05/17 11/05/17 11/05/17 09:00 10:02 10:50 Pulse 106 Resp 22 Pulse Ox 98 100 O2 Delivery Nasal Cannula Nasal Cannula O2 Flow Rate 6.00 6.00 FiO2 60 11/04/17 23:59 Intake Total 1633 ml Output Total 220 ml Balance 1413 ml Blood Pressure Mean: 96 Diagnostic Imaging Diagonstic Imaging: Xray Plain Films/CT/US/NM/MRI: chest Time of Consult: 01:03 Transfer of Care Time: 09:55 Comfort Measures/ Cardiopulmonary Arrest: Cardiorespiratory Arrest Date of : November 05, 2017 Time of : 11:35 Clinical Quality Measures DVT/VTE Risk/Contraindication: Risk Factor Score Per Nursin RFS Level Per Nursing on Admit: 3=High Diagnosis/Problems Diagnosis/Problems (1) Cardiorespiratory arrest Status: Acute (2) Respiratory failure Status: Acute (3) CHF (congestive heart failure), NYHA class IV Status: Acute (4) Renal failure (ARF), acute on chronic Status: Acute INDIGO FARRIS DO November 05, 2017 10:53
[2017-11-05] MEDS ORDERED: PROPOFOL DRIP (ICU) 100 ML IV ONE (11:03)
--- NOTE | 2017-11-05 11:14 | Pulmonary Consultation ---
History of Present Illness History of Present Illness Date of Consultation 11/05/17 11:08 Time Seen by Provider: 11:08 Date of Admission History of Present Illness 57yo with hx of kidney transplant, severe oxygen dependent COPD, and multiple hospitalizations presented to ED 11/04/17 secondary to progressive intermittent SOB and chest tightness x 1 wk, nausea, vomiting, and diarrhea. He also had a temp of 100.3 as out patient . No fever since admission. Pt was admitted to 4th floor and was doing well until he became very weak and had syncope while setting on bedside toilet and physical therapy at bedside. Pt went into PEA CODE BLUE was called. 3 mins of chest compressions were done. PT had ROSC with 2 rounds of epi. He was intubated and transferred to ICU. CUrrently he is on ventilator. is at bedside. Pt is not responding to commands however he is moving all extremities. Currently SBP is 118. Labs and radiology are pending. Allergies and Home Medications Allergies Coded Allergies: varenicline (Unverified Allergy, Severe, 05/11/17) Xwymydx-Pbr-Lvr Reductase Inhibitor (Unverified Allergy, Unknown, 05/11/17 ) Home Medications Albuterol Sulfate 8.5 Gm Hfa.aer.ad, 2 PUFF INH Q6H PRN for SHORTNESS OF BREATH, (Reported) Allopurinol 100 Mg Tablet, 100 MG PO 1300, (Reported) Budesonide/Formoterol Fumarate 10.2 Gm Hfa.aer.ad, 2 PUFF IH 1300,0100, ( Reported) Carvedilol 25 Mg Tablet, 25 MG PO 1300,0100, (Reported) Cyclosporine, Modified 25 Mg Capsule, 50 MG PO 1300, (Reported) TAKES 2 (25MG) CAPSULES Cyclosporine, Modified 25 Mg Capsule, 25 MG PO 0100, (Reported) Furosemide 80 Mg Tablet, 80 MG PO DAILY, (Reported) Levalbuterol HCl 0.63 Mg/3 Ml Vial.neb, 0.63 MG NEB TID PRN for SHORTNESS OF BREATH, (Reported) Mycophenolate Sodium 360 Mg Tablet.dr, 360 MG PO 1300,0100, (Reported) Nystatin 100,000 Unit/1 Ml Oral.susp, 5 ML PO QID PRN for MOUTH SORES, (Reported ) Pantoprazole Sodium 40 Mg Tablet.dr, 40 MG PO 1300,0100, (Reported) Prednisone 5 Mg Tablet, 5 MG PO 1300, (Reported) Tiotropium [place] 1 Inh Aerp, 1 CAP INH 1300, (Reported) Past Twhdwgr-Qhpgkz-Onfqmr Hx Past Med/Social Hx: Reviewed Nursing Past Med/Soc Hx Patient Social History Alcohol Use: Denies Use Recreational Drug Use: No Smoking Status: Former Smoker Type Used: Cigarettes Former Smoker, Quit: May 11, 2011 2nd Hand Smoke Exposure: No Recent Foreign Travel: No Contact w/Someone Who Travel: No Recent Infectious Disease Expo: No Recent Hopitalizations: No Immunizations Up To Date Tetanus Booster (TDap): Less than 5yrs Date of Pneumonia Vaccine: Jun 30, 2016 Date of Influenza Vaccine: Apr 27, 2017 Seasonal Allergies Seasonal Allergies: Yes Past Medical History Surgeries: Yes (skin ca removed, kidney transplant) Appendectomy, Gallbladder, Kidney Transplant, Renal Respiratory: Yes (WEARS O2 AT 6L PER NC) Pneumonia, COPD, Emphysema Currently Using CPAP: No Currently Using BIPAP: No Cardiac: Yes Hypertension Neurological: No Reproductive Disorders: No Sexually Transmitted Disease: No HIV/AIDS: No Genitourinary: Yes (HX OF DIALYSIS, HAD KIDNEY TRANSPLANT) Renal Failure, Dialysis Gastrointestinal: No Gastroesophageal Reflux Musculoskeletal: Yes Arthritis Endocrine: No Cataract Loss of Vision: Denies Hearing Impairment: Hard of Hearing, Bilateral Hearing Aide Cancer: Yes Skin Psychosocial: No Integumentary: Yes (SKIN CA) Blood Disorders: Yes (anemia) Adverse Reaction/Blood Tranf: No Family Medical History Arthritis 19 MOTHER Cardiovascular disease 19 FATHER 19 MOTHER Coronary thrombosis 19 MOTHER Deafness or hearing loss 19 FATHER Diabetes mellitus 19 FATHER G8 SISTER Hypertension 19 MOTHER Myocardial infarction 19 FATHER 19 MOTHER G8 SISTER Respiratory disorder No Family History of: AIDS Abdominal aortic aneurysm Callahan's disease Alcoholism Alzheimer's disease Aphasia Asthma Cancer of mouth Cataracts Colon cancer Completed stroke Congenital disease Congenital heart disease Cystic fibrosis Dementia Drug abuse Dysphasia Fibrocystic disease of breast Gastroenteritis Glaucoma Headache disorder Hypercholesterolemia Infertility Kidney disease Neoplasm Osteoporosis Parkinson's disease Prostate cancer Psychosocial problem Seizure disorder Severe allergy Thyroid disease Tuberculosis Visual disorder No Pertinent Family Hx Review of Systems Time Seen by Provider: 08:06 Exam Exam Vital Signs Date Time Temp Pulse Resp B/P (MAP) Pulse Ox O2 Delivery O2 Flow Rate FiO2 11/05/17 10:02 98 Nasal Cannula 6.00 11/05/17 09:00 Nasal Cannula 6.00 5/10/18 08:49 97.6 94 18 131/79 (96) 97 Nasal Cannula 5.00 11/05/17 07:00 93 11/05/17 06:26 Nasal Cannula 6.00 11/05/17 06:20 97 Nasal Cannula 6.00 11/05/17 04:02 97.6 93 18 128/70 (89) 94 Nasal Cannula 8.00 11/05/17 02:10 88 Nasal Cannula 5.00 11/05/17 01:00 92 11/05/17 00:01 98.4 95 17 136/71 (92) 20 Nasal Cannula 8.00 11/04/17 21:57 Nasal Cannula 5.00 11/04/17 21:52 96 Nasal Cannula 5.00 11/04/17 21:00 Nasal Cannula 6.00 11/04/17 19:14 97.5 90 20 132/76 (94) 96 Nasal Cannula 8.00 11/04/17 19:00 91 11/04/17 18:56 98 Nasal Cannula 6.00 11/04/17 15:56 97.4 96 22 135/80 (98) 95 Nasal Cannula 8.00 11/04/17 15:18 100 Nasal Cannula 6.00 11/04/17 13:00 96 11/04/17 12:00 98.1 104 18 127/75 (92) 95 Nasal Cannula 8.00 11/04/17 11:10 99 Nasal Cannula 6.00 I & O 11/05/17 07:00 Intake Total 1833 ml Output Total 370 ml Balance 1463 ml General Appearance: Severe Distress HEENT: Other (ET tube in place) Neck: Normal Inspection Respiratory: Decreased Breath Sounds (distant breath sounds bilaterally) Cardiovascular: Bradycardia Capillary Refill: Less Than 3 Seconds Extremity: Normal Inspection, Pedal Edema Neurologic/Psychiatric: Other (unresponsive) Skin: Cool, Cyanosis, Damp Results Lab Laboratory Tests 11/03/17 23:27 11/04/17 05:50 Assessment/Plan Assessment/Plan syncope with PEA s/p CODE BLUE -3 mins of chest compressions were provided and epi was given -Check stat labs -torres culture Acute respiratory failure -Check CXR, and labs -Continue ventilator therapy -Pt is moving all extremities -will start Diprivan Acute on chronic renal failure with hx of renal transplant Metabolic acidosis -will give 2 amps of NaHC03 Once patient is stable will attempt to transfer to secondary to kidney failure. UPDATE: While lab was drawling blood pt became bradycardic and hypotensive. Chest compressions started epi and atropine given. at bedside and decided to stop ACLS. Pt's prognosis was very poor and as epinephrin metabolized pt persistently declined. Time of is 11:35am. All questions were answered. 60min spent with patient, family and medical team. Critical Care: Critically Ill Patient Time spent with patient (mins): 60 JEOVANY HERNANDEZ DO November 05, 2017 11:14
[2017-11-05 11:18] LABS: BASOPHILS % (AUTO) 0 % (0-10); EOSINOPHILS % (AUTO) 0 % (0-10); HEMATOCRIT 27 % (40-54); HEMOGLOBIN 8.5 G/DL (13.3-17.7); LYMPHOCYTES % (AUTO) 8 % (12-44); MEAN CORPUSCULAR HEMOGLOBIN 29 PG (25-34); MEAN CORPUSCULAR HGB CONC 31 G/DL (32-36); MEAN CORPUSCULAR VOLUME 92 FL (80-99); MEAN PLATELET VOLUME 9.9 FL (7.4-10.4); MONOCYTES # (AUTO) 0.7 X 10^3 (0.0-1.0); MONOCYTES % (AUTO) 5 % (0-12); NEUTROPHILS # (AUTO) 11.4 X 10^3 (1.8-7.8); NEUTROPHILS % (AUTO) 87 % (42-75); PLATELET COUNT 339 10^3/uL (130-400); RED BLOOD COUNT 2.97 10^6/uL (4.35-5.85); RED CELL DISTRIBUTION WIDTH 14.5 % (10.0-14.5)
[2017-11-05] MEDS ORDERED: morphine INJ 4 MG/ML 1 ML (VIAL/SYRINGE) ONE (11:28)
--- NOTE | 2017-11-05 11:28 | Progress Note-Standard ---
Standard Progress Note Progress Notes/Assess & Plan Date Seen by Provider: November 05, 2017 Time Seen by Provider: 10:35 ([id number]) Progress/Assessment & Plan Called to 407 for Code. Pt was unresponsive with CPR in progress. Pt was being ventilated per RT 100% BVM. First DL with Mac 4 grade 3 view. Second attempt at intubation, pt was GR 1 with Potter but unable to pass tube. Changed out stylet to a rigid glidescope stylet and passed easily. Between DL attempts, pt had a large amount of emesis in airway during compressions. Once intubated and confirmed with ETCO2, +BS but coarse with some dark brown fluid in ETT wihich was suctioned out. Pt transferred to ICU critical condition Focused Exam Lactate Level 11/03/17 23:27: Lactic Acid Level 0.78 11/05/17 11:00: Lactic Acid Level Laboratory Tests Test 11/05/17 11:00 GUMARO BACON CRNA November 05, 2017 11:28
[2017-11-05 11:34] LABS: ALBUMIN 2.9 GM/DL (3.2-4.5); BILIRUBIN,TOTAL 0.8 MG/DL (0.1-1.0); CALCIUM 7.6 MG/DL (8.5-10.1); CREATININE SERUM 4.55 MG/DL (0.60-1.30); MAGNESIUM 1.2 MG/DL (1.8-2.4); PHOSPHORUS 7.3 MG/DL (2.3-4.7); POTASSIUM 5.7 MMOL/L (3.6-5.0); TOTAL PROTEIN 5.4 GM/DL (6.4-8.2)
[2017-11-05] MEDS ORDERED: ATROPINE INJECTION 1 MG/10 ML SYR (ABBOTT) ONE (12:00)
[2017-11-05] MEDS ORDERED: EPINEPHrine INJECTION 1 MG/ML AMP ONE (12:00)
[2017-11-05] MEDS ORDERED: EPINEPHrine INJECTION 1 MG/ML AMP IV ONE (12:05)
--- NOTE | 2017-11-05 12:40 | Discharge Summary-Hospitalist ---
Diagnosis/Chief Complaint Date of Admission November 04, 2017 at 01:15 Date of Discharge Admission Diagnosis Hyponatremia. 2.renal failure and a transplanted kidney. 3.pulmonary fibrosis and hypoxia. 4.resolving shingles right lower chest Discharge Diagnosis (1) Cardiorespiratory arrest Status: Acute (2) Respiratory failure Status: Acute (3) CHF (congestive heart failure), NYHA class IV Status: Acute (4) Renal failure (ARF), acute on chronic Status: Acute Discharge Summary Discharge Physical Exam Allergies: Coded Allergies: varenicline (Unverified Allergy, Severe, 05/11/17) Yukvjzf-Lpf-Oys Reductase Inhibitor (Unverified Allergy, Unknown, 05/11/17 ) Vitals & I&Os Vital Signs Date Time Temp Pulse Resp B/P (MAP) Pulse Ox O2 Delivery O2 Flow Rate FiO2 11/05/17 11:30 19 30 76/53 (61) 80 Mechanical Ventilator 100.00 11/05/17 10:50 60 11/05/17 08:49 97.6 General Appearance: Other Hospital Course Hospital course: Patient had a very brief Hospital course he was admitted for dyspnea and debility. He has a history of renal transplant and was in process of obtaining a pulmonary transplant evaluation when he was admitted for exacerbation of COPD. It was of great concern that his pulmonary function was extremely poor and overall prognosis remained significantly poor that he was up with physical therapy had a decompensation episode with respiratory failure became cyanotic and I arrived at the bedside shortly after patient decompensated. EDUARDO RODRIGUEZ was called Dr. Sargent in the ER assisted the resuscitation efforts which resulted in regaining of pulse with 2 rounds of epinephrine or maintaining intubation and CPR. Overall patient did survive transfer to ICU Dr. Ambriz was gracious enough to manage the critical illness 30 minutes later he went into cardiac arrest again and was unable to be resuscitated at that time and patient was pronounced . Labs (last 24 hrs) Laboratory Tests 11/05/17 11:00: White Blood Count 13.0H, Red Blood Count 2.97L, Hemoglobin 8.5L, Hematocrit 27L , Mean Corpuscular Volume 92, Mean Corpuscular Hemoglobin 29, Mean Corpuscular Hemoglobin Concent 31L, Red Cell Distribution Width 14.5, Platelet Count 339, Mean Platelet Volume 9.9, Neutrophils (%) (Auto) 87H, Lymphocytes (%) (Auto) 8L , Monocytes (%) (Auto) 5, Eosinophils (%) (Auto) 0, Basophils (%) (Auto) 0, Neutrophils # (Auto) 11.4H, Lymphocytes # (Auto) 1.0, Monocytes # (Auto) 0.7, Eosinophils # (Auto) 0.0, Basophils # (Auto) 0.0, Sodium Level 122*L, Potassium Level 5.7H, Chloride Level 90L, Carbon Dioxide Level 16L, Anion Gap 16H, Blood Urea Nitrogen 90H, Creatinine 4.55#H, Estimat Glomerular Filtration Rate 13, BUN /Creatinine Ratio 20, Glucose Level 179H, Lactic Acid Level 5.54*H, Calcium Level 7.6L, Phosphorus Level 7.3H, Magnesium Level 1.2L, Total Bilirubin 0.8, Aspartate Amino Transf (AST/SGOT) 83H, Alanine Aminotransferase (ALT/SGPT) 87H, Alkaline Phosphatase 78, Troponin I < 0.30, Total Protein 5.4L, Albumin 2.9L 11/05/17 11:05: Glucometer 176H Microbiology 11/04/17 Blood Culture - Preliminary, Resulted No growth 11/04/17 Influenza Types A,B Antigen (TANIYA) - Final, Complete Patient resulted labs reviewed. Pending Labs Discussion & Recommendations Discharge Planning: <30 minutes discharge planning Discharge Home Medications: Active Scripts Active Reported Cyclosporine Modified (Cyclosporine, Modified) 25 Mg Capsule 25 Mg PO 0100 Levalbuterol HCl 0.63 Mg/3 Ml Vial.neb 0.63 Mg NEB TID PRN Carvedilol 25 Mg Tablet 25 Mg PO 1300,0100 Furosemide 80 Mg Tablet 80 Mg PO DAILY Symbicort 160-4.5 Mcg Inhaler (Budesonide/Formoterol Fumarate) 10.2 Gm Hfa.aer.ad 2 Puff IH 1300,0100 Nystatin 100,000 Unit/1 Ml Oral.susp 5 Ml PO QID PRN Mycophenolic Acid (Mycophenolate Sodium) 360 Mg Tablet.dr 360 Mg PO 1300,0100 Prednisone 5 Mg Tablet 5 Mg PO 1300 Cyclosporine Modified (Cyclosporine, Modified) 25 Mg Capsule 50 Mg PO 1300 TAKES 2 (25MG) CAPSULES Allopurinol 100 Mg Tablet 100 Mg PO 1300 Proair Hfa (Albuterol Sulfate) 8.5 Gm Hfa.aer.ad 2 Puff INH Q6H PRN Spiriva (Tiotropium [place]) 1 Inh Aerp 1 Cap INH 1300 Pantoprazole Sodium 40 Mg Tablet.dr 40 Mg PO 1300,0100 Instructions to patient/family Please see electronic discharge instructions given to patient. Clinical Quality Measures DVT/VTE Risk/Contraindication: Risk Factor Score Per Nursin RFS Level Per Nursing on Admit: 3=High INDIGO FARRIS DO November 05, 2017 12:40
== END 2017-11-05 13:20 | disposition expired | DRG 208 ==
LOC: EDUNIT# 23:18 → ER 23:19 → 4TH 11-04 01:15 → ICU 11-05 10:50
PROVIDERS: ADMIT Internal Medicine; ATTEND Internal Medicine
PROC: 5A1935Z Respiratory Ventilation, Less than 24 Consecutive Hours (ICD-10-PCS; principal; 2017-11-05)
DX: J43.9 Emphysema, unspecified (principal); E87.1 Hypo-osmolality and hyponatremia; I46.9 Cardiac arrest, cause unspecified; J96.00 Acute respiratory failure, unspecified whether with hypoxia or hypercapnia; N17.9 Acute kidney failure, unspecified; Z94.0 Kidney transplant status; E87.2 Acidosis; J96.10 Chronic respiratory failure, unspecified whether with hypoxia or hypercapnia; N18.9 Chronic kidney disease, unspecified; I11.0 Hypertensive heart disease with heart failure; I50.9 Heart failure, unspecified; R00.1 Bradycardia, unspecified; R07.89 Other chest pain; R11.2 Nausea with vomiting, unspecified; R19.7 Diarrhea, unspecified; B02.9 Zoster without complications; D64.9 Anemia, unspecified; J30.2 Other seasonal allergic rhinitis; K21.9 Gastro-esophageal reflux disease without esophagitis; M19.91 Primary osteoarthritis, unspecified site; H91.93 Unspecified hearing loss, bilateral; Z99.81 Dependence on supplemental oxygen; Z87.891 Personal history of nicotine dependence; Z79.899 Other long term (current) drug therapy; Z85.828 Personal history of other malignant neoplasm of skin; Z97.4 Presence of external hearing-aid
CPT/HCPCS: 36415; 71045; 80048; 80053; 82962; 83605; 83735; 83880; 84100; 84484; 85025; 85610; 85730; 86141; 87040; 87077; 87804; 93005; 94002; 94640; 94664; 94760; 96361; 96374; 96375